=== PATIENT | male | born 1935 | race Caucasian/White ===

== ENCOUNTER → 2017-10-12 08:55 | Outpatient (CLI) | payer MEDICARE, SELFPAY ==
--- NOTE | 2017-10-12 08:55 | DT_ITS ---
This patient was seen during an EMR downtime October 08, 2017 - October 15, 2017. This patient may have a combination of paper and electronic documentation or all paper documentation. All documentation is viewable within the e-chart portion of [facility] for each patient visit.
[2017-10-16 15:34] LABS: Prothrombin Time (Protime)PT. 64.3 SECONDS (11.7-14.9)
[2017-10-16 15:35] LABS: International Normalized Ratio 7.5
[2017-10-16 15:38] LABS: Partial Thromboplast Time > 250.0 Seconds (24.1-36.2)
== END ==
PROVIDERS: Visit Provider Internal Medicine
DX: I48.91 Unspecified atrial fibrillation (principal)
CPT/HCPCS: 36415; 85610; 85730

== ENCOUNTER → 2017-10-13 19:49 | Outpatient (CLI) | payer MEDICARE, SELFPAY ==
--- NOTE | 2017-10-13 19:49 | DT_ITS ---
This patient was seen during an EMR downtime October 08, 2017 - October 15, 2017. This patient may have a combination of paper and electronic documentation or all paper documentation. All documentation is viewable within the e-chart portion of [employer] for each patient visit.
[2017-10-16 01:45] LABS: International Normalized Ratio 7.9; Prothrombin Time (Protime)PT. 66.9 SECONDS (11.7-14.9)
== END ==
PROVIDERS: Family Provider Internal Medicine; PCP Internal Medicine; Visit Provider Internal Medicine
DX: I48.91 Unspecified atrial fibrillation (principal)
CPT/HCPCS: 85610

== ENCOUNTER → 2017-11-26 09:19 | Outpatient (CLI) | payer MEDICARE, SELFPAY ==
[2017-11-26 09:33] LABS: International Normalized Ratio 1.5; Prothrombin Time (Protime)PT. 18.2 SECONDS (11.7-14.9)
== END ==
PROVIDERS: Family Provider Internal Medicine; PCP Internal Medicine; Visit Provider Internal Medicine
DX: I48.91 Unspecified atrial fibrillation (principal)
CPT/HCPCS: 85610

== ENCOUNTER → 2018-03-13 07:29 | Outpatient (CLI) | payer MEDICARE, SELFPAY ==
--- NOTE | 2018-03-13 07:32 | US_ITS ---
STUDY: THYROID ULTRASOUND REASON FOR EXAM: Male, 82 years old. Nodules. Biopsy 2012 2016. TECHNIQUE: Ultrasound evaluation of the thyroid was performed with real-time and static navas-scale imaging. COMPARISON: December 07, 2016. FINDINGS: RIGHT LOBE: The right lobe of the thyroid gland measures 4.7 x 1.8 x 1.5 cm. There is a homogeneous echotexture. 3 nodules, upper pole solid 1.2 x 1.0 x 0.6 cm and 0.4 x 0.4 x 0.3 cm and lower pole cyst 0.4 x 0.4 x 0.3 cm. LEFT LOBE: The left lobe of the thyroid gland measures 4.5 x 1.9 x 1.2 cm. There is a homogeneous echotexture. Mid and lower pole solid nodules measuring 0.4 x 0.4 x 0.3 cm, 0.4 x 0.4 x 0.3 cm, and 0.8 x 0.6 x 0.5 cm. ISTHMUS: The isthmus measures 4 mm . The regional lymph nodes are normal. US/Thyroid IMPRESSION: Thyromegaly with nodules bilaterally not significantly changed. Electronically Signed: Guru Corona MD at 6:21 EST , Service support ,
== END ==
PROVIDERS: Family Provider Internal Medicine; PCP Internal Medicine; Referring Provider Surgery; Visit Provider Surgery
DX: E04.2 Nontoxic multinodular goiter (principal)
CPT/HCPCS: 76536

== ENCOUNTER → 2018-08-21 | Outpatient (CLI) | payer MEDICARE, SELFPAY ==
[2018-08-21 10:57] LABS: International Normalized Ratio 2.2; Prothrombin Time (Protime)PT. 24.8 SECONDS (11.7-14.9)
== END | disposition home or self-care (01) ==
PROVIDERS: Family Provider Internal Medicine; PCP Internal Medicine; Referring Provider Internal Medicine; Visit Provider Internal Medicine
DX: I48.91 Unspecified atrial fibrillation (principal)
CPT/HCPCS: 85610

== ENCOUNTER → 2018-09-04 | Outpatient (CLI) | payer MEDICARE, SELFPAY ==
[2018-09-04 12:38] LABS: International Normalized Ratio 2.1; Prothrombin Time (Protime)PT. 23.4 SECONDS (11.7-14.9)
== END | disposition home or self-care (01) ==
LOC: LABSPEC 12:01
PROVIDERS: Family Provider Internal Medicine; PCP Internal Medicine; Referring Provider Internal Medicine; Visit Provider Internal Medicine
DX: I48.91 Unspecified atrial fibrillation (principal)
CPT/HCPCS: 85610

== ENCOUNTER → 2019-03-13 | Outpatient (CLI) | payer MEDICARE, SELFPAY ==
--- NOTE | 2019-03-13 09:08 | US_ITS ---
STUDY: THYROID ULTRASOUND REASON FOR EXAM: Male, 83 years old. Nodule, goiter TECHNIQUE: Ultrasound evaluation of the thyroid was performed with real-time and static navas-scale imaging. COMPARISON: Prior study of 03/13/2018 FINDINGS: RIGHT LOBE: The right lobe of the thyroid gland measures 4.0 x 1.7 x 1.6 cm. There is a heterogeneous echotexture. There is a complex cyst of the superior pole measuring 4 x 4 by 3 mm. There is a complex cyst of the inferior pole measuring 12 x 12 x 7 mm. There is a cyst with calcification of the inferior pole measuring 4 x 4 by 4 mm. Vascularity is within normal limits. LEFT LOBE: The left lobe of the thyroid gland measures 4.2 x 1.4 x 1.2 cm. There is a heterogeneous echotexture. There is a mid pole complex cyst measuring 4 x 4 by 3 mm. There is a hypoechoic lower pole nodule measuring 9 x 8 x 7 mm. There is an additional complex midpole cyst measuring 4 x 4 by 3 mm. Vascularity appears within normal limits. ISTHMUS: The isthmus measures 4 mm . The regional lymph nodes are normal. US/Thyroid IMPRESSION: Bilateral complex cysts as detailed above. A solid upper pole nodule of the right thyroid lobe reported on the prior study is not seen at this time. Solid nodule of the lower pole of the left thyroid lobe presently measuring 9 x 8 x 7 mm, slightly increased in size from 8 x 6 x 5 mm on the prior study. Previously noted mid and lower pole solid nodules appear to have undergone cystic degeneration in the interval. Electronically Signed: Darrel Warren MD at 17:02 EST , Service support ,
== END | disposition home or self-care (01) ==
PROVIDERS: Family Provider Internal Medicine; PCP Internal Medicine; Referring Provider Surgery; Visit Provider Surgery
DX: E04.2 Nontoxic multinodular goiter (principal)
CPT/HCPCS: 76536

== ENCOUNTER → 2019-03-24 | Outpatient (CLI) | payer MEDICARE, SELFPAY ==
[2019-03-19 09:59] VITALS: BMI 25.4
--- NOTE | 2019-03-24 07:11 | CT_ITS ---
STUDY: CT ABDOMEN AND PELVIS WITH CONTRAST REASON FOR EXAM: Male, 83 years old. Abdominal discomfort. History of lactose intolerance. RADIATION DOSAGE (If Supplied By Facility): CTDIvol = ( 12.6 ) mGy, DLP = ( 762.26 ) mGycm TECHNIQUE: Transaxial images were obtained from the dome of the diaphragm to the symphysis pubis with oral contrast. IV/Oral Isovue 370 100CC was administered. Sagittal and coronal images were reconstructed. Individualized dose optimization techniques were used for this CT. COMPARISON: None. FINDINGS: Minimal increased markings at the lung bases suggest a mild scarring. A dual-chamber pacemaker is seen. 1 cm cyst is seen in the lateral aspect of the right lobe of the liver superiorly. Normal gallbladder and extrahepatic biliary system. Normal spleen. Normal pancreas. Normal bilateral adrenal glands. Normal right kidney. Normal left kidney. Normal visualized stomach. Normal small intestine. The large amount of fecal material is seen in the colon more prominent in the right hemicolon The appendix is visualized and appears normal. There is diffuse atherosclerotic calcification of the abdominal aorta, without a demonstrated aneurysm. Normal inferior vena cava. Normal retroperitoneum. Questionable filling defect in the anterior aspect of the bladder. Correlation with ultrasound is recommended. There is enlargement of the prostate gland. It measures 4.7 sinus by 4.5 cm. Central calcification is seen. Normal abdominal wall. There are degenerative changes of the visualized lumbar spine. Status post right hip replacement. CT/Abdomen/Pelvis WITH Contrast IMPRESSION: Small hepatic cyst. Prostatic enlargement with indentation of the bladder base. A small filling defect in the urinary bladder. Correlation with ultrasound is recommended. Large amount of fecal material is seen in the colon worse on the right side. Electronically Signed: Nima Khoury, at 9:27 EST , Service support ,
[2019-03-24 07:26] LABS: CREATININE FINGERSTICK 1.2 mg/dL (0.70-1.30)
== END | disposition home or self-care (01) ==
LOC: CT 07:10
PROVIDERS: Family Provider Internal Medicine; PCP Internal Medicine; Referring Provider Surgery; Visit Provider Surgery
DX: R10.9 Unspecified abdominal pain (principal)
CPT/HCPCS: 74177; Q9967

== ENCOUNTER → 2020-01-01 | Outpatient (CLI) | payer MEDICARE, SELFPAY ==
[2019-03-19 09:59] VITALS: BMI 25.4
[2020-01-01 10:52] LABS: Prothrombin Time (Protime)PT. 22.6 SECONDS (11.7-14.9)
== END | disposition home or self-care (01) ==
LOC: LABSPEC 10:29
PROVIDERS: PCP Internal Medicine; Referring Provider Internal Medicine; Visit Provider Internal Medicine
DX: I48.20 Chronic atrial fibrillation, unspecified (principal)
CPT/HCPCS: 85610

== ENCOUNTER 2020-04-15 19:01 | Emergency (ER) | payer MEDICARE, SELFPAY ==
[2020-04-15 19:02] VITALS: BP 185/96; PULSE 65; RESP 15; TEMP 36.4; O2SAT 99; BMI 24.4
--- NOTE | 2020-04-15 19:24 | CT_ITS ---
STUDY: CT BRAIN WITHOUT CONTRAST REASON FOR EXAM: Male, 85 years old. Confusion. RADIATION DOSAGE (If Supplied By Facility): CTDIvol = ( 44.99 ) mGy, DLP = ( 829.85 ) mGycm TECHNIQUE: Transaxial CT imaging of the brain was performed without administration of intravenous contrast material. Individualized dose optimization techniques were used for this CT. COMPARISON: 12/13/2012. FINDINGS: Normal soft tissue structures. Normal calvarium. Normal size ventricles and extra-axial spaces for the patient''s age. Normal white matter tracts of the cerebral hemispheres. Normal basal ganglia and thalami. Normal brainstem. Mild atrophy of the left cerebellar hemisphere. 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 There is no intracranial hemorrhage. There are no findings of an acute ischemic infarction. Normal visualized paranasal sinuses. CT/Brain/Head without Contrast IMPRESSION: No acute intracranial or calvarial abnormality. There is no major interval change. Electronically Signed: Julio C Chavis DO at 19:57 EST Tel [phone], Service support ,
[2020-04-15 19:32] LABS: Absolute Lymphocyte Count 1.19 X10^3/uL (0.83-4.51); Absolute Neutrophil Count 5.1 X10^3/uL (2.0-7.7); Basophil# 0.03 X10^3/uL; Basophil% 0.4 % (0-1); Eosinophil# 0.14 X10^3/uL; Hematocrit 45.5 % (40-54); Hemoglobin 14.9 g/dL (13.0-16.5); Lymphocyte # 1.19 X10^3/ul (4.0); Lymphocyte % 16.9 % (19-41); Mean Corp Hgb Conc 32.7 g/dL (32-36); Mean Corpuscular Hgb 29.7 pg (27.0-32.0); Mean Corpuscular Volume 90.6 fL (80-94); Mean Platelet Vol. 10.9 fl (6.2-12.0); Monocyte# 0.54 X10^3/uL; Monocyte% 7.7 % (0-10); NRBC Flagged by Analyzer 0 % (0-5); Neutrophil # 5.11 X10^3/uL (2.7-7.7); Neutrophil % 72.6 % (47-70); Platelet Count 177 K/mm3 (150-450); RBC Distribution Width CV 13.3 % (11.6-14.6); RBC Distribution Width SD 44.6 fl (35.1-43.9); Red Blood Count 5.02 M/mm3 (4.6-6.2)
--- NOTE | 2020-04-15 19:32 | RAD_ITS ---
STUDY: X-RAY CHEST REASON FOR EXAM: Male, 85 years old. Confusion. Cough. TECHNIQUE: Single AP portable view of the chest. COMPARISON: Chest, 12/11/2012. FINDINGS: The lungs are clear and expanded. There is no demonstrated pleural abnormality. Normal size heart. Apical cardiac pacemaker. Normal mediastinum and gagandeep. Normal visualized pulmonary arteries. Normal visualized aortic arch and descending thoracic aorta. Normal visualized thoracic spine. Normal visualized ribs, clavicles, and shoulders. There is no demonstrated abnormality of the visualized soft tissue structures of the upper abdomen. RAD/Chest 1 View (Portable) IMPRESSION: No acute cardiopulmonary disease or major interval change. Electronically Signed: Julio C Chavis DO at 19:48 EST Tel [phone], Service support ,
[2020-04-15 19:41] LABS: International Normalized Ratio 1.9
[2020-04-15 19:47] LABS: ALB/GLOB Ratio 1.1 RATIO (0.9-2.4); AST(SGOT) 14 U/L (15-37); Alanine Aminotransfer ALT/SGPT 23 U/L (16-61); Albumin, Serum 3.8 g/dL (3.2-5.0); Alkaline Phosphatase 135 U/L (45-117); Anion Gap 5 (5-15); BUN 23 mg/dL (7-18); BUN/Creat Ratio 17.2 RATIO (10-20); Calcium,Total 8.6 mg/dL (8.5-10.1); Chloride 108 mmol/L (98-107); Creatinine, Serum 1.34 mg/dL (0.70-1.30); EST Glomerular Filtration Rate 54 mL/min (>60); Est Glom Filt Rate - Afr Amer 65 mL/min (>60); Estimated Creatinine Clearance 42.93 ml/min; Globulin 3.4 g/dL (2.2-4.2); Glucose 137 mg/dL (74-106); Potassium 3.6 mmol/L (3.5-5.1); Protein, Total 7.2 g/dL (6.4-8.2); Sodium Level 143 mmol/L (136-145)
[2020-04-15 19:56] LABS: Bacteria 0 SEEN /hpf (None Seen); Mucous, Urine 0 SEEN /hpf (<or=2+); Red Blood Cells-Urine 0 SEEN /hpf (0-5); Squamous Epithelial Cells - UA 0 SEEN /hpf (0-5); White Blood Cells 0 SEEN /hpf (0-5)
[2020-04-15 19:57] LABS: Color, Urine Yellow (Yellow); Glucose, Dipstick Normal (Normal); Ketone-Dipstick Negative (Negative); Leukocyte Esterase-Dipstick Negative /ul (Negative); Nitrite-Dipstick Negative (Negative); Occult Blood-Urine Negative /ul (Negative); Protein-Dipstick Negative (Negative); Urine Bilirubin Dipstick Negative (Negative); Urine Clarity Clear (Clear); Urine Urobilinogen Normal (Normal)
[2020-04-15 21:21] VITALS: PULSE 74; RESP 16
--- NOTE | 2020-04-15 21:33 | ED.VISSUMM ---
- ER Visit Summary Date of Service: 04/15/20 Chief Complaint: Confusion History of Present Illness: The patient is a 85 M patient presents with confusion. Started today. The felt like he was confused at dinnertime. He did not know what a phone studio technician was and that she states that he was confused as to why she was texting him to come eat dinner. He has not had any fevers or any recent illnesses. No falls or trauma. He is on Plavix and Coumadin. I spoke with the at length and she states that this is happened before. 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 Physical Examination: Vital signs reviewed. HEENT exam unremarkable. Heart is regular rate and rhythm without murmurs. Lungs are clear to auscultation. Abdomen is soft and nontender. Extremities reveal no edema. Skin exam normal. Neurologic exam shows he is alert to place and person but he does get confused with the year. He does not know who his primary care physician is and states that he was not sure why he was confused or what the circumstances were around that. He moves all 4 extremities equally. He walks with a normal gait. He has no slurred speech or facial droop. Test Results: Laboratory studies show a creatinine of 1.34 which is baseline. INR 1.9, urinalysis is normal. 1 view chest x-ray interpreted by myself and radiologist shows no acute findings. CAT scan of the head is unremarkable. Emergency Department Course and Treatment: Patient had no change in his symptoms. I spoke with the at length. She would like to take the patient home. I feel that this is appropriate at this patient seems to be able to take care of himself and he looks well-kept. This seems to be consistent with transient global amnesia but he does not have any significant stressor that may have triggered this. I do not see any other evidence of a stroke. The states that she has dealt with this before. I attempted to call the physician on-call for his PCP, Dr. Kay. He has not called back at this time. The states that she will call Dr. Archibald his regular PCP tomorrow morning for a follow-up appointment. She understands that if anything were to change that she is going to bring him back to the emergency department. Treatment Plan: [] Disposition: Discharge Impression: Confusion, concern for TGA This note was generated with [employer] dictation software. It may contain incorrect words, spelling, and punctuation that were not noted in review of the chart prior to signing ED Disposition - Plan for ED Patient: Disposition: Home or Assisted Living Instructions: ED Confusion Referrals: Aric Archibald MD [Primary Care Provider] -
[2020-04-15 21:59] VITALS: BP 168/92; PULSE 73; RESP 16; O2SAT 97
== END 2020-04-15 22:00 | disposition home or self-care (01) ==
PROVIDERS: Emergency Provider Emergency Medicine; PCP Internal Medicine
DX: R41.0 Disorientation, unspecified (principal); I48.91 Unspecified atrial fibrillation; E78.00 Pure hypercholesterolemia, unspecified; Z79.02 Long term (current) use of antithrombotics/antiplatelets; Z79.01 Long term (current) use of anticoagulants; Z79.899 Other long term (current) drug therapy
CPT/HCPCS: 70450; 71045; 80053; 81001; 85025; 85610; 99283; A4216

== ENCOUNTER 2020-05-27 14:04 | Outpatient (RCR) | payer MEDICARE, SELFPAY | END 2020-05-27 23:59 | LOC: IMMUN 14:04 | PROVIDERS: PCP Internal Medicine; Visit Provider Family Medicine | DX: Z23 Encounter for immunization (principal) | CPT/HCPCS: 0011A; 0012A; 91301 ==

== ENCOUNTER 2020-11-12 20:34 | Inpatient (IN) | payer MEDICARE, SELFPAY ==
[2020-11-12 20:35] VITALS: BP 115/72; PULSE 101; RESP 18; TEMP 36.6; O2SAT 97; BMI 24.4
--- NOTE | 2020-11-12 20:38 | EKG12_ITS ---
Test Reason : DYSRHYTHMIA Blood Pressure : / mmHG Vent. Rate : 111 BPM Atrial Rate : 125 BPM P-R Int : 000 ms QRS Dur : 130 ms QT Int : 304 ms P-R-T Axes : 000 -50 092 degrees QTc Int : 413 ms Atrial fibrillation with rapid ventricular response Left axis deviation Non-specific intra-ventricular conduction block Cannot rule out Septal infarct , age undetermined Abnormal ECG Confirmed by THANIA ROSS, BOO ([id number]), assistant film editor ESTHELA ESCOBEDO ([id number]) on 11/15/2020 1:21:07 PM Referred By: GUIDO Confirmed By:BOO MONTEIRO MD
[2020-11-12 21:19] LABS: Absolute Lymphocyte Count 0.29 X10^3/uL (0.83-4.51); Absolute Neutrophil Count 6.6 X10^3/uL (2.0-7.7); Basophil# 0.05 X10^3/uL; Basophil% 0.6 % (0-1); Eosinophil# 0.24 X10^3/uL; Eosinophils% 3.1 % (0-5); Hematocrit 41.8 % (40-54); Hemoglobin 13.6 g/dL (13.0-16.5); Lymphocyte # 0.29 X10^3/ul (0.83-4.51); Lymphocyte % 3.7 % (19-41); Mean Corp Hgb Conc 32.5 g/dL (32-36); Mean Corpuscular Hgb 28.2 pg (27.0-32.0); Mean Corpuscular Volume 86.5 fL (80-94); Mean Platelet Vol. 9.8 fl (6.2-12.0); Monocyte# 0.55 X10^3/uL; NRBC Flagged by Analyzer 0 % (0-5); Neutrophil # 6.63 X10^3/uL (2.7-7.7); POSITIVE DIFFERENTIAL YES; Platelet Count 295 K/mm3 (150-450); Red Blood Count 4.83 M/mm3 (4.6-6.2); White Blood Count 7.8 K/mm3 (4.4-11.0)
[2020-11-12 21:23] LABS: Differential Indicated SCAN CRITERIA MET
[2020-11-12 21:35] LABS: Anion Gap 8 (5-15); BUN 34 mg/dL (7-18); BUN/Creat Ratio 11.1 RATIO (10-20); Calcium,Total 9.2 mg/dL (8.5-10.1); Chloride 104 mmol/L (98-107); Creatinine, Serum 3.05 mg/dL (0.70-1.30); EST Glomerular Filtration Rate 21 mL/min (>60); Est Glom Filt Rate - Afr Amer 25 mL/min (>60); Estimated Creatinine Clearance 18.86 ml/min; Glucose 187 mg/dL (74-106); Potassium 4.3 mmol/L (3.5-5.1); Sodium Level 137 mmol/L (136-145); Troponin-I HS 6.6 pg/mL (3.0-78.5)
[2020-11-12 21:43] LABS: Platelet Estimate ADEQUATE (ADEQ)
[2020-11-12 21:44] LABS: Anisocytosis RARE; Red Cell Morphology N CHROM NORMAL (NORM C&C)
--- NOTE | 2020-11-12 22:38 | CT_ITS ---
STUDY: CT CHEST, ABDOMEN T PELVIS WITHOUT CONTRAST REASON FOR EXAM: Male, 85 years old. Fall, R low rib pain, on warfarin RADIATION DOSAGE (If Supplied By Facility): CTDIvol = ( 17.14 ) mGy, DLP = ( 1627.16 ) mGycm TECHNIQUE: Transaxial imaging was performed without the administration of intravenous contrast material. Individualized dose optimization techniques were used for this CT. COMPARISON: No relevant priors. FINDINGS: CHEST Moderate right effusion with compressive consolidation of the right lung. Otherwise, the lung edwards are clear. Normal heart and pericardium. Normal mediastinum. Normal hilar regions. Normal unenhanced pulmonary arteries. Normal aorta arch and descending thoracic aorta. Normal osseous structures. There is no demonstrated abnormality of the visualized upper abdomen. ABDOMEN The visualized lung bases are unremarkable. The visualized portions of the heart are within normal limits. Normal liver. Normal gallbladder and extrahepatic biliary system. Normal spleen. There is diffuse atrophy of the pancreas. Normal bilateral adrenal glands. Normal right kidney. There appears to be a soft tissue mass in the region of the left lower kidney near the central collecting system around the ureter measuring 5.9 x 5 cm. There is additional diffuse mesenteric omental caking compatible metastatic disease as well as large mass in the central mesentery measuring 10 x 8.3 cm. Normal visualized stomach. Mesenteric mass. No evidence of bowel obstruction. There are multiple colonic diverticula consistent with diverticulosis. There is non-visualization of the appendix. Moderate volume ascites fluid throughout the abdomen and pelvis. Normal abdominal aorta. Normal inferior vena cava. Normal retroperitoneum. Normal abdominal wall. There are diffuse degenerative changes of the visualized lumbar spine. PELVIS Normal urinary bladder. Normal visualized small intestine. There are multiple colonic diverticula of the sigmoid colon consistent with chronic diverticulosis. There is no pelvic fluid. There is no pelvic lymphadenopathy or mass lesion. Normal visualized pelvic arteries. Normal abdominal wall. There are diffuse degenerative changes of the visualized lumbar spine. CT/CT Chest, Abd, Pelvis WO Cont IMPRESSION: 1. Moderate right effusion with compressive consolidation of the right lower lobe. Left lung is clear 2. There is an ill-defined mass in the region of the left upper ureter near the left lower pole kidney which is highly suspicious for malignant process. There is additional diffuse mesenteric lymphadenopathy with omental caking compatible metastatic disease as well as a large mesenteric mass in the central abdomen as above. IV contrast enhanced exam will be needed to further evaluate 3. Moderate volume ascites fluid throughout the abdomen and pelvis. 4. Moderate left hydronephrosis. Electronically Signed: Qamar Orellana DO at 23:09 EDT Tel , Service support ,
[2020-11-12 22:56] VITALS: BP 128/74; PULSE 88; RESP 23; O2SAT 94
[2020-11-12 23:11] LABS: International Normalized Ratio 1.9; Prothrombin Time (Protime)PT. 20.9 SECONDS (11.7-14.9)
--- NOTE | 2020-11-12 23:31 | EDS_ITS ---
HPI History of Present Illness Chief Complaint: Palpitations Informant: patient Narrative Narrative: Patient is an 85-year-old male with a past medical history of atrial fibrillation on Coumadin, hyperlipidemia who presents to the emergency department for palpitations, shortness of breath and generally not feeling well. He states that this initially started about 2 weeks ago after he fell in his garage. He landed on his right side and had some rib pain. He was never evaluated for this. He states he has been improving but states he has had some palpitations since. He is used to having palpitations with his atrial fibrillation but states that this was felt different to him. He is actually starting to improve at time of arrival to the emergency department. He states last time he had his INR checked was high and he has been holding this recently. He denies any significant abdominal pain. No vomiting. He denies any urinary symptoms. He has had diarrhea and some mild weight loss. He is being treated for IBS. Has had multiple colonoscopies which have been negative. [facility] Medical History Atrial fibrillation BPH (benign prostatic hyperplasia) Change in bowel habit HLD (hyperlipidemia) IBS (irritable bowel syndrome) Multinodular goiter Multiple thyroid nodules Pacemaker Pacemaker Home Medications clopidogrel 75 mg tablet 75 mg PO DAILY 03/19/19 [History Last Taken Unknown] finasteride 5 mg tablet 5 mg PO DAILY 03/19/19 [History Last Taken Unknown] flecainide 150 mg tablet 150 mg PO Q12H 03/19/19 [History Last Taken Unknown] metoprolol succinate 25 mg tablet,extended release 24 hr 25 mg PO DAILY 03/19/19 [History Last Taken Unknown] simvastatin 20 mg tablet 20 mg PO QHS 03/19/19 [History Last Taken Unknown] tamsulosin 0.4 mg capsule 0.4 mg PO DAILY 03/19/19 [History Last Taken Unknown] warfarin 3 mg tablet See Rx Instructions PO QMWF 03/19/19 [History Last Taken Unknown] Allergy/AdvReac Type Severity Reaction Status Date / Time sulfamethoxazole Allergy Intermediate joint pain Verified 11/12/20 20:38 [From Bactrim] trimethoprim [From Bactrim] Allergy Intermediate joint pain Verified 11/12/20 20:38 Family History Mother Arthritis Cancer uterine Father Colon cancer Surgical History History of hip replacement Social History Smoking Status: Never smoker alcohol intake: never substance use type: does not use ROS ROS ED Constitutional Constitutional ED: Denies chills or fever(s) Eyes Eyes: Denies change in vision ENT ENT ED: Denies epistaxis or rhinorrhea Cardiovascular Cardiovascular: Reports chest pain and palpitations Respiratory/Chest Respiratory/Chest: Reports cough and dyspnea Gastrointestinal Gastrointestinal: Reports diarrhea; Denies abdominal pain, nausea or vomiting Genitourinary Genitourinary ED: Denies dysuria, hematuria or urinary frequency Musculoskeletal Musculoskeletal: Denies back pain or neck pain Integumentary Denies rash Neurologic Neurologic: Denies dizziness, headache(s) or weakness EXAM Physical Exam Const Vital Signs: 11/12/20 20:35 11/12/20 22:05 11/12/20 22:56 Temperature 97.9 F Temperature Source Temporal Pulse Rate 101 H 88 Respiratory Rate 18 23 H Respiratory Effort Normal Non-Labored Blood Pressure 115/72 128/74 H Blood Pressure Mean 86 92 Pulse Ox 97 94 Oxygen Delivery Method Room Air Room Air 11/13/20 00:04 Temperature Temperature Source Pulse Rate 82 Respiratory Rate 24 H Respiratory Effort Blood Pressure 134/67 H Blood Pressure Mean 89 Pulse Ox 92 Oxygen Delivery Method Room Air Positive well nourished and well developed General Appearance ED: well developed and NAD HEENT Reports normocephalic, head/scalp atraumatic and moist mucous membranes Eyes PERRL and EOMs intact bilaterally Neck supple Resp normal respiratory effort and clear to auscultation bilaterally Auscultation: Negative for rales, rhonchi or wheezes Cardio regular rate and no murmurs Rhythm: abnormal rhythm GI normal to inspection, nondistended, normoactive bowel sounds and non-tender Palpation: soft; Negative for guarding or rebound tenderness present Extremity normal to inspection General Extremety ED: Negative for edema or tenderness General Extremity: Negative for edema Neuro oriented x3, CN's II-XII intact bilaterally and no sensory deficits noted Sensorium / Orientation: alert Motor Exam: strength 5/5 throughout Psych mental status grossly normal Skin no rashes or lesions noted MDM MDM MDM Narrative Medical decision making narrative: Patient presents to the ED for palpitations, chest wall pain, intermittent shortness of breath. He states he does not feel right. Whenever he did arrive to the ED he had atrial fibrillation with RVR. This has returned to normal rate without any treatment. Basic lab work obtained which did show an DEUCE. This is elevated from his previous lab draw. No other significant acute abnormality noted. Given his recent fall and new DEUCE I did do a CT scan of the chest, abdomen and pelvis. CT scan unfortunately showed a mesenteric mass. There appears to be a renal mass with hydronephrosis of the left kidney as well. Likely this is contributing to his DEUCE. He also has a right-sided pleural effusion. He has been satting in the low 90s on room air but no respiratory distress. Patient will require thoracentesis but his INR is mildly elevated on the Coumadin. All the CT imagings were discussed with the family. They state he has had diarrhea chronically and has had a mild weight loss. They thought he had some sort of irritable bowel syndrome. At this time will bring into the hospital for further evaluation and management. He understands and is agreeable with this plan. Lab Data Labs: Laboratory Results - last 24 hr 11/12/20 11/12/20 11/12/20 21:15 21:15 22:50 WBC 7.8 RBC 4.83 Hgb 13.6 Hct 41.8 MCV 86.5 MCH 28.2 MCHC 32.5 RDW Std Deviation 41.0 RDW Coeff of Flash 13.0 Plt Count 295 MPV 9.8 Immature Gran % (Auto) 0.600 Neut % (Auto) 85.0 H Lymph % (Auto) 3.7 L [place] % (Auto) 7.0 Eos % (Auto) 3.1 Baso % (Auto) 0.6 Absolute Neuts (auto) 6.6 Absolute Lymphs (auto) 0.29 L Nucleated RBC % 0 Differential Comment SEE COMMENT Platelet Estimate ADEQUATE RBC Morphology N CHROM Anisocytosis RARE PT 20.9 H INR 1.9 Sodium 137 Potassium 4.3 Chloride 104 Carbon Dioxide 25.0 Anion Gap 8 BUN 34 H Creatinine 3.05 H Estim Creat Clear Calc 18.86 Est GFR (MDRD) Af Amer 25 L Est GFR (MDRD) Non-Af 21 L BUN/Creatinine Ratio 11.1 Glucose 187 H Calcium 9.2 Troponin I High Sens 6.6 Radiography Diagnostic Testing: Radiology Impression Chest/Abdomen/Pelvis CT 11/12/20 22:38 IMPRESSION: 1. Moderate right effusion with compressive consolidation of the right lower lobe. Left lung is clear 2. There is an ill-defined mass in the region of the left upper ureter near the left lower pole kidney which is highly suspicious for malignant process. There is additional diffuse mesenteric lymphadenopathy with omental caking compatible metastatic disease as well as a large mesenteric mass in the central abdomen as above. IV contrast enhanced exam will be needed to further evaluate 3. Moderate volume ascites fluid throughout the abdomen and pelvis. 4. Moderate left hydronephrosis. Electronically Signed: Qamar Orellana DO at 23:09 EDT Tel , Service support , EKG Initial EKG: Attestation: I personally reviewed and interpreted this EKG as follows: (Rate of 111 bpm and an irregularly irregular rhythm. Prolonged QRS with left bundle branch block. Has left axis deviation. No significant ST elevations or depressions.) Discharge Plan Triage Chief Complaint: Palpitations ED Provider: Roderick Radford Dx/Rx/DC Orders Clinical Impression: Pleural effusion, right, Atrial fibrillation, Left renal mass, DEUCE (acute kidney injury), Mesenteric mass, Ascites Prescriptions: No Action tamsulosin [Flomax] 0.4 mg capsule 0.4 mg PO DAILY RF: 0 warfarin 3 mg tablet See Rx Instructions PO QMWF RF: 0 clopidogrel [Plavix] 75 mg tablet 75 mg PO DAILY RF: 0 simvastatin 20 mg tablet 20 mg PO QHS RF: 0 metoprolol succinate [Toprol XL] 25 mg tablet extended release 24 hr 25 mg PO DAILY RF: 0 finasteride [Proscar] 5 mg tablet 5 mg PO DAILY RF: 0 flecainide 150 mg tablet 150 mg PO Q12H RF: 0 Primary Care Provider: Aric Archibald Referrals: rAic Archibald MD [Primary Care Provider] -
[2020-11-13] VITALS (18 sets, daily range): BP systolic 110–134; BP diastolic 56–76; PULSE 80–149; RESP 16–24; TEMP 36.4–37.1; O2SAT 85–96; BMI 25.2
--- NOTE | 2020-11-13 00:13 | PCM.HP.STD ---
HPI - General General Date of Admission: 11/13/20 Date of Service: 11/13/20 Chief Complaint: Malaise HPI Narrative MAXIMUS ZHAO, is a 85 M with a significant history of a BPH; and atrial fibrillation who presents to the emergency department with persistent malaise for about 2weeks. Associated with his symptoms is sluggishness; and shortness of breath. Upon checking his pulse he realized that he was in A. fib. Of note patient has a history of A. fib as above. His symptoms started about 2 weeks ago with a fall. He fell at his garage and developed pain in his chest; and a cough occasionally productive for sputum. He reports a chronic diarrhea for which he was diagnosed with IBS and lactose intolerance. He reported that his weight has stayed steady in the 170s. Associated with his symptoms is shortness of breath. [facility] Medical History Atrial fibrillation BPH (benign prostatic hyperplasia) Change in bowel habit HLD (hyperlipidemia) IBS (irritable bowel syndrome) Multinodular goiter Multiple thyroid nodules Pacemaker Pacemaker Home Medications clopidogrel 75 mg tablet 75 mg PO DAILY 03/19/19 [History Last Taken Unknown] finasteride 5 mg tablet 5 mg PO DAILY 03/19/19 [History Last Taken Unknown] flecainide 150 mg tablet 150 mg PO Q12H 03/19/19 [History Last Taken Unknown] metoprolol succinate 25 mg tablet,extended release 24 hr 25 mg PO DAILY 03/19/19 [History Last Taken Unknown] simvastatin 20 mg tablet 20 mg PO QHS 03/19/19 [History Last Taken Unknown] tamsulosin 0.4 mg capsule 0.4 mg PO DAILY 03/19/19 [History Last Taken Unknown] warfarin 3 mg tablet See Rx Instructions PO QMWF 03/19/19 [History Last Taken Unknown] Allergy/AdvReac Type Severity Reaction Status Date / Time sulfamethoxazole Allergy Intermediate joint pain Verified 11/12/20 20:38 [From Bactrim] trimethoprim [From Bactrim] Allergy Intermediate joint pain Verified 11/12/20 20:38 Family History Mother Arthritis Cancer uterine Father Colon cancer Surgical History History of hip replacement Social History Smoking Status: Never smoker alcohol intake: never substance use type: does not use ROS ROS Narrative 12 point review of system is negative except as stated in HPI. Vital Signs Vital Signs Vital Signs: 11/12/20 20:35 11/12/20 22:05 11/12/20 22:56 Temperature 97.9 F Temperature Source Temporal Pulse Rate 101 H 88 Respiratory Rate 18 23 H Respiratory Effort Normal Non-Labored Blood Pressure 115/72 128/74 H Blood Pressure Mean 86 92 Pulse Ox 97 94 Oxygen Delivery Method Room Air Room Air 11/13/20 00:04 Temperature Temperature Source Pulse Rate 82 Respiratory Rate 24 H Respiratory Effort Blood Pressure 134/67 H Blood Pressure Mean 89 Pulse Ox 92 Oxygen Delivery Method Room Air Weight Weight: 79.379 kg Body Mass Index (BMI) 24.4 Physical Exam Narrative Physical exam: General: Well-nourished, well-developed, no acute distress Head: Normocephalic, atraumatic, no tenderness Eyes: PERRLA, EOMI ENT, no trauma, moist mucous membranes, no rhinorrhea CVS: Irregularly irregular rate and rhythm Respiratory no acute distress, clear to auscultation bilaterally, chest wall nontender, no wheezing Abdomen: Soft, nontender, nondistended, normal bowel sounds, no masses : Deferred Back: Nontender, no CVA tenderness, no midline spinal tenderness, deformities, step-offs Extremities: Nontender full range of motion, no trauma Skin: Normal color, no trauma, abrasions Neuro: Alert, oriented, cranial nerves II through XII grossly intact. Results Lab / Micro Data Result Diagrams: 11/12/20 21:15 11/12/20 21:15 Labs: Laboratory Results - last 24 hr 11/12/20 11/12/20 11/12/20 21:15 21:15 22:50 WBC 7.8 RBC 4.83 Hgb 13.6 Hct 41.8 MCV 86.5 MCH 28.2 MCHC 32.5 RDW Std Deviation 41.0 RDW Coeff of Flash 13.0 Plt Count 295 MPV 9.8 Immature Gran % (Auto) 0.600 Neut % (Auto) 85.0 H Lymph % (Auto) 3.7 L Yates % (Auto) 7.0 Eos % (Auto) 3.1 Baso % (Auto) 0.6 Absolute Neuts (auto) 6.6 Absolute Lymphs (auto) 0.29 L Nucleated RBC % 0 Differential Comment SEE COMMENT Platelet Estimate ADEQUATE RBC Morphology N CHROM Anisocytosis RARE PT 20.9 H INR 1.9 Sodium 137 Potassium 4.3 Chloride 104 Carbon Dioxide 25.0 Anion Gap 8 BUN 34 H Creatinine 3.05 H Estim Creat Clear Calc 18.86 Est GFR (MDRD) Af Amer 25 L Est GFR (MDRD) Non-Af 21 L BUN/Creatinine Ratio 11.1 Glucose 187 H Calcium 9.2 Troponin I High Sens 6.6 Radiology Impression Chest/Abdomen/Pelvis CT 11/12/20 22:38 IMPRESSION: 1. Moderate right effusion with compressive consolidation of the right lower lobe. Left lung is clear 2. There is an ill-defined mass in the region of the left upper ureter near the left lower pole kidney which is highly suspicious for malignant process. There is additional diffuse mesenteric lymphadenopathy with omental caking compatible metastatic disease as well as a large mesenteric mass in the central abdomen as above. IV contrast enhanced exam will be needed to further evaluate 3. Moderate volume ascites fluid throughout the abdomen and pelvis. 4. Moderate left hydronephrosis. Electronically Signed: Qamar Orellana DO at 23:09 EDT Tel , Service support , Assessment & Plan Assessment/Plan (1) DEUCE (acute kidney injury): (2) Left renal mass: (3) Pleural effusion, right: PLAN: DEUCE/Left Renal mass Chest/Abdomen pelvis CT without contrast showed moderate right effusion with compressive consolidation of the right lower lobe; moderate volume ascites fluid throughout the abdomen and pelvis; and moderate left hydronephrosis. Actual abdomen and pelvis CT was independently interpreted and I agree with the radiologist interpretation. Gentle IV hydration. Trend BMP. Avoid nephrotoxins. Urology and oncology consult. In the meantime keep patient n.p.o. Hold Plavix and warfarin. Pleural effusion Patient with appropriate oxygen saturation but reports difficulty in breathing. Consider thoracentesis when available. Paroxysmal A. fib EKG showed A. fib with rate of 111. On monitor patient's rate was predominantly less than 100. Hold Coumadin for now. Continue Flecainide and metoprolol continued. Placed PCU on telemetry. History of TIA Reports that he had transient vision loss of the right eye and was started on Plavix about 5 years ago. Will hold Plavix as patient may be a candidate for surgical intervention. Obstructive sleep apnea: CPAP continued DVT prophylaxis: SCD ordered Charges/Coding Visit Charges Inpatient E&M: 99996 Init Hosp L3
[2020-11-13] MEDS: 0.9% Normal Saline 1,000 ML 75 ML IV ×2 (01:34→15:07)
[2020-11-13 08:05] LABS: Absolute Lymphocyte Count 0.42 X10^3/uL (0.83-4.51); Absolute Neutrophil Count 6.8 X10^3/uL (2.0-7.7); Basophil# 0.07 X10^3/uL; Basophil% 0.8 % (0-1); Eosinophil# 0.31 X10^3/uL; Eosinophils% 3.8 % (0-5); Hematocrit 38.4 % (40-54); Hemoglobin 12.4 g/dL (13.0-16.5); Lymphocyte # 0.42 X10^3/ul (0.83-4.51); Lymphocyte % 5.1 % (19-41); Mean Corp Hgb Conc 32.3 g/dL (32-36); Mean Corpuscular Hgb 28.1 pg (27.0-32.0); Mean Corpuscular Volume 86.9 fL (80-94); Mean Platelet Vol. 10.1 fl (6.2-12.0); Monocyte# 0.59 X10^3/uL; Monocyte% 7.1 % (0-10); NRBC Flagged by Analyzer 0 % (0-5); Neutrophil % 82.4 % (47-70); POSITIVE DIFFERENTIAL YES; Platelet Count 273 K/mm3 (150-450); RBC Distribution Width CV 13.2 % (11.6-14.6); RBC Distribution Width SD 41.3 fl (35.1-43.9); Red Blood Count 4.42 M/mm3 (4.6-6.2); White Blood Count 8.3 K/mm3 (4.4-11.0)
[2020-11-13 08:11] LABS: Differential Indicated SCAN CRITERIA MET
[2020-11-13 08:31] LABS: Anion Gap 6 (5-15); BUN 32 mg/dL (7-18); BUN/Creat Ratio 11.9 RATIO (10-20); Calcium,Total 8.5 mg/dL (8.5-10.1); Chloride 108 mmol/L (98-107); Creatinine, Serum 2.69 mg/dL (0.70-1.30); EST Glomerular Filtration Rate 24 mL/min (>60); Est Glom Filt Rate - Afr Amer 29 mL/min (>60); Estimated Creatinine Clearance 21.38 ml/min; Glucose 97 mg/dL (74-106); Potassium 4.1 mmol/L (3.5-5.1); Sodium Level 140 mmol/L (136-145)
[2020-11-13 09:16] LABS: International Normalized Ratio 1.8; Prothrombin Time (Protime)PT. 19.7 SECONDS (11.7-14.9)
[2020-11-13] MEDS: Flecainide 150 MG Tablet PO ×2 (09:18→21:12)
[2020-11-13] MEDS: Tamsulosin HCl 0.4 MG Capsule PO (09:18)
[2020-11-13] MEDS: Metoprolol(XL)Succ 25 MG Tablet PO (09:18)
[2020-11-13] MEDS: Finasteride 5 MG Tablet PO (09:22)
[2020-11-13 09:33] LABS: Differential Comment SCANNED
--- NOTE | 2020-11-13 10:00 | CASEMGMT ---
RN MAGGY Face to Face with patient for initial transition planning/care coordination assessment. RN CM introduced self and role at [facility]. Patient lying in bed, alert and oriented, at bedside. Patient willing to participate in assessment and is able to answer all questions appropriately. Care providers, pharmacy, and demographics verified. Patient wishes to discharge home, denies need for home health at this time. Patient states he has no further needs or concerns at this time. CM to follow for discharge planning needs that may arise. PCP: Dragan Specialists: Nasir, neuro; Rafiq, boat tender; Shelly [facility] Preferred Pharmacy: [facility] Insurance: [employer] Prescription Benefit: yes Living Will/HPOA: yes, Cassie Najera HPOA LNOK: Living Arrangements: Patient lives with in a 2 story home with bed and bath on first floor. 3 steps and railing to enter the home. Patient states he is independent at home. Transportation: self, DME/HHC: Patient states he has shower chair, cane, walker, and cpap at home. Patient states he has had [facility] in the past. Disposition Plan: Patient to discharge home with family support and follow-up plans in place. Brittany CASTILLO, RN, CM
--- NOTE | 2020-11-13 10:41 | EKG12_ITS ---
Test Reason : ARRYTHMIA Blood Pressure : / mmHG Vent. Rate : 089 BPM Atrial Rate : 131 BPM P-R Int : 000 ms QRS Dur : 156 ms QT Int : 424 ms P-R-T Axes : 000 -43 081 degrees QTc Int : 515 ms Atrial fibrillation Left axis deviation Left bundle branch block Abnormal ECG When compared with ECG of 12-NOV-2020 20:49, MANUAL COMPARISON REQUIRED, DATA IS UNCONFIRMED Confirmed by THANIA ROSS, BOO ([id number]), purchase request editor ESTHELA ESCOBEDO ([id number]) on 11/16/2020 8:52:29 AM Referred By: IDRK Confirmed By:BOO MONTEIRO MD
--- NOTE | 2020-11-13 13:20 | CON.PCM.ON_ITS ---
Assessment & Plan Assessment/Plan (1) Left renal mass: Status: Chronic Code(s): N28.89 - Other specified disorders of kidney and ureter Plan: Pt has been seeing a Urologist at [facility] for L perinephric mass which has been stable for [address] scans from [facility]. (2) Pleural effusion, right: Status: Acute Code(s): J90 - Pleural effusion, not elsewhere classified Plan: Suggest obtaining Thoracentesis for diagnosis. (3) Mesenteric mass: Status: Acute Code(s): K63.89 - Other specified diseases of intestine Plan: There is associated Ascites. Suggest obtaining a CT guided biopsy/Paracentesis for diagnosis. He can follow up as out patient for PET/CT after discharge. Will not follow further on this admission. HPI Consult Data Date of Service:: 11/13/20 PCP / Referring Provider: Dr. Aric Archibald MD Attending: Dr. Josh Mejia MD Chief Complaint Chief Complaint: Asked to see Pt for Right pleural effusion and abdominal masses. History of Present Illness History of Present Illness: 85-year-old man with history of A. fib status post permanent pacemaker, presented to the ER with general weakness. He was found to have acute renal failure and admitted. CT scan on 11/12/2020 showed large right pleural effusion, left upper ureter mass with mild hydronephrosis of left kidney, mesenteric mass and ascites. Consult was placed based on this finding. Advanced Directives Power of Public Works Commissioner: Yes Living Will: Yes [facility] Medical History Atrial fibrillation BPH (benign prostatic hyperplasia) Change in bowel habit HLD (hyperlipidemia) IBS (irritable bowel syndrome) Multinodular goiter Multiple thyroid nodules Pacemaker Pacemaker Home Medications clopidogrel 75 mg tablet 75 mg PO DAILY 03/19/19 [History Last Taken Unknown] finasteride 5 mg tablet 5 mg PO DAILY 03/19/19 [History Last Taken Unknown] flecainide 150 mg tablet 150 mg PO Q12H 03/19/19 [History Last Taken Unknown] metoprolol succinate 25 mg tablet,extended release 24 hr 25 mg PO DAILY 03/19/19 [History Last Taken Unknown] simvastatin 20 mg tablet 20 mg PO QHS 03/19/19 [History Last Taken Unknown] tamsulosin 0.4 mg capsule 0.4 mg PO DAILY 03/19/19 [History Last Taken Unknown] warfarin 3 mg tablet See Rx Instructions PO QMWF 03/19/19 [History Last Taken Unknown] Allergy/AdvReac Type Severity Reaction Status Date / Time sulfamethoxazole Allergy Intermediate joint pain Verified 11/12/20 20:38 [From Bactrim] trimethoprim [From Bactrim] Allergy Intermediate joint pain Verified 11/12/20 20:38 Family History Mother Arthritis Cancer uterine Father Colon cancer Surgical History History of hip replacement Social History Smoking Status: Never smoker alcohol intake: never substance use type: does not use ROS Constitutional Constitutional: Denies chills, fatigue, fever(s) or night sweats ENT HEENT: Denies dysphagia or hoarseness Cardiovascular Cardiovascular: Denies chest pain, clubbing, diaphoresis or dyspnea Respiratory/Chest Respiratory/Chest: Denies chest tightness, cough, dyspnea or dyspnea on exertion Gastrointestinal Gastrointestinal: Denies abdominal pain, anorexia or bloating Genitourinary Genitourinary: Reports dysuria and other Details: has been seeing a Urologist at [facility] for L kidney mass over the last 3 yrs, reportedly has not changed. ; Denies change in urinary stream or flank pain Musculoskeletal Musculoskeletal: Denies abnormal gait, back pain, extremity pain or joint pain Integumentary Integumentary: Denies alopecia, changing lesions, dry skin or erythema Neurologic Neurologic: Denies dizziness, focal weakness or headache(s) Psychiatric Psychiatric: Denies anxiety or depression Endocrine Endocrinology: Denies cold intolerance or flushing Hematologic/Lymphatic Hematologic/Lymphatic: Denies easy bleeding Physical Exam Const alert and oriented x3 HEENT normocephalic Eyes Negative for PERRL, conjunctivae normal or no scleral icterus Neck no lymphadenopathy Lymph Lymphatic: no lymphadenopathy noted Chest inspection of chest normal Resp normal respiratory effort Auscultation: diminished lung sounds right lower Cardio S1 normal heart sound and S2 normal heart sound GI normal to inspection, nondistended, normoactive bowel sounds Extremity normal to inspection and no clubbing, cyanosis or edema Skin no rashes or lesions noted Neuro CN's II-XII intact bilaterally, moves all extremities and no focal motor deficits Psych mental status grossly normal Vital Signs Temperature 98.0 F 11/13/20 09:09 Temperature Source Temporal 11/13/20 09:09 Pulse Rate 80 11/13/20 09:18 Pulse Strength Normal (2+) 11/13/20 01:25 Respiratory Rate 16 11/13/20 09:09 Respiratory Effort Non-Labored 11/13/20 01:38 Respiratory Depth Normal 11/13/20 01:38 Respiratory Pattern Normal 11/13/20 01:38 Blood Pressure 123/57 H 11/13/20 09:18 Blood Pressure Mean 79 11/13/20 09:09 Blood Pressure Source Monitor 11/13/20 09:09 Blood Pressure Position Semi-Fowlers 11/13/20 04:13 Blood Pressure Location Left Arm 11/13/20 04:13 Pulse Ox 93 11/13/20 09:09 Oxygen Delivery Method Room Air 11/13/20 09:09 Oxygen Flow Rate (L/min) 2 11/13/20 04:13 Laboratory Tests 11/13/20 11/13/20 11/13/20 Range/Units 07:45 07:45 07:45 WBC 8.3 (4.4-11.0) K/mm3 RBC 4.42 L (4.6-6.2) M/mm3 Hgb 12.4 L (13.0-16.5) g/dL Hct 38.4 L (40-54) % MCV 86.9 (80-94) fL MCH 28.1 (27.0-32.0) pg MCHC 32.3 (32-36) g/dL RDW Std Deviation 41.3 (35.1-43.9) fl RDW Coeff of Flash 13.2 (11.6-14.6) % Plt Count 273 (150-450) K/mm3 MPV 10.1 (6.2-12.0) fl Immature Gran % (Auto) 0.800 (0.0-0.9) % Neut % (Auto) 82.4 H (47-70) % Lymph % (Auto) 5.1 L (19-41) % [place] % (Auto) 7.1 (0-10) % Eos % (Auto) 3.8 (0-5) % Baso % (Auto) 0.8 (0-1) % Absolute Neuts (auto) 6.8 (2.0-7.7) X10^3/uL Absolute Lymphs (auto) 0.42 L (0.83-4.51) X10^3/uL Nucleated RBC % 0 (0-5) % Differential Comment SCANNED Platelet Estimate (ADEQ) RBC Morphology (NORM C&C) NORMAL Anisocytosis PT 19.7 H (11.7-14.9) SECONDS INR 1.8 Sodium 140 (136-145) mmol/L Potassium 4.1 (3.5-5.1) mmol/L Chloride 108 H (98-107) mmol/L Carbon Dioxide 26.0 (21.0-32.0) mmol/L Anion Gap 6 (5-15) BUN 32 H (7-18) mg/dL Creatinine 2.69 H (0.70-1.30) mg/dL Estim Creat Clear Calc 21.38 ml/min Est GFR (MDRD) Af Amer 29 L (>60) mL/min Est GFR (MDRD) Non-Af 24 L (>60) mL/min BUN/Creatinine Ratio 11.9 (10-20) RATIO Glucose 97 (74-106) mg/dL Calcium 8.5 (8.5-10.1) mg/dL Troponin I High Sens (3.0-78.5) pg/mL 11/12/20 11/12/20 11/12/20 Range/Units 22:50 21:15 21:15 WBC 7.8 (4.4-11.0) K/mm3 RBC 4.83 (4.6-6.2) M/mm3 Hgb 13.6 (13.0-16.5) g/dL Hct 41.8 (40-54) % MCV 86.5 (80-94) fL MCH 28.2 (27.0-32.0) pg MCHC 32.5 (32-36) g/dL RDW Std Deviation 41.0 (35.1-43.9) fl RDW Coeff of Flash 13.0 (11.6-14.6) % Plt Count 295 (150-450) K/mm3 MPV 9.8 (6.2-12.0) fl Immature Gran % (Auto) 0.600 (0.0-0.9) % Neut % (Auto) 85.0 H (47-70) % Lymph % (Auto) 3.7 L (19-41) % [place] % (Auto) 7.0 (0-10) % Eos % (Auto) 3.1 (0-5) % Baso % (Auto) 0.6 (0-1) % Absolute Neuts (auto) 6.6 (2.0-7.7) X10^3/uL Absolute Lymphs (auto) 0.29 L (0.83-4.51) X10^3/uL Nucleated RBC % 0 (0-5) % Differential Comment SEE COMMENT Platelet Estimate ADEQUATE (ADEQ) RBC Morphology N CHROM (NORM C&C) NORMAL Anisocytosis RARE PT 20.9 H (11.7-14.9) SECONDS INR 1.9 Sodium 137 (136-145) mmol/L Potassium 4.3 (3.5-5.1) mmol/L Chloride 104 (98-107) mmol/L Carbon Dioxide 25.0 (21.0-32.0) mmol/L Anion Gap 8 (5-15) BUN 34 H (7-18) mg/dL Creatinine 3.05 H (0.70-1.30) mg/dL Estim Creat Clear Calc 18.86 ml/min Est GFR (MDRD) Af Amer 25 L (>60) mL/min Est GFR (MDRD) Non-Af 21 L (>60) mL/min BUN/Creatinine Ratio 11.1 (10-20) RATIO Glucose 187 H (74-106) mg/dL Calcium 9.2 (8.5-10.1) mg/dL Troponin I High Sens 6.6 (3.0-78.5) pg/mL Diagnostic Data Chest/Abdomen/Pelvis CT 11/12/20 22:38 IMPRESSION: 1. Moderate right effusion with compressive consolidation of the right lower lobe. Left lung is clear 2. There is an ill-defined mass in the region of the left upper ureter near the left lower pole kidney which is highly suspicious for malignant process. There is additional diffuse mesenteric lymphadenopathy with omental caking compatible metastatic disease as well as a large mesenteric mass in the central abdomen as above. IV contrast enhanced exam will be needed to further evaluate 3. Moderate volume ascites fluid throughout the abdomen and pelvis. 4. Moderate left hydronephrosis. Electronically Signed: Qamar Orellana DO at 23:09 EDT Tel , Service support , Charges/Coding Visit Charges Office Visits / Consults: [id number] IP Consult L5
--- NOTE | 2020-11-13 20:17 | CPS ---
Patient would like to wear O2 NC tonight like last night instead of hospital CPAP. Will let RN know to call [employer] LEAD TEACHER if he decides to wear hospital CPAP tonight. IN[employer] LE[employer] TEACHER will monitor overnight.
[2020-11-13] MEDS: Atorvastatin Calcium 10 MG Tablet PO (21:12)
[2020-11-14] VITALS (13 sets, daily range): BP systolic 104–150; BP diastolic 57–83; PULSE 77–117; RESP 16–17; TEMP 36.4–37.2; O2SAT 90–95
[2020-11-14] MEDS: 0.9% Normal Saline 1,000 ML 75 ML IV ×2 (00:39→12:31)
[2020-11-14 06:37] LABS: Absolute Lymphocyte Count 0.27 X10^3/uL (0.83-4.51); Absolute Neutrophil Count 7.5 X10^3/uL (2.0-7.7); Basophil# 0.04 X10^3/uL; Basophil% 0.5 % (0-1); Eosinophil# 0.33 X10^3/uL; Eosinophils% 3.8 % (0-5); Hematocrit 37.3 % (40-54); Hemoglobin 12.1 g/dL (13.0-16.5); Lymphocyte # 0.27 X10^3/ul (0.83-4.51); Lymphocyte % 3.1 % (19-41); Mean Corp Hgb Conc 32.4 g/dL (32-36); Mean Corpuscular Hgb 28.1 pg (27.0-32.0); Mean Corpuscular Volume 86.7 fL (80-94); Mean Platelet Vol. 9.8 fl (6.2-12.0); Monocyte# 0.56 X10^3/uL; Monocyte% 6.4 % (0-10); NRBC Flagged by Analyzer 0 % (0-5); Neutrophil # 7.45 X10^3/uL (2.7-7.7); Neutrophil % 85.7 % (47-70); POSITIVE DIFFERENTIAL YES; Platelet Count 258 K/mm3 (150-450); RBC Distribution Width CV 13.2 % (11.6-14.6); RBC Distribution Width SD 41.4 fl (35.1-43.9); White Blood Count 8.7 K/mm3 (4.4-11.0)
[2020-11-14 06:40] LABS: Differential Indicated SCAN CRITERIA MET
[2020-11-14 06:48] LABS: International Normalized Ratio 1.6; Prothrombin Time (Protime)PT. 18.5 SECONDS (11.7-14.9)
[2020-11-14 06:59] LABS: Anion Gap 8 (5-15); BUN 35 mg/dL (7-18); BUN/Creat Ratio 12.6 RATIO (10-20); Calcium,Total 8.3 mg/dL (8.5-10.1); Chloride 108 mmol/L (98-107); Creatinine, Serum 2.77 mg/dL (0.70-1.30); EST Glomerular Filtration Rate 23 mL/min (>60); Est Glom Filt Rate - Afr Amer 28 mL/min (>60); Estimated Creatinine Clearance 20.77 ml/min; Glucose 99 mg/dL (74-106); Potassium 4.3 mmol/L (3.5-5.1); Sodium Level 140 mmol/L (136-145)
[2020-11-14 07:05] LABS: Differential Comment SCANNED
[2020-11-14] MEDS: Metoprolol(XL)Succ 25 MG Tablet PO (09:48)
[2020-11-14] MEDS: Tamsulosin HCl 0.4 MG Capsule PO (09:48)
[2020-11-14] MEDS: Flecainide 150 MG Tablet PO ×2 (09:49→21:12)
[2020-11-14] MEDS: Finasteride 5 MG Tablet PO (09:49)
--- NOTE | 2020-11-14 12:02 | PCM.PN.HOSP ---
Subjective Subjective Feels about the same as he did yesterday, with still some shortness of breath Objective Data Objective Data Vital Signs: Vital Signs Temp Pulse Resp BP Pulse Ox 97.9 F 87 16 121/71 H 94 11/14/20 09:22 11/14/20 09:48 11/14/20 09:22 11/14/20 09:48 11/14/20 09:22 Oxygen Flow Rate (L/min) 2 Oxygen Delivery Method Nasal Cannula Weight: 181 lb 3.52 oz Body Mass Index (BMI) 25.2 Intake & Output: Intake and Output for Last 24 Hours 11/13/20 11/14/20 11/15/20 03:59 03:59 03:59 Intake Total 500 / 500 2525 / 2525 400 / 400 Balance 500 / 500 2525 / 2525 400 / 400 Lab / Micro Data Result Diagrams: 11/14/20 06:23 11/14/20 06:23 Labs: Laboratory Results - last 24 hr 11/14/20 11/14/20 11/14/20 06:23 06:23 06:23 WBC 8.7 RBC 4.30 L Hgb 12.1 L Hct 37.3 L MCV 86.7 MCH 28.1 MCHC 32.4 RDW Std Deviation 41.4 RDW Coeff of Flash 13.2 Plt Count 258 MPV 9.8 Immature Gran % (Auto) 0.500 Neut % (Auto) 85.7 H Lymph % (Auto) 3.1 L [place] % (Auto) 6.4 Eos % (Auto) 3.8 Baso % (Auto) 0.5 Absolute Neuts (auto) 7.5 Absolute Lymphs (auto) 0.27 L Nucleated RBC % 0 Differential Comment SCANNED PT 18.5 H INR 1.6 Sodium 140 Potassium 4.3 Chloride 108 H Carbon Dioxide 24.0 Anion Gap 8 BUN 35 H Creatinine 2.77 H Estim Creat Clear Calc 20.77 Est GFR (MDRD) Af Amer 28 L Est GFR (MDRD) Non-Af 23 L BUN/Creatinine Ratio 12.6 Glucose 99 Calcium 8.3 L Physical Exam Const alert, oriented x3 and no apparent distress General Appearance: cooperative HEENT normocephalic and moist oral mucous membranes Eyes PERRL, EOMs intact bilaterally and conjunctivae normal Neck supple and no JVD Resp normal respiratory effort, no retractions, no use of accessory muscles and clear to auscultation bilaterally Auscultation: diminished lung sounds right lower; Negative for crackles, rales, rhonchi or wheezes Cardio regular rate, regular rhythm, S1 normal heart sound, S2 normal heart sound and no murmurs GI soft to palpation, non-tender and non-distended; Negative for hepatosplenomegaly Extremity no clubbing, cyanosis or edema Skin no rashes or lesions noted Neuro no focal motor deficits and no sensory deficits noted Psych affect normal Appearance: appropriate Assessment & Plan Assessment/Plan (1) DEUCE (acute kidney injury): (2) Left renal mass: (3) Pleural effusion, right: (4) Hypoxia: PLAN: 1. Acute hypoxic respiratory insufficiency secondary to a right pleural effusion likely malignant in nature -Plan for thoracentesis tomorrow with cytology and other lab work 2. DEUCE with left hydronephrosis due to mass -Continue with IV fluids, will consult urology in the morning, currently no urology coverage -Based on the compression from the mass around his left kidney, will likely need a stent -Oncology consulted and felt possible lymphoma will follow up as an outpatient -We will discuss with radiology about obtaining biopsy 3. Paroxysmal A. fib/HTN/HLD/history of TIA -Blood pressure is stable, will hold his Coumadin and his Plavix secondary to the planned procedure -Continue with flecainide, metoprolol, simvastatin 4. BPH -Stable -Continue with Flomax DVT: SCDs Charges/Coding Visit Charges Inpatient E&M: 99184 Subs Hosp L2
[2020-11-14] MEDS: Atorvastatin Calcium 10 MG Tablet PO (21:55)
[2020-11-15] VITALS (14 sets, daily range): BP systolic 103–139; BP diastolic 63–76; PULSE 80–117; RESP 16–32; TEMP 36.3–36.7; O2SAT 87–96
--- NOTE | 2020-11-15 | IMM_PTH ---
PATIENT: MAXIMUS ZHAO LOC: [facility] U#:[id number] AGE/SX: 85/M ROOM: [facility] RE11/13/[address]: Dr. Orlin Mata DO : [id number] BED: 1 DIS: 11/17/2020 SPEC #: [id number] RECD: 11/16/20 12:07 STATUS: GLENNA REQ #: [id number] AMPARO: 11/15/20 00:[address]: Josh Mejia DEPT: IMMUNOHISTOCHEMISTRY RECD BY: Radha Barr ENTERED: 11/16/20 12:13 SP TYPE: IMMUNO OTHR DR: MD Dr. Roderick Vanessa MD Dr. Joseph Prah, MD Dr. Mark Tereletsky, DO Dr. Victor Velasquez, MD Tissues: THORACIC FLUID Procedures: RCC (add) NAPSIN A (add) Rory Ret (add) CD138 (add) CD15 (add) CD20 (add) CD3 (add) CD30 (add) CD43 (add) CD45 (add) CD5 (add) CD79A (add) CK20 (add) CK5-6 (add) CK7 (add) CK8 (add) AQUINO-2 (add) HEP PAR (add) KI-67 (add) P53 (add) TTF1 (add) Vimentin (add) 34BE12 (add) Pankeratin (initial) P40 (add) PSAP (add) S-100 (add) PHYSICIAN & INSTITUTION [address] [address] SPECIMEN INFORMATION: Tissue Source: Thoracentesis fluid Clinical Info: Pleural effusion Specimen Number: [id number] CPT code: 43439, 39310 x26 METHODOLOGY: Deparaffinized sections of prefer/formalin-fixed tissue or PAP/DQ stained slides are incubated with monoclonal/polyclonal antibodies/oligonucleotide probes. Localization is made via biotin free immunoperoxidase method. Appropriate controls are performed and reacted as expected. Results on target cell population are indicated in the following table: RESULTS: ANTIBODY / CLONE RESULT AE1-3 (AE1/AE3/PCK26) negative CK7 (OV-TL12/30) negative CK8 (94ymseW05) negative CK20 (KS20.8) negative AQUINO-2 (SP21) negative CD3 (PS1) negative CD5 (SP10) negative CD20 (L26) positive CD43 (L60) negative CD45 (RP2/18) positive CD79a (11E3) positive CD138 (B-A38) negative CD15 (MMA) negative CD30 (Mark-H2) negative Vimentin (V9) positive 34BE12 (34BE12) negative S-100 (4C4.9) negative TTF-1 (8G7G3/1) negative Napsin A (Rabbit Polyclonal) negative RCC (PN-15) negative PSAP (PASE/4LJ) negative CALRET (polyclonal) negative CK5-6 (D5 & 1684) negative P40 (BC28) negative P53 (DO-7) negative Ki-67 (30-9) negative HepPar (OCh1E5) negative These tests were developed and their performance characteristics determined by [facility]. They may not have been cleared or approved by the U.S. Food and Drug Administration. The FDA has determined that such clearance or approval is not necessary. The above immunohistochemical/dualISH markers are ordered and reviewed by the Pathologist. 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 AM:valeriy 11/18/2020
[2020-11-15] MEDS: 0.9% Normal Saline 1,000 ML 75 ML IV ×2 (00:24→15:28)
--- NOTE | 2020-11-15 03:45 | NURSING ---
Pt reported feeling urgency, frequency of urination. Checked with bladder scanner result was 117. Pt states he had a catheter in the past when he had his hip replaced.
--- NOTE | 2020-11-15 06:00 | US_ITS ---
PROCEDURE: ULTRASOUND GUIDED THORACENTESIS. DATE: 11/15/2020. INDICATION: Male, 85 years old. Right pleural effusion. PHYSICIAN: Nima Khoury M.D. PROCEDURE: The risks, benefits, and alternatives to the procedure were explained to the patient. The specific risks of bleeding, infection, and pneumothorax requiring chest tube insertion were discussed and accepted. Written informed consent was obtained. Ultrasonographic evaluation of the right lower pleural space was carried out. An adequate pocket was identified. The patient was placed in the sitting, upright position. The overlying skin was prepped and draped in sterile fashion. 1% lidocaine was administered subcutaneously for local anesthesia. Under ultrasound guidance, a 5 Nepali thoracentesis needle/catheter system was advanced into the right posterior lower pleural fluid collection. Approximately 1300 mL of bloody fluid was drained. The catheter was removed, and a sterile dressing was applied. A specimen was collected and sent to the laboratory for analysis, as requested by the referring clinician. The patient tolerated the procedure well. A chest x-ray was ordered. US/Thoracentesis W US IMPRESSION: Ultrasound-guided right thoracentesis. Electronically Signed: Nima Khoury MD at 12:34 EDT , Service support ,
[2020-11-15 06:40] LABS: Absolute Lymphocyte Count 0.31 X10^3/uL (0.83-4.51); Absolute Neutrophil Count 7.4 X10^3/uL (2.0-7.7); Basophil# 0.04 X10^3/uL; Basophil% 0.5 % (0-1); Eosinophil# 0.31 X10^3/uL; Eosinophils% 3.5 % (0-5); Hematocrit 36.9 % (40-54); Hemoglobin 11.9 g/dL (13.0-16.5); Lymphocyte # 0.31 X10^3/ul (0.83-4.51); Lymphocyte % 3.5 % (19-41); Mean Corp Hgb Conc 32.2 g/dL (32-36); Mean Corpuscular Hgb 28.1 pg (27.0-32.0); Mean Corpuscular Volume 87.2 fL (80-94); Mean Platelet Vol. 9.9 fl (6.2-12.0); Monocyte# 0.64 X10^3/uL; Monocyte% 7.3 % (0-10); NRBC Flagged by Analyzer 0 % (0-5); Neutrophil # 7.44 X10^3/uL (2.7-7.7); Neutrophil % 84.6 % (47-70); POSITIVE DIFFERENTIAL YES; Platelet Count 238 K/mm3 (150-450); RBC Distribution Width CV 13.2 % (11.6-14.6); RBC Distribution Width SD 41.5 fl (35.1-43.9); Red Blood Count 4.23 M/mm3 (4.6-6.2); White Blood Count 8.8 K/mm3 (4.4-11.0)
[2020-11-15 06:43] LABS: Differential Indicated SCAN CRITERIA MET
[2020-11-15 06:46] LABS: International Normalized Ratio 1.6; Prothrombin Time (Protime)PT. 18.5 SECONDS (11.7-14.9)
[2020-11-15 07:12] LABS: Anion Gap 7 (5-15); BUN 30 mg/dL (7-18); BUN/Creat Ratio 11.7 RATIO (10-20); Calcium,Total 8.4 mg/dL (8.5-10.1); Chloride 109 mmol/L (98-107); Creatinine, Serum 2.57 mg/dL (0.70-1.30); EST Glomerular Filtration Rate 25 mL/min (>60); Est Glom Filt Rate - Afr Amer 31 mL/min (>60); Estimated Creatinine Clearance 22.38 ml/min; Glucose 105 mg/dL (74-106); LDH 363 U/L (87-241); Potassium 4.3 mmol/L (3.5-5.1); Sodium Level 138 mmol/L (136-145)
[2020-11-15] MEDS: Tamsulosin HCl 0.4 MG Capsule PO (09:55)
[2020-11-15] MEDS: Flecainide 150 MG Tablet PO ×2 (09:55→20:48)
[2020-11-15] MEDS: Metoprolol(XL)Succ 25 MG Tablet PO (09:55)
[2020-11-15] MEDS: Finasteride 5 MG Tablet PO (09:56)
--- NOTE | 2020-11-15 11:10 | FLU_PTH ---
PATIENT: MAXIMUS ZHAO LOC: [facility] U#:[id number] AGE/SX: 85/M ROOM: [facility] RE11/13/[address]: Dr. Orlin Mata DO : 1935 BED: 1 DIS: 11/17/2020 SPEC #: [id number] RECD: 11/15/20 11:51 STATUS: GLENNA REJerrod #: [id number] AMPARO: 11/15/20 11:[address]: Josh Mejia DEPT: CYTOLOGY RECD BY: Jami Armenta ENTERED: 11/15/20 13:17 SP TYPE: Fluid OTHR DR: MD Dr. Roderick France MD Dr. Victor Velasquez, MD Tissues: Pleural fluid, NOS Procedures: Special Stain Group II Mucicarmine Stain (control) Surgery Specimen Level IV Cytospin Fluid HEADER OPERATION: Thoracentesis, right PRE-OP DIAGNOSIS: Pleural effusion TISSUE SUBMITTED: Thoracentesis fluid for cytology DIAGNOSIS CYTOLOGY Thoracentesis fluid for cytology (cytospin and block): Atypical lymphocytic population consistent with lymphoma. See comment. AM:valeriy 11/18/2020 COMMENT Immunohistochemistry ([id number]) supports the above diagnosis. Mucin stain with matched control was used in the evaluation of this case and is negative. 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 CYTOLOGY STUDY Slides are reviewed. CYTOLOGY GROSS Received is 90 ml of red cloudy fluid labeled with the patient's name and and designated per the requisition as thoracentesis. Submitted for cytology preparation including cell block. / valeriy 11/15/2020 TC:0 CPT: 95786, 25332, 28047
--- NOTE | 2020-11-15 11:22 | RAD_ITS ---
STUDY: X-RAY CHEST REASON FOR EXAM: Male, 85 years old. Post thora TECHNIQUE: AP inspiration and expiration views. COMPARISON: 04/15/2020. FINDINGS: The patient is status post right thoracocentesis. No evidence of pneumothorax. Minimal residual blunting of the right costophrenic angle. RAD/Chest Insp/Exp 2 View IMPRESSION: Status post right thoracentesis. No evidence of pneumothorax. Electronically Signed: Nima Khoury MD at 11:39 EDT , Service support ,
[2020-11-15 11:52] LABS: Cytology, Body Fluid / CSF SEE PATHOLOGY REPORT
[2020-11-15 12:27] LABS: Body Fluid Mononuclear WBC # 7.868 10^3/uL; Body Fluid Mononuclear WBC % 83.9 %; Body Fluid Polynuclear WBC # 1.515 10^3/uL; Body Fluid Polynuclear WBC % 16.1 %; Red Cell Count/Body Fluid 0.044 10^6/ul; White Blood Count/Body Fluid 9.383 10^3/uL
[2020-11-15 12:43] LABS: Glucose, Body Fluid 105 mg/dL (40-70); LDH,Body Fluid 786 Units/l (Not Establ.); Protein, Body Fluid 3.2 g/dL (Not Establ.)
[2020-11-15 13:44] LABS: Appearance/Body Fluid TURBID; Auto B Fluid Analyzer BKGD Ct COUNTS W/IN LIMITS (W/IN LIMITS); Color/Body Fluid RED; Source- Body Fluid THORACENTESIS
[2020-11-15 13:45] LABS: Lymphocytes 44 %; Monocytes 24 %; Neutrophil (Segs) 18 %; Other Cell Type/BF 14 %
--- NOTE | 2020-11-15 15:16 | PN.HOSP_ITS ---
Subjective Subjective Doing well today, no complaints. Feels little bit better than he did yesterday. He is having good urine output, And he had 2600 cc removed during his thoracentesis. Creatinine is down to 2.57. Objective Data Objective Data Vital Signs: Vital Signs Temp Pulse Resp BP Pulse Ox 97.4 F L 117 H 32 H 110/67 96 11/15/20 09:57 11/15/20 11:06 11/15/20 11:06 11/15/20 11:06 11/15/20 09:57 Oxygen Flow Rate (L/min) 2 Oxygen Delivery Method [4] Room Air Oxygen Delivery Method [3] Room Air Oxygen Delivery Method [2] Room Air Oxygen Delivery Method [1 ( Room Air Initial Baseline)] Oxygen Delivery Method Room Air Weight: 181 lb 3.52 oz Body Mass Index (BMI) 25.2 Intake & Output: Intake and Output for Last 24 Hours 11/14/20 11/15/20 11/16/20 03:59 03:59 03:59 Intake Total 2525 / 2525 3341.25 / 3341.25 1390 / 1390 Output Total 2600 / 2600 Balance 2525 / 2525 3341.25 / 3341.25 -1210 / -1210 Lab / Micro Data Result Diagrams: 11/15/20 06:22 11/15/20 06:22 Labs: Laboratory Results - last 24 hr 11/15/20 06:22: PT 18.5 H, INR 1.6 11/15/20 06:22: WBC 8.8, RBC 4.23 L, Hgb 11.9 L, Hct 36.9 L, MCV 87.2, MCH 28.1, MCHC 32.2, RDW Std Deviation 41.5, RDW Coeff of Flash 13.2, Plt Count 238, MPV 9.9, Immature Gran % (Auto) 0.600, Neut % (Auto) 84.6 H, Lymph % (Auto) 3.5 L, [place] % (Auto) 7.3, Eos % (Auto) 3.5, Baso % (Auto) 0.5, Absolute Neuts (auto) 7.4, Absolute Lymphs (auto) 0.31 L, Nucleated RBC % 0 11/15/20 06:22: Sodium 138, Potassium 4.3, Chloride 109 H, Carbon Dioxide 22.0, Anion Gap 7, BUN 30 H, Creatinine 2.57 H, Estim Creat Clear Calc 22.38, Est GFR (MDRD) Af Amer 31 L, Est GFR (MDRD) Non-Af 25 L, BUN/Creatinine Ratio 11.7, Glucose 105, Calcium 8.4 L, Lactate Dehydrogenase 363 H 11/15/20 11:10: Fluid Glucose 105 H, Fluid Total Protein 3.2, Fluid LDH 786 11/15/20 11:10: Fluid Source THORACENTESIS, Fluid Color RED, Fluid Appearance TURBID, Fluid WBC 9.383, Fluid RBC 0.044, Fluid Tot Cell Count 9.842, Fld Polynuclear WBCs # 1.515, Fld Polynuclear WBCs % 16.1, Fluid Mononuclear WBCs 7.868, Fld Mononuclear WBCs % 83.9, Fluid Neutrophils 18, Fluid Lymphocytes 44, Fluid Monocytes 24, Fluid Other Cells 14, Fl Pathologist Comment May follow, Fluid Comment 2 SEE COMMENT Radiography Diagnostic Testing: Radiology Impression Thoracentesis Ultrasound 11/15/20 06:00 IMPRESSION: Ultrasound-guided right thoracentesis. Electronically Signed: Nima Khoury MD at 12:34 EDT , Service support , Chest X-Ray 11/15/20 11:22 IMPRESSION: Status post right thoracentesis. No evidence of pneumothorax. Electronically Signed: Nima Khoury MD at 11:39 EDT , Service support , Physical Exam Const alert, oriented x3 and no apparent distress General Appearance: cooperative HEENT normocephalic and moist oral mucous membranes Eyes PERRL, EOMs intact bilaterally and conjunctivae normal Neck supple and no JVD Resp normal respiratory effort, no retractions, no use of accessory muscles and clear to auscultation bilaterally Auscultation: diminished lung sounds right lower; Negative for crackles, rales, rhonchi or wheezes Cardio regular rate, regular rhythm, S1 normal heart sound, S2 normal heart sound and no murmurs GI soft to palpation, non-tender and non-distended; Negative for hepatosplenomegaly Extremity no clubbing, cyanosis or edema Skin no rashes or lesions noted Neuro no focal motor deficits and no sensory deficits noted Psych affect normal Appearance: appropriate Assessment & Plan Assessment/Plan (1) DEUCE (acute kidney injury): (2) Left renal mass: (3) Pleural effusion, right: (4) Hypoxia: PLAN: 1. Acute hypoxic respiratory insufficiency secondary to a right pleural effusion likely malignant in nature -Thoracentesis today removed 2600 cc -Based on LDH criteria he does have an exudate -Cytology is pending 2. DEUCE with left hydronephrosis due to mass -Urology will evaluate however unlikely to place a stent is not having any pain unless he decides to undergo treatment for this abdominal mass -Oncology consulted and felt possible lymphoma will follow up as an outpatient -Plan for CT-guided biopsy on 11/16/2020 3. Paroxysmal A. fib/HTN/HLD/history of TIA -Blood pressure is stable, will hold his Coumadin and his Plavix secondary to the planned procedure, and will continue to hold secondary to CT-guided biopsy tomorrow -Continue with flecainide, metoprolol, simvastatin 4. BPH -Stable -Continue with Flomax DVT: SCDs Charges/Coding Visit Charges Inpatient E&M: 14755 Subs Hosp L2
[2020-11-15] MEDS: MELATONIN 3 MG TABLET PO (20:48)
[2020-11-15] MEDS: Atorvastatin Calcium 10 MG Tablet PO (20:49)
--- NOTE | 2020-11-15 22:30 | EKG12_ITS ---
Test Reason : DYSRHYTHMIA Blood Pressure : / mmHG Vent. Rate : 105 BPM Atrial Rate : 110 BPM P-R Int : 000 ms QRS Dur : 162 ms QT Int : 428 ms P-R-T Axes : 000 -79 076 degrees QTc Int : 565 ms Atrial fibrillation Left axis deviation Non-specific intra-ventricular conduction block Abnormal ECG Confirmed by JANETT ROSS, BLACK ([id number]), publishing editor ESTHELA ESCOBEDO ([id number]) on 11/17/2020 11:53:50 AM Referred By: BRETT Confirmed By:BLACK ROWLAND MD
[2020-11-16] VITALS (18 sets, daily range): BP systolic 98–125; BP diastolic 29–86; PULSE 83–103; RESP 16–28; TEMP 36.5–36.9; O2SAT 92–96
--- NOTE | 2020-11-16 | IMM_PTH ---
PATIENT: MAXIMUS ZHAO LOC: [facility] U#:[id number] AGE/SX: 85/M ROOM: [facility] RE11/13/[address]: Dr. Orlin Mata DO : 1935 BED: 1 DIS: 11/17/2020 SPEC #: [id number] RECD: 11/17/20 14:05 STATUS: GLENNA REQ #: [id number] AMPARO: 11/16/20 00:[address]: Josh Mejia DEPT: IMMUNOHISTOCHEMISTRY RECD BY: Radha Barr ENTERED: 11/17/20 14:08 SP TYPE: IMMUNO OTHR DR: MD Dr. Roderick Vanessa MD Dr. Joseph Prah, MD Dr. Mark Tereletsky, DO Dr. Victor Velasquez, MD Tissues: Retroperitoneum, NOS Procedures: BCL-2 (add) BCL-6 (add) CD10 (add) CD138 (add) CD15 (add) CD20 (add) CD23 (add) CD3 (add) CD30 (add) CD43 (add) CD45 (add) CD5 (add) CD79A (add) CYCLIN (add) KAPPA (add) KI-67 (add) LAMBDA (add) MUM1 (add) Pankeratin (initial) PHYSICIAN & [place] [id number] SPECIMEN INFORMATION: Tissue Source: Retroperitoneal mass left side Clinical Info: Retroperitoneal mass left side Specimen Number: [id number] CPT code: 88960, 01394 x18 METHODOLOGY: Deparaffinized sections of prefer/formalin-fixed tissue or PAP/DQ stained slides are incubated with monoclonal/polyclonal antibodies/oligonucleotide probes. Localization is made via biotin free immunoperoxidase method. Appropriate controls are performed and reacted as expected. Results on target cell population are indicated in the following table: RESULTS: ANTIBODY / CLONE RESULT AE1-3 (AE1/AE3/PCK26) negative CD3 (PS1) negative CD5 (SP10) negative CD10 (56C6) positive, strong CD15 (MMA) negative CD20 (L26) positive, strong CD23 (1B12) negative CD30 (Mark-H2) negative CD43 (L60) negative CD45 (RP2/18) positive CD79a (11E3) positive, strong CD138 (B-A38) negative BCL-2 (bcl-2/100/D5) positive, strong BCL-6 (OC930A/A8) positive Cyclin D1/BCL-1 (SP4) negative MUM1 (MRQ-43) negative Ki-67 (30-9) positive, 65% [place] (polyclonal) negative Lambda (polyclonal) negative These tests were developed and their performance characteristics determined by [facility]. They may not have been cleared or approved by the U.S. Food and Drug Administration. The FDA has determined that such clearance or approval is not necessary. The above immunohistochemical/dualISH markers are ordered and reviewed by the Pathologist. 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 AM:valeriy 11/18/2020 Case has been reviewed in consultation with Dr. Herrera who concurs with the above diagnosis. IDC:SJ
--- NOTE | 2020-11-16 | ASPIGT_PTH ---
PATIENT: MAXIMUS ZHAO LOC: [facility] U#:[id number] AGE/SX: 85/M ROOM: [facility] RE11/13/[address]: Dr. Orlin Mata DO : 1935 BED: 1 DIS: 11/17/2020 SPEC #: [id number] RECD: 11/16/20 11:15 STATUS: GLENNA REJerrod #: [id number] AMPARO: 11/16/20 00:[address]: Josh Mejia DEPT: SURGICAL PATHOLOGY RECD BY: Irene Hernandez ENTERED: 11/16/20 11:17 SP TYPE: ASP RAD OTHR DR: MD Dr. Roderick Vanessa MD Dr. Joseph Prah, MD Dr. Mark Tereletsky, DO Dr. 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 See comment. AM:valeriy 11/18/2020 COMMENT The specimen is evaluated at the time of biopsy by Dr. Velazquez. Immediate Evaluation = Blood and polymorphous lymphocytes present. Immunohistochemistry ([id number]) supports the above diagnosis. FLOW analysis shows a CD10+ lymphoma of B-cell origin and suggestive of center cell origin. The morphologic predominance of large cells and moderate Ki67 positivity is consistent with a grade 3 Follicular Center Lymphoma. Alternatively, this may represent a transition/near transition to Diffuse Large B-cell lymphoma. This was discussed with Dr. Rivas 11/18/20. Please correlate with cytology ([id number]). Case has been reviewed in consultation with Dr. Herrera who concurs with the above diagnosis. IDC:SJ MICROSCOPIC DESCRIPTION Slides are reviewed. GROSS DESCRIPTION Received is one container labeled with the patient's name and not further designated. The specimen consists of two cores of light kuo soft tissue. Each core has an average length of 1 cm and a maximal diameter of <0.1 cm. The specimen is totally submitted in one cassette. / AM:valeriy 11/16/20 TC:0 CPT: 85237, 09911
[2020-11-16 00:13] LABS: Magnesium 1.8 mg/dL (1.6-2.6)
[2020-11-16] MEDS: 0.9% Normal Saline 1,000 ML 75 ML IV ×2 (04:42→18:51)
[2020-11-16 06:10] LABS: Absolute Lymphocyte Count 0.52 X10^3/uL (0.83-4.51); Absolute Neutrophil Count 8.4 X10^3/uL (2.0-7.7); Basophil# 0.05 X10^3/uL; Basophil% 0.5 % (0-1); Eosinophil# 0.17 X10^3/uL; Eosinophils% 1.7 % (0-5); Hematocrit 36.6 % (40-54); Hemoglobin 12.2 g/dL (13.0-16.5); Lymphocyte # 0.52 X10^3/ul (0.83-4.51); Lymphocyte % 5.2 % (19-41); Mean Corp Hgb Conc 33.3 g/dL (32-36); Mean Corpuscular Hgb 28.7 pg (27.0-32.0); Mean Corpuscular Volume 86.1 fL (80-94); Mean Platelet Vol. 10.1 fl (6.2-12.0); Monocyte# 0.74 X10^3/uL; Monocyte% 7.4 % (0-10); NRBC Flagged by Analyzer 0 % (0-5); Neutrophil # 8.43 X10^3/uL (2.7-7.7); Neutrophil % 84.8 % (47-70); POSITIVE DIFFERENTIAL YES; Platelet Count 255 K/mm3 (150-450); RBC Distribution Width CV 13.2 % (11.6-14.6); RBC Distribution Width SD 41.1 fl (35.1-43.9); Red Blood Count 4.25 M/mm3 (4.6-6.2)
[2020-11-16 06:19] LABS: Differential Indicated SCAN CRITERIA MET
[2020-11-16 06:21] LABS: International Normalized Ratio 1.7; Prothrombin Time (Protime)PT. 18.9 SECONDS (11.7-14.9)
[2020-11-16 06:51] LABS: Anion Gap 9 (5-15); BUN 27 mg/dL (7-18); BUN/Creat Ratio 11.4 RATIO (10-20); Calcium,Total 8.4 mg/dL (8.5-10.1); Chloride 108 mmol/L (98-107); Creatinine, Serum 2.36 mg/dL (0.70-1.30); EST Glomerular Filtration Rate 28 mL/min (>60); Est Glom Filt Rate - Afr Amer 34 mL/min (>60); Estimated Creatinine Clearance 24.37 ml/min; Glucose 111 mg/dL (74-106); Potassium 4.3 mmol/L (3.5-5.1); Sodium Level 139 mmol/L (136-145)
[2020-11-16] MEDS: Tamsulosin HCl 0.4 MG Capsule PO (08:25)
[2020-11-16] MEDS: Metoprolol(XL)Succ 25 MG Tablet PO (08:25)
[2020-11-16] MEDS: Finasteride 5 MG Tablet PO (08:26)
[2020-11-16] MEDS: Flecainide 150 MG Tablet PO ×2 (08:26→21:08)
--- NOTE | 2020-11-16 09:30 | NURSING ---
PT ARRIVES TO IMAGING. ALERT AND ORIENTED X3. DR DAVIS COMPLETED CONSENT WITH PATIENT AND AT BEDSIDE.
--- NOTE | 2020-11-16 09:34 | CT_ITS ---
PROCEDURE: CT GUIDED biopsy of the left retroperitoneal mass. DATE: 11/16/2020. INDICATION: Male, 85 years old. Retroperitoneal and mesenteric lymphadenopathy. PHYSICIAN: Nima Khoury M.D. RADIATION DOSAGE (If Supplied By Facility): CTDIvol = ( 16 ) mGy, DLP = ( 722.41 ) mGycm. Individualized dose optimization techniques were utilized. PROCEDURE: The risks, benefits, and alternatives to the procedure were explained to the patient. The specific risk of hemorrhage requiring further treatment or intervention was detailed and accepted. Follow-up instructions were discussed with the patient as well. Written informed consent was obtained. The patient was brought into the CT suite and placed in the prone position. . An appropriate entry site was identified. The overlying skin was prepped and draped in the usual sterile fashion. 1% lidocaine was administered subcutaneously for local anesthesia. Conscious sedation was performed. The patient received 1 mg of VERSED and 25 mcg of FENTANYL intravenously. Conscious sedation was started at 9:54 AM and terminated at 10:12 AM. The patient was monitored independently by the department nurse. Under CT guidance, a total of 5 passes were performed utilizing a 18-gauge core biopsy needle system. The specimens were then placed in the appropriate fluid and transported to the laboratory for analysis. Hemostasis was obtained. The patient tolerated the procedure well without immediate complications. CT/Biopsy/Inj or Needle Placement IMPRESSION: Successful CT guided biopsy of the left retroperitoneal mass, as described above. The conscious sedation protocol was followed. Electronically Signed: Nima Khoury MD at 11:10 EDT , Service support ,
--- NOTE | 2020-11-16 09:50 | NURSING ---
PT TO CT [address] LUNGS CTA B/L. PT DENIES PAIN. APICAL HEART RATE IRREGULAR. LAST PO INTAKE YESTERDAY. LABS REVIEWED.
[2020-11-16] MEDS: Midazolam 2 MG/2 ML Syringe IV (09:54)
[2020-11-16] MEDS: fentaNYL 100 MCG/2 ML Ampul IV (09:54)
[2020-11-16] MEDS: Lidocaine 2% (20 ml mdv) 20 ML Vial INFILT (09:59)
--- NOTE | 2020-11-16 10:46 | PCM.CONS.GEN ---
Assessment & Plan Assessment/Plan (1) DEUCE (acute kidney injury): (2) Left renal mass: (3) Hydronephrosis: PLAN: Await results of biopsy, plans per oncology Available for ureteral stent insertion if so desired Thank you for the privilege of this consult I will follow with you, with plans for the patient to follow-up with Dr. Swann in the outpatient setting HPI Consult Data Date of Consult: 11/16/20 HPI Narrative HPI Narrative: MAXIMUS ZHAO, is a 85 M who was admitted to the hospital for a full evaluation after being found to have a left perirenal mass with apparent metastasis along with renal insufficiency and left hydronephrosis. The patient reports that he has been following with another urologist for approximately 3 to 4 years for what sounds like BPH symptoms. He denies any symptomatology regarding that at this time. He has no hematuria, dysuria, feeling of incomplete bladder emptying or incontinence. He denies flank pain. He presented to the emergency room following what sounds like a week of decreased appetite, fatigue, a fall with right upper quadrant pain. The evaluation for the cyst complaints revealed metastatic disease. He is going for a biopsy today. I discussed with the patient and that he may at some point require drainage of his left kidney. I would prefer to await the final diagnosis and plans per oncology prior to deciding on intervention for drainage of his left hydronephrosis. If it will be managed with hospice care there will be no plans for intervention. A ureteral stent can be inserted if decisions for treatment are made. Given the appearance of the mass, a stent may however not fully drain the left kidney and a percutaneous nephrostomy tube may be warranted at some point. I do not want to proceed down this route unless it is decided that the patient will proceed with further treatment. The patient and his understand that I am seeing them here in the hospital for interim care and they will plan to follow-up with Dr. Swann in the outpatient setting and decide further long-term management for the left hydronephrosis. [facility] Medical History (Updated 11/16/20 @ 10:[address] Deandra Brown MD) Atrial fibrillation BPH (benign prostatic hyperplasia) Change in bowel habit HLD (hyperlipidemia) Hydronephrosis IBS (irritable bowel syndrome) Multinodular goiter Multiple thyroid nodules Pacemaker Pacemaker Home Medications clopidogrel 75 mg tablet 75 mg PO DAILY 03/19/19 [History Last Taken Unknown] finasteride 5 mg tablet 5 mg PO DAILY 03/19/19 [History Last Taken Unknown] flecainide 150 mg tablet 150 mg PO Q12H 03/19/19 [History Last Taken Unknown] metoprolol succinate 25 mg tablet,extended release 24 hr 25 mg PO DAILY 03/19/19 [History Last Taken Unknown] simvastatin 20 mg tablet 20 mg PO QHS 03/19/19 [History Last Taken Unknown] tamsulosin 0.4 mg capsule 0.4 mg PO DAILY 03/19/19 [History Last Taken Unknown] warfarin 3 mg tablet See Rx Instructions PO QMWF 03/19/19 [History Last Taken Unknown] Allergy/AdvReac Type Severity Reaction Status Date / Time sulfamethoxazole Allergy Intermediate joint pain Verified 11/12/20 20:38 [From Bactrim] trimethoprim [From Bactrim] Allergy Intermediate joint pain Verified 11/12/20 20:38 lactose AdvReac Diarrhea Verified 11/14/20 14:19 Family History Mother Arthritis Cancer uterine Father Colon cancer Surgical History History of hip replacement Social History Smoking Status: Never smoker alcohol intake: never substance use type: does not use ROS Constitutional Constitutional: Reports anorexia, fatigue, lethargy and weakness Eyes Eyes: Reports systems reviewed and no addt'l complaints, except as documented ENT HEENT: Reports systems reviewed and no addt'l complaints, except as documented Respiratory/Chest Respiratory/Chest: Denies chest tightness, difficulty clearing secretions or inability to speak Gastrointestinal Gastrointestinal: Denies abdominal pain, diarrhea or nausea Genitourinary Genitourinary: Reports systems reviewed and no addt'l complaints, except as documented Musculoskeletal Musculoskeletal: Reports joint pain Neurologic Neurologic: Reports frequent falls Psychiatric Psychiatric: Reports systems reviewed and no addt'l complaints, except as documented Physical Exam Const alert, oriented x3 and no apparent distress HEENT normocephalic, head/scalp atraumatic, hearing grossly normal bilaterally, external ears normal, external nose normal and moist oral mucous membranes Eyes conjunctivae normal and no scleral icterus Neck supple General: trachea midline Lymph Lymphatic: no lymphedema noted Chest inspection of chest normal Chest: symmetrical chest wall rise Resp normal respiratory effort, normal air movement, no retractions and no use of accessory muscles Cardio regular rate GI soft to palpation and non-tender no CVA tenderness Back/Spine no CVA tenderness Extremity General Extremity: normal exam except as noted Skin no rashes or lesions noted and no wounds Neuro oriented x3, CN's II-XII intact bilaterally and moves all extremities Psych mental status grossly normal, thought process normal, cooperative, affect normal and speech normal Lab / Micro Data Result Diagrams: 11/16/20 05:32 11/16/20 05:32 Labs: Laboratory Results - last 24 hr 11/15/20 06:22: Magnesium 1.8 11/15/20 11:10: Fluid Glucose 105 H, Fluid Total Protein 3.2, Fluid LDH 786 11/15/20 11:10: Fluid Source THORACENTESIS, Fluid Color RED, Fluid Appearance TURBID, Fluid WBC 9.383, Fluid RBC 0.044, Fluid Tot Cell Count 9.842, Fld Polynuclear WBCs # 1.515, Fld Polynuclear WBCs % 16.1, Fluid Mononuclear WBCs 7.868, Fld Mononuclear WBCs % 83.9, Fluid Neutrophils 18, Fluid Lymphocytes 44, Fluid Monocytes 24, Fluid Other Cells 14, Fl Pathologist Comment May follow, Fluid Comment 2 SEE COMMENT 11/16/20 05:32: PT 18.9 H, INR 1.7 11/16/20 05:32: WBC 10.0, RBC 4.25 L, Hgb 12.2 L, Hct 36.6 L, MCV 86.1, MCH 28.7, MCHC 33.3, RDW Std Deviation 41.1, RDW Coeff of Flash 13.2, Plt Count 255, MPV 10.1, Immature Gran % (Auto) 0.400, Neut % (Auto) 84.8 H, Lymph % (Auto) 5.2 L, [place] % (Auto) 7.4, Eos % (Auto) 1.7, Baso % (Auto) 0.5, Absolute Neuts (auto) 8.4 H, Absolute Lymphs (auto) 0.52 L, Nucleated RBC % 0 11/16/20 05:32: Sodium 139, Potassium 4.3, Chloride 108 H, Carbon Dioxide 22.0, Anion Gap 9, BUN 27 H, Creatinine 2.36 H, Estim Creat Clear Calc 24.37, Est GFR (MDRD) Af Amer 34 L, Est GFR (MDRD) Non-Af 28 L, BUN/Creatinine Ratio 11.4, Glucose 111 H, Calcium 8.4 L Radiology Impression Thoracentesis Ultrasound 11/15/20 06:00 IMPRESSION: Ultrasound-guided right thoracentesis. Electronically Signed: Nima Khoury MD at 12:34 EDT , Service support , Chest X-Ray 11/15/20 11:22 IMPRESSION: Status post right thoracentesis. No evidence of pneumothorax. Electronically Signed: Nima Khoury MD at 11:39 EDT , Service support ,
[2020-11-16 13:05] LABS: Pathologist Comment/Body Fluid Reviewed
--- NOTE | 2020-11-16 19:37 | PN.HOSP_ITS ---
Subjective Subjective Patient was seen and examined today, he returned after having a retroperitoneal mass biopsy today with a CT-guided needle biopsy. I talked briefly with the patient's who is in the room at the time of my examination. Patient is still requiring oxygen at the time of my examination early this afternoon. I have decided to repeat the patient's chest x-ray tomorrow morning and reevaluate the patient for discharge tomorrow. Objective Data Objective Data Vital Signs: Vital Signs Temp Pulse Resp BP Pulse Ox 98.4 F 91 18 114/57 L 96 11/16/20 14:07 11/16/20 15:00 11/16/20 14:07 11/16/20 14:07 11/16/20 14:07 Oxygen Flow Rate (L/min) [4] 2 Oxygen Flow Rate (L/min) [3] 2 Oxygen Flow Rate (L/min) [2] 3 Oxygen Flow Rate (L/min) [1 ( 3 Initial Baseline)] Oxygen Flow Rate (L/min) 3 Oxygen Delivery Method [4] Room Air Oxygen Delivery Method [3] Nasal Cannula Oxygen Delivery Method [2] Nasal Cannula Oxygen Delivery Method [1 ( Nasal Cannula Initial Baseline)] Oxygen Delivery Method Room Air Weight: 82.2 kg Body Mass Index (BMI) 25.2 Intake & Output: Intake and Output for Last 24 Hours 11/14/20 11/15/20 11/16/20 23:59 23:59 23:59 Intake Total 3165 / 3465 3031.25 / 3031.25 2212.5 / 2212.5 Output Total 2600 / 2600 Balance 3165 / 3465 431.25 / 431.25 2212.5 / 2212.5 Lab / Micro Data Result Diagrams: 11/16/20 05:32 11/16/20 05:32 Labs: Laboratory Results - last 24 hr 11/15/20 06:22: Magnesium 1.8 11/15/20 11:10: Fl Pathologist Comment Reviewed 11/15/20 11:10: Miscellaneous Cytology SEE PATHOLOGY REPORT 11/16/20 05:32: PT 18.9 H, INR 1.7 11/16/20 05:32: WBC 10.0, RBC 4.25 L, Hgb 12.2 L, Hct 36.6 L, MCV 86.1, MCH 28.7, MCHC 33.3, RDW Std Deviation 41.1, RDW Coeff of Flash 13.2, Plt Count 255, MPV 10.1, Immature Gran % (Auto) 0.400, Neut % (Auto) 84.8 H, Lymph % (Auto) 5.2 L, [place] % (Auto) 7.4, Eos % (Auto) 1.7, Baso % (Auto) 0.5, Absolute Neuts (auto) 8.4 H, Absolute Lymphs (auto) 0.52 L, Nucleated RBC % 0 11/16/20 05:32: Sodium 139, Potassium 4.3, Chloride 108 H, Carbon Dioxide 22.0, Anion Gap 9, BUN 27 H, Creatinine 2.36 H, Estim Creat Clear Calc 24.37, Est GFR (MDRD) Af Amer 34 L, Est GFR (MDRD) Non-Af 28 L, BUN/Creatinine Ratio 11.4, Glucose 111 H, Calcium 8.4 L Radiography Diagnostic Testing: Radiology Impression Biopsy CT 11/16/20 09:34 IMPRESSION: Successful CT guided biopsy of the left retroperitoneal mass, as described above. The conscious sedation protocol was followed. Electronically Signed: Nima Khoury MD at 11:10 EDT , Service support , Physical Exam Const alert, oriented x3, no apparent distress and healthy appearing General Appearance: cooperative, well kempt and well developed Orientation / Consciousness: awake, oriented to person, oriented to place and oriented to time HEENT normocephalic, head/scalp atraumatic and moist oral mucous membranes Head and Scalp: normocephalic Eyes PERRL, EOMs intact bilaterally and conjunctivae normal Neck nuchal rigidity, supple, no JVD, thyroid normal and no carotid bruits General: trachea midline Resp normal respiratory effort and clear to auscultation bilaterally Auscultation: Negative for rales, rhonchi or wheezes Cardio regular rate, regular rhythm, S1 normal heart sound, S2 normal heart sound, no murmurs, no rub and no gallops GI normal to inspection, nondistended, normoactive bowel sounds, soft to palpation, non-tender and non-distended Extremity no clubbing, cyanosis or edema Skin no rashes or lesions noted General Skin Exam: no breakdown Neuro oriented x3, CN's II-XII intact bilaterally, no focal motor deficits and no sensory deficits noted Sensorium / Orientation: awake and alert Speech: speech normal Psych thought process normal and affect normal Assessment & Plan Assessment/Plan (1) Mesenteric mass: PLAN: 1. 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
[2020-11-16] MEDS: Atorvastatin Calcium 10 MG Tablet PO (21:08)
[2020-11-16] MEDS: Temazepam 15 MG Capsule PO (21:12)
[2020-11-17] VITALS (7 sets, daily range): BP systolic 104–111; BP diastolic 52–75; PULSE 89–112; RESP 18; TEMP 36.3–36.8; O2SAT 92–96
[2020-11-17] MEDS: 0.9% Saline Lock 10 ML Syringe IV (02:46)
--- NOTE | 2020-11-17 07:33 | RAD_ITS ---
STUDY: X-RAY CHEST REASON FOR EXAM: Male, 85 years old. Right pleural effusion TECHNIQUE: PA and lateral views of the chest. COMPARISON: Comparison is made with prior examination dated 11/15/2020. FINDINGS: EKG electrodes are seen. Small right pleural effusion with right basilar atelectasis. This has progressed as compared to prior study. A left-sided dual-chamber pacemaker is seen. Normal mediastinum and gagandeep. Normal visualized pulmonary arteries. There is atherosclerotic calcification of the aortic arch with tortuosity. There are degenerative changes of the visualized thoracic spine. Normal visualized ribs, clavicles, and shoulders. There is no demonstrated abnormality of the visualized soft tissue structures of the upper abdomen. RAD/Chest PA and Lateral IMPRESSION: Small right pleural effusion with right basilar atelectasis. Electronically Signed: Nima Khoury MD at 13:02 EDT , Service support ,
[2020-11-17] MEDS: 0.9% Normal Saline 1,000 ML 75 ML IV (08:11)
[2020-11-17] MEDS: Metoprolol(XL)Succ 25 MG Tablet PO (08:12)
[2020-11-17] MEDS: Flecainide 150 MG Tablet PO (08:12)
[2020-11-17] MEDS: Finasteride 5 MG Tablet PO (08:13)
[2020-11-17] MEDS: Tamsulosin HCl 0.4 MG Capsule PO (08:13)
--- NOTE | 2020-11-17 10:30 | CASEMGMT ---
Addendum entered by Brittany Chang 11/17/20 12:56: Call from Duyen at [facility] and she states they can accept pt. Duyen is aware that pt will need INR checked on 11/20 or 11/22 and to call to set up start of care. Pt/ updated and voice no further questions/concerns/needs. Amarilys FLORES CM Addendum entered by Brittany Chang 11/17/20 11:37: This RN CM back to room and pt/ was provided a list of [facility] providers including quality and resource use data and consistent with the patient?s preferred geographic region, medical needs, and insurance network. Pt/ state they would like [facility] and order placed for SN, PT/OT. Call to Duyen at [facility] and she states she will call this RN CM back. CM to follow. Amarilys FLORES CM Original Note: Per Viral FLORES, pt does not need home oxygen. This RN CM to room to discuss d/c plan with pt/. Pt is in the bathroom and would like to think about further therapy. CM to follow. Amarilys FLORES CM
--- NOTE | 2020-11-17 10:45 | PCM.DC ---
Discharge Instructions Diet Discharge Diet: No restrictions Activity Discharge Activity: Return to Normal Activity Follow Up Care Test Results: Test results from this visit will be discussed in further detail at your follow-up appointment, if applicable. Discharge Plan Admission Admit Date/Time: 11/13/20 00:12 Primary Reason for Your Visit: neoplasm Attending Provider: Orlin Mata Primary Care Provider: Aric Archibald Consulting Providers: Roderick Rivas ; Deandra Brown Instructions Patient Instructions: Image-Guided Biopsy Additional Instructions / Restrictions: Get your INR checked on 11/20/20 or 11/22/20 Discharge Orders/Prescriptions Prescriptions: New warfarin 1 mg tablet 2 mg PO DAILY Qty: 60 RF: 0 Continued tamsulosin [Flomax] 0.4 mg capsule 0.4 mg PO DAILY RF: 0 clopidogrel [Plavix] 75 mg tablet 75 mg PO DAILY RF: 0 simvastatin 20 mg tablet 20 mg PO QHS RF: 0 metoprolol succinate [Toprol XL] 25 mg tablet extended release 24 hr 25 mg PO DAILY RF: 0 finasteride [Proscar] 5 mg tablet 5 mg PO DAILY RF: 0 flecainide 150 mg tablet 150 mg PO Q12H RF: 0 Discontinued warfarin 3 mg tablet See Rx Instructions PO QMWF RF: 0 Referrals / Follow Up: Roderick Rivas MD [NON-STAFF] - Within 2 Weeks Aric Archibald MD [Primary Care Provider] - In 1 Week Disposition Disposition (needs filled in before D/C Order can be placed): Home Health Service
--- NOTE | 2020-11-17 12:12 | PHA.DC.MR ---
Pharmacy Service has performed discharge medication reconciliation for this patient. The patient's discharge medication list was reviewed for discrepancies and discrepancies were resolved. Home Medications clopidogrel 75 mg tablet 75 mg PO DAILY 03/19/19 finasteride 5 mg tablet 5 mg PO DAILY 03/19/19 flecainide 150 mg tablet 150 mg PO Q12H 03/19/19 metoprolol succinate 25 mg tablet,extended release 24 hr 25 mg PO DAILY 03/19/19 simvastatin 20 mg tablet 20 mg PO QHS 03/19/19 tamsulosin 0.4 mg capsule 0.4 mg PO DAILY 03/19/19 warfarin 2 mg PO DAILY #60 tab 11/17/20
--- NOTE | 2020-11-18 09:32 | PCM.DC.SUM ---
Providers Date of Admission: 11/13/20 Date of Discharge: 11/17/20 Primary Care Physician: Dr. Aric Archibald MD Consultations 11/13/20 01:10 Consult: Urology Routine Consulting Provider: Deandra Brown Reason for Consult: Renal mass; hydronephrosis EMERGENT Consult: No Notified: Yes Date Notified: 11/15/20 Time Notified: 10:00 Method of Notification: Verbal Comments:: Dr. Mejia spoke with Dr. Brown 11/13/20 01:50 Consult: Oncology/Hematology Routine Consulting Provider: Roderick Rivas Reason for Consult: Renal mass EMERGENT Consult: No Notified: Yes Date Notified: 11/13/20 Time Notified: 08:48 Method of Notification: Text Reason For Visit: RENAL MASS, DEUCE Diagnosis Discharge Diagnosis (1) DEUCE (acute kidney injury): Status: Acute Code(s): N17.9 - Acute kidney failure, unspecified (2) Left renal mass: Status: Chronic Code(s): N28.89 - Other specified disorders of kidney and ureter (3) Hydronephrosis: Status: Acute Code(s): N13.30 - Unspecified hydronephrosis Plan: 1. 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 #7 chronic kidney disease stage IIIa Medications at Discharge Home Medications clopidogrel 75 mg tablet 75 mg PO DAILY 03/19/19 finasteride 5 mg tablet 5 mg PO DAILY 03/19/19 flecainide 150 mg tablet 150 mg PO Q12H 03/19/19 metoprolol succinate 25 mg tablet,extended release 24 hr 25 mg PO DAILY 03/19/19 simvastatin 20 mg tablet 20 mg PO QHS 03/19/19 tamsulosin 0.4 mg capsule 0.4 mg PO DAILY 03/19/19 warfarin 2 mg PO DAILY #60 tab 11/17/20 Hospital Course Operations None Procedures Thoracentesis and - (CT-guided needle biopsy of left retroperitoneal mass) Summary of Care Provided Minutes Spent on Discharge: 32 Hospital Course: This 85-year-old white male was seen in the emergency room at [facility] with a chief complaint of shortness of breath and malaise. Labs obtained in the emergency room showed an elevated creatinine at 3.05, CT of the chest and abdomen was obtained which showed the presence of a right pleural effusion along with compressive atelectasis and the presence of a left retroperitoneal mass in addition to moderate hydronephrosis of the left kidney from compression of the ureter and evidence of omental caking in the abdomen. Patient was hypoxic and required supplemental low-flow oxygen. Patient was admitted to PCU, he was seen in consultation by neurology who did not feel the patient required a ureteral stent, patient underwent a thoracentesis with removal of over 1 L of fluid from the right pleural space, this fluid was exudative in nature and grossly bloody. Patient was seen in consultation by oncology, his renal functions were monitored and improved during his hospital stay. Patient also underwent a CT-guided needle biopsy of the left retroperitoneal mass. On 11/17/2020, patient was seen and examined: On examination he appeared in good health and spirits. Vital signs as documented. Skin warm and dry and without overt rashes. Neck without JVD, neck was supple, trachea midline, thyroid was normal. Lungs clear bilaterally, normal air movement was noted. Heart exam notable for irregular rhythm, normal sounds and absence of murmurs, rubs or gallops. Abdomen unremarkable and without evidence of organomegaly, masses, or abdominal aortic enlargement. Bowel sounds are present, abdomen is not distended. Extremities nonedematous, no cyanosis was noted, no clubbing was noted. Neuro: Cranial nerves II through XII are grossly intact, no focal motor deficits were noted, sensation to light touch and pinprick intact, motor exam 5/5 throughout. Psych: Patient is alert and oriented x3, he does not appear anxious or depressed, he does not appear agitated. On 11/17/2020, patient was discharged home in stable condition. He was instructed to follow-up with oncology and the patient and his was instructed to inquire as to whether he needed to follow-up with urology as an outpatient. I also talked with the patient's PCP (Dr. Archibald) about the case and made him aware of the patient's moderate hydronephrosis of his left kidney and his hospital course. Weight / BMI Weight Weight: 82.2 kg Body Mass Index (BMI) 25.2 ABG / Lab / Microbiology Data Result Diagrams: 11/16/20 05:32 11/16/20 05:32 Radiography Diagnostic Testing: Radiology Impression Chest X-Ray 11/17/20 07:33 IMPRESSION: Small right pleural effusion with right basilar atelectasis. Electronically Signed: Nima Khoury MD at 13:02 EDT , Service support , D/C Instructions Discharge Diet: No restrictions Meaningful Use Info Meaningful Use Diagnoses (Choose all that apply): None applicable Discharge Plan Admission Admit Date/Time: 11/13/20 00:12 Primary Reason for Your Visit: neoplasm Attending Provider: Orlin Mata Primary Care Provider: Aric Archibald Consulting Providers: Roderick Rivas ; Deandra Brown Instructions Patient Instructions: Image-Guided Biopsy Additional Instructions / Restrictions: Get your INR checked on 11/20/20 or 11/22/20 Discharge Orders/Prescriptions Prescriptions: New warfarin 1 mg tablet 2 mg PO DAILY Qty: 60 RF: 0 Continued tamsulosin [Flomax] 0.4 mg capsule 0.4 mg PO DAILY RF: 0 clopidogrel [Plavix] 75 mg tablet 75 mg PO DAILY RF: 0 simvastatin 20 mg tablet 20 mg PO QHS RF: 0 metoprolol succinate [Toprol XL] 25 mg tablet extended release 24 hr 25 mg PO DAILY RF: 0 finasteride [Proscar] 5 mg tablet 5 mg PO DAILY RF: 0 flecainide 150 mg tablet 150 mg PO Q12H RF: 0 Discontinued warfarin 3 mg tablet See Rx Instructions PO QMWF RF: 0 Referrals / Follow Up: Roderick Rivas MD [NON-STAFF] - Within 2 Weeks Aric Archibald MD [Primary Care Provider] - In 1 Week Disposition Disposition (needs filled in before D/C Order can be placed): Home Health Service Charges/Coding Visit Charges Inpatient E&M: 14428 Disch Hosp
== END 2020-11-17 13:28 | disposition home health service (06) | DRG 357 ==
LOC: ED 11-13 00:13 → PCU 11-13 00:46
PROVIDERS: Family Medicine; Admitting Provider Hospitalist; Emergency Provider Emergency Medicine; PCP Internal Medicine; Visit Provider Internal Medicine
DX: D48.3 Neoplasm of uncertain behavior of retroperitoneum (principal); J91.0 Malignant pleural effusion; N17.9 Acute kidney failure, unspecified; R18.8 Other ascites; N13.30 Unspecified hydronephrosis; I48.0 Paroxysmal atrial fibrillation; R09.02 Hypoxemia; I12.9 Hypertensive chronic kidney disease with stage 1 through stage 4 chronic kidney disease, or unspecified chronic kidney disease; N18.31 Chronic kidney disease, stage 3a; G47.33 Obstructive sleep apnea (adult) (pediatric); Z95.0 Presence of cardiac pacemaker; E78.5 Hyperlipidemia, unspecified; N40.0 Benign prostatic hyperplasia without lower urinary tract symptoms; Z79.02 Long term (current) use of antithrombotics/antiplatelets; Z79.01 Long term (current) use of anticoagulants; Z79.899 Other long term (current) drug therapy; Z86.73 Personal history of transient ischemic attack (TIA), and cerebral infarction without residual deficits
CPT/HCPCS: 32555; 36415; 71046; 71250; 74176; 77012; 80048; 82945; 83615; 83735; 84157; 84484; 85025; 85610; 88108; 88172; 88305; 88313; 88341; 88342; 89050; 93005; 97110; 97162; 97166; 97535; 99156; 99284; J7030; J7040; A4216

== ENCOUNTER → 2020-12-07 | Outpatient (CLI) | payer MEDICARE, SELFPAY ==
[2020-12-01 09:12] VITALS: BMI 27.4
[2020-12-07 13:27] LABS: International Normalized Ratio 2.9; Prothrombin Time (Protime)PT. 29.2 SECONDS (11.7-14.9)
== END | disposition home or self-care (01) ==
LOC: LABSPEC 12:48
PROVIDERS: Visit Provider Internal Medicine
DX: Z79.01 Long term (current) use of anticoagulants (principal)
CPT/HCPCS: 85610

== ENCOUNTER → 2020-12-09 08:21 | Outpatient (CLI) | payer MEDICARE, SELFPAY ==
[2020-12-08 09:51] VITALS: BMI 27.6
--- NOTE | 2020-12-09 08:23 | US_ITS ---
STUDY: ABDOMINAL ULTRASOUND - evaluation for ascites REASON FOR VISIT: Male, 85 years old Ascites/ ? paracentesis -- ascites survey per order TECHNIQUE: Ultrasound evaluation of the 4 quadrants was performed with real-time and static navas-scale imaging. TECHNICAL QUALITY: Adequate. COMPARISON: None. FINDINGS: Ascites identified in the right upper quadrant, left lower quadrant, right lower quadrant with minimal ascites in the left upper quadrant. US/Abdomen Limited IMPRESSION: Moderate volume ascites. Electronically Signed: Syed Gomez MD ([place]) at 15:41 EDT , Service support ,
== END ==
PROVIDERS: PCP Internal Medicine; Referring Provider Nurse Practitioner Family; Visit Provider Nurse Practitioner Family
DX: C82.39 Follicular lymphoma grade IIIa, extranodal and solid organ sites (principal)
CPT/HCPCS: 76705

== ENCOUNTER 2020-12-11 03:31 | Inpatient (IN) | payer MEDICARE, SELFPAY ==
[2020-12-08 09:51] VITALS: BMI 27.6
[2020-12-11] VITALS (18 sets, daily range): BP systolic 88–139; BP diastolic 58–98; PULSE 79–105; RESP 18–30; TEMP 36.2–37.2; O2SAT 87–97; BMI 27.5; BMI 26.9
--- NOTE | 2020-12-11 03:43 | EKG12_ITS ---
Test Reason : DYSRHYTHMIA Blood Pressure : / mmHG Vent. Rate : 111 BPM Atrial Rate : 108 BPM P-R Int : 000 ms QRS Dur : 120 ms QT Int : 354 ms P-R-T Axes : 000 -27 091 degrees QTc Int : 481 ms Atrial fibrillation Incomplete left bundle branch block Septal infarct , age undetermined , cannot be excluded Abnormal ECG Confirmed by JANETT ROSS, BLACK ([id number]), non linear editor ESTHELA ESCOBEDO ([id number]) on 12/14/2020 9:03:45 AM Referred By: MAGAN Confirmed By:BLACK ROWLAND MD
--- NOTE | 2020-12-11 03:44 | ED.VIS.DYS ---
HPI History of Present Illness Chief Complaint: Shortness of Breath Detail of Chief Complaint: Shortness of breath that started last evening Narrative Narrative: Patient presents with shortness of breath that started last evening. Patient states that it has been gradually coming on for some time. He saw his primary care physician yesterday and is scheduled to have a thoracentesis to be performed next . Patient denies any chest pain. He denies fever. She had a mild cough. Last evening he really had a hard time catching his breath. 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 Patient's last dose of immunotherapy was 3 days ago. Patient also has history of hypertension as well as A. fib. Patient discontinued his Coumadin last evening in preparation to have his thoracentesis next . tells me he recently had an echocardiogram which showed normal ejection fraction. [facility] Medical History (Updated 12/11/20 @ 04:[address] Michelle Seo, ) Abdominal distention Atrial fibrillation BPH (benign prostatic hyperplasia) Change in bowel habit Chronic kidney disease, stage 3a Essential hypertension HLD (hyperlipidemia) Hydronephrosis IBS (irritable bowel syndrome) Multinodular goiter Multiple thyroid nodules Pacemaker Pacemaker Home Medications clopidogrel 75 mg tablet 75 mg PO DAILY 03/19/19 [History Last Taken Unknown] finasteride 5 mg tablet 5 mg PO DAILY 03/19/19 [History Last Taken Unknown] flecainide 150 mg tablet 150 mg PO Q12H 03/19/19 [History Last Taken Unknown] metoprolol succinate 25 mg tablet,extended release 24 hr 25 mg PO DAILY 03/19/19 [History Last Taken Unknown] simvastatin 20 mg tablet 20 mg PO QHS 03/19/19 [History Last Taken Unknown] tamsulosin 0.4 mg capsule 0.4 mg PO DAILY 03/19/19 [History Last Taken Unknown] warfarin 2 mg PO DAILY #60 tab 11/17/20 [Rx Last Taken Unknown] acyclovir 400 mg tablet 400 mg PO BID #60 tab 11/25/20 [Rx Last Taken Unknown] allopurinol 300 mg tablet 300 mg PO DAILY #7 tab 12/08/20 [Rx Last Taken Unknown] furosemide 20 mg tablet 40 mg PO DAILY tab 12/08/20 [History Last Taken Unknown] lorazepam 1 mg PO QHS PRN PRN 12/11/20 [History Last Taken Unknown] spironolactone 25 mg PO DAILY 12/11/20 [History Last Taken Unknown] Allergy/AdvReac Type Severity Reaction Status Date / Time sulfamethoxazole Allergy Intermediate joint pain Verified 12/11/20 03:32 [From Bactrim] trimethoprim [From Bactrim] Allergy Intermediate joint pain Verified 12/11/20 03:32 lactose AdvReac Intermediate Diarrhea Verified 12/11/20 03:32 Family History Mother Arthritis Cancer uterine Father Colon cancer Surgical History History of hip replacement History of thoracentesis Social History Smoking Status: Never smoker second hand exposure: No alcohol intake: never substance use type: does not use tacos/yazdanism: Hinduism seatbelt use: always do you feel safe at home: Yes ROS ROS ED Constitutional Constitutional ED: Reports systems reviewed and no addt'l complaints, except as documented; Denies body ache(s), change in weight or chills Eyes Eyes: Denies acute decrease in peripheral vision, change in vision, double vision or loss of vision ENT ENT ED: Reports none; Denies ear pain, lip swelling, loss taste/smell, neck pain, otalgia or sore throat Cardiovascular Cardiovascular: Reports none; Denies abdominal pain, chest pain with activity, leg edema, lightheadedness, palpitations, rapid heart rate or syncope Respiratory/Chest Respiratory/Chest: Reports none, cough, dyspnea and dyspnea on exertion; Denies change in mental status, dry cough, hemoptysis, shortness of breath at rest or shortness of breath with exertion Gastrointestinal Gastrointestinal: Reports none; Denies abdominal pain, change in stool character, diarrhea, hematemesis, hematochezia, melena, rectal bleeding or vomiting Genitourinary Genitourinary ED: Reports none; Denies abdominal discomfort, anuria, dysuria, genital pain or polyuria Musculoskeletal Musculoskeletal: Reports none; Denies arthralgias, back pain, difficulty walking, extremity pain, muscle weakness or myalgias Integumentary Reports none; Denies abscess or rash Neurologic Neurologic: Reports none; Denies abnormal gait, confusion, focal weakness, frequent falls, headache(s), loss of vision, numbness, paresthesias, radicular pain, vertigo or weakness Psychiatric Psychiatric: Reports systems reviewed and no addt'l complaints, except as documented and none; Denies behavioral changes, confusion, difficulty concentrating, hallucinations, suicidal ideation, tactile hallucinations or visual hallucinations Endocrine Endocrinology: Denies none, cold intolerance, excessive sweating, fatigue or heat intolerance Hematologic/Lymphatic Hematologic/Lymphatic: Reports none; Denies anemia, easy bleeding or easy bruising Allergic/Immunologic Allergic/Immunologic ED: Denies as per HPI, none, lip swelling, mouth swelling, throat swelling, tongue swelling or hives EXAM Physical Exam Const Vital Signs: 12/11/20 03:32 12/11/20 03:36 12/11/20 03:39 Temperature 98.9 F Temperature Source Temporal Pulse Rate 105 H Respiratory Rate 20 H Respiratory Effort Blood Pressure 88/58 L Blood Pressure Mean 68 Pulse Ox 87 93 Oxygen Delivery Method Room Air Nasal Cannula Oxygen Flow Rate (L/min) 4 12/11/20 04:07 Temperature Temperature Source Pulse Rate Respiratory Rate Respiratory Effort Short of Breath Labored Blood Pressure Blood Pressure Mean Pulse Ox Oxygen Delivery Method Nasal Cannula Oxygen Flow Rate (L/min) 4 Positive well nourished and well developed General Appearance ED: well developed and NAD HEENT Reports TM's clear and moist mucous membranes normocephalic and atraumatic; Negative for trauma or tenderness Tympanic Membrane ED: Yes TM's clear Eyes PERRL and EOMs intact bilaterally General Eye ED: Negative for pale conjunctiva or scleral icterus Neck no lymphadenopathy, supple and no JVD General: Negative for tenderness Chest Wall inspection of chest normal and palpation of chest normal Chest: Negative for tenderness Resp normal respiratory effort and clear to auscultation bilaterally Effort and Inspection: Negative for respiratory distress or pain with movement Auscultation: rales and diminished lung sounds right; Negative for rhonchi or wheezes Cardio regular rate, S1 normal heart sound, S2 normal heart sound and no murmurs Cardio Narrative: Irregularly irregular without murmur auscultated. Rate: tachycardic Peripheral Pulses: pulses 2+ throughout GI normal to inspection, nondistended, normoactive bowel sounds, soft to palpation, non-tender, non-distended and no masses Back/Spine no CVA tenderness and no thoracic nor lumbar tenderness Extremity normal to inspection General Extremety ED: Negative for edema General Extremity: Negative for edema Neuro oriented x3, CN's II-XII intact bilaterally, no sensory deficits noted and gait normal Sensorium / Orientation: awake, alert, oriented to person, oriented to place and oriented to time Motor Exam: strength 5/5 throughout and strength abnormal Psych mental status grossly normal Skin no rashes or lesions noted and no wounds MDM MDM MDM Narrative Medical decision making narrative: Patient noted to have a large right pleural effusion. Patient will need to be admitted to reverse Coumadin and will need therapeutic thoracentesis. Case discussed with hospitalist will evaluate patient for admission. Lab Data Attestation: I reviewed the patient's lab results. Labs: Laboratory Results - last 24 hr 12/11/20 12/11/20 12/11/20 03:58 03:58 03:58 WBC 10.8 RBC 4.53 L Hgb 12.5 L Hct 38.2 L MCV 84.3 MCH 27.6 MCHC 32.7 RDW Std Deviation 43.2 RDW Coeff of Flash 14.3 Plt Count 316 MPV 9.3 Immature Gran % (Auto) 0.900 Neut % (Auto) 80.7 H Lymph % (Auto) 4.6 L Luna % (Auto) 6.2 Eos % (Auto) 7.2 H Baso % (Auto) 0.4 Absolute Neuts (auto) 8.7 H Absolute Lymphs (auto) 0.50 L Nucleated RBC % 0 PT 32.4 H INR 3.3 Sodium 134 L Potassium 3.7 Chloride 100 Carbon Dioxide 25.0 Anion Gap 9 BUN 22 H Creatinine 1.39 H Estim Creat Clear Calc 40.12 Est GFR (MDRD) Af Amer 62 Est GFR (MDRD) Non-Af 52 L BUN/Creatinine Ratio 15.8 Glucose 115 H Calcium 9.4 Troponin I High Sens 18.5 B-Natriuretic Peptide 12/11/20 03:58 WBC RBC Hgb Hct MCV MCH MCHC RDW Std Deviation RDW Coeff of Flash Plt Count MPV Immature Gran % (Auto) Neut % (Auto) Lymph % (Auto) Luna % (Auto) Eos % (Auto) Baso % (Auto) Absolute Neuts (auto) Absolute Lymphs (auto) Nucleated RBC % PT INR Sodium Potassium Chloride Carbon Dioxide Anion Gap BUN Creatinine Estim Creat Clear Calc Est GFR (MDRD) Af Amer Est GFR (MDRD) Non-Af BUN/Creatinine Ratio Glucose Calcium Troponin I High Sens B-Natriuretic Peptide 232.5 H Radiography Chest X-Ray - ED: 1 View Diagnostic Testin view chest x-ray obtained interpreted by myself as large right-sided pleural effusion EKG Initial EKG: Attestation: I personally reviewed and interpreted this EKG as follows: Comments: Atrial fibrillation with a ventricular rate of 111 bpm with old septal infarct Prior EKG tracings: available for review Prior: Unchanged Discharge Plan Triage Chief Complaint: Shortness of Breath ED Provider: Michelle Seo Dx/Rx/DC Orders Clinical Impression: Acute dyspnea, Pleural effusion on right Prescriptions: No Action tamsulosin [Flomax] 0.4 mg capsule 0.4 mg PO DAILY RF: 0 clopidogrel [Plavix] 75 mg tablet 75 mg PO DAILY RF: 0 simvastatin 20 mg tablet 20 mg PO QHS RF: 0 metoprolol succinate [Toprol XL] 25 mg tablet extended release 24 hr 25 mg PO DAILY RF: 0 finasteride [Proscar] 5 mg tablet 5 mg PO DAILY RF: 0 flecainide 150 mg tablet 150 mg PO Q12H RF: 0 acyclovir 400 mg tablet 400 mg PO BID Qty: 60 RF: 1 furosemide [Lasix] 20 mg tablet 40 mg PO DAILY RF: 0 warfarin 1 mg tablet 2 mg PO DAILY Qty: 60 RF: 0 lorazepam 1 mg tablet 1 mg PO QHS PRN PRN (Reason: Anxiety) RF: 0 spironolactone 25 mg tablet 25 mg PO DAILY RF: 0 allopurinol 300 mg tablet 300 mg PO DAILY Qty: 7 RF: 0 Primary Care Provider: Aric Archibald Referrals: Aric Archibald MD [Primary Care Provider] - Disposition Disposition: Acute Care Hospital [facility]
[2020-12-11] MEDS: 0.9% Normal Saline 1,000 ML 150 ML IV (04:03)
--- NOTE | 2020-12-11 04:06 | RAD_ITS ---
STUDY: X-RAY CHEST REASON FOR EXAM: Male, 85 years old. dyspnea TECHNIQUE: Single AP portable view of the chest. COMPARISON: 11/17/2020 FINDINGS: Increased right basilar consolidation with moderate to large right effusion. Remainder of the right upper lobe is adequately inflated and clear. Left lung is clear. Stable cardiomegaly with left chest wall pacing device. RAD/Chest 1 View (Portable) IMPRESSION: Right lower lobe consolidation with large right effusion. Left lung is clear Electronically Signed: Qamar Orellana DO at 6:17 EDT Tel , Service support ,
[2020-12-11 04:07] LABS: Absolute Neutrophil Count 8.7 X10^3/uL (2.0-7.7); Basophil# 0.04 X10^3/uL; Basophil% 0.4 % (0-1); Eosinophil# 0.78 X10^3/uL; Eosinophils% 7.2 % (0-5); Hematocrit 38.2 % (40-54); Hemoglobin 12.5 g/dL (13.0-16.5); Lymphocyte % 4.6 % (19-41); Mean Corp Hgb Conc 32.7 g/dL (32-36); Mean Corpuscular Hgb 27.6 pg (27.0-32.0); Mean Corpuscular Volume 84.3 fL (80-94); Mean Platelet Vol. 9.3 fl (6.2-12.0); Monocyte# 0.67 X10^3/uL; Monocyte% 6.2 % (0-10); NRBC Flagged by Analyzer 0 % (0-5); Neutrophil # 8.73 X10^3/uL (2.7-7.7); Neutrophil % 80.7 % (47-70); POSITIVE DIFFERENTIAL YES; Platelet Count 316 K/mm3 (150-450); RBC Distribution Width CV 14.3 % (11.6-14.6); RBC Distribution Width SD 43.2 fl (35.1-43.9); Red Blood Count 4.53 M/mm3 (4.6-6.2); White Blood Count 10.8 K/mm3 (4.4-11.0)
[2020-12-11 04:14] LABS: Differential Indicated SCAN CRITERIA MET
[2020-12-11 04:29] LABS: International Normalized Ratio 3.3; Prothrombin Time (Protime)PT. 32.4 SECONDS (11.7-14.9)
[2020-12-11 04:31] LABS: Anion Gap 9 (5-15); BUN 22 mg/dL (7-18); BUN/Creat Ratio 15.8 RATIO (10-20); Calcium,Total 9.4 mg/dL (8.5-10.1); Chloride 100 mmol/L (98-107); Creatinine, Serum 1.39 mg/dL (0.70-1.30); EST Glomerular Filtration Rate 52 mL/min (>60); Est Glom Filt Rate - Afr Amer 62 mL/min (>60); Estimated Creatinine Clearance 40.12 ml/min; Glucose 115 mg/dL (74-106); Potassium 3.7 mmol/L (3.5-5.1); Sodium Level 134 mmol/L (136-145); Troponin-I HS 18.5 pg/mL (3.0-78.5)
[2020-12-11 04:33] LABS: BNP,B-Type NATRIURETIC PEPTIDE 232.5 pg/mL (0-100)
--- NOTE | 2020-12-11 04:56 | HP.PCM.HOS_ITS ---
HPI - General General Date of Admission: 12/11/20 Date of Service: 12/11/20 Chief Complaint: SOB - ongoing for weeks HPI Narrative MAXIMUS ZHAO, is a 85 M who presents with progressive shortness of breath ongoing for weeks, worsened over the last couple of days. 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 Patient follows up with oncology Dr. Rivas in the outpatient. 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 He had diagnostic thoracocentesis on 11/15/[address]-guided biopsy of the mesenteric mass on 11/04 35. Pathology was suggestive of lymphoma. Patient's primary care doctor, Dr. Archibald was planning on patient having another thoracocentesis. He stopped taking his Coumadin last night. He came into the ED because he has progressive shortness of breath. He denied any chest pain or palpitation. He admits to some lightheadedness. Vitals in the ED were stable except for hypoxia. He was saturating 87% on room air, improved to 94% on 3 L of oxygen. His INR was 3.3. His BNpep is 232.5 PFSH Medical History Abdominal distention Anxiety Atrial fibrillation BPH (benign prostatic hyperplasia) Cancer Change in bowel habit Chronic kidney disease, stage 3a CPAP (continuous positive airway pressure) dependence Essential hypertension HLD (hyperlipidemia) Hydronephrosis IBS (irritable bowel syndrome) Irregular heart beat Multinodular goiter Multiple thyroid nodules Non-smoker Pacemaker Pacemaker Sleep apnea TIA (transient ischemic attack) Home Medications clopidogrel 75 mg tablet 75 mg PO DAILY 03/19/19 [History Last Taken 12/10/20 75 mg] finasteride 5 mg tablet 5 mg PO DAILY 03/19/19 [History Last Taken 12/10/20 5 mg] flecainide 150 mg tablet 150 mg PO Q12H 03/19/19 [History Last Taken 12/10/20 150 mg] metoprolol succinate 25 mg tablet,extended release 24 hr 25 mg PO DAILY 03/19/19 [History Last Taken 12/10/20 25 mg] simvastatin 20 mg tablet 20 mg PO QHS 03/19/19 [History Last Taken 12/10/20 20 mg] tamsulosin 0.4 mg capsule 0.4 mg PO DAILY 03/19/19 [History Last Taken 12/10/20 0.4 mg] warfarin 2 mg PO DAILY #60 tab 11/17/20 [Rx Last Taken 12/09/20 2 mg] acyclovir 400 mg tablet 400 mg PO BID #60 tab 11/25/20 [Rx Last Taken 12/10/20 400 mg] allopurinol 300 mg tablet 300 mg PO DAILY #7 tab 12/08/20 [Rx Last Taken 12/10/20 300 mg] furosemide 20 mg tablet 40 mg PO DAILY tab 12/08/20 [History Last Taken 12/10/20 40 mg] lorazepam 1 mg PO QHS PRN PRN 12/11/20 [History Last Taken Unknown] spironolactone 25 mg PO DAILY 12/11/20 [History Last Taken 12/10/20 25 mg] Allergy/AdvReac Type Severity Reaction Status Date / Time sulfamethoxazole Allergy Intermediate joint pain Verified 12/11/20 03:32 [From Bactrim] trimethoprim [From Bactrim] Allergy Intermediate joint pain Verified 12/11/20 03:32 lactose AdvReac Intermediate Diarrhea Verified 12/11/20 03:32 Family History Mother Arthritis Cancer uterine Father Colon cancer Surgical History History of hip replacement History of thoracentesis Social History Smoking Status: Never smoker second hand exposure: No alcohol intake: never substance use type: does not use tacos/uatsdin: Nondenominational seatbelt use: always do you feel safe at home: Yes ROS ROS Narrative Constitutional: Reports: Malaise, Weakness, Fatigue. Denies: Anorexia, Chills, Fever, Night Sweats, Weight Change Eyes: Denies: Blurred vision, Cataracts, Conjunctivae Inflammation, Pain, Redness, Vision Change HEENT: Denies: Difficulty Hearing, Difficulty Swallowing, Head Aches, Hearing Changes, Sinus Congestion, Sinus Drainage Cardiovascular: Denies: Chest Pain, Orthopnea, Palpitations Respiratory: Admits to: Cough, Shortness of breath at rest Gastrointestinal: Denies: Abdominal Pain, Nausea, Vomiting Genitourinary: Denies: Dysuria Musculoskeletal: Denies: Joint Pain, Joint stiffness, Joint swelling, Joint Tenderness Skin: Denies: Rash, Wounds Neurological: Denies: Numbness, Tingling, Focal weakness Vital Signs Vital Signs Vital Signs: 12/11/20 03:32 12/11/20 03:36 12/11/20 03:39 Temperature 98.9 F Temperature Source Temporal Pulse Rate 105 H Respiratory Rate 20 H Respiratory Effort Blood Pressure 88/58 L Blood Pressure Mean 68 Pulse Ox 87 93 Oxygen Delivery Method Room Air Nasal Cannula Oxygen Flow Rate (L/min) 4 12/11/20 04:07 Temperature Temperature Source Pulse Rate Respiratory Rate Respiratory Effort Short of Breath Labored Blood Pressure Blood Pressure Mean Pulse Ox Oxygen Delivery Method Nasal Cannula Oxygen Flow Rate (L/min) 4 Weight Weight: 87 kg Body Mass Index (BMI) 27.5 Physical Exam Narrative Physical exam: General: Alert, Oriented x3, Cooperative, in mild respiratory distress, on 3 L of oxygen HEENT: Atraumatic Oral: Moist Mucosa Neck: Supple Lungs: Diminished air entry to the right middle and lower lobe Cardiovascular: HS I+II, regular, 2/6 holosystolic murmur Abdomen: Bowel Sounds Present, Soft, Non Tender, no palpable organs Extremities: Bilateral pedal edema +2 Results Lab / Micro Data Result Diagrams: 12/11/20 03:58 12/11/20 03:58 Labs: Laboratory Results - last 24 hr 12/11/20 03:58: WBC 10.8, RBC 4.53 L, Hgb 12.5 L, Hct 38.2 L, MCV 84.3, MCH 27.6, MCHC 32.7, RDW Std Deviation 43.2, RDW Coeff of Flash 14.3, Plt Count 316, MPV 9.3, Immature Gran % (Auto) 0.900, Neut % (Auto) 80.7 H, Lymph % (Auto) 4.6 L, [place] % (Auto) 6.2, Eos % (Auto) 7.2 H, Baso % (Auto) 0.4, Absolute Neuts (auto) 8.7 H, Absolute Lymphs (auto) 0.50 L, Nucleated RBC % 0 12/11/20 03:58: PT 32.4 H, INR 3.3 12/11/20 03:58: Sodium 134 L, Potassium 3.7, Chloride 100, Carbon Dioxide 25.0, Anion Gap 9, BUN 22 H, Creatinine 1.39 H, Estim Creat Clear Calc 40.12, Est GFR (MDRD) Af Amer 62, Est GFR (MDRD) Non-Af 52 L, BUN/Creatinine Ratio 15.8, Glucose 115 H, Calcium 9.4, Troponin I High Sens 18.5 12/11/20 03:58: B-Natriuretic Peptide 232.5 H Assessment & Plan Assessment/Plan (1) Acute dyspnea: (2) Pleural effusion on right: (3) Follicular lymphoma grade 3a: QUALIFIERS: Lymphoma site: extranodal excluding spleen and other solid organs Qualified Code(s): C82.39 - Follicular lymphoma grade IIIa, extranodal and solid organ sites PLAN: 1. Hypoxia secondary to large right pleural effusion Continue with breathing treatments, encourage use of incentive spirometer. Wean off oxygen for SPO2 more than 94% 2. Right large pleural effusion, in a patient with history of lymphoma, symptomatic Status post thoracocentesis a month ago Patient's INR is supratherapeutic at 3.3, off Coumadin Will give FFP 2 units, Lasix 20 mg IV x1 after FFP's, repeat INR Pulmonology consulted 3. Relative hypotension, patient blood pressure has been fluctuating We will put holding parameters on his blood pressure medications 4. Chronic atrial fibrillation, rate controlled, EKG shows atrial fibrillation Continue flecainide, metoprolol 5. 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 Following with oncology in the outpatient I discussed and explained in details the various types of CODE STATUS-full code, DNR CCA, DNR CC. Patient chose DNR CCA, no intubation Time spent discussing CODE STATUS 17 minutes Charges/Coding Visit Charges Inpatient E&M: 96683 Init Hosp L3 Procedures Hospitalists Procedures: 92005 Advncd Care Plan 30 Min
[2020-12-11 05:51] LABS: International Normalized Ratio 3.3; Prothrombin Time (Protime)PT. 32.4 SECONDS (11.7-14.9)
[2020-12-11 06:09] LABS: LDH 751 U/L (87-241)
[2020-12-11] MEDS: Furosemide 20 MG/2 ML VIAL IV (07:02)
--- NOTE | 2020-12-11 08:17 | EX.PCM.CONCC ---
Assessment & Plan Assessment/Plan (1) Pleural effusion, right: (2) Follicular lymphoma grade 3a: QUALIFIERS: Lymphoma site: extranodal excluding spleen and other solid organs Qualified Code(s): C82.39 - Follicular lymphoma grade IIIa, extranodal and solid organ sites (3) Atrial fibrillation: PLAN: RECOMMENDATIONS: 1. Discontinue laboratory work-up on thoracentesis 2. Correct coagulopathy 3. Consider paracentesis and subsequent right-sided thoracentesis on Sunday 4. Continue chemotherapy per oncology 5. We will monitor to see if urgent intervention required over the weekend IMPRESSIONS: 1. Acute hypoxic respiratory insufficiency secondary to large right pleural effusion secondary to follicular lymphoma Patient with recent thoracentesis diagnostic of exudate secondary to follicular lymphoma. It is likely not necessary to repeat testing. Rapid reaccumulation likely secondary to malignant nature. Of concern, patient appears to have moderate ascites and this will likely reaccumulate rapidly into the right chest if not taken out prior to thoracentesis. Await normalization of coagulopathy. Patient does not require urgent intervention in my opinion. Would caution against aggressive diuresis for control of hypoxia given malignant etiology. 2. Relative hypotension/chronic A. fib/stage IV non-Hodgkin's lymphoma/REN/HLD/BPH Complicates care, management, recovery and prognosis. Could consider holding baseline antihypertensive medications given soft blood pressures. Okay to continue with flecainide from my perspective. Would recommend holding Plavix prior to intervention, but it is unclear that 5 days need to be the requirement. HPI Consult Data Date of Consult: 12/11/20 HPI Narrative HPI Narrative: MAXIMUS ZHAO is an 85 M, with past medical history listed below, who presents to [facility] on 12/11/2020 secondary to progressive shortness of breath. Patient had been seen by his PCP earlier in the week and was scheduled to have a thoracentesis next . Patient not reported any constitutional symptoms such as fever, chills, but did have a mild cough. Patient states he had significant shortness of breath with exertion and this led him to coming to the emergency room prior to his thoracentesis. Patient was recently diagnosed with follicular lymphoma and has received 2 doses of immunotherapy. The last dose was 3 days ago. Patient is anticoagulated at baseline secondary to A. fib, but recently discontinued his Coumadin in preparation for the scheduled thoracentesis. Patient had also remarked that he felt that his abdomen was more distended than it has been previously. Patient is not reporting any change in bowel movements. In the ER, patient was afebrile, but tachycardic at 105 bpm. Patient was hypoxic at 87% on room air. Patient does not require supplemental oxygen at baseline. Patient's blood pressure was decreased at 88/58, but MAP was acceptable. Laboratory work-up was relatively unremarkable except for a slightly decreased hemoglobin at 12.5, INR of 3.3 and a creatinine of 1.39. BNP was slightly elevated at 232. Patient was recently hospitalized secondary to a pleural effusion. Diagnostic studies were completed on this leading to a diagnosis of follicular lymphoma. Patient states 2 L were drained at that time and he has not noted any complications associated with the procedure. Patient denies any previous pulmonary history. Patient does report using a CPAP with sleep, but is unaware of the settings. Review of systems otherwise negative from a constitutional, HEENT, respiratory, cardiovascular, GI, genitourinary, musculoskeletal, skin, neurologic, psychiatric and hematologic system unless stated above. [facility] Medical History Abdominal distention Anxiety Atrial fibrillation BPH (benign prostatic hyperplasia) Cancer Change in bowel habit Chronic kidney disease, stage 3a CPAP (continuous positive airway pressure) dependence Essential hypertension HLD (hyperlipidemia) Hydronephrosis IBS (irritable bowel syndrome) Irregular heart beat Multinodular goiter Multiple thyroid nodules Non-smoker Pacemaker Pacemaker Sleep apnea TIA (transient ischemic attack) Home Medications clopidogrel 75 mg tablet 75 mg PO DAILY 03/19/19 [History Last Taken 12/10/20 75 mg] finasteride 5 mg tablet 5 mg PO DAILY 03/19/19 [History Last Taken 12/10/20 5 mg] flecainide 150 mg tablet 150 mg PO Q12H 03/19/19 [History Last Taken 12/10/20 150 mg] metoprolol succinate 25 mg tablet,extended release 24 hr 25 mg PO DAILY 03/19/19 [History Last Taken 12/10/20 25 mg] simvastatin 20 mg tablet 20 mg PO QHS 03/19/19 [History Last Taken 12/10/20 20 mg] tamsulosin 0.4 mg capsule 0.4 mg PO DAILY 03/19/19 [History Last Taken 12/10/20 0.4 mg] warfarin 2 mg PO DAILY #60 tab 11/17/20 [Rx Last Taken 12/09/20 2 mg] acyclovir 400 mg tablet 400 mg PO BID #60 tab 11/25/20 [Rx Last Taken 12/10/20 400 mg] allopurinol 300 mg tablet 300 mg PO DAILY #7 tab 12/08/20 [Rx Last Taken 12/10/20 300 mg] furosemide 20 mg tablet 40 mg PO DAILY tab 12/08/20 [History Last Taken 12/10/20 40 mg] lorazepam 1 mg PO QHS PRN PRN 12/11/20 [History Last Taken Unknown] spironolactone 25 mg PO DAILY 12/11/20 [History Last Taken 12/10/20 25 mg] Allergy/AdvReac Type Severity Reaction Status Date / Time sulfamethoxazole Allergy Intermediate joint pain Verified 12/11/20 03:32 [From Bactrim] trimethoprim [From Bactrim] Allergy Intermediate joint pain Verified 12/11/20 03:32 lactose AdvReac Intermediate Diarrhea Verified 12/11/20 03:32 Family History Mother Arthritis Cancer uterine Father Colon cancer Surgical History History of hip replacement History of thoracentesis Social History Smoking Status: Never smoker second hand exposure: No alcohol intake: never substance use type: does not use tacos/islam: Anabaptist seatbelt use: always do you feel safe at home: Yes ROS ROS Narrative See HPI Physical Exam Const alert, oriented x3 and no apparent distress General Appearance: cooperative and well developed HEENT normocephalic, head/scalp atraumatic and moist oral mucous membranes Eyes PERRL and EOMs intact bilaterally Neck full ROM and no lymphadenopathy Chest inspection of chest normal Resp normal respiratory effort and no use of accessory muscles Effort and Inspection: able to speak in complete sentences Auscultation: diminished lung sounds; Negative for rales, rhonchi or wheezes Percussion: dullness Mid: right and Lower: right Cardio regular rate, S1 normal heart sound, S2 normal heart sound, no rub and no gallops Rhythm: abnormal rhythm irregularly irregular Heart Sounds: murmur systolic II/ GI Inspection: abdominal distention Palpation: ascites Percussion: dullness to percussion and fluid wave no CVA tenderness Extremity no clubbing, cyanosis or edema Skin no rashes or lesions noted Neuro oriented x3, CN's II-XII intact bilaterally, moves all extremities and no focal motor deficits Psych cooperative and affect normal Lab / Micro Data Result Diagrams: 12/11/20 03:58 12/11/20 03:58 Labs: Laboratory Results - last 24 hr 12/11/20 03:58: WBC 10.8, RBC 4.53 L, Hgb 12.5 L, Hct 38.2 L, MCV 84.3, MCH 27.6, MCHC 32.7, RDW Std Deviation 43.2, RDW Coeff of Flash 14.3, Plt Count 316, MPV 9.3, Immature Gran % (Auto) 0.900, Neut % (Auto) 80.7 H, Lymph % (Auto) 4.6 L, [place] % (Auto) 6.2, Eos % (Auto) 7.2 H, Baso % (Auto) 0.4, Absolute Neuts (auto) 8.7 H, Absolute Lymphs (auto) 0.50 L, Nucleated RBC % 0 12/11/20 03:58: PT 32.4 H, INR 3.3 12/11/20 03:58: Sodium 134 L, Potassium 3.7, Chloride 100, Carbon Dioxide 25.0, Anion Gap 9, BUN 22 H, Creatinine 1.39 H, Estim Creat Clear Calc 40.12, Est GFR (MDRD) Af Amer 62, Est GFR (MDRD) Non-Af 52 L, BUN/Creatinine Ratio 15.8, Glucose 115 H, Calcium 9.4, Troponin I High Sens 18.5 12/11/20 03:58: B-Natriuretic Peptide 232.5 H 12/11/20 04:58: Blood Type Cancelled, Antibody Screen Cancelled, Crossmatch See Detail 12/11/20 05:30: PT 32.4 H, INR 3.3 12/11/20 05:30: Fluid Glucose Cancelled, Fluid Total Protein Cancelled, Fluid LDH Cancelled 12/11/20 05:30: Lactate Dehydrogenase 751 H 12/11/20 : Blood Type O NEGATIVE, Antibody Screen NEGATIVE Radiology Impression Chest X-Ray 12/11/20 04:06 IMPRESSION: Right lower lobe consolidation with large right effusion. Left lung is clear Electronically Signed: Qamar Orellana DO at 6:17 EDT Tel , Service support , Charges/Coding Visit Charges Inpatient E&M: 74442 Init Hosp L3
[2020-12-11] MEDS: Furosemide 40 MG Tablet PO (09:49)
[2020-12-11] MEDS: Acyclovir 200 MG Capsule 400 MG PO ×2 (09:49→21:22)
[2020-12-11] MEDS: Flecainide 150 MG Tablet PO ×2 (09:50→21:22)
[2020-12-11] MEDS: Tamsulosin HCl 0.4 MG Capsule PO (09:50)
[2020-12-11] MEDS: Spironolactone 25 MG Tablet PO (09:51)
[2020-12-11] MEDS: Allopurinol 300 MG Tablet PO (09:51)
[2020-12-11] MEDS: Finasteride 5 MG Tablet PO (09:52)
--- NOTE | 2020-12-11 11:35 | CASEMGMT ---
SANDRA WINTER Assessment: Face to Face with pt for initial transition planning/care coordination assessment. SANDRA WINTER introduced self and role at [facility], pt voices understanding and consents to assessment. Pt is A/O x4 and answers all questions appropriately at this time. Pt sitting up in bed with O2 on in no distress although does become SOB with conversation. Care providers, pharmacy, and demographics verified/updated. 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 He states he does get his pacer checked at [facility] though. [facility]erred [facility]acy: [facility] Insurance: Gauzy Prescription Benefit: yes LW/HPOA: Pt has LW/DPOA on file at [facility]. His DPOA is Cassie Najera, . LNOK: Cassie Najera, Living Arrangements: Pt lives with in a two story house with no steps to enter. Pt states he is I in ADL's and denies concerns at home. Transportation: Pt states he did drive until recently when he received his cancer dx. His now transports him to medical appts. DME/HHC/SNF: Pt has a CPAP at home, walker which he uses, canes d/t collecting them and a pulse ox. Pt states he does have what he belives to be SN and therapy coming into the home every other day. He is not sure where they are from, he states his knows. When asked if this CM could call his he states no as she has been up all night bringing him to the ER. He states if his comes in then she can be asked. Pt denies any previous SNF stay. Pt states no concerns with going home at time of dc. States he was planned to get a thoracentesis on as outpt. Pt states no further concerns/needs. CM to follow. Advised pt to ask CM if any further question/concerns/needs arise, voices understanding. Pt Goal: Home with resumption of HHC services Plan: Home with resumption of HHC services once found out which services pt has from .
--- NOTE | 2020-12-11 11:56 | PN.HOSP_ITS ---
Subjective Subjective Breathing well with oxygen. Has abdominal distention. Objective Data Objective Data Vital Signs: Vital Signs Temp Pulse Resp BP Pulse Ox 36.2 C L 79 18 108/77 97 12/11/20 09:45 12/11/20 11:00 12/11/20 09:45 12/11/20 09:53 12/11/20 09:45 Oxygen Flow Rate (L/min) 3 Oxygen Delivery Method Nasal Cannula Weight: 85.2 kg Body Mass Index (BMI) 26.9 Intake & Output: Intake and Output for Last 24 Hours 12/09/20 12/10/20 12/11/20 23:59 23:59 23:59 Intake Total 1000 / 1000 Balance 1000 / 1000 Lab / Micro Data Result Diagrams: 12/11/20 03:58 12/11/20 03:58 Labs: Laboratory Results - last 24 hr 12/11/20 03:58: WBC 10.8, RBC 4.53 L, Hgb 12.5 L, Hct 38.2 L, MCV 84.3, MCH 27.6, MCHC 32.7, RDW Std Deviation 43.2, RDW Coeff of Flash 14.3, Plt Count 316, MPV 9.3, Immature Gran % (Auto) 0.900, Neut % (Auto) 80.7 H, Lymph % (Auto) 4.6 L, [place] % (Auto) 6.2, Eos % (Auto) 7.2 H, Baso % (Auto) 0.4, Absolute Neuts (auto) 8.7 H, Absolute Lymphs (auto) 0.50 L, Nucleated RBC % 0 12/11/20 03:58: PT 32.4 H, INR 3.3 12/11/20 03:58: Sodium 134 L, Potassium 3.7, Chloride 100, Carbon Dioxide 25.0, Anion Gap 9, BUN 22 H, Creatinine 1.39 H, Estim Creat Clear Calc 40.12, Est GFR (MDRD) Af Amer 62, Est GFR (MDRD) Non-Af 52 L, BUN/Creatinine Ratio 15.8, Glucose 115 H, Calcium 9.4, Troponin I High Sens 18.5 12/11/20 03:58: B-Natriuretic Peptide 232.5 H 12/11/20 04:58: Blood Type Cancelled, Antibody Screen Cancelled, Crossmatch See Detail 12/11/20 05:30: PT 32.4 H, INR 3.3 12/11/20 05:30: Fluid Glucose Cancelled, Fluid Total Protein Cancelled, Fluid LDH Cancelled 12/11/20 05:30: Lactate Dehydrogenase 751 H 12/11/20 : Blood Type Cancelled, Antibody Screen Cancelled Radiography Diagnostic Testing: Radiology Impression Chest X-Ray 12/11/20 04:06 IMPRESSION: Right lower lobe consolidation with large right effusion. Left lung is clear Electronically Signed: Qamar Orellana DO at 6:17 EDT Tel , Service support , Physical Exam Const alert and no apparent distress Neck no lymphadenopathy Resp normal respiratory effort, no retractions, no use of accessory muscles and clear to auscultation bilaterally Resp Narrative: Diminished in right lower lobe with dullness to percussion. Cardio regular rate, regular rhythm, S1 normal heart sound and S2 normal heart sound GI normal to inspection, nondistended, normoactive bowel sounds, soft to palpation, non-tender and non-distended Extremity normal to inspection Neuro oriented x3 Sensorium / Orientation: awake and alert Assessment & Plan Assessment/Plan (1) Pleural effusion, right: PLAN: 1. Right-sided pleural effusion Secondary to follicular lymphoma Plan is for a thoracentesis either on the eighth of the night. Delay over the weekend but also the fact that patient is on warfarin and clopidogrel. Patient's last dose of clopidogrel was 12/09/2020. 2. Acute hypoxic respiratory failure Secondary to pleural effusion 87% on room air when he presented and is currently been maintained on 3 L but was on 4 L temporarily. Patient will have improvement once he is able to get the thoracentesis so continue with oxygen for the meantime. 3. Coagulopathy Secondary to warfarin. Continue to hold warfarin and monitor INR Can give vitamin K prior to thoracentesis. Hold off on FFP unless needs to be done emergently 4. Atrial fibrillation Warfarin held as above Continue flecainide and metoprolol succinate 5. B-cell lymphoma Follow-up with oncology Etiology of his pleural effusion and ascites 6. VTE prophylaxis: Currently anticoagulated. Consider SCDs when INR is subtherapeutic Charges/Coding Procedures Hospitalists Procedures: Other Procedure - See Report (non billable rounding as pt admitted after midnight.)
[2020-12-11] MEDS: Atorvastatin Calcium 10 MG Tablet PO (21:22)
[2020-12-12] VITALS (45 sets, daily range): BP systolic 108–146; BP diastolic 42–98; PULSE 70–142; RESP 18–34; TEMP 36.9–37.3; O2SAT 89–96
--- NOTE | 2020-12-12 05:36 | NURSING ---
pt up to bathroom, pulse 168, sustaining in the 140-150s for 5-10 minutes, Dr. Bai notified and on floor, ordered to hold ortho bps this am and monitor hr, notify of any changes. pt sob, 02 increased to 4LPM, satting 91-92. Denies other symptoms
[2020-12-12 05:45] LABS: Absolute Lymphocyte Count 0.46 X10^3/uL (0.83-4.51); Absolute Neutrophil Count 8.7 X10^3/uL (2.0-7.7); Basophil# 0.02 X10^3/uL; Basophil% 0.2 % (0-1); Eosinophil# 1.27 X10^3/uL; Eosinophils% 11.5 % (0-5); Hematocrit 34.8 % (40-54); Hemoglobin 11.5 g/dL (13.0-16.5); Lymphocyte # 0.46 X10^3/ul (0.83-4.51); Lymphocyte % 4.2 % (19-41); Mean Corpuscular Hgb 27.7 pg (27.0-32.0); Mean Corpuscular Volume 83.9 fL (80-94); Mean Platelet Vol. 9.1 fl (6.2-12.0); Monocyte# 0.51 X10^3/uL; Monocyte% 4.6 % (0-10); NRBC Flagged by Analyzer 0 % (0-5); Neutrophil # 8.66 X10^3/uL (2.7-7.7); Neutrophil % 78.8 % (47-70); POSITIVE DIFFERENTIAL YES; Platelet Count 264 K/mm3 (150-450); RBC Distribution Width CV 14.3 % (11.6-14.6); RBC Distribution Width SD 43.3 fl (35.1-43.9); Red Blood Count 4.15 M/mm3 (4.6-6.2)
[2020-12-12] MEDS: Metoprolol(XL)Succ 25 MG Tablet PO (05:52)
[2020-12-12] MEDS: Flecainide 150 MG Tablet PO (05:53)
--- NOTE | 2020-12-12 05:56 | NURSING ---
Dr. Bai on floor with orders to give tambacor and toprol now. Given per orders
[2020-12-12 06:04] LABS: Differential Indicated SCAN CRITERIA MET; International Normalized Ratio 3.3; Prothrombin Time (Protime)PT. 32.7 SECONDS (11.7-14.9)
[2020-12-12 06:08] LABS: ALB/GLOB Ratio 0.8 RATIO (0.9-2.4); AST(SGOT) 62 U/L (15-37); Alanine Aminotransfer ALT/SGPT 42 U/L (16-61); Albumin, Serum 2.4 g/dL (3.2-5.0); Alkaline Phosphatase 78 U/L (45-117); Anion Gap 9 (5-15); BUN 26 mg/dL (7-18); BUN/Creat Ratio 16.5 RATIO (10-20); Calcium,Total 8.9 mg/dL (8.5-10.1); Chloride 100 mmol/L (98-107); Creatinine, Serum 1.58 mg/dL (0.70-1.30); EST Glomerular Filtration Rate 44 mL/min (>60); Est Glom Filt Rate - Afr Amer 54 mL/min (>60); Estimated Creatinine Clearance 35.29 ml/min; Globulin 3.2 g/dL (2.2-4.2); Glucose 100 mg/dL (74-106); Potassium 3.6 mmol/L (3.5-5.1); Protein, Total 5.6 g/dL (6.4-8.2); Sodium Level 134 mmol/L (136-145)
--- NOTE | 2020-12-12 07:21 | PN.CC_ITS ---
Assessment & Plan Assessment/Plan (1) Pleural effusion, right: (2) Follicular lymphoma grade 3a: QUALIFIERS: Lymphoma site: extranodal excluding spleen and other solid organs Qualified Code(s): C82.39 - Follicular lymphoma grade IIIa, extranodal and solid organ sites (3) Atrial fibrillation: PLAN: RECOMMENDATIONS: 1. Discontinue laboratory work-up on thoracentesis 2. Correct coagulopathy. Consider vitamin K 3. Consider paracentesis and subsequent right-sided thoracentesis on Sunday 4. Continue chemotherapy per oncology 5. Consider cardiology consultation for A. fib with RVR IMPRESSIONS: 1. Acute hypoxic respiratory insufficiency secondary to large right pleural effusion secondary to follicular lymphoma Patient with recent thoracentesis diagnostic of exudate secondary to follicular lymphoma. It is likely not necessary to repeat testing. Rapid reaccumulation likely secondary to malignant nature. Of concern, patient ajit ears to have moderate ascites and this will likely reaccumulate rapidly into the right chest if not taken out prior to thoracentesis. Await normalization of coagulopathy. Patient does not require urgent intervention in my opinion. Would caution against aggressive diuresis for control of hypoxia given malignant etiology. 2. Relative hypotension/stage IV non-Hodgkin's lymphoma/REN/HLD/BPH Complicates care, management, recovery and prognosis. Could consider holding baseline antihypertensive medications given soft blood pressures. Okay to continue with flecainide from my perspective. Would recommend holding Plavix prior to intervention, but it is unclear that 5 days need to be the requirement. 3. A. fib with RVR Patient with degradation to A. fib with RVR, but appears to be tolerating this well. Patient's INR is still therapeutic, but patient may require vitamin K to correct it now for interventions tomorrow. Defer to the hospitalist. Additional FFP can be given tomorrow if necessary. Patient is already on flecainide at baseline. Subjective Subjective Patient did well overnight. Patient states that when he got up this morning to walk to the bathroom he started to develop tachycardia per the nurses. Patient states he has no symptoms. Patient is not reporting any change in respiratory status. Objective Data Objective Data Patient in A. fib with RVR on telemetry. Vital Signs: Vital Signs Temp Pulse Resp BP Pulse Ox 37.3 C 142 H 22 H 134/82 H 90 12/12/20 05:26 12/12/20 05:52 12/12/20 05:26 12/12/20 05:26 12/12/20 05:26 Oxygen Flow Rate (L/min) 4 Oxygen Delivery Method Nasal Cannula Weight: 86.4 kg Body Mass Index (BMI) 26.9 Intake & Output: Intake and Output for Last 24 Hours 12/10/20 12/11/20 12/12/20 23:59 23:59 23:59 Intake Total 1360 / 1560 300 / 300 Balance 1360 / 1560 300 / 300 Medical Nutrition Assessment Dietitian: Nutrition Therapy Diagnosis Start: 12/11/20 12:59 Freq: Status: Active Protocol: Document 12/11/20 13:12 SLA (Rec: 12/11/20 13:13 SLA [id number]) Nutrition Malnutrition Evidence of Malnutrition Exists No Intake Problem Inadequate Oral Intake Etiology related to new dx of lymphoma Signs/Symptoms as evidenced by pt w/ terrible appetite x 3-4 months Status Active Problem Recommendation Dietitian Recommendations/Changes Will change diet to Regular Sodium restricted Will provide 8 oz ensure clear w/ meals for increased nutrition if consumed. Lab / Micro Data Result Diagrams: 12/12/20 05:34 12/12/20 05:34 Labs: Laboratory Results - last 24 hr 12/11/20 05:30: Fluid Glucose Cancelled, Fluid Total Protein Cancelled, Fluid LDH Cancelled 12/11/20 : Blood Type Cancelled, Antibody Screen Cancelled 12/12/20 05:34: WBC 11.0, RBC 4.15 L, Hgb 11.5 L, Hct 34.8 L, MCV 83.9, MCH 27.7, MCHC 33.0, RDW Std Deviation 43.3, RDW Coeff of Flash 14.3, Plt Count 264, MPV 9.1, Immature Gran % (Auto) 0.700, Neut % (Auto) 78.8 H, Lymph % (Auto) 4.2 L, [place] % (Auto) 4.6, Eos % (Auto) 11.5 H, Baso % (Auto) 0.2, Absolute Neuts (auto) 8.7 H, Absolute Lymphs (auto) 0.46 L, Nucleated RBC % 0 12/12/20 05:34: Sodium 134 L, Potassium 3.6, Chloride 100, Carbon Dioxide 25.0, Anion Gap 9, BUN 26 H, Creatinine 1.58 H, Estim Creat Clear Calc 35.29, Est GFR (MDRD) Af Amer 54 L, Est GFR (MDRD) Non-Af 44 L, BUN/Creatinine Ratio 16.5, Glucose 100, Calcium 8.9, Total Bilirubin 0.50, AST 62 H, ALT 42, Alkaline Phosphatase 78, Total Protein 5.6 L, Albumin 2.4 L, Globulin 3.2, A lbumin/Globulin Ratio 0.8 L 12/12/20 05:34: PT 32.7 H, INR 3.3 Physical Exam Const alert, oriented x3 and no apparent distress General Appearance: cooperative and well developed HEENT normocephalic, head/scalp atraumatic and moist oral mucous membranes Eyes PERRL and EOMs intact bilaterally Neck full ROM and no lymphadenopathy Chest inspection of chest normal Resp normal respiratory effort and no use of accessory muscles Effort and Inspection: able to speak in complete sentences Auscultation: diminished lung sounds; Negative for rales, rhonchi or wheezes Percussion: dullness Mid: right and Lower: right Cardio S1 normal heart sound, S2 normal heart sound, no rub and no gallops Rate: tachycardic Rhythm: abnormal rhythm irregularly irregular GI GI Narrative: Slightly more distended today compared to yesterday Inspection: abdominal distention Palpation: ascites Percussion: dullness to percussion and fluid wave no CVA tenderness Extremity no clubbing, cyanosis or edema Skin no rashes or lesions noted Neuro oriented x3, CN's II-XII intact bilaterally, moves all extremities and no focal motor deficits Psych cooperative and affect normal Charges/Coding Visit Charges Inpatient E&M: 78874 Subs Hosp L3
[2020-12-12] MEDS: dilTIAZem 25 MG/5 ML Vial 10 MG IV BOLUS (07:25)
[2020-12-12] MEDS: 0.9% Saline Lock 10 ML Syringe IV ×2 (07:25→12:06)
[2020-12-12] MEDS: Finasteride 5 MG Tablet PO (09:30)
[2020-12-12] MEDS: Acyclovir 200 MG Capsule 400 MG PO ×2 (09:30→21:23)
[2020-12-12] MEDS: Allopurinol 300 MG Tablet PO (09:30)
[2020-12-12] MEDS: Furosemide 40 MG Tablet PO (09:30)
[2020-12-12] MEDS: Tamsulosin HCl 0.4 MG Capsule PO (09:30)
[2020-12-12] MEDS: Spironolactone 25 MG Tablet PO (09:31)
--- NOTE | 2020-12-12 09:36 | EKG12_ITS ---
Test Reason : RHYTHM Blood Pressure : / mmHG Vent. Rate : 160 BPM Atrial Rate : 163 BPM P-R Int : 000 ms QRS Dur : 138 ms QT Int : 270 ms P-R-T Axes : 000 -23 186 degrees QTc Int : 440 ms Wide QRS tachycardia ; Possibly VTach Left bundle branch block Abnormal ECG When compared with ECG of 11-DEC-2020 03:46, MANUAL COMPARISON REQUIRED, DATA IS UNCONFIRMED Confirmed by CAROLINA ROSS, ROSSY ([id number]), assistant editor ESTHELA ESCOBEDO ([id number]) on 12/15/2020 2:02:41 PM Referred By: SHANDRA Confirmed By:MARLYS FIGUEROA MD
--- NOTE | 2020-12-12 10:57 | PN.HOSP_ITS ---
Documented by User: Viral PISANO 12/12/20 11:21 Subjective Subjective Patient is a 85-year-old male comfortably resting in bed, alert and orient x3. Patient reports that this morning he got up to use the restroom and has been short of breath since, also endorses heart palpitations. Denies chest pain, h emoptysis, sputum production, fever, chills, N/V/D. Objective Data Objective Data Vital Signs: Vital Signs Temp Pulse Resp BP Pulse Ox 98.5 F 90 23 H 115/68 93 12/12/20 09:00 12/12/20 10:30 12/12/20 10:30 12/12/20 10:30 12/12/20 10:30 Oxygen Flow Rate (L/min) 6 Oxygen Delivery Method Nasal Cannula Weight: 188 lb 4.396 oz Body Mass Index (BMI) 26.9 Intake & Output: Intake and Output for Last 24 Hours 12/10/20 12/11/20 12/12/20 23:59 23:59 23:59 Intake Total 1360 / 1560 318.74 / 318.74 Balance 1360 / 1560 318.74 / 318.74 Medical Nutrition Assessment Dietitian: Nutrition Therapy Diagnosis Start: 12/11/20 12:59 Freq: Status: Active Protocol: Document 12/11/20 13:12 MARIA T (Rec: 12/11/20 13:13 MARIA T [id number]) Nutrition Malnutrition Evidence of Malnutrition Exists No Intake Problem Inadequate Oral Intake Etiology related to new dx of lymphoma Signs/Symptoms as evidenced by pt w/ terrible appetite x 3-4 months Status Active Problem Recommendation Dietitian Recommendations/Changes Will change diet to Regular Sodium restricted Will provide 8 oz ensure clear w/ meals for increased nutrition if consumed. Lab / Micro Data Result Diagrams: 12/12/20 05:34 12/12/20 05:34 Labs: Laboratory Results - last 24 hr 12/12/20 05:34: WBC 11.0, RBC 4.15 L, Hgb 11.5 L, Hct 34.8 L, MCV 83.9, MCH 27.7, MCHC 33.0, RDW Std Deviation 43.3, RDW Coeff of Flash 14.3, Plt Count 264, MPV 9.1, Immature Gran % (Auto) 0.700, Neut % (Auto) 78.8 H, Lymph % (Auto) 4.2 L, [place] % (Auto) 4.6, Eos % (Auto) 11.5 H, Baso % (Auto) 0.2, Absolute Neuts (auto) 8.7 H, Absolute Lymphs (auto) 0.46 L, Nucleated RBC % 0 12/12/20 05:34: Sodium 134 L, Potassium 3.6, Chloride 100, Carbon Dioxide 25.0, Anion Gap 9, BUN 26 H, Creatinine 1.58 H, Estim Creat Clear Calc 35.29, Est GFR (MDRD) Af Amer 54 L, Est GFR (MDRD) Non-Af 44 L, BUN/Creatinine Ratio 16.5, Glucose 100, Calcium 8.9, Total Bilirubin 0.50, AST 62 H, ALT 42, Alkaline Phosphatase 78, Total Protein 5.6 L, Albumin 2.4 L, Globulin 3.2, Albumin/Globulin Ratio 0.8 L 12/12/20 05:34: PT 32.7 H, INR 3.3 Physical Exam Const alert, oriented x3 and no apparent distress HEENT head/scalp atraumatic and moist oral mucous membranes Head and Scalp: normocephalic Eyes EOMs intact bilaterally and conjunctivae normal Neck no lymphadenopathy, supple and no JVD Resp normal respiratory effort, no retractions and no use of accessory muscles Cardio regular rate, regular rhythm, no murmurs and no JVD GI normal to inspection, nondistended, normoactive bowel sounds, soft to palpation and non-tender Extremity normal to inspection Skin no rashes or lesions noted, no wounds and skin turgor normal Neuro CN's II-XII intact bilaterally Psych affect normal Assessment & Plan Assessment/Plan (1) Pleural effusion, right: (2) Atrial fibrillation: (3) Follicular lymphoma grade 3a: QUALIFIERS: Lymphoma site: extranodal excluding spleen and other solid organs Qualified Code(s): C82.39 - Follicular lymphoma grade IIIa, extranodal and solid organ sites PLAN: Day 2: See subjective. Discharge planning: Patient to be discharged home when medically ready, no additional care or therapy needs identified. 1) acute hypoxic respiratory failure secondary to right-sided pleural effusion Paracentesis and subsequent right-sided thoracentesis scheduled for 11/12. Fluid will not be examined as recent thoracentesis determined fluid was exudate secondary to follicular lymphoma. Patient is currently satting 93% on 6 L via nasal cannula, although respirations are elevated at 23 breaths/min. Plan; thoracentesis and paracentesis as above. 2) coagulopathy Secondary to warfarin, INR is currently supratherapeutic at 3.3. Plan: Continue to hold warfarin and monitor INR. Can give vitamin K prior to thoracentesis. Hold off on FFP unless needs to be done emergently 3) atrial fibrillation Patient is on flecainide and metoprolol for rate and rhythm control, is anticoagulated on warfarin. Plan; continue rate/rhythm control, hold warfarin as above. 4) B-cell lymphoma Likely contributing to #1. Follows with oncology as an outpatient. DVT prophylaxis -INR is currently supratherapeutic, hold warfarin as above. Patient seen by Viral Franklin PA-C, under the supervision of Dr. Paul. Documented by User: Dr. David Paul DO 12/12/20 14:12 Objective Data Lab / Micro Data Result Diagrams: 12/12/20 05:34 12/12/20 05:34 Charges/Coding Addendum Addendum: Patient seen and examined independently. Data and vitals reviewed. I agree with the above note by the physician hospital administrative assistant. Patient still having shortness of breath and some abdominal distention. Patient did develop atrial fibrillation with RVR and did receive IV diltiazem and is currently rate controlled. Tachypneic with short shallow breaths. Afebrile nontoxic. Heart is regular rate and rhythm plus S1-S2. Lungs are clear on the left and diminished on the right with dullness to percussion. Abdomen is slightly distended. +2 lower extremity edema. Assessment and plan 1. Right-sided pleural effusion Secondary to follicular lymphoma Plan is for a thoracentesis and paracentesis either on the or the . Delay over the weekend but also the fact that patient is on warfarin and clopidogrel. Patient's last dose of clopidogrel was 12/09/2020. 2. Acute hypoxic respiratory failure Secondary to pleural effusion 87% on room air when he presented and is currently been maintained on 3 L but was on 4 L temporarily. Patient will have improvement once he is able to get the thoracentesis so continue with oxygen for the meantime. 3. Coagulopathy Secondary to warfarin. Continue to hold warfarin and monitor INR Can give vitamin K prior to thoracentesis. Will give 5 mg of vitamin K today and recheck INR in the morning. Hold off on FFP unless needs to be done emergently 4. Atrial fibrillation with RVR Warfarin held as above Seen by cardiology and started on amiodarone drip. 5. B-cell lymphoma Follow-up with oncology Etiology of his pleural effusion and ascites 6. VTE prophylaxis: Currently anticoagulated. Consider SCDs when INR is subtherapeutic Discussed with patient's at bedside. Visit Charges Inpatient E&M: [id number] [facility] Hosp L3
--- NOTE | 2020-12-12 11:28 | PCM.CONS.C ---
Assessment & Plan Assessment/Plan (1) Atrial fibrillation: PLAN: 87-year-old patient with a stage IIIa follicular lymphoma Admitted with palpitation shortness of breath Noted to have a right pleural effusion ascites Has significantly abnormal EKG with wide QRS complex tachycardia with a heart rate of around 160 bpm slight ventricular rate Patient has a history of atrial fibrillation and was on treatment with anticoagulation warfarin and rate control with calcium channel bradford beta-bradford. Recommendation and plan; 1. Discontinued Cardizem drip and started on IV amiodarone due to the wide-complex tachycardia 2. Echocardiogram evaluation in the morning 3. INR elevated warfarin is on hold with the plan of right thoracocentesis/possible paracentesis 4. His primary coil builder is Dr. Odell/we will follow-up clinically during this admission. (2) Pleural effusion, right: (3) Ascites: (4) Follicular lymphoma grade 3a: QUALIFIERS: Lymphoma site: extranodal excluding spleen and other solid organs Qualified Code(s): C82.39 - Follicular lymphoma grade IIIa, extranodal and solid organ sites (5) Acute dyspnea: (6) Pleural effusion on right: HPI Consult Data Date of Consult: 12/12/20 HPI Narrative Reason for Consultation: Patient has a wide complex tachycardia with underlying left bundle branch b HPI Narrative: MAXIMUS ZHAO, is a 85 M who presents [facility] Medical History Abdominal distention Anxiety Atrial fibrillation BPH (benign prostatic hyperplasia) Cancer Change in bowel habit Chronic kidney disease, stage 3a CPAP (continuous positive airway pressure) dependence Essential hypertension HLD (hyperlipidemia) Hydronephrosis IBS (irritable bowel syndrome) Irregular heart beat Multinodular goiter Multiple thyroid nodules Non-smoker Pacemaker Pacemaker Sleep apnea TIA (transient ischemic attack) Home Medications clopidogrel 75 mg tablet 75 mg PO DAILY 03/19/19 [History Last Taken 12/10/20 75 mg] finasteride 5 mg tablet 5 mg PO DAILY 03/19/19 [History Last Taken 12/10/20 5 mg] flecainide 150 mg tablet 150 mg PO Q12H 03/19/19 [History Last Taken 12/10/20 150 mg] metoprolol succinate 25 mg tablet,extended release 24 hr 25 mg PO DAILY 03/19/19 [History Last Taken 12/10/20 25 mg] simvastatin 20 mg tablet 20 mg PO QHS 03/19/19 [History Last Taken 12/10/20 20 mg] tamsulosin 0.4 mg capsule 0.4 mg PO DAILY 03/19/19 [History Last Taken 12/10/20 0.4 mg] warfarin 2 mg PO DAILY #60 tab 11/17/20 [Rx Last Taken 12/09/20 2 mg] acyclovir 400 mg tablet 400 mg PO BID #60 tab 11/25/20 [Rx Last Taken 12/10/20 400 mg] allopurinol 300 mg tablet 300 mg PO DAILY #7 tab 12/08/20 [Rx Last Taken 12/10/20 300 mg] furosemide 20 mg tablet 40 mg PO DAILY tab 12/08/20 [History Last Taken 12/10/20 40 mg] lorazepam 1 mg PO QHS PRN PRN 12/11/20 [History Last Taken Unknown] spironolactone 25 mg PO DAILY 12/11/20 [History Last Taken 12/10/20 25 mg] Allergy/AdvReac Type Severity Reaction Status Date / Time sulfamethoxazole Allergy Intermediate joint pain Verified 12/11/20 03:32 [From Bactrim] trimethoprim [From Bactrim] Allergy Intermediate joint pain Verified 12/11/20 03:32 lactose AdvReac Intermediate Diarrhea Verified 12/11/20 03:32 Family History Mother Arthritis Cancer uterine Father Colon cancer Surgical History History of hip replacement History of thoracentesis Social History Smoking Status: Never smoker second hand exposure: No alcohol intake: never substance use type: does not use tacos/uatsdin: Denominational seatbelt use: always do you feel safe at home: Yes Physical Exam Narrative Patient seen and evaluated today at bedside and discussed cardiac care plan with the medical team and the nursing staff He was short of breath at rest with tachycardia Initial EKG is abnormal showed wide-complex QRS tachycardia with left bundle branch block. Cardiovascular exam; underlying cardiac rhythm on telemetry showed A. fib with distal rapid ventricular rate S1-S2 is regular, there is no murmur no systolic or diastolic murmur Chest examination; diminished air entry on the right side with dullness on percussion Abdomen soft. Central nervous system exam no focal logical deficit. Objective Data Vital Signs: Vital Signs Temp Pulse Resp BP Pulse Ox 98.5 F 90 23 H 115/68 93 12/12/20 09:00 12/12/20 10:30 12/12/20 10:30 12/12/20 10:30 12/12/20 10:30 Oxygen Flow Rate (L/min) 6 Oxygen Delivery Method Nasal Cannula Weight: 188 lb 4.396 oz Body Mass Index (BMI) 26.9 Intake & Output: Intake and Output for Last 24 Hours 12/10/20 12/11/20 12/12/20 23:59 23:59 23:59 Intake Total 1360 / 1560 318.74 / 318.74 Balance 1360 / 1560 318.74 / 318.74 Lab / Micro Data Result Diagrams: 12/12/20 05:34 12/12/20 05:34 Labs: Laboratory Results - last 24 hr 12/12/20 05:34: WBC 11.0, RBC 4.15 L, Hgb 11.5 L, Hct 34.8 L, MCV 83.9, MCH 27.7, MCHC 33.0, RDW Std Deviation 43.3, RDW Coeff of Flash 14.3, Plt Count 264, MPV 9.1, Immature Gran % (Auto) 0.700, Neut % (Auto) 78.8 H, Lymph % (Auto) 4.2 L, [place] % (Auto) 4.6, Eos % (Auto) 11.5 H, Baso % (Auto) 0.2, Absolute Neuts (auto) 8.7 H, Absolute Lymphs (auto) 0.46 L, Nucleated RBC % 0 12/12/20 05:34: Sodium 134 L, Potassium 3.6, Chloride 100, Carbon Dioxide 25.0, Anion Gap 9, BUN 26 H, Creatinine 1.58 H, Estim Creat Clear Calc 35.29, Est GFR (MDRD) Af Amer 54 L, Est GFR (MDRD) Non-Af 44 L, BUN/Creatinine Ratio 16.5, Glucose 100, Calcium 8.9, Total Bilirubin 0.50, AST 62 H, ALT 42, Alkaline Phosphatase 78, Total Protein 5.6 L, Albumin 2.4 L, Globulin 3.2, Albumin/Globulin Ratio 0.8 L 12/12/20 05:34: PT 32.7 H, INR 3.3 Cardiology Labs/Tests 12/12/20 05:34: WBC 11.0, RBC 4.15 L, Hgb 11.5 L, Hct 34.8 L, MCV 83.9, MCH 27.7, MCHC 33.0, Plt Count 264, MPV 9.1, Immature Gran % (Auto) 0.700, Neut % (Auto) 78.8 H, Lymph % (Auto) 4.2 L, [place] % (Auto) 4.6, Eos % (Auto) 11.5 H, Baso % (Auto) 0.2, Absolute Neuts (auto) 8.7 H, Nucleated RBC % 0 12/12/20 05:34: Sodium 134 L, Potassium 3.6, Chloride 100, Carbon Dioxide 25.0, Anion Gap 9, BUN 26 H, Creatinine 1.58 H, Est GFR (MDRD) Af Amer 54 L, Est GFR (MDRD) Non-Af 44 L, BUN/Creatinine Ratio 16.5, Glucose 100, Calcium 8.9, Total Bilirubin 0.50 12/12/20 05:34: PT 32.7 H, INR 3.3 Rhythm: Atrial fibrillation with rapid ventricular rate EKG: #1 abnormal EKG this morning on 12 12 showing wide QRS tachycardia with left bundle branch block.
[2020-12-12] MEDS: Amiodarone 360 MG in Dextrose 5% Viaflo Bag 192.8 ML 33.3 MG CONT INF (12:30)
[2020-12-12] MEDS: Phytonadione (Vit K1) 5 MG TABLET PO (16:18)
[2020-12-12] MEDS: Albuterol 2.5 MG/3 ML VIAL.NEB. INHALATION (17:16)
[2020-12-12] MEDS: Amiodarone 360 MG in Dextrose 5% Viaflo Bag 192.8 ML 16.7 MG CONT INF (18:44)
[2020-12-12] MEDS: Atorvastatin Calcium 10 MG Tablet PO (21:23)
[2020-12-12] MEDS: Acetaminophen 325 MG Tablet 650 MG PO (23:03)
[2020-12-13] VITALS (31 sets, daily range): BP systolic 102–137; BP diastolic 54–99; PULSE 66–89; RESP 16–32; TEMP 36.6–37.1; O2SAT 86–97
--- NOTE | 2020-12-13 00:05 | US_ITS ---
PROCEDURE: ULTRASOUND GUIDED THORACENTESIS. DATE: 12/13/2020. INDICATION: Male, 85 years old. Right pleural effusion PHYSICIAN: Nima Khoury M.D. PROCEDURE: The risks, benefits, and alternatives to the procedure were explained to the patient. The specific risks of bleeding, infection, and pneumothorax requiring chest tube insertion were discussed and accepted. Written informed consent was obtained. Ultrasonographic evaluation of the right lower pleural space was carried out. An adequate pocket was identified. The patient was placed in the sitting, upright position. The overlying skin was prepped and draped in sterile fashion. 1% lidocaine was administered subcutaneously for local anesthesia. Under ultrasound guidance, a 5 Nepali thoracentesis needle/catheter system was advanced into the right posterior lower pleural fluid collection. Approximately 1750 mL of rest colored fluid was drained. The catheter was removed, and a sterile dressing was applied. The patient tolerated the procedure well. A chest x-ray was ordered. US/Thoracentesis W US IMPRESSION: Ultrasound-guided right thoracentesis. Electronically Signed: Nima Khoury MD at 14:20 EDT , Service support ,
[2020-12-13 05:35] LABS: Absolute Lymphocyte Count 0.83 X10^3/uL (0.83-4.51); Absolute Neutrophil Count 10.3 X10^3/uL (2.0-7.7); Basophil# 0.02 X10^3/uL; Basophil% 0.2 % (0-1); Eosinophil# 1.05 X10^3/uL; Eosinophils% 8.2 % (0-5); Hematocrit 37.9 % (40-54); Hemoglobin 12.3 g/dL (13.0-16.5); Lymphocyte # 0.83 X10^3/ul (0.83-4.51); Lymphocyte % 6.5 % (19-41); Mean Corp Hgb Conc 32.5 g/dL (32-36); Mean Corpuscular Hgb 27.3 pg (27.0-32.0); Mean Platelet Vol. 9.2 fl (6.2-12.0); Monocyte# 0.56 X10^3/uL; Monocyte% 4.4 % (0-10); NRBC Flagged by Analyzer 0 % (0-5); Neutrophil % 80.2 % (47-70); Platelet Count 288 K/mm3 (150-450); RBC Distribution Width CV 14.6 % (11.6-14.6); RBC Distribution Width SD 44.1 fl (35.1-43.9); Red Blood Count 4.51 M/mm3 (4.6-6.2); White Blood Count 12.8 K/mm3 (4.4-11.0)
[2020-12-13 05:51] LABS: International Normalized Ratio 2.3; Prothrombin Time (Protime)PT. 24.8 SECONDS (11.7-14.9)
[2020-12-13 05:55] LABS: Anion Gap 11 (5-15); BUN 28 mg/dL (7-18); BUN/Creat Ratio 18.1 RATIO (10-20); Calcium,Total 9.1 mg/dL (8.5-10.1); Chloride 98 mmol/L (98-107); Creatinine, Serum 1.55 mg/dL (0.70-1.30); EST Glomerular Filtration Rate 45 mL/min (>60); Est Glom Filt Rate - Afr Amer 55 mL/min (>60); Estimated Creatinine Clearance 35.98 ml/min; Glucose 127 mg/dL (74-106); Potassium 3.5 mmol/L (3.5-5.1); Sodium Level 133 mmol/L (136-145)
[2020-12-13] MEDS: Amiodarone 360 MG in Dextrose 5% Viaflo Bag 192.8 ML 16.7 MG CONT INF ×2 (06:34→13:08)
--- NOTE | 2020-12-13 09:11 | CASEMGMT ---
Pt is active with [facility] for SN, PT. [place] order placed. CM to follow. SStaten RN CM
[2020-12-13] MEDS: Allopurinol 300 MG Tablet PO (09:53)
[2020-12-13] MEDS: Spironolactone 25 MG Tablet PO (09:53)
[2020-12-13] MEDS: Acyclovir 200 MG Capsule 400 MG PO ×2 (09:54→20:39)
[2020-12-13] MEDS: Metoprolol(XL)Succ 25 MG Tablet PO (09:54)
[2020-12-13] MEDS: Finasteride 5 MG Tablet PO (09:54)
[2020-12-13] MEDS: Tamsulosin HCl 0.4 MG Capsule PO (09:54)
[2020-12-13] MEDS: Furosemide 40 MG Tablet PO (09:54)
--- NOTE | 2020-12-13 09:56 | ECHOCS_ITS ---
Reason For Study: Arrhythmia Procedure This was a 2D Doppler, Color Flow transthoracic echocardiogram. Technically difficult study. Patient scanned sitting upright due to patient condition. Contrast injection performed to aid in image quality. Unable to perform Strain Analysis due to needed contrast. Bubble study also performed. The study was technically difficult. Contrast injection was performed. Exam performed portable in patient room. Left Ventricle Normal LV size. Sigmoid septum. Left ventricular systolic function is normal. The estimated ejection fraction is 55 %. There is evidence of diastolic dysfunction. Apical wall motion abnormality may reflect pacemaker activation. Right Ventricle Normal RV size. ICD or pacer leads identified within the right ventricle. Normal systolic function. Atria Normal left atrium. Normal right atrium. ICD or pacer leads identified within the right atrium. No doppler evidence for ASD. Bubble contrast study negative for right to left interatrial shunt. Mitral Valve There is no mitral annular calcification. Normal mitral valve. Trivial mitral valve insufficiency. Tricuspid Valve Normal tricuspid valve. Trivial tricuspid valve insufficiency. Right ventricular systolic pressure estimated to be 35 mmHg. Aortic Valve Trisinus/trileaflet aortic valve. Mild focal aortic valve thickening. Trivial aortic valve insufficiency. Pulmonic Valve The pulmonic valve is not well visualized. Great Vessels The aortic root is not well visualized. Pericardium/Pleural No pericardial effusion. Echo lucency compatible with a pleural effusion. Medication Diluted definity 2ml given slow IV push to enhance endocardial definition. Performed a rapid injection of agitated mix of 9 cc saline and 1cc air to assess for atrial septal defect. MMode/2D Measurements & Calculations LVIDd: 4.1 cm IVSd: 0.92 cm LA dimension: 3.2 cm LVIDs: 2.6 cm LVPWd: 0.93 cm RVDd: 4.6 cm FS: 36.2 % LAV(MOD-bp): 29.2 ml LVAd ap4: 35.5 cm2 SV(MOD-sp4): 58.7 ml LAV(MOD-bp) Indexed: 14.6 ml/m2 LVLd ap4: 8.2 cm LAV(MOD-sp2): 22.9 ml EDV(MOD-sp4): 123.6 ml LAV(MOD-sp4): 37.6 ml EDV(sp4-el): 130.2 ml LVAs ap4: 23.4 cm2 LVLs ap4: 7.1 cm ESV(MOD-sp4): 64.8 ml ESV(sp4-el): 65.0 ml EF(MOD-sp4): 47.5 % EF(sp4-el): 50.0 % SV(sp4-el): 65.1 ml LA A4 area: 14.0 cm2 RA A4 area: 18.4 cm2 Time Measurements MV dec time: 0.25 sec Doppler Measurements & Calculations MV E max alfredo: 49.3 cm/sec Lat Peak E' Alfredo: 8.5 cm/sec Med Peak E' Alfredo: 4.9 cm/sec MV A max alfredo: 57.2 cm/sec E/E' lat: 5.8 E/E' med: 10.1 MV E/A: 0.86 MV V2 max: 58.1 cm/sec MV P1/2t max alfredo: 52.5 cm/sec Ao V2 max: 102.6 cm/sec MV max P.4 mmHg MV P1/2t: 60.4 msec Ao max P.2 mmHg MV V2 mean: 30.7 cm/sec MV mean P.45 mmHg MV dec slope: 254.3 cm/sec2 MV V2 VTI: 15.8 cm MVA(P1/2t): 3.6 cm2 LV V1 max: 60.9 cm/sec PA V2 max: 115.4 cm/sec TR max alfredo: 282.8 cm/sec LV V1 max P.5 mmHg TR max P.0 mmHg ECHO/Echo Complete W/ Contrast Interpretation Summary The study was technically difficult. Contrast injection was performed. Left ventricular systolic function is normal. The estimated ejection fraction is 55 %. Trivial mitral valve insufficiency. Trivial tricuspid valve insufficiency. Mild focal aortic valve thickening. Trivial aortic valve insufficiency. Echo lucency compatible with a pleural effusion. Right ventricular systolic pressure estimated to be 35 mmHg. There is evidence of diastolic dysfunction. Bubble contrast study negative for right to left interatrial shunt. ICD or pacer leads identified within the right atrium ICD or pacer leads identified within the right ventricle. Ordering Physician: Pranav Chester Referring Physician: Aric Archibald M.D. Performed By: Alberto Wilson RCS
--- NOTE | 2020-12-13 11:30 | PN.CARD_ITS ---
Subjective Subjective The patient was evaluated earlier this day. At that time he appeared to be stable with respect and no acute cardiovascular symptoms such as classic chest discomfort, ongoing palpitations or rapid heart rate sensation, or evidence of near syncope or syncope. He did appear somewhat short of breath and dyspneic. Objective Data Vital Signs: Vital Signs Temp Pulse Resp BP Pulse Ox 98.0 F 70 18 123/61 H 95 12/13/20 03:00 12/13/20 09:54 12/13/20 08:37 12/13/20 08:37 12/13/20 08:37 Oxygen Flow Rate (L/min) 6 Oxygen Delivery Method Nasal Cannula Weight: 182 lb 1.629 oz Body Mass Index (BMI) 26.9 Intake & Output: Intake and Output for Last 24 Hours 12/11/20 12/12/20 12/13/20 23:59 23:59 23:59 Intake Total 1360 / 1560 1504.32 / 1521.02 360.60 / 360.60 Output Total 1025 / 1025 Balance 1360 / 1560 479.32 / 496.02 360.60 / 360.60 Lab / Micro Data Result Diagrams: 12/13/20 05:16 12/13/20 05:16 Labs: Laboratory Results - last 24 hr 12/13/20 05:16: PT 24.8 H, INR 2.3 12/13/20 05:16: WBC 12.8 H, RBC 4.51 L, Hgb 12.3 L, Hct 37.9 L, MCV 84.0, MCH 27.3, MCHC 32.5, RDW Std Deviation 44.1 H, RDW Coeff of Flash 14.6, Plt Count 288, MPV 9.2, Immature Gran % (Auto) 0.500, Neut % (Auto) 80.2 H, Lymph % (Auto) 6.5 L, [place] % (Auto) 4.4, Eos % (Auto) 8.2 H, Baso % (Auto) 0.2, Absolute Neuts (auto) 10.3 H, Absolute Lymphs (auto) 0.83, Nucleated RBC % 0 12/13/20 05:16: Sodium 133 L, Potassium 3.5, Chloride 98, Carbon Dioxide 24.0, Anion Gap 11, BUN 28 H, Creatinine 1.55 H, Estim Creat Clear Calc 35.98, Est GFR (MDRD) Af Amer 55 L, Est GFR (MDRD) Non-Af 45 L, BUN/Creatinine Ratio 18.1, Glucose 127 H, Calcium 9.1 Cardiology Labs/Tests 12/13/20 05:16: PT 24.8 H, INR 2.3 12/13/20 05:16: WBC 12.8 H, RBC 4.51 L, Hgb 12.3 L, Hct 37.9 L, MCV 84.0, MCH 27.3, MCHC 32.5, Plt Count 288, MPV 9.2, Immature Gran % (Auto) 0.500, Neut % (Auto) 80.2 H, Lymph % (Auto) 6.5 L, [place] % (Auto) 4.4, Eos % (Auto) 8.2 H, Baso % (Auto) 0.2, Absolute Neuts (auto) 10.3 H, Nucleated RBC % 0 12/13/20 05:16: Sodium 133 L, Potassium 3.5, Chloride 98, Carbon Dioxide 24.0, Anion Gap 11, BUN 28 H, Creatinine 1.55 H, Est GFR (MDRD) Af Amer 55 L, Est GFR (MDRD) Non-Af 45 L, BUN/Creatinine Ratio 18.1, Glucose 127 H, Calcium 9.1 Rhythm: Sinus rhythm Physical Exam Const alert and oriented x3 Orientation / Consciousness: awake HEENT normocephalic and head/scalp atraumatic Eyes PERRL, EOMs intact bilaterally and conjunctivae normal Neck full ROM, supple and no JVD Chest Chest: left pectoral incision Resp Auscultation: breath sounds absent right Cardio regular rate, regular rhythm, S1 normal heart sound and S2 normal heart sound GI normal to inspection, nondistended, normoactive bowel sounds Extremity General Extremity: edema bilateral lower extremity Details: mild Psych mental status grossly normal Assessment & Plan Assessment/Plan (1) Atrial fibrillation: PLAN: The patient does have findings concerning for atrial fibrillation and potentially atrial flutter with an underlying IVCD pattern. At the moment he is in sinus rhythm. He will need to be monitored and continue medical therapy as appropriate and molly erated with respect to his underlying rate and rhythm. (2) Wide-complex tachycardia: PLAN: Cardiology had been consulted based on concerns about wide-complex rhythm. Based upon his cardiac rhythm strips there is concern that may have been related to atrial fibrillation/flutter with an underlying IVCD. An attempt will be made to have his permanent pacemaker interrogated which may provide additional information with respect to his underlying dysrhythmias. In the meantime he appears to be in sinus rhythm with rate control. (3) Pacemaker: PLAN: He states he has a [employer] pacemaker and is on generator #2. He notes during his first pacemaker his right atrial lead fractured. He went for period of time with only a functional ventricular lead. At the time of his generator change a new right atrial lead was placed. This was all done through the [facility]. A request will be made to have his pacemaker interrogated to assist in his evaluation care. (4) HLD (hyperlipidemia): PLAN: He will continue lipid-lowering therapy as deemed appropriate. (5) Pleural effusion, right: PLAN: He does have a right-sided pleural effusion. This may be contributing to his dyspnea. This was thought to be related to his underlying lymphoma. However he will be asked to have an echocardiogram to assess his cardiac anatomy and function as well as to look for any obvious pericardial effusion as well. In the interim it appears he is being scheduled for an upcoming thoracentesis to assist with both symptoms and diagnosis. (6) Follicular lymphoma grade 3a: QUALIFIERS: Lymphoma site: extranodal excluding spleen and other solid organs Qualified Code(s): C82.39 - Follicular lymphoma grade IIIa, extranodal and solid organ sites PLAN: He will need continued evaluation care per hematology/oncology. Addt'l Comments This note was generated using a voice recognition system and there may be incorrect words, spelling or punctuation that were not noted when reviewing the office note prior to saving.
--- NOTE | 2020-12-13 12:32 | PCM.PN.INT ---
Assessment & Plan Assessment/Plan (1) Pleural effusion, right: PLAN: RECOMMENDATIONS: 1. Proceed with thoracentesis. 2. Wean supplemental oxygen to maintain saturations at or above 90%. 3. Encourage incentive spirometer use and mobilize patient as tolerated. 4. Medical management of atrial fibrillation per cardiology recommendations. IMPRESSIONS: 1. 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 In the interim, continue to wean supplemental oxygen to maintain saturations at or above 90%. Encourage incentive spirometer use and mobilize patient as tolerated. 2. Atrial fibrillation with RVR Continue rate/rhythm control strategy per cardiology recommendations along with daily p.o. Lasix regimen. 3. Relative hypotension/stage IV non-Hodgkin's lymphoma/REN/HLD/BPH Complicates care, management, recovery and prognosis. Continue home medications as indicated. This note was generated with [employer] dictation software. It may contain incorrect words, spelling, and punctuation that were not noted in checking the note before signing. Subjective Subjective The patient was seen and examined at the bedside this morning. Events from the last 24 hours have been reviewed. The patient is currently afebrile, hemodynamically stable and maintaining appropriate oxygen saturations on 6 L/min via nasal cannula. The patient is currently documented to be overall net +2 L for the hospital admission. INR was noted to be 2.3 this morning. There are tentative plans for the patient to be taken for a thoracentesis this afternoon. Objective Data Objective Data The patient's most recent lab work, culture data and imaging studies have all been personally reviewed. Surface echocardiogram demonstrated normal LV size and function with an ejection fraction of 55%. There was evidence of diastolic dysfunction. Right ventricular systolic pressure was estimated to be 35 mmHg. Vital Signs: Vital Signs Temp Pulse Resp BP Pulse Ox 98.0 F 71 25 H 118/65 94 12/13/20 03:00 12/13/20 11:00 12/13/20 11:00 12/13/20 11:00 12/13/20 11:32 Oxygen Flow Rate (L/min) 6 Oxygen Delivery Method Nasal Cannula Weight: 82.6 kg Body Mass Index (BMI) 26.9 Intake & Output: Intake and Output for Last 24 Hours 12/11/20 12/12/20 12/13/20 23:59 23:59 23:59 Intake Total 1360 / 1560 1504.32 / 1521.02 400.40 / 400.40 Output Total 1025 / 1025 250 / 250 Balance 1360 / 1560 479.32 / 496.02 150.40 / 150.40 Medical Nutrition Assessment Dietitian: Nutrition Therapy Diagnosis Start: 12/11/20 12:59 Freq: Status: Active Protocol: Document 12/11/20 13:12 [facility] T (Rec: 12/11/20 13:13 SLA [id number]) Nutrition Malnutrition Evidence of Malnutrition Exists No Intake Problem Inadequate Oral Intake Etiology related to new dx of lymphoma Signs/Symptoms as evidenced by pt w/ terrible appetite x 3-4 months Status Active Problem Recommendation Dietitian Recommendations/Changes Will change diet to Regular Sodium restricted Will provide 8 oz ensure clear w/ meals for increased nutrition if consumed. Lab / Micro Data Attestation: I reviewed the patient's lab results. Result Diagrams: 12/14/20 04:54 12/14/20 04:54 Labs: Laboratory Results - last 24 hr 12/13/20 05:16: PT 24.8 H, INR 2.3 12/13/20 05:16: WBC 12.8 H, RBC 4.51 L, Hgb 12.3 L, Hct 37.9 L, MCV 84.0, MCH 27.3, MCHC 32.5, RDW Std Deviation 44.1 H, RDW Coeff of Flash 14.6, Plt Count 288, MPV 9.2, Immature Gran % (Auto) 0.500, Neut % (Auto) 80.2 H, Lymph % (Auto) 6.5 L, [place] % (Auto) 4.4, Eos % (Auto) 8.2 H, Baso % (Auto) 0.2, Absolute Neuts (auto) 10.3 H, Absolute Lymphs (auto) 0.83, Nucleated RBC % 0 12/13/20 05:16: Sodium 133 L, Potassium 3.5, Chloride 98, Carbon Dioxide 24.0, Anion Gap 11, BUN 28 H, Creatinine 1.55 H, Estim Creat Clear Calc 35.98, Est GFR (MDRD) Af Amer 55 L, Est GFR (MDRD) Non-Af 45 L, BUN/Creatinine Ratio 18.1, Glucose 127 H, Calcium 9.1 Physical Exam Const alert and no apparent distress General Appearance: cooperative HEENT normocephalic, head/scalp atraumatic and moist oral mucous membranes Eyes PERRL and EOMs intact bilaterally Neck supple General: trachea midline Resp Auscultation: diminished lung sounds; Negative for rales, rhonchi or wheezes Cardio regular rate and regular rhythm GI Inspection: abdominal distention and fluid wave present Extremity no clubbing, cyanosis or edema Skin no rashes or lesions noted Neuro CN's II-XII intact bilaterally and no focal motor deficits Psych cooperative and affect normal Charges/Coding Visit Charges Inpatient E&M: 12804 Subs Hosp L2
--- NOTE | 2020-12-13 13:32 | PN.HOSP_ITS ---
Documented by User: Vrial PISANO 12/13/20 13:48 Subjective Subjective Patient is an 85-year-old male comfortably resting in bed, alert and orient x3. Patient endorses shortness of breath as well as abdominal distention and fullness, reports feeling about the same as yesterday. Denies chest pain, palpitations, hemoptysis, sputum production, fever, chills, N/V/D. Objective Data Objective Data Vital Signs: Vital Signs Temp Pulse Resp BP Pulse Ox 98.3 F 76 26 H 129/71 H 97 12/13/20 12:00 12/13/20 13:08 12/13/20 13:08 12/13/20 13:08 12/13/20 13:08 Oxygen Flow Rate (L/min) 6 Oxygen Delivery Method Nasal Cannula Weight: 182 lb 1.629 oz Body Mass Index (BMI) 26.9 Intake & Output: Intake and Output for Last 24 Hours 12/11/20 12/12/20 12/13/20 23:59 23:59 23:59 Intake Total 1360 / 1560 1504.32 / 1521.02 437.42 / 437.42 Output Total 1025 / 1025 250 / 250 Balance 1360 / 1560 479.32 / 496.02 187.42 / 187.42 Medical Nutrition Assessment Dietitian: Nutrition Therapy Diagnosis Start: 12/11/20 1 2:59 Freq: Status: Active Protocol: Document 12/11/20 13:12 [facility] (Rec: 12/11/20 13:13 [facility] [id number]) Nutrition Malnutrition Evidence of Malnutrition Exists No Intake Problem Inadequate Oral Intake Etiology related to new dx of lymphoma Signs/Symptoms as evidenced by pt w/ terrible appetite x 3-4 months Status Active Problem Recommendation Dietitian Recommendations/Changes Will change diet to Regular Sodium restricted Will provide 8 oz ensure clear w/ meals for increased nutrition if consumed. Lab / Micro Data Result Diagrams: 12/13/20 05:16 12/13/20 05:16 Labs: Laboratory Results - last 24 hr 12/13/20 05:16: PT 24.8 H, INR 2.3 12/13/20 05:16: WBC 12.8 H, RBC 4.51 L, Hgb 12.3 L, Hct 37.9 L, MCV 84.0, MCH 27.3, MCHC 32.5, RDW Std Deviation 44.1 H, RDW Coeff of Flash 14.6, Plt Count 288, MPV 9.2, Immature Gran % (Auto) 0.500, Neut % (Auto) 80.2 H, Lymph % (Auto) 6.5 L, [place] % (Auto) 4.4, Eos % (Auto) 8.2 H, Baso % (Auto) 0.2, Absolute Neuts (auto) 10.3 H, Absolute Lymphs (auto) 0.83, Nucleated RBC % 0 12/13/20 05:16: Sodium 133 L, Potassium 3.5, Chloride 98, Carbon Dioxide 24.0, Anion Gap 11, BUN 28 H, Creatinine 1.55 H, Estim Creat Clear Calc 35.98, Est GFR (MDRD) Af Amer 55 L, Est GFR (MDRD) Non-Af 45 L, BUN/Creatinine Ratio 18.1, Glucose 127 H, Calcium 9.1 Radiography Diagnostic Testing: Radiology Impression Echocardiogram 12/13/20 09:56 Interpretation Summary The study was technically difficult. Contrast injection was performed. Left ventricular systolic function is normal. The estimated ejection fraction is 55 %. Trivial mitral valve insufficiency. Trivial tricuspid valve insufficiency. Mild focal aortic valve thickening. Trivial aortic valve insufficiency. Echo lucency compatible with a pleural effusion. Right ventricular systolic pressure estimated to be 35 mmHg. There is evidence of diastolic dysfunction. Bubble contrast study negative for right to left interatrial shunt. ICD or pacer leads identified within the right atrium ICD or pacer leads identified within the right ventricle. Ordering Physician: Pranav Chester Referring Physician: Aric Archibald M.D. Performed By: Alberto Wilson RCS Physical Exam Const alert, oriented x3 and no apparent distress HEENT head/scalp atraumatic and moist oral mucous membranes Head and Scalp: normocephalic Eyes EOMs intact bilaterally and conjunctivae normal Neck no lymphadenopathy, supple and no JVD Resp Effort and Inspection: tachypneic, respiratory distress and labored Auscultation: diminished lung sounds Cardio no murmurs and no JVD Rate: tachycardic GI Inspection: abdominal distention Auscultation: hypoactive bowel sounds Palpation: firm Extremity full ROM and no clubbing, cyanosis or edema Skin no rashes or lesions noted, no wounds and skin turgor normal Neuro CN's II-XII intact bilaterally Psych affect normal Assessment & Plan Assessment/Plan (1) Pleural effusion, right: (2) Atrial fibrillation: (3) Follicular lymphoma grade 3a: QUALIFIERS: Lymphoma site: extranodal excluding spleen and other solid organs Qualified Code(s): C82.39 - Follicular lymphoma grade IIIa, extranodal and solid organ sites PLAN: Day 3: See subjective. Discharge planning: Patient to be discharged home when medically ready, no additional care or therapy needs identified. 1) acute hypoxic respiratory failure secondary to right-sided pleural effusion Right-sided thoracentesis scheduled for 11/12. Paracentesis delay until at least 11/13. Fluid will not be examined as recent thoracentesis determined fluid was exudate secondary to follicular lymphoma. Patient is currently satting 93% on 6 L via nasal cannula, although respirations are elevated at 23 breaths/min. Plan; thoracentesis and paracentesis as above. 2) coagulopathy INR currently 2.3 after phytonadione administered yesterday. Plan; continue to hold warfarin due to procedure as above. 3) atrial fibrillation Patient is on flecainide and metoprolol at home for rate and rhythm control, is anticoagulated on warfarin. Plan; continue metoprolol, amiodarone infusion continued. 4) B-cell lymphoma Likely contributing to #1. Follows with oncology as an outpatient. DVT prophylaxis - INR is currently supratherapeutic, hold warfarin as above. Patient seen by Viral Franklin PA-C, under the supervision of Dr. Paul. Documented by User: Dr. Azam Morillo MD 12/13/20 15:54 Subjective Subjective Patient is short of breath. Has right large pleural effusion and ascites. Scheduled for thoracocentesis in the afternoon. Objective Data Lab / Micro Data Result Diagrams: 12/13/20 05:16 12/13/20 05:16 Physical Exam Narrative General: Alert, Oriented x3, Cooperative HEENT: Atraumatic, PERRLA, EOMI, Normocephalic Oral: No Gingival or Mucosal Lesions/ Ulcerations Neck: Supple, No JVD, Negative Carotid Bruits Lungs: Air entry decreased on the right side. No crepitation/rhonchi Cardiovascular: Regular rate, Regular Rhythm, Normal S1, Normal S2, systolic murmur LLSB and cardiac apex. Abdomen: Abdominal distention, ascites. Bowel Sounds Present, Soft, Non Tender : No renal angle tenderness. No suprapubic tenderness. Extremities: No edema, Capillary Refill Less than 3 Seconds Skin: No rashes, No breakdown Musculoskeletal: No Tenderness to Palpation of Joints or Extremities Neurological: Cranial nerves II-XII grossly intact, DTR 2+/4 and Symmetrical, Neuro grossly intact Psych/Mental Status: Weak, tired, flat affect Assessment & Plan Assessment/Plan (1) Pleural effusion, right: PLAN: This patient was seen in conjunction with NORRIS Feliciano. I have independently interviewed and examined the patient and reviewed pertinent history, examination findings, laboratory and plan of management. I have reviewed the note and agree with the documented findings with the few additional points. In brief, patient is admitted for blood shortness of breath for weeks, worse in the last couple days. History of stage IV NHL, follows Dr Rivas. Patient had thoracocentesis today, 1750 mL fluid was drained. Scheduled for paracentesis tomorrow. Previous thoracocentesis in November consistent with exudate as per lights criteria. 2D echo shows EF 55%, RVSP [address] Rivas was called and informed of the patient. He want to see him as an outpatient. Patient on immunotherapy, rituximab. Recently was found to have left upper ureteric mass with hydronephrosis, mesenteric mass with ascites. Patient is DNR CC arrest with no intubation. Prognosis is guarded. Other comorbidities as mentioned above atrial fibrillation on flecainide and metoprolol and warfarin. I have discussed my assessment with NORRIS Feliciano and orders have been reviewed. Charges/Coding Visit Charges Inpatient E&M: 61708 Subs Hosp L3
--- NOTE | 2020-12-13 13:45 | RAD_ITS ---
STUDY: X-RAY CHEST REASON FOR EXAM: Male, 85 years old. Status post right thoracentesis. TECHNIQUE: AP inspiration and expiration views. COMPARISON: Comparison is made with prior examination 12/11/2020. FINDINGS: The patient is status post right thoracentesis. There is no evidence of pneumothorax. Residual right pleural parenchymal changes. RAD/Chest Insp/Exp 2 View IMPRESSION: Status post right thoracentesis. There is no evidence of pneumothorax. Residual right pleural parenchymal changes. Electronically Signed: Nima Khoury MD at 15:20 EDT , Service support ,
[2020-12-13] MEDS: Atorvastatin Calcium 10 MG Tablet PO (20:39)
[2020-12-14] VITALS (30 sets, daily range): BP systolic 95–133; BP diastolic 52–77; PULSE 68–100; RESP 15–27; TEMP 36.4–36.9; O2SAT 90–97
--- NOTE | 2020-12-14 00:05 | US_ITS ---
STUDY: ABDOMINAL ULTRASOUND - assessment for ascites. REASON FOR VISIT: Male, 85 years old Ascites TECHNIQUE: Ultrasound evaluation of the 4 quadrants was performed with real-time and static navas-scale imaging. TECHNICAL QUALITY: Adequate. COMPARISON: None. FINDINGS: Small amount of fluid is seen in the right lower quadrant and left lower quadrant. Not enough for a safe paracentesis. US/Abdomen Limited IMPRESSION: Small amount of fluid is seen in the right lower and left lower quadrants as described. Not enough for safe paracentesis. Electronically Signed: Nima Khoury MD at 14:07 EDT , Service support ,
[2020-12-14] MEDS: Amiodarone 360 MG in Dextrose 5% Viaflo Bag 192.8 ML 16.7 MG CONT INF ×2 (01:05→13:42)
[2020-12-14 05:41] LABS: Absolute Lymphocyte Count 0.41 X10^3/uL (0.83-4.51); Absolute Neutrophil Count 8.9 X10^3/uL (2.0-7.7); Basophil# 0.02 X10^3/uL; Basophil% 0.2 % (0-1); Eosinophil# 1.26 X10^3/uL; Eosinophils% 11.3 % (0-5); Hematocrit 35.7 % (40-54); Hemoglobin 11.6 g/dL (13.0-16.5); Lymphocyte # 0.41 X10^3/ul (0.83-4.51); Lymphocyte % 3.7 % (19-41); Mean Corp Hgb Conc 32.5 g/dL (32-36); Mean Corpuscular Hgb 27.4 pg (27.0-32.0); Mean Corpuscular Volume 84.2 fL (80-94); Mean Platelet Vol. 9.9 fl (6.2-12.0); Monocyte# 0.59 X10^3/uL; Monocyte% 5.3 % (0-10); NRBC Flagged by Analyzer 0 % (0-5); Neutrophil # 8.85 X10^3/uL (2.7-7.7); POSITIVE DIFFERENTIAL YES; Platelet Count 247 K/mm3 (150-450); RBC Distribution Width CV 14.6 % (11.6-14.6); RBC Distribution Width SD 44.3 fl (35.1-43.9); Red Blood Count 4.24 M/mm3 (4.6-6.2); White Blood Count 11.2 K/mm3 (4.4-11.0)
[2020-12-14 05:54] LABS: Prothrombin Time (Protime)PT. 21.9 SECONDS (11.7-14.9)
[2020-12-14 06:04] LABS: Differential Indicated SCAN CRITERIA MET
[2020-12-14 06:09] LABS: Anion Gap 10 (5-15); BUN 26 mg/dL (7-18); BUN/Creat Ratio 18.3 RATIO (10-20); Calcium,Total 8.8 mg/dL (8.5-10.1); Chloride 99 mmol/L (98-107); Creatinine, Serum 1.42 mg/dL (0.70-1.30); EST Glomerular Filtration Rate 50 mL/min (>60); Est Glom Filt Rate - Afr Amer 61 mL/min (>60); Estimated Creatinine Clearance 39.27 ml/min; Glucose 107 mg/dL (74-106); Potassium 3.3 mmol/L (3.5-5.1); Sodium Level 134 mmol/L (136-145)
[2020-12-14] MEDS: Potassium Chloride Oral Tablet 20 MEQ 40 MEQ PO (08:40)
[2020-12-14] MEDS: Metoprolol(XL)Succ 25 MG Tablet PO (10:11)
[2020-12-14] MEDS: Spironolactone 25 MG Tablet PO (10:12)
[2020-12-14] MEDS: Finasteride 5 MG Tablet PO (10:12)
[2020-12-14] MEDS: Allopurinol 300 MG Tablet PO (10:12)
[2020-12-14] MEDS: Furosemide 40 MG Tablet PO (10:12)
[2020-12-14] MEDS: Tamsulosin HCl 0.4 MG Capsule PO (10:13)
[2020-12-14] MEDS: Acyclovir 200 MG Capsule 400 MG PO ×2 (10:13→20:18)
--- NOTE | 2020-12-14 12:00 | CASEMGMT ---
Palliative screening tool completed at this time for [facility]. Patient meets criteria for palliative consult. Hospitalist updated and order received for palliative consult. SANDRA WINTER faxed referral to [facility].
--- NOTE | 2020-12-14 12:13 | PN.CARD_ITS ---
Subjective Subjective The patient is awake and alert. He states he is breathing better since his thoracentesis procedure. Objective Data Vital Signs: Vital Signs Temp Pulse Resp BP Pulse Ox 97.9 F 85 15 111/64 95 12/14/20 08:00 12/14/20 10:17 12/14/20 10:17 12/14/20 10:17 12/14/20 10:15 Oxygen Flow Rate (L/min) [4] 6 Oxygen Flow Rate (L/min) [3] 6 Oxygen Flow Rate (L/min) [2] 6 Oxygen Flow Rate (L/min) [1 ( 6 Initial Baseline)] Oxygen Flow Rate (L/min) 5 Oxygen Delivery Method [4] Nasal Cannula Oxygen Delivery Method [3] Nasal Cannula Oxygen Delivery Method [2] Nasal Cannula Oxygen Delivery Method [1 ( Nasal Cannula Initial Baseline)] Oxygen Delivery Method Nasal Cannula Weight: 179 lb 14.355 oz Body Mass Index (BMI) 26.9 Intake & Output: Intake and Output for Last 24 Hours 12/12/20 12/13/20 12/14/20 23:59 23:59 23:59 Intake Total 1504.32 / 1521.02 602.19 / 602.19 188.44 / 188.44 Output Total 1025 / 1025 2300 / 2300 300 / 300 Balance 479.32 / 496.02 -1697.81 / -1697.81 -111.56 / -111.56 Lab / Micro Data Result Diagrams: 12/14/20 04:54 12/14/20 04:54 Labs: Laboratory Results - last 24 hr 12/14/20 04:54: PT 21.9 H, INR 2.0 12/14/20 04:54: WBC 11.2 H, RBC 4.24 L, Hgb 11.6 L, Hct 35.7 L, MCV 84.2, MCH 27.4, MCHC 32.5, RDW Std Deviation 44.3 H, RDW Coeff of Flash 14.6, Plt Count 247, MPV 9.9, Immature Gran % (Auto) 0.500, Neut % (Auto) 79.0 H, Lymph % (Auto) 3.7 L, [place] % (Auto) 5.3, Eos % (Auto) 11.3 H, Baso % (Auto) 0.2, Absolute Neuts (auto) 8.9 H, Absolute Lymphs (auto) 0.41 L, Nucleated RBC % 0 12/14/20 04:54: Sodium 134 L, Potassium 3.3 L, Chloride 99, Carbon Dioxide 25.0, Anion Gap 10, BUN 26 H, Creatinine 1.42 H, Estim Creat Clear Calc 39.27, Est GFR (MDRD) Af Amer 61, Est GFR (MDRD) Non-Af 50 L, BUN/Creatinine Ratio 18.3, Glucose 107 H, Calcium 8.8 Cardiology Labs/Tests 12/14/20 04:54: PT 21.9 H, INR 2.0 12/14/20 04:54: WBC 11.2 H, RBC 4.24 L, Hgb 11.6 L, Hct 35.7 L, MCV 84.2, MCH 27.4, MCHC 32.5, Plt Count 247, MPV 9.9, Immature Gran % (Auto) 0.500, Neut % (Auto) 79.0 H, Lymph % (Auto) 3.7 L, [place] % (Auto) 5.3, Eos % (Auto) 11.3 H, Baso % (Auto) 0.2, Absolute Neuts (auto) 8.9 H, Nucleated RBC % 0 12/14/20 04:54: Sodium 134 L, Potassium 3.3 L, Chloride 99, Carbon Dioxide 25.0, Anion Gap 10, BUN 26 H, Creatinine 1.42 H, Est GFR (MDRD) Af Amer 61, Est GFR (MDRD) Non-Af 50 L, BUN/Creatinine Ratio 18.3, Glucose 107 H, Calcium 8.8 Rhythm: Sinus rhythm; atrial fibrillation; ventricular paced rhythm Radiography Diagnostic Testing: Radiology Impression Thoracentesis Ultrasound 12/13/20 00:05 IMPRESSION: Ultrasound-guided right thoracentesis. Electronically Signed: Nima Khoury MD at 14:20 EDT , Service support , Echocardiogram 12/13/20 09:56 Interpretation Summary The study was technically difficult. Contrast injection was performed. Left ventricular systolic function is normal. The estimated ejection fraction is 55 %. Trivial mitral valve insufficiency. Trivial tricuspid valve insufficiency. Mild focal aortic valve thickening. Trivial aortic valve insufficiency. Echo lucency compatible with a pleural effusion. Right ventricular systolic pressure estimated to be 35 mmHg. There is evidence of diastolic dysfunction. Bubble contrast study negative for right to left interatrial shunt. ICD or pacer leads identified within the right atrium ICD or pacer leads identified within the right ventricle. Ordering Physician: Pranav Chester Referring Physician: Aric Archibald M.D. Performed By: Alberto Wilson RCS Chest X-Ray 12/13/20 13:45 IMPRESSION: Status post right thoracentesis. There is no evidence of pneumothorax. Residual right pleural parenchymal changes. Electronically Signed: Nima Khoury MD at 15:20 EDT , Service support , Physical Exam Narrative Patient seen and evaluated today at bedside and discussed cardiac care plan with the medical team and the nursing staff He was short of breath at rest with tachycardia Initial EKG is abnormal showed wide-complex QRS tachycardia with left bundle branch block. Cardiovascular exam; underlying cardiac rhythm on telemetry showed A. fib with distal rapid ventricular rate S1-S2 is regular, there is no murmur no systolic or diastolic murmur Chest examination; diminished air entry on the right side with dullness on percussion Abdomen soft. Central nervous system exam no focal logical deficit. Const alert and oriented x3 Orientation / Consciousness: awake HEENT normocephalic and head/scalp atraumatic Eyes PERRL, EOMs intact bilaterally and conjunctivae normal Neck full ROM, supple and no JVD Chest Chest: left pectoral incision Resp Auscultation: breath sounds absent right Cardio regular rate, regular rhythm, S1 normal heart sound and S2 normal heart sound GI normal to inspection, nondistended, normoactive bowel sounds Extremity General Extremity: edema bilateral lower extremity Details: mild Psych mental status grossly normal Assessment & Plan Assessment/Plan (1) Atrial fibrillation: PLAN: The patient underwent further evaluation with a permanent pacemaker interrogation. It appears he does have underlying findings compatible with atrial dysrhythmias. There was no report of any wide-complex tachycardias. He will continue rate control therapy. Ideally he would be on anticoagulant therapy if his other medical conditions allow. (2) Wide-complex tachycardia: PLAN: Again his wide-complex rhythm appears compatible with his underlying atrial dysrhythmia with IVCD and/or ventricular paced rhythm. There was no report of any separate wide-complex dysrhythmias. He will continue medical management. (3) Pacemaker: PLAN: His pacemaker was interrogated. It appears to be functioning appropriately at this time. (4) HLD (hyperlipidemia): PLAN: He will continue lipid-lowering therapy as deemed appropriate. (5) Pleural effusion, right: PLAN: He did undergo a right-sided thoracentesis procedure. Approximately 1.75 L of fluid was removed. He still has diminished breath sounds on the right side. His chest x-rays demonstrate evidence of a continued right-sided pleural effusion. He may need additional thoracentesis procedure performed. (6) Follicular lymphoma grade 3a: QUALIFIERS: Lymphoma site: extranodal excluding spleen and other solid organs Qualified Code(s): C82.39 - Follicular lymphoma grade IIIa, extranodal and solid organ sites PLAN: He will need continued evaluation care per hematology/oncology. Addt'l Comments From a cardiac standpoint he will continue to be monitored. He will continue rate control therapy. Ideally he would be on anticoagulant therapy if his other conditions allow. He has undergone noninvasive evaluation with transthoracic echocardiogram and a permanent pacemaker interrogation. At the moment there are no additional cardiac diagnostic studies/interventions planned barring a change in his clinical course. The patient's case was discussed and reviewed with Dr. Hart. This note was generated using a voice recognition system and there may be incorrect words, spelling or punctuation that were not noted when reviewing the office note prior to saving.
--- NOTE | 2020-12-14 13:40 | PCM.PN.HOSP ---
Documented by User: Viral PISANO 12/14/20 13:57 Subjective Subjective Patient is an 85-year-old male comfortably resting on the side of the bed, alert and orient x3. Patient reports vast improvement in shortness of breath from yesterday. Denies chest pain, shortness of breath, palpitations, hemoptysis, sputum production, fever, chills, N/V/D. Objective Data Objective Data Vital Signs: Vital Signs Temp Pulse Resp BP Pulse Ox 97.8 F 93 17 102/62 90 12/14/20 13:00 12/14/20 13:00 12/14/20 13:00 12/14/20 13:00 12/14/20 13:00 Oxygen Flow Rate (L/min) [4] 6 Oxygen Flow Rate (L/min) [3] 6 Oxygen Flow Rate (L/min) [2] 6 Oxygen Flow Rate (L/min) [1 ( 6 Initial Baseline)] Oxygen Flow Rate (L/min) 5 Oxygen Delivery Method [4] Nasal Cannula Oxygen Delivery Method [3] Nasal Cannula Oxygen Delivery Method [2] Nasal Cannula Oxygen Delivery Method [1 ( Nasal Cannula Initial Baseline)] Oxygen Delivery Method Nasal Cannula Weight: 179 lb 14.355 oz Body Mass Index (BMI) 26.9 Intake & Output: Intake and Output for Last 24 Hours 12/12/20 12/13/20 12/14/20 23:59 23:59 23:59 Intake Total 1504.32 / 1521.02 602.19 / 602.19 700.41 / 700.41 Output Total 1025 / 1025 2300 / 2300 300 / 300 Balance 479.32 / 496.02 -1697.81 / -1697.81 400.41 / 400.41 Medical Nutrition Assessment Dietitian: Nutrition Therapy Diagnosis Start: 12/11/20 12:59 Freq: Status: Active Protocol: Document 12/13/20 15:47 RMA (Rec: 12/13/20 15:48 RMA [id number]) Nutrition Malnutrition Evidence of Malnutrition Exists No Intake Problem Decreased Nutrient Needs (specify) Etiology for sodium related to edema/ pleural effusion Signs/Symptoms as evidenced by LLE 2+ pitting edema and RLE 3+ pitting edema Status Active Problem Inadequate Oral Intake Etiology related to ongoing poor appetite due to dx of lymphoma Signs/Symptoms as evidenced by PO~50% of meals and need for ONS. Status Active Problem Recommendation Dietitian Recommendations/Changes Will change diet to Sodium- Restricted; add fluid restriction as needed if PO improves at meals. Will adjust ensure clear w/ meals to 120ml TID for increased nutrition if consumed. Lab / Micro Data Result Diagrams: 12/14/20 04:54 12/14/20 04:54 Labs: Laboratory Results - last 24 hr 12/14/20 04:54: PT 21.9 H, INR 2.0 12/14/20 04:54: WBC 11.2 H, RBC 4.24 L, Hgb 11.6 L, Hct 35.7 L, MCV 84.2, MCH 27.4, MCHC 32.5, RDW Std Deviation 44.3 H, RDW Coeff of Flash 14.6, Plt Count 247, MPV 9.9, Immature Gran % (Auto) 0.500, Neut % (Auto) 79.0 H, Lymph % (Auto) 3.7 L, [place] % (Auto) 5.3, Eos % (Auto) 11.3 H, Baso % (Auto) 0.2, Absolute Neuts (auto) 8.9 H, Absolute Lymphs (auto) 0.41 L, Nucleated RBC % 0 12/14/20 04:54: Sodium 134 L, Potassium 3.3 L, Chloride 99, Carbon Dioxide 25.0, Anion Gap 10, BUN 26 H, Creatinine 1.42 H, Estim Creat Clear Calc 39.27, Est GFR (MDRD) Af Amer 61, Est GFR (MDRD) Non-Af 50 L, BUN/Creatinine Ratio 18.3, Glucose 107 H, Calcium 8.8 Radiography Diagnostic Testing: Radiology Impression Thoracentesis Ultrasound 12/13/20 00:05 IMPRESSION: Ultrasound-guided right thoracentesis. Electronically Signed: Nima Khoury MD at 14:20 EDT , Service support , Chest X-Ray 12/13/20 13:45 IMPRESSION: Status post right thoracentesis. There is no evidence of pneumothorax. Residual right pleural parenchymal changes. Electronically Signed: Nima Khoury MD at 15:20 EDT , Service support , Physical Exam Const alert, oriented x3 and no apparent distress HEENT head/scalp atraumatic and moist oral mucous membranes Head and Scalp: normocephalic Eyes EOMs intact bilaterally and conjunctivae normal Neck no lymphadenopathy, supple and no JVD Resp normal respiratory effort and normal air movement Auscultation: rhonchi and diminished lung sounds Cardio regular rate, regular rhythm, no murmurs and no JVD GI normal to inspection, nondistended, normoactive bowel sounds, soft to palpation and non-tender Extremity normal to inspection, full ROM and no clubbing, cyanosis or edema Skin no rashes or lesions noted, no wounds, skin turgor normal and no jaundice Neuro CN's II-XII intact bilaterally Psych affect normal Assessment & Plan Assessment/Plan (1) Pleural effusion, right: (2) Wide-complex tachycardia: (3) Atrial fibrillation: PLAN: Day 4: See subjective. Discharge planning: Patient to be discharged home when medically ready, no additional care or therapy needs identified. 1) acute hypoxic respiratory failure secondary to right-sided pleural effusion Right-sided thoracentesis performed on 11/12, 1750 mL of rust colored fluid was drained. Discussed case with Dr. Khoury who confirmed that they drained most of the fluid present in the lungs and he does not feel that there is any additional benefit to another thoracentesis. Paracentesis canceled. Patient is currently satting 93% on 5 L via nasal cannula, although respirations are elevated at 23 breaths/min. Plan; continue admission to PCU, chest x-ray ordered for a.m. 2) coagulopathy Resolved. 3) atrial fibrillation Patient is on flecainide and metoprolol at home for rate and rhythm control, is anticoagulated on warfarin. Cardiology would like patient to remain admitted overnight for evaluation. Plan; continue metoprolol, amiodarone infusion continued. 4) B-cell lymphoma Likely contributing to #1. Follows with Dr. Rivas as an outpatient. DVT prophylaxis - INR is currently therapeutic, will continue to hold warfarin in anticipation for any additional interventional procedures. Patient seen by Viral Franklin PA-C, under the supervision of Dr. Hart. Documented by User: Dr. Sravani Hart MD 12/14/20 15:34 Objective Data Lab / Micro Data Result Diagrams: 12/14/20 04:54 12/14/20 04:54 Charges/Coding Addendum Addendum: Patient seen by Viral Franklin PA-C under my supervision Patient seen and examined. He still feels a bit short of breath this morning. He had right sided thoracentesis yesterday, with removal of 1.75L of fluid. Paracentesis was canceled as there wasn't enough fluid on the USG. He has no other complaints this morning, and review of systems is otherwise negative. O/E: Const alert, oriented x3 and no apparent distress HEENT head/scalp atraumatic and moist oral mucous membranes Head and Scalp: normocephalic Eyes EOMs intact bilaterally and conjunctivae normal Neck no lymphadenopathy, supple and no JVD Resp diminished breath sounds in right mid and lower lung edwards, on 6L of oxygen by nasal canula Cardio regular rate, regular rhythm, no murmurs and no JVD GI normal to inspection, nondistended, normoactive bowel sounds, soft to palpation and non-tender Extremity normal to inspection, full ROM and no clubbing, cyanosis or edema Skin no rashes or lesions noted, no wounds, skin turgor normal and no jaundice Neuro CN's II-XII intact bilaterally Psych affect normal Patient is being managed for acute hypoxic respiratory failure with what is thought to be due to recurrent right-sided pleural effusion. He is s/p 1.7 L of fluid removal by thoracentesis on the right. Radiology did not think that there was any benefit in getting more fluid off as most of it was gotten off yesterday. He also does not have enough fluid in his abdomen for paracentesis. He was on 6 L at time of review this morning. We will titrate oxygen to maintain saturation above 90%. Continue flecainide and metoprolol. Also on amiodarone infusion and cardiology on board. To follow-up with oncology on outpatient basis for B-cell lymphoma which is likely the cause of the recurrent right-sided pleural effusion. Continue holding coumadin as INR is therapeutic. Potassium is 3.3 today; will replace and trend. 2D echo donbe showed EF of 55%, with normal LV systolic function and RVSP of 35mmhg; bubble study negative for shunt. Rest as per Viral Franklin PA-C's note, which I have reviewed and endorsed. Visit Charges Inpatient E&M: 12978 Subs Hosp L2
[2020-12-14] MEDS: Albuterol 2.5 MG/3 ML VIAL.NEB. INHALATION (16:13)
[2020-12-14] MEDS: Atorvastatin Calcium 10 MG Tablet PO (20:18)
[2020-12-15] VITALS (29 sets, daily range): BP systolic 82–123; BP diastolic 54–74; PULSE 71–108; RESP 13–29; TEMP 36.3–36.8; O2SAT 91–97
[2020-12-15] MEDS: Amiodarone 360 MG in Dextrose 5% Viaflo Bag 192.8 ML 16.7 MG CONT INF (00:38)
--- NOTE | 2020-12-15 05:55 | RAD_ITS ---
STUDY: X-RAY CHEST REASON FOR EXAM: Male, 85 years old. Evaluate pleural effusion TECHNIQUE: AP and lateral views of the chest. COMPARISON: Comparison is made with prior study 12/13/2020. FINDINGS: EKG electrodes are seen. Since prior study, there has been improved aeration of the right lung base with residual right basilar atelectasis and/or infiltrate and small right pleural effusion. Mild degree of increased markings at the left lung base. Normal size heart. A left-sided dual-chamber pacemaker is seen. Normal mediastinum and gagandeep. Normal visualized pulmonary arteries. There is atherosclerotic tortuosity of the aortic arch and descending thoracic aorta. Normal visualized thoracic spine. Normal visualized ribs, clavicles, and shoulders. There is no demonstrated abnormality of the visualized soft tissue structures of the upper abdomen. RAD/Chest PA and Lateral IMPRESSION: There has been improved aeration of the right lung base as compared to prior study with residual pleural-parenchymal changes. Mild degree of increased markings at the left lung base. Electronically Signed: Nima Khoury MD at 8:26 EDT , Service support ,
[2020-12-15 05:58] LABS: Absolute Lymphocyte Count 0.32 X10^3/uL (0.83-4.51); Absolute Neutrophil Count 9.7 X10^3/uL (2.0-7.7); Basophil# 0.03 X10^3/uL; Basophil% 0.3 % (0-1); Eosinophils% 7.8 % (0-5); Hematocrit 35.3 % (40-54); Hemoglobin 11.5 g/dL (13.0-16.5); Lymphocyte # 0.32 X10^3/ul (0.83-4.51); Lymphocyte % 2.8 % (19-41); Mean Corp Hgb Conc 32.6 g/dL (32-36); Mean Corpuscular Hgb 27.3 pg (27.0-32.0); Mean Corpuscular Volume 83.8 fL (80-94); Mean Platelet Vol. 10.1 fl (6.2-12.0); Monocyte# 0.58 X10^3/uL; NRBC Flagged by Analyzer 0 % (0-5); Neutrophil # 9.71 X10^3/uL (2.7-7.7); Neutrophil % 83.5 % (47-70); POSITIVE DIFFERENTIAL YES; Platelet Count 236 K/mm3 (150-450); RBC Distribution Width CV 14.6 % (11.6-14.6); RBC Distribution Width SD 44.7 fl (35.1-43.9); Red Blood Count 4.21 M/mm3 (4.6-6.2); White Blood Count 11.6 K/mm3 (4.4-11.0)
[2020-12-15 06:07] LABS: Differential Indicated SCAN CRITERIA MET
[2020-12-15 06:39] LABS: Anion Gap 9 (5-15); BUN 26 mg/dL (7-18); BUN/Creat Ratio 18.4 RATIO (10-20); Calcium,Total 8.7 mg/dL (8.5-10.1); Chloride 98 mmol/L (98-107); Creatinine, Serum 1.41 mg/dL (0.70-1.30); EST Glomerular Filtration Rate 51 mL/min (>60); Est Glom Filt Rate - Afr Amer 61 mL/min (>60); Estimated Creatinine Clearance 39.55 ml/min; Glucose 112 mg/dL (74-106); Potassium 3.5 mmol/L (3.5-5.1); Sodium Level 132 mmol/L (136-145)
--- NOTE | 2020-12-15 08:24 | EKG12_ITS ---
Test Reason : RYTHM CHANGE Blood Pressure : / mmHG Vent. Rate : 108 BPM Atrial Rate : 108 BPM P-R Int : 232 ms QRS Dur : 110 ms QT Int : 368 ms P-R-T Axes : 000 -34 052 degrees QTc Int : 493 ms Sinus tachycardia with 1st degree A-V block Left axis deviation Incomplete left bundle branch block Septal infarct , age undetermined , cannot be excluded Abnormal ECG Confirmed by JANETT ROSS, BLACK ([id number]), makeup editor ESTHELA ESCOBEDO ([id number]) on 12/16/2020 10:43:52 AM Referred By: STEVO Confirmed By:BLACK ROWLAND MD
[2020-12-15] MEDS: Allopurinol 300 MG Tablet PO (08:34)
[2020-12-15] MEDS: Furosemide 40 MG Tablet PO (09:18)
[2020-12-15] MEDS: Metoprolol(XL)Succ 50 MG Tablet PO (09:18)
[2020-12-15] MEDS: Acyclovir 200 MG Capsule 400 MG PO ×2 (09:18→20:22)
[2020-12-15] MEDS: Spironolactone 25 MG Tablet PO (09:19)
[2020-12-15] MEDS: Tamsulosin HCl 0.4 MG Capsule PO (09:19)
[2020-12-15] MEDS: Finasteride 5 MG Tablet PO (09:19)
--- NOTE | 2020-12-15 09:59 | PCM.PN.CARD ---
Objective Data Vital Signs: Vital Signs Temp Pulse Resp BP Pulse Ox 97.9 F 99 29 H 108/71 93 12/15/20 09:00 12/15/20 09:18 12/15/20 09:00 12/15/20 09:00 12/15/20 09:00 Oxygen Flow Rate (L/min) [4] 6 Oxygen Flow Rate (L/min) [3] 6 Oxygen Flow Rate (L/min) [2] 6 Oxygen Flow Rate (L/min) [1 ( 6 Initial Baseline)] Oxygen Flow Rate (L/min) 3 Oxygen Delivery Method [4] Nasal Cannula Oxygen Delivery Method [3] Nasal Cannula Oxygen Delivery Method [2] Nasal Cannula Oxygen Delivery Method [1 ( Nasal Cannula Initial Baseline)] Oxygen Delivery Method Nasal Cannula Weight: 180 lb 12.465 oz Body Mass Index (BMI) 26.9 Intake & Output: Intake and Output for Last 24 Hours 12/13/20 12/14/20 12/15/20 23:59 23:59 23:59 Intake Total 602.19 / 602.19 1310.10 / 1426.80 267.00 / 267.00 Output Total 2300 / 2300 300 / 525 225 / 225 Balance -1697.81 / -1697.81 1010.10 / 901.80 42.00 / 42.00 Lab / Micro Data Result Diagrams: 12/15/20 05:12 12/15/20 05:12 Labs: Laboratory Results - last 24 hr 12/15/20 05:12: WBC 11.6 H, RBC 4.21 L, Hgb 11.5 L, Hct 35.3 L, MCV 83.8, MCH 27.3, MCHC 32.6, RDW Std Deviation 44.7 H, RDW Coeff of Flash 14.6, Plt Count 236, MPV 10.1, Immature Gran % (Auto) 0.600, Neut % (Auto) 83.5 H, Lymph % (Auto) 2.8 L, [place] % (Auto) 5.0, Eos % (Auto) 7.8 H, Baso % (Auto) 0.3, Absolute Neuts (auto) 9.7 H, Absolute Lymphs (auto) 0.32 L, Nucleated RBC % 0 12/15/20 05:12: Sodium 132 L, Potassium 3.5, Chloride 98, Carbon Dioxide 25.0, Anion Gap 9, BUN 26 H, Creatinine 1.41 H, Estim Creat Clear Calc 39.55, Est GFR (MDRD) Af Amer 61, Est GFR (MDRD) Non-Af 51 L, BUN/Creatinine Ratio 18.4, Glucose 112 H, Calcium 8.7 Cardiology Labs/Tests 12/15/20 05:12: WBC 11.6 H, RBC 4.21 L, Hgb 11.5 L, Hct 35.3 L, MCV 83.8, MCH 27.3, MCHC 32.6, Plt Count 236, MPV 10.1, Immature Gran % (Auto) 0.600, Neut % (Auto) 83.5 H, Lymph % (Auto) 2.8 L, [place] % (Auto) 5.0, Eos % (Auto) 7.8 H, Baso % (Auto) 0.3, Absolute Neuts (auto) 9.7 H, Nucleated RBC % 0 12/15/20 05:12: Sodium 132 L, Potassium 3.5, Chloride 98, Carbon Dioxide 25.0, Anion Gap 9, BUN 26 H, Creatinine 1.41 H, Est GFR (MDRD) Af Amer 61, Est GFR (MDRD) Non-Af 51 L, BUN/Creatinine Ratio 18.4, Glucose 112 H, Calcium 8.7 Rhythm: Sinus rhythm; atrial fibrillation; ventricular paced rhythm EKG: ECHO: Stress Test: Cardiac Cath: PCI: CT Surgery: Holter monitor: EPS: PPM: CXR: Chest CT Scan: Radiography Diagnostic Testing: Radiology Impression Abdomen Ultrasound 12/14/20 00:05 IMPRESSION: Small amount of fluid is seen in the right lower and left lower quadrants as described. Not enough for safe paracentesis. Electronically Signed: Nima Khoury MD at 14:07 EDT , Service support , Chest X-Ray 12/15/20 05:55 IMPRESSION: There has been improved aeration of the right lung base as compared to prior study with residual pleural-parenchymal changes. Mild degree of increased markings at the left lung base. Electronically Signed: Nima Khoury MD at 8:26 EDT , Service support , Physical Exam Narrative Patient seen and evaluated today at bedside and discussed cardiac care plan with the medical team and the nursing staff He was short of breath at rest with tachycardia Initial EKG is abnormal showed wide-complex QRS tachycardia with left bundle branch block. Cardiovascular exam; underlying cardiac rhythm on telemetry showed A. fib with distal rapid ventricular rate S1-S2 is regular, there is no murmur no systolic or diastolic murmur Chest examination; diminished air entry on the right side with dullness on percussion Abdomen soft. Central nervous system exam no focal logical deficit. Const alert and oriented x3 Orientation / Consciousness: awake HEENT normocephalic and head/scalp atraumatic Eyes PERRL, EOMs intact bilaterally and conjunctivae normal Neck full ROM, supple and no JVD Chest Chest: left pectoral incision Resp Auscultation: breath sounds absent right Cardio regular rate, regular rhythm, S1 normal heart sound and S2 normal heart sound GI normal to inspection, nondistended, normoactive bowel sounds Extremity General Extremity: edema bilateral lower extremity Details: mild Psych mental status grossly normal Assessment & Plan Assessment/Plan (1) Atrial fibrillation: PLAN: The patient underwent further evaluation with a permanent pacemaker interrogation. It appears he does have underlying findings compatible with atrial dysrhythmias. There was no report of any wide-complex tachycardias. He will continue rate control therapy. Ideally he would be on anticoagulant therapy if his other medical conditions allow. (2) Wide-complex tachycardia: PLAN: Again his wide-complex rhythm appears compatible with his underlying atrial dysrhythmia with IVCD and/or ventricular paced rhythm. There was no report of any separate wide-complex dysrhythmias. He will continue medical management. (3) Pacemaker: PLAN: His pacemaker was interrogated. It appears to be functioning appropriately at this time. (4) HLD (hyperlipidemia): PLAN: He will continue lipid-lowering therapy as deemed appropriate. (5) Pleural effusion, right: PLAN: He did undergo a right-sided thoracentesis procedure. Approximately 1.75 L of fluid was removed. He still has diminished breath sounds on the right side. His chest x-rays demonstrate evidence of a continued right-sided pleural effusion. He may need additional thoracentesis procedure performed. (6) Follicular lymphoma grade 3a: QUALIFIERS: Lymphoma site: extranodal excluding spleen and other solid organs Qualified Code(s): C82.39 - Follicular lymphoma grade IIIa, extranodal and solid organ sites PLAN: He will need continued evaluation care per hematology/oncology.
--- NOTE | 2020-12-15 11:24 | PCM.PN.CARD ---
Documented by User: NORRIS Valenzuela 12/15/20 11:37 Subjective Subjective Patient is an 85-year-old male comfortably resting on the side of the bed, alert and orient x3. Patient reports improvement in shortness of breath from yesterday. He notes that he is fatigued. Denies chest pain, shortness of breath, palpitations, hemoptysis, sputum production, fever, chills, N/V/D. Objective Data Vital Signs: Vital Signs Temp Pulse Resp BP Pulse Ox 97.9 F 89 24 H 109/72 93 12/15/20 09:00 12/15/20 10:47 12/15/20 10:00 12/15/20 10:00 12/15/20 10:00 Oxygen Flow Rate (L/min) [4] 6 Oxygen Flow Rate (L/min) [3] 6 Oxygen Flow Rate (L/min) [2] 6 Oxygen Flow Rate (L/min) [1 ( 6 Initial Baseline)] Oxygen Flow Rate (L/min) 3 Oxygen Delivery Method [4] Nasal Cannula Oxygen Delivery Method [3] Nasal Cannula Oxygen Delivery Method [2] Nasal Cannula Oxygen Delivery Method [1 ( Nasal Cannula Initial Baseline)] Oxygen Delivery Method Nasal Cannula Weight: 180 lb 12.465 oz Body Mass Index (BMI) 26.9 Intake & Output: Intake and Output for Last 24 Hours 12/13/20 12/14/20 12/15/20 23:59 23:59 23:59 Intake Total 602.19 / 602.19 1310.10 / 1426.80 283.70 / 283.70 Output Total 2300 / 2300 300 / 525 225 / 225 Balance -1697.81 / -1697.81 1010.10 / 901.80 58.70 / 58.70 Lab / Micro Data Result Diagrams: 12/15/20 05:12 12/15/20 05:12 Labs: Laboratory Results - last 24 hr 12/15/20 05:12: WBC 11.6 H, RBC 4.21 L, Hgb 11.5 L, Hct 35.3 L, MCV 83.8, MCH 27.3, MCHC 32.6, RDW Std Deviation 44.7 H, RDW Coeff of Flash 14.6, Plt Count 236, MPV 10.1, Immature Gran % (Auto) 0.600, Neut % (Auto) 83.5 H, Lymph % (Auto) 2.8 L, [place] % (Auto) 5.0, Eos % (Auto) 7.8 H, Baso % (Auto) 0.3, Absolute Neuts (auto) 9.7 H, Absolute Lymphs (auto) 0.32 L, Nucleated RBC % 0 12/15/20 05:12: Sodium 132 L, Potassium 3.5, Chloride 98, Carbon Dioxide 25.0, Anion Gap 9, BUN 26 H, Creatinine 1.41 H, Estim Creat Clear Calc 39.55, Est GFR (MDRD) Af Amer 61, Est GFR (MDRD) Non-Af 51 L, BUN/Creatinine Ratio 18.4, Glucose 112 H, Calcium 8.7 Cardiology Labs/Tests 12/15/20 05:12: WBC 11.6 H, RBC 4.21 L, Hgb 11.5 L, Hct 35.3 L, MCV 83.8, MCH 27.3, MCHC 32.6, Plt Count 236, MPV 10.1, Immature Gran % (Auto) 0.600, Neut % (Auto) 83.5 H, Lymph % (Auto) 2.8 L, [place] % (Auto) 5.0, Eos % (Auto) 7.8 H, Baso % (Auto) 0.3, Absolute Neuts (auto) 9.7 H, Nucleated RBC % 0 12/15/20 05:12: Sodium 132 L, Potassium 3.5, Chloride 98, Carbon Dioxide 25.0, Anion Gap 9, BUN 26 H, Creatinine 1.41 H, Est GFR (MDRD) Af Amer 61, Est GFR (MDRD) Non-Af 51 L, BUN/Creatinine Ratio 18.4, Glucose 112 H, Calcium 8.7 Rhythm: EKG: ECHO: 12/2020: Left ventricular systolic function is normal. The estimated ejection fraction is 55 %. Trivial mitral valve insufficiency. Trivial tricuspid valve insufficiency. Mild focal aortic valve thickening. Trivial aortic valve insufficiency. Echo lucency compatible with a pleural effusion. Right ventricular systolic pressure estimated to be 35 mmHg. There is evidence of diastolic dysfunction. Bubble contrast study negative for right to left interatrial shunt. ICD or pacer leads identified within the right atrium ICD or pacer leads identified within the right ventricle. Stress Test: Cardiac Cath: PCI: CT Surgery: Holter monitor: EPS: PPM:861 AT/AF episodes. No ventricular high heart rates noted since May demonstrate paroxysmal atrial heart rate up to 130 bpm. fibrillation with ventricular He crams for episodes occurring on CXR: Chest CT Scan: Radiography Diagnostic Testing: Radiology Impression Abdomen Ultrasound 12/14/20 00:05 IMPRESSION: Small amount of fluid is seen in the right lower and left lower quadrants as described. Not enough for safe paracentesis. Electronically Signed: Nima Khoury MD at 14:07 EDT , Service support , Chest X-Ray 12/15/20 05:55 IMPRESSION: There has been improved aeration of the right lung base as compared to prior study with residual pleural-parenchymal changes. Mild degree of increased markings at the left lung base. Electronically Signed: Nima Khoury MD at 8:26 EDT , Service support , Physical Exam Const alert and oriented x3 Orientation / Consciousness: awake HEENT normocephalic and head/scalp atraumatic Eyes PERRL, EOMs intact bilaterally and conjunctivae normal Neck full ROM, supple and no JVD Chest Chest: left pectoral incision Resp Auscultation: breath sounds absent right (base) Cardio regular rate, S1 normal heart sound and S2 normal heart sound Rhythm: abnormal rhythm irregularly irregular GI normal to inspection, nondistended, normoactive bowel sounds Extremity General Extremity: edema bilateral lower extremity Details: mild Psych mental status grossly normal Assessment & Plan Assessment/Plan (1) Atrial fibrillation: PLAN: PPM interrogation demonstrates findings consistent with PAF. The patient underwent further evaluation with a permanent pacemaker interrogation. He will continue with his metoprolol. Will switch his IV amiodarone to oral amiodarone. Will switch this to 200 mg TID for one week, then 200 mg BID for 2 weeks then 200 mg once a day. Currently he is not anticoagulated d/t his pleural effusions and need for thoracentesis. (2) Wide-complex tachycardia: PLAN: Again his wide-complex rhythm appears compatible with his underlying atrial dysrhythmia with IVCD and/or ventricular paced rhythm. There was no report of any separate wide-complex dysrhythmias on his PPM interrogation. He will continue medical management. (3) Pacemaker: PLAN: His pacemaker was interrogated. It appears to be functioning appropriately at this time. (4) HLD (hyperlipidemia): PLAN: He will continue lipid-lowering therapy as deemed appropriate. (5) Pleural effusion, right: PLAN: He did undergo a right-sided thoracentesis procedure. Approximately 1.75 L of fluid was removed. He still has diminished breath sounds on the right side. His chest x-rays demonstrate evidence of a continued right-sided pleural effusion. This will continue to be followed. (6) Follicular lymphoma grade 3a: QUALIFIERS: Lymphoma site: extranodal excluding spleen and other solid organs Qualified Code(s): C82.39 - Follicular lymphoma grade IIIa, extranodal and solid organ sites PLAN: He will need continued evaluation care per hematology/oncology. Documented by User: Dr. Pranav Chester MD 12/15/20 18:25 Lab / Micro Data Result Diagrams: 12/15/20 05:12 12/15/20 05:12 Assessment & Plan Addt'l Comments The patient was independently evaluated/examined. The patient had no new acute cardiovascular complaints. The patient's examination demonstrated at times a regular rhythm and at other times an irregular rhythm compatible with his findings of sinus rhythm and PAF. The patient's pulmonary examination continue to demonstrate diminished breath sounds especially on the right side. The patient's cardiac rhythm demonstrated findings compatible with sinus rhythm as well as paroxysmal atrial fibrillation and electronic ventricular paced rhythm. At the present time the patient will continue medical therapy with alteration from IV amiodarone to oral amiodarone. He will continue rate control therapy. Ideally he had been on anticoagulant therapy if he were able to do so from a standpoint of his noncardiac diagnosis and noncardiac procedures such as thoracentesis. The patient's case was discussed and reviewed with NORRIS Vincent. This note was generated using a voice recognition system and there may be incorrect words, spelling or punctuation that were not noted when reviewing the office note prior to saving.
[2020-12-15] MEDS: Albuterol 2.5 MG/3 ML VIAL.NEB. INHALATION (12:07)
[2020-12-15] MEDS: Amiodarone 200 MG Tablet PO ×2 (12:27→20:23)
[2020-12-15] MEDS: Acetaminophen 325 MG Tablet 650 MG PO (12:27)
--- NOTE | 2020-12-15 13:09 | PCM.PN.HOSP ---
Documented by User: Viral PISANO 12/15/20 13:19 Subjective Subjective Patient is an 85-year-old male comfortably resting in bed, alert and oriented x3. Patient reports some shortness of breath with exertion. Denies chest pain, palpitations, hemoptysis, sputum production, fever, chills, N/V/D. Objective Data Objective Data Vital Signs: Vital Signs Temp Pulse Resp BP Pulse Ox 97.9 F 83 26 H 103/58 L 93 12/15/20 12:00 12/15/20 12:08 12/15/20 12:08 12/15/20 12:00 12/15/20 12:00 Oxygen Flow Rate (L/min) [4] 6 Oxygen Flow Rate (L/min) [3] 6 Oxygen Flow Rate (L/min) [2] 6 Oxygen Flow Rate (L/min) [1 ( 6 Initial Baseline)] Oxygen Flow Rate (L/min) 2 Oxygen Delivery Method [4] Nasal Cannula Oxygen Delivery Method [3] Nasal Cannula Oxygen Delivery Method [2] Nasal Cannula Oxygen Delivery Method [1 ( Nasal Cannula Initial Baseline)] Oxygen Delivery Method Nasal Cannula Weight: 180 lb 12.465 oz Body Mass Index (BMI) 26.9 Intake & Output: Intake and Output for Last 24 Hours 12/13/20 12/14/20 12/15/20 23:59 23:59 23:59 Intake Total 602.19 / 602.19 1310.10 / 1426.80 783.70 / 783.70 Output Total 2300 / 2300 300 / 525 225 / 225 Balance -1697.81 / -1697.81 1010.10 / 901.80 558.70 / 558.70 Medical Nutrition Assessment Dietitian: Nutrition Therapy Diagnosis Start: 12/11/20 12:59 Freq: Status: Active Protocol: Document 12/13/20 15:47 RMA (Rec: 12/13/20 15:48 RMA [id number]) Nutrition Malnutrition Evidence of Malnutrition Exists No Intake Problem Decreased Nutrient Needs (specify) Etiology for sodium related to edema/ pleural effusion Signs/Symptoms as evidenced by LLE 2+ pitting edema and RLE 3+ pitting edema Status Active Problem Inadequate Oral Intake Etiology related to ongoing poor appetite due to dx of lymphoma Signs/Symptoms as evidenced by PO~50% of meals and need for ONS. Status Active Problem Recommendation Dietitian Recommendations/Changes Will change diet to Sodium- Restricted; add fluid restriction as needed if PO improves at meals. Will adjust ensure clear w/ meals to 120ml TID for increased nutrition if consumed. Lab / Micro Data Result Diagrams: 12/15/20 05:12 12/15/20 05:12 Labs: Laboratory Results - last 24 hr 12/15/20 05:12: WBC 11.6 H, RBC 4.21 L, Hgb 11.5 L, Hct 35.3 L, MCV 83.8, MCH 27.3, MCHC 32.6, RDW Std Deviation 44.7 H, RDW Coeff of Flash 14.6, Plt Count 236, MPV 10.1, Immature Gran % (Auto) 0.600, Neut % (Auto) 83.5 H, Lymph % (Auto) 2.8 L, [place] % (Auto) 5.0, Eos % (Auto) 7.8 H, Baso % (Auto) 0.3, Absolute Neuts (auto) 9.7 H, Absolute Lymphs (auto) 0.32 L, Nucleated RBC % 0 12/15/20 05:12: Sodium 132 L, Potassium 3.5, Chloride 98, Carbon Dioxide 25.0, Anion Gap 9, BUN 26 H, Creatinine 1.41 H, Estim Creat Clear Calc 39.55, Est GFR (MDRD) Af Amer 61, Est GFR (MDRD) Non-Af 51 L, BUN/Creatinine Ratio 18.4, Glucose 112 H, Calcium 8.7 Radiography Diagnostic Testing: Radiology Impression Abdomen Ultrasound 12/14/20 00:05 IMPRESSION: Small amount of fluid is seen in the right lower and left lower quadrants as described. Not enough for safe paracentesis. Electronically Signed: Nima Khoury MD at 14:07 EDT , Service support , Chest X-Ray 12/15/20 05:55 IMPRESSION: There has been improved aeration of the right lung base as compared to prior study with residual pleural-parenchymal changes. Mild degree of increased markings at the left lung base. Electronically Signed: Nima Khoury MD at 8:26 EDT , Service support , Physical Exam Const alert, oriented x3 and no apparent distress HEENT head/scalp atraumatic and moist oral mucous membranes Head and Scalp: normocephalic Eyes EOMs intact bilaterally and conjunctivae normal Neck no lymphadenopathy, supple and no JVD Resp no use of accessory muscles Effort and Inspection: tachypneic, respiratory distress and labored Auscultation: diminished lung sounds Cardio no murmurs and no JVD Rate: tachycardic Rhythm: abnormal rhythm irregularly irregular GI normal to inspection, nondistended, normoactive bowel sounds, soft to palpation and non-tender Extremity normal to inspection, full ROM and no clubbing, cyanosis or edema Skin no rashes or lesions noted, no wounds, skin turgor normal and no jaundice Neuro CN's II-XII intact bilaterally Psych affect normal Assessment & Plan Assessment/Plan (1) Wide-complex tachycardia: (2) Pleural effusion, right: (3) Atrial fibrillation: PLAN: Day 5: See subjective. Discharge planning: Anticipate discharge home tomorrow 12/16/2020. No home health care needs or additional therapies identified. 1) acute hypoxic respiratory failure secondary to right-sided pleural effusion Chest x-ray obtained on 12/15 demonstrated improvement in regards to right-sided pleural effusion, no additional thoracentesis or paracentesis indicated. Discussed case with Dr. Khoury who confirmed that they drained most of the fluid present in the lungs and he does not feel that there is any additional benefit to another thoracentesis. Right-sided thoracentesis performed on 11/12, 1750 mL of rust colored fluid was drained. Patient is currently satting 93% on 5 L via nasal cannula, although respirations are elevated at 23 breaths/min. Plan; continue admission to PCU, possible DC on 12/16/2020. 2) coagulopathy Resolved. 3) atrial fibrillation Patient is on flecainide and metoprolol at home for rate and rhythm control, is anticoagulated on warfarin. Amiodarone infusion has been discontinued and switched to a tapered p.o. regimen. If p.o. regimen tolerated well, patient will be stable for discharge on 12/16 from cardiology's perspective. Plan; continue metoprolol, initiate amiodarone 200 mg p.o. 3 times daily, see amiodarone taper per cardiology. 4) B-cell lymphoma Likely contributing to #1. Follows with Dr. Rivas as an outpatient. Patient's rituximab infusion scheduled for 12/15 has been rescheduled for next week. DVT prophylaxis - INR is currently therapeutic, will continue to hold warfarin in anticipation for any additional interventional procedures. Patient seen by Viral Franklin PA-C, under the supervision of Dr. Hart. Documented by User: Dr. Sravani Hart MD 12/15/20 14:50 Objective Data Lab / Micro Data Result Diagrams: 12/15/20 05:12 12/15/20 05:12 Charges/Coding Addendum Addendum: Patient seen by Viral Franklin PA-C under my supervision Patient seen and examined. He feels much better today. He is down ot 3L of oxygen and has no other complaints. REview of systems is otherwise negative. O/E: Const alert, oriented x3 and no apparent distress HEENT head/scalp atraumatic and moist oral mucous membranes Head and Scalp: normocephalic Eyes EOMs intact bilaterally and conjunctivae normal Neck no lymphadenopathy, supple and no JVD Resp diminished breath sounds in right mid and lower lung edwards, on 3L of oxygen by nasal canula Cardio regular rate, regular rhythm, no murmurs and no JVD GI normal to inspection, nondistended, normoactive bowel sounds, soft to palpation and non-tender Extremity normal to inspection, full ROM and no clubbing, cyanosis or edema Skin no rashes or lesions noted, no wounds, skin turgor normal and no jaundice Neuro CN's II-XII intact bilaterally Psych affect normal Patient is being managed for acute hypoxic respiratory failure with what is thought to be due to recurrent right-sided pleural effusion. He is s/p right sided thoracentesis. He is now down to 3L of oxygen and feels much better. We will continue weaning of oxygen as tolerated. Breathing treatments of bronchodilators. Continue flecainide and metoprolol. Now off amiodarone infusion and on oral amiodarone taper as per cardiology. To follow-up with oncology on outpatient basis for B-cell lymphoma which is likely the cause of the recurrent right-sided pleural effusion.INR today is pending. COntinue holding coumadin. Rest as per Viral Franklin PA-C's note, which I have reviewed and endorsed. Visit Charges Inpatient E&M: 88316 Subs Hosp L2
[2020-12-15 15:42] LABS: International Normalized Ratio 2.3; Prothrombin Time (Protime)PT. 24.7 SECONDS (11.7-14.9)
[2020-12-15] MEDS: Atorvastatin Calcium 10 MG Tablet PO (20:23)
[2020-12-16] VITALS (15 sets, daily range): BP systolic 97–111; BP diastolic 58–84; PULSE 81–97; RESP 18–25; TEMP 36.4–36.7; O2SAT 86–98
[2020-12-16 05:34] LABS: Absolute Lymphocyte Count 0.32 X10^3/uL (0.83-4.51); Absolute Neutrophil Count 9.6 X10^3/uL (2.0-7.7); Basophil# 0.02 X10^3/uL; Basophil% 0.2 % (0-1); Eosinophil# 0.91 X10^3/uL; Eosinophils% 7.9 % (0-5); Hematocrit 35.1 % (40-54); Hemoglobin 11.4 g/dL (13.0-16.5); Lymphocyte # 0.32 X10^3/ul (0.83-4.51); Lymphocyte % 2.8 % (19-41); Mean Corp Hgb Conc 32.5 g/dL (32-36); Mean Corpuscular Hgb 27.2 pg (27.0-32.0); Mean Corpuscular Volume 83.8 fL (80-94); Mean Platelet Vol. 10.1 fl (6.2-12.0); Monocyte% 4.4 % (0-10); NRBC Flagged by Analyzer 0 % (0-5); Neutrophil # 9.63 X10^3/uL (2.7-7.7); Neutrophil % 84.1 % (47-70); POSITIVE DIFFERENTIAL YES; Platelet Count 225 K/mm3 (150-450); RBC Distribution Width CV 14.5 % (11.6-14.6); RBC Distribution Width SD 43.8 fl (35.1-43.9); Red Blood Count 4.19 M/mm3 (4.6-6.2); White Blood Count 11.5 K/mm3 (4.4-11.0)
[2020-12-16 05:41] LABS: Differential Indicated SCAN CRITERIA MET
[2020-12-16] MEDS: Amiodarone 200 MG Tablet PO ×2 (06:25→14:03)
[2020-12-16 06:29] LABS: Anion Gap 10 (5-15); BUN 31 mg/dL (7-18); BUN/Creat Ratio 19.6 RATIO (10-20); Calcium,Total 8.7 mg/dL (8.5-10.1); Chloride 98 mmol/L (98-107); Creatinine, Serum 1.58 mg/dL (0.70-1.30); EST Glomerular Filtration Rate 44 mL/min (>60); Est Glom Filt Rate - Afr Amer 54 mL/min (>60); Estimated Creatinine Clearance 35.29 ml/min; Glucose 106 mg/dL (74-106); Potassium 3.9 mmol/L (3.5-5.1); Sodium Level 132 mmol/L (136-145)
[2020-12-16 06:45] LABS: Differential Comment SCANNED
[2020-12-16] MEDS: Acetaminophen 325 MG Tablet 650 MG PO (09:08)
[2020-12-16] MEDS: Finasteride 5 MG Tablet PO (09:12)
[2020-12-16] MEDS: Tamsulosin HCl 0.4 MG Capsule PO (09:12)
[2020-12-16] MEDS: Acyclovir 200 MG Capsule 400 MG PO (09:12)
[2020-12-16] MEDS: Allopurinol 300 MG Tablet PO (09:14)
--- NOTE | 2020-12-16 09:26 | PCM.PN.CARD ---
Subjective Subjective The patient is awake and alert. He continues with conversational dyspnea. According to the nursing staff when he is without his O2 his O2 saturation drops into the mid 80s. He states he did attempt to walk with OT/PT yesterday and was only able to do a short distance before becoming more short of breath/dyspneic and fatigued. Objective Data Vital Signs: Vital Signs Temp Pulse Resp BP Pulse Ox 98.1 F 87 18 100/69 98 12/16/20 09:00 12/16/20 09:00 12/16/20 09:00 12/16/20 09:00 12/16/20 09:00 Oxygen Flow Rate (L/min) [4] 6 Oxygen Flow Rate (L/min) [3] 6 Oxygen Flow Rate (L/min) [2] 6 Oxygen Flow Rate (L/min) [1 ( 6 Initial Baseline)] Oxygen Flow Rate (L/min) 2 Oxygen Delivery Method [4] Nasal Cannula Oxygen Delivery Method [3] Nasal Cannula Oxygen Delivery Method [2] Nasal Cannula Oxygen Delivery Method [1 ( Nasal Cannula Initial Baseline)] Oxygen Delivery Method Nasal Cannula Weight: 180 lb 12.465 oz Body Mass Index (BMI) 26.9 Intake & Output: Intake and Output for Last 24 Hours 12/14/20 12/15/20 12/16/20 23:59 23:59 23:59 Intake Total 1310.10 / 1426.80 1227.28 / 1377.28 150 / 150 Output Total 300 / 525 225 / 275 75 / 75 Balance 1010.10 / 901.80 1002.28 / 1102.28 75 / 75 Lab / Micro Data Result Diagrams: 12/16/20 05:12 12/16/20 05:12 Labs: Laboratory Results - last 24 hr 12/15/20 15:20: PT 24.7 H, INR 2.3 12/16/20 05:12: WBC 11.5 H, RBC 4.19 L, Hgb 11.4 L, Hct 35.1 L, MCV 83.8, MCH 27.2, MCHC 32.5, RDW Std Deviation 43.8, RDW Coeff of Flash 14.5, Plt Count 225, MPV 10.1, Immature Gran % (Auto) 0.600, Neut % (Auto) 84.1 H, Lymph % (Auto) 2.8 L, [place] % (Auto) 4.4, Eos % (Auto) 7.9 H, Baso % (Auto) 0.2, Absolute Neuts (auto) 9.6 H, Absolute Lymphs (auto) 0.32 L, Nucleated RBC % 0, Differential Comment SCANNED 12/16/20 05:12: Sodium 132 L, Potassium 3.9, Chloride 98, Carbon Dioxide 24.0, Anion Gap 10, BUN 31 H, Creatinine 1.58 H, Estim Creat Clear Calc 35.29, Est GFR (MDRD) Af Amer 54 L, Est GFR (MDRD) Non-Af 44 L, BUN/Creatinine Ratio 19.6, Glucose 106, Calcium 8.7 Cardiology Labs/Tests 12/15/20 15:20: PT 24.7 H, INR 2.3 12/16/20 05:12: WBC 11.5 H, RBC 4.19 L, Hgb 11.4 L, Hct 35.1 L, MCV 83.8, MCH 27.2, MCHC 32.5, Plt Count 225, MPV 10.1, Immature Gran % (Auto) 0.600, Neut % (Auto) 84.1 H, Lymph % (Auto) 2.8 L, [place] % (Auto) 4.4, Eos % (Auto) 7.9 H, Baso % (Auto) 0.2, Absolute Neuts (auto) 9.6 H, Nucleated RBC % 0 12/16/20 05:12: Sodium 132 L, Potassium 3.9, Chloride 98, Carbon Dioxide 24.0, Anion Gap 10, BUN 31 H, Creatinine 1.58 H, Est GFR (MDRD) Af Amer 54 L, Est GFR (MDRD) Non-Af 44 L, BUN/Creatinine Ratio 19.6, Glucose 106, Calcium 8.7 Rhythm: Sinus rhythm Physical Exam Const alert and oriented x3 Orientation / Consciousness: awake HEENT normocephalic, head/scalp atraumatic and hearing grossly normal bilaterally Eyes PERRL, EOMs intact bilaterally and conjunctivae normal Neck full ROM, supple and no JVD Chest Chest: left pectoral incision Resp Auscultation: diminished lung sounds right lower Cardio regular rate, regular rhythm, S1 normal heart sound and S2 normal heart sound Rhythm: abnormal rhythm GI normal to inspection, nondistended, normoactive bowel sounds Extremity no pedal edema Psych mental status grossly normal Assessment & Plan Assessment/Plan (1) Atrial fibrillation: PLAN: At the present time his rhythm has been sinus rhythm to intermittent episodes of atrial fibrillation intermittent episodes of a ventricular paced rhythm. He will continue beta-bradford therapy with adjustment based upon his clinical status, blood pressure, etc. He is continuing oral amiodarone therapy at this time-tapering dose. When he is able he can resume anticoagulant therapy. (2) Wide-complex tachycardia: PLAN: His wide-complex rhythm did not appear, based upon his PPM interrogation, to be related to ventricular dysrhythmias. He will continue his current medical management and follow-up. (3) Pacemaker: PLAN: His pacemaker was interrogated. It appears to be functioning appropriately at this time. (4) HLD (hyperlipidemia): PLAN: He will continue lipid-lowering therapy as deemed appropriate. (5) Pleural effusion, right: PLAN: He did undergo a right-sided thoracentesis procedure. Approximately 1.75 L of fluid was removed. He still has diminished breath sounds on the right side. His chest x-rays demonstrate evidence of a continued right-sided pleural effusion. This will continue to be followed. He does get short of breath and dyspneic during conversation as well as with activity. His O2 saturation drops without his O2. He may need to be considered for additional thoracentesis procedures. (6) Follicular lymphoma grade 3a: QUALIFIERS: Lymphoma site: extranodal excluding spleen and other solid organs Qualified Code(s): C82.39 - Follicular lymphoma grade IIIa, extranodal and solid organ sites PLAN: He will need continued evaluation care per hematology/oncology. Addt'l Comments The above was discussed and reviewed with the patient with his spouse on the telephone. This note was generated using a voice recognition system and there may be incorrect words, spelling or punctuation that were not noted when reviewing the office note prior to saving.
--- NOTE | 2020-12-16 11:17 | RAD_ITS ---
History: pleural effusion EXAMINATION/TECHNIQUE: XR Chest 1 View: Portable COMPARISON: December 15, 2020 FINDINGS: LINES/DEVICES: Cardiac defibrillator wires remain in place. LUNGS: Right pleural effusion appears decreased in size. Small left pleural effusion. Persistent consolidation or atelectasis of the right lower lobe. No pneumothorax. MEDIASTINUM AND CARDIOVASCULAR STRUCTURES: Cardiac silhouette not enlarged. Central airways and mediastinal contour are unremarkable. BONES AND SOFT TISSUES: Unremarkable. RAD/Chest 1 View (Portable) IMPRESSION: Decrease in the size of the right pleural effusion. Persistent right lower lobe pneumonia/atelectasis. at 1309 Reported and signed by: Jean Paul Hilliard MD Electronically Signed: Jean Paul Hilliard MD at 13:08 EDT Tel , Service support ,
--- NOTE | 2020-12-16 11:17 | CASEMGMT ---
Per therapy, pt ok to go home with HHC resumption, but pt does have decreased activity tolerance. Pt states he would like to go home with HHC and per Melissa FLORES, pt does qualify for home oxygen. Pt qualifies for 2L continuous and order faxed to [facility]. Call to [facility] to notify of referral and pt discharge today, voices understanding. Message left with Duyen at [facility] in regards to discharge and [place]. Pt/family voice no further questions/concerns/needs. Amarilys FLORES CM
--- NOTE | 2020-12-16 11:29 | PCM.DC ---
Discharge Instructions Diet Discharge Diet: No restrictions Activity Discharge Activity: Return to Normal Activity Dressing / Incision Call your doctor if you observe: Shortness of breath, Dizziness and Chest pain Follow Up Care Test Results: Test results from this visit will be discussed in further detail at your follow-up appointment, if applicable. Discharge Plan Admission Admit Date/Time: 12/11/20 04:54 Primary Reason for Your Visit: Hypoxic respiratory failure, right pleural effusion Attending Provider: Sravani Hart Primary Care Provider: Aric Archibald Consulting Providers: Afshin Mejia ; Drake Holland ; Anna Goodrich NP ; Carley Mcmahon Instructions Additional Instructions / Restrictions: You may resume Coumadin at discharge. You will need repeat INR in 2 days. Discharge Orders/Prescriptions Prescriptions: New amiodarone 200 mg tablet 200 mg PO TID Qty: 120 RF: 0 Continued tamsulosin [Flomax] 0.4 mg capsule 0.4 mg PO DAILY RF: 0 clopidogrel [Plavix] 75 mg tablet 75 mg PO DAILY RF: 0 simvastatin 20 mg tablet 20 mg PO QHS RF: 0 metoprolol succinate [Toprol XL] 25 mg tablet extended release 24 hr 25 mg PO DAILY RF: 0 finasteride [Proscar] 5 mg tablet 5 mg PO DAILY RF: 0 acyclovir 400 mg tablet 400 mg PO BID Qty: 60 RF: 1 furosemide [Lasix] 20 mg tablet 40 mg PO DAILY RF: 0 lorazepam 1 mg tablet 1 mg PO QHS PRN PRN (Reason: Anxiety) RF: 0 spironolactone 25 mg tablet 25 mg PO DAILY RF: 0 allopurinol 300 mg tablet 300 mg PO DAILY Qty: 7 RF: 0 Changed warfarin 1 mg tablet 1 mg PO DAILY Qty: 60 RF: 0 Discontinued flecainide 150 mg tablet 150 mg PO Q12H RF: 0 Referrals / Follow Up: Roderick Rivas MD [NON-STAFF] - See Referral Note (As scheduled) Aric Archibald MD [Primary Care Provider] - 12/24/20 10:20 am Anna Goodrich NP, LASTING ROOM SUPERVISOR-C [Nurse Practitioner] - In 1 Week Chelsea Anguiano, PA [PHYSICIAN HOG ROOM SUPERVISOR] - Within 2 Weeks Disposition Disposition (needs filled in before D/C Order can be placed): Home Health Service
--- NOTE | 2020-12-16 11:44 | PCM.CONS.P ---
Assessment & Plan Assessment/Plan (1) Acute dyspnea: (2) Pleural effusion, right: (3) Left renal mass: (4) Mesenteric mass: (5) Ascites: QUALIFIERS: Ascites type: malignant Qualified Code(s): R18.0 - Malignant ascites (6) Hydronephrosis: QUALIFIERS: Hydronephrosis type: unspecified Qualified Code(s): N13.30 - Unspecified hydronephrosis (7) Multiple thyroid nodules: (8) Pacemaker: (9) BPH (benign prostatic hyperplasia): QUALIFIERS: Lower urinary tract symptom presence: unspecified whether lower urinary tract symptoms present Qualified Code(s): N40.0 - Benign prostatic hyperplasia without lower urinary tract symptoms (10) Atrial fibrillation: QUALIFIERS: Atrial fibrillation type: unspecified Qualified Code(s): I48.91 - Unspecified atrial fibrillation (11) HLD (hyperlipidemia): QUALIFIERS: Hyperlipidemia type: unspecified Qualified Code(s): E78.5 - Hyperlipidemia, unspecified (12) Wide-complex tachycardia: PLAN: 85-year-old male with newly diagnosed with grade 3 follicular lymphoma, following with Dr. Rivas, seen today for palliative care consultation for symptom management of shortness of breath and supportive care given his cancer diagnosis. 1. Shortness of breath: Mild improvement. Will be discharged home today with supplemental oxygen. Poor activity tolerance. He will have therapy as an outpatient. Opioids not indicated for management of his shortness of breath at this time, may need repeat thoracentesis for improvement of symptoms in the future. We will consider opioids if management of his underlying conditions fail. Supportive care through palliative would be beneficial. 2. Ascites: Was going to have paracentesis but not enough fluid to extract. This will be monitored by oncology. 3. History of A. fib on anticoagulation/wide-complex tachycardia/pacemaker/hydronephrosis/left renal and mesenteric mass/HLD/BPH/multiple thyroid nodules/poor appetite and early satiety: Complicates overall care, management, recovery, and prognosis. Defer management to PCP and specialist. We will provide supportive care and facilitate collaboration with his providers. Encouraged oral intake with small meals, patient acknowledged he needs nutrition to avoid further weakness and debility. His ascites and effusions complicate his nutritional status. Thank you for the opportunity to participate in this patient's care, please do not hesitate to contact [facility] with any further questions or concerns. Palliative direct line is [phone]. We will follow up after discharge and will discuss palliative services further at that time. and patient are interested in services and are agreeable to liaison visit, will forward to the office. Greater than 50% of F2F visit dedicated to education and counseling of palliative care services, medications, comorbid conditions and potential assistance with management, and plan of care moving forward. Start time: 1142 End time: 1235 HPI Consult Data Date of Consult: 12/16/20 HPI Narrative HPI Narrative: MAXIMUS ZHAO, is a 85 M who presents to [facility] 12/11/2020 with complaints of progressive shortness of breath over the course of several weeks. He did present with wide-complex tachycardia with heart rate in 160s. His anticoagulation was on hold in anticipation of outpatient thoracentesis. Patient does have diagnosis of stage IV NHL follicular lymphoma and currently on Rituxan, follows with Dr. Rivas. Recently found to have large right pleural effusion and left upper ureteric mass with hydronephrosis of left kidney, mesenteric mass with ascites. Underwent diagnostic thoracentesis 11/15/2020 (2 L fluid removed) and CT-guided biopsy of mesenteric mass 11/04/2020. He required additional thoracentesis upon presentation in which 1750 mL fluid removed. He has been hypoxic and will require supplemental oxygen upon discharge, which will be later today. Patient was previously admitted to the hospital in the middle of November 2020 for pleural effusion, at which time he was diagnosed with follicular lymphoma. Patient follows with Dr. Odell for cardiology, Dr. Burr at [facility] for urology? He has been having significant conversational dyspnea and exercise intolerance. He becomes fatigued very easily. Patient normally very active prior to this diagnosis. Patient lives with his in a two-story home with no steps to enter. He is typically independent in all ADLs. He typically drives but since his cancer diagnosis, his transports him to all medical appointments. He wears home CPAP and has a walker and cane. He also is current with home health services. Uses [facility] in [place] for pharmacy. Power of compliance attorney is his , Cassie Zhao. Patient denies any N/V/D. Occasional constipation but controlled with medication as needed. He has shortness of breath with minimal exertion and significant exercise intolerance. No chest pain. He did not seem to have any pain status post thoracentesis as well. No dizziness or syncope, no vision changes. No sore throat or hoarseness. His mouth is dry. Patient has significant early satiety, drinking boost at home and Ensure clear while here in the hospital. He is able to eat very little at the time and has no appetite. He has had some weight loss. His ankle and pedal edema has been present for the past 1 month, ever since his diagnosis. [facility] Medical History Abdominal distention Anxiety Atrial fibrillation BPH (benign prostatic hyperplasia) Cancer Change in bowel habit Chronic kidney disease, stage 3a CPAP (continuous positive airway pressure) dependence Essential hypertension HLD (hyperlipidemia) Hydronephrosis IBS (irritable bowel syndrome) Irregular heart beat Multinodular goiter Multiple thyroid nodules Non-smoker Pacemaker Pacemaker Sleep apnea TIA (transient ischemic attack) Wide-complex tachycardia Home Medications clopidogrel 75 mg tablet 75 mg PO DAILY 03/19/19 [History Last Taken 12/10/20 75 mg] finasteride 5 mg tablet 5 mg PO DAILY 03/19/19 [History Last Taken 12/10/20 5 mg] flecainide 150 mg tablet 150 mg PO Q12H 03/19/19 [History Last Taken 12/10/20 150 mg] metoprolol succinate 25 mg tablet,extended release 24 hr 25 mg PO DAILY 03/19/19 [History Last Taken 12/10/20 25 mg] simvastatin 20 mg tablet 20 mg PO QHS 03/19/19 [History Last Taken 12/10/20 20 mg] tamsulosin 0.4 mg capsule 0.4 mg PO DAILY 03/19/19 [History Last Taken 12/10/20 0.4 mg] warfarin 2 mg PO DAILY #60 tab 11/17/20 [Rx Last Taken 12/09/20 2 mg] acyclovir 400 mg tablet 400 mg PO BID #60 tab 11/25/20 [Rx Last Taken 12/10/20 400 mg] allopurinol 300 mg tablet 300 mg PO DAILY #7 tab 12/08/20 [Rx Last Taken 12/10/20 300 mg] furosemide 20 mg tablet 40 mg PO DAILY tab 12/08/20 [History Last Taken 12/10/20 40 mg] lorazepam 1 mg PO QHS PRN PRN 12/11/20 [History Last Taken Unknown] spironolactone 25 mg PO DAILY 12/11/20 [History Last Taken 12/10/20 25 mg] Allergy/AdvReac Type Severity Reaction Status Date / Time sulfamethoxazole Allergy Intermediate joint pain Verified 12/11/20 03:32 [From Bactrim] trimethoprim [From Bactrim] Allergy Intermediate joint pain Verified 12/11/20 03:32 lactose AdvReac Intermediate Diarrhea Verified 12/11/20 03:32 Family History Mother Arthritis Cancer uterine Father Colon cancer Surgical History History of hip replacement History of thoracentesis Social History Smoking Status: Never smoker second hand exposure: No alcohol intake: never substance use type: does not use tacos/roman catholic: Yazidi seatbelt use: always do you feel safe at home: Yes ROS ROS Narrative Review of systems otherwise negative from a constitutional, HEENT, respiratory, cardiovascular, GI, genitourinary, musculoskeletal, skin, neurologic, psychiatric and hematologic system unless stated above. Physical Exam Const alert and oriented x3 General Appearance: cooperative and in distress Positive for mild (mild conversational dypsnea) HEENT normocephalic and head/scalp atraumatic Neck supple General: trachea midline Resp Effort and Inspection: symmetric chest movement and labored; Negative for able to speak in complete sentences Cardio regular rate, regular rhythm, S1 normal heart sound and S2 normal heart sound GI GI Narrative: ascites, abdomen moderately firm but nontender.hypoactive BS Inspection: abdominal distention Extremity normal capillary refill General Extremity: edema bilateral (ankles and pedal edema, 1+ pitting) Skin Rashes: rashes noted maculopapular Narrative: to entire back Neuro CN's II-XII intact bilaterally and no focal motor deficits Psych mental status grossly normal and cooperative Psych Narrative: appears quite fatigued but alert and conversive. Appearance: grossly normal Attitude: calm Speech: normal speech Memory / Cognition: memory grossly intact
--- NOTE | 2020-12-16 13:34 | DS.PCM_ITS ---
Documented by User: Erna Hollins NP, [employer]SPORT [employer] 12/16/20 13:53 Providers Date of Admission: 12/11/20 Date of Discharge: 12/16/20 Primary Care Physician: Dr. Aric Archibald MD Consultations 12/11/20 05:56 Consult: Mechanical Service Specialist / Pulmonary Medicine Routine Consulting Provider: Pulmonary Medicine [facility] Reason for Consult: Right large pleural effusion EMERGENT Consult: No MD Notified: Yes Date Notified: 12/11/20 Time Notified: 06:38 Method of Notification: Text 12/12/20 10:56 Consult: Cardiology Routine Consulting Provider: Carley Mcmahon Reason for Consult: A-Fib EMERGENT Consult: No MD Notified: Yes Date Notified: 12/12/20 Time Notified: 10:57 Method of Notification: Verbal Reason For Visit: SUPRATHERAPEUTIC INR/PLEURAL EFFUSION Diagnosis Discharge Diagnosis (1) Acute dyspnea: Status: Acute Code(s): R06.00 - Dyspnea, unspecified (2) Pleural effusion, right: Status: Acute Code(s): J90 - Pleural effusion, not elsewhere classified (3) Left renal mass: Status: Chronic Code(s): N28.89 - Other specified disorders of kidney and ureter (4) Mesenteric mass: Status: Acute Code(s): K63.89 - Other specified diseases of intestine (5) Ascites: Status: Acute Code(s): R18.8 - Other ascites Qualifiers: Ascites type: malignant Qualified Code(s): R18.0 - Malignant ascites (6) Hydronephrosis: Status: Acute Code(s): N13.30 - Unspecified hydronephrosis Qualifiers: Hydronephrosis type: unspecified Qualified Code(s): N13.30 - Unspecified hydronephrosis (7) Multiple thyroid nodules: Status: Acute Code(s): E04.2 - Nontoxic multinodular goiter (8) Pacemaker: Status: Chronic Code(s): Z95.0 - Presence of cardiac pacemaker (9) BPH (benign prostatic hyperplasia): Status: Chronic Qualifiers: Lower urinary tract symptom presence: unspecified whether lower urinary tract symptoms present Qualified Code(s): N40.0 - Benign prostatic hyperplasia without lower urinary tract symptoms (10) Atrial fibrillation: Status: Chronic Code(s): I48.91 - Unspecified atrial fibrillation Qualifiers: Atrial fibrillation type: unspecified Qualified Code(s): I48.91 - Unspecified atrial fibrillation (11) HLD (hyperlipidemia): Status: Chronic Code(s): E78.5 - Hyperlipidemia, unspecified Qualifiers: Hyperlipidemia type: unspecified Qualified Code(s): E78.5 - Hyperlipidemia, unspecified (12) Wide-complex tachycardia: Status: Acute Code(s): I47.2 - Ventricular tachycardia Medications at Discharge Home Medications clopidogrel 75 mg tablet 75 mg PO DAILY 03/19/19 finasteride 5 mg tablet 5 mg PO DAILY 03/19/19 metoprolol succinate 25 mg tablet,extended release 24 hr 25 mg PO DAILY 03/19/19 simvastatin 20 mg tablet 20 mg PO QHS 03/19/19 tamsulosin 0.4 mg capsule 0.4 mg PO DAILY 03/19/19 acyclovir 400 mg tablet 400 mg PO BID #60 tab 11/25/20 allopurinol 300 mg tablet 300 mg PO DAILY #7 tab 12/08/20 furosemide 20 mg tablet 40 mg PO DAILY tab 12/08/20 lorazepam 1 mg PO QHS PRN PRN 12/11/20 spironolactone 25 mg PO DAILY 12/11/20 amiodarone 200 mg PO TID #120 tab 12/16/20 warfarin 1 mg PO DAILY #60 tab 12/16/20 Hospital Course Operations None Procedures 2-D Echocardiogram and Thoracentesis Summary of Care Provided Minutes Spent on Discharge: 35 Hospital Course: Patient is an 85-year-old male admitted 12/11/2020 due to shortness of breath. 1. Acute hypoxic respiratory failure secondary to malignant right-sided pleural effusion-status post ultrasound-guided thoracentesis 12/13/2020. Patient underwent previous outpatient diagnostic thoracentesis 11/15/[address]-guided biopsy of mesenteric mass 11/16/2020. Pleural fluid cytology showed lymphoma. Patient will require supplemental oxygen at discharge, he is ambulatory in the home. Continue supplement oxygen to maintain O2 at or above 90%. Follow-up with pulmonary medicine and oncology in 1 week. Repeat chest x-ray prior to discharge showed a decrease in size of right pleural effusion. 2. Stage IV non-Hodgkin's lymphoma/follicular lymphoma, recent diagnosis- Following with Dr. Rivas. On immunotherapy/rituximab. 3. Coagulopathy-resolved. Resume Coumadin at discharge at reduced dose, 1 mg daily with repeat INR in 2 days. 4. Paroxysmal atrial fibrillation/wide-complex tachycardia-cardiology consulted during admission. Flecainide discontinued. Continue loading amiodarone dose as ordered and metoprolol. Currently sinus rhythm. Pacemaker interrogation completed and functioning properly. 5. BPH-on finasteride, Flomax. 6. Hyperlipidemia-continue statin. 7. Chronic kidney disease stage IIIa- stable. Patient seen and examined prior to discharge. Physical assessment as noted below. Patient is stable for discharge with follow up recommendations as noted above. This patient was seen by AMINAH Chow under the supervision of Dr. Hart. Physical Exam Const alert, oriented x3 and no apparent distress Orientation / Consciousness: awake, oriented to person, oriented to place and oriented to time HEENT normocephalic and moist oral mucous membranes Eyes PERRL, EOMs intact bilaterally and conjunctivae normal Neck no lymphadenopathy Resp clear to auscultation bilaterally Auscultation: diminished lung sounds Cardio regular rate, regular rhythm and no murmurs Peripheral Pulses: pulses 2+ throughout GI normal to inspection, nondistended, normoactive bowel sounds, non-tender and non-distended Extremity normal to inspection Skin no rashes or lesions noted Lesions: no lesions Rashes: no rashes Trauma: no lacerations or abrasions Neuro CN's II-XII intact bilaterally, no focal motor deficits, no sensory deficits noted and deep tendon reflexes 2+ bilaterally Psych mental status grossly normal and affect normal Medical Records Data Medical Nutrition Assessment Dietitian: Nutrition Therapy Diagnosis Start: 12/11/20 12:59 Freq: Status: Active Protocol: Document 12/13/20 15:47 RMA (Rec: 12/13/20 15:48 RMA [id number]) Nutrition Malnutrition Evidence of Malnutrition Exists No Intake Problem Decreased Nutrient Needs (specify) Etiology for sodium related to edema/ pleural effusion Signs/Symptoms as evidenced by LLE 2+ pitting edema and RLE 3+ pitting edema Status Active Problem Inadequate Oral Intake Etiology related to ongoing poor appetite due to dx of lymphoma Signs/Symptoms as evidenced by PO~50% of meals and need for ONS. Status Active Problem Recommendation Dietitian Recommendations/Changes Will change diet to Sodium- Restricted; add fluid restriction as needed if PO improves at meals. Will adjust ensure clear w/ meals to 120ml TID for increased nutrition if consumed. Weight / BMI Weight Weight: 180 lb 12.465 oz Body Mass Index (BMI) 26.9 ABG / Lab / Microbiology Data Result Diagrams: 12/16/20 05:12 12/16/20 05:12 Laboratory: Laboratory Results - last 24 hr 12/15/20 15:20: PT 24.7 H, INR 2.3 12/16/20 05:12: WBC 11.5 H, RBC 4.19 L, Hgb 11.4 L, Hct 35.1 L, MCV 83.8, MCH 27.2, MCHC 32.5, RDW Std Deviation 43.8, RDW Coeff of Flash 14.5, Plt Count 225, MPV 10.1, Immature Gran % (Auto) 0.600, Neut % (Auto) 84.1 H, Lymph % (Auto) 2.8 L, [place] % (Auto) 4.4, Eos % (Auto) 7.9 H, Baso % (Auto) 0.2, Absolute Neuts (auto) 9.6 H, Absolute Lymphs (auto) 0.32 L, Nucleated RBC % 0, Differential Comment SCANNED 12/16/20 05:12: Sodium 132 L, Potassium 3.9, Chloride 98, Carbon Dioxide 24.0, A nion Gap 10, BUN 31 H, Creatinine 1.58 H, Estim Creat Clear Calc 35.29, Est GFR (MDRD) Af Amer 54 L, Est GFR (MDRD) Non-Af 44 L, BUN/Creatinine Ratio 19.6, Glucose 106, Calcium 8.7 Radiography Diagnostic Testing: Radiology Impression Chest X-Ray 12/16/20 11:17 IMPRESSION: Decrease in the size of the right pleural effusion. Persistent right lower lobe pneumonia/atelectasis. at 1309 Reported and signed by: Jean Paul Hilliard MD Electronically Signed: Jean Paul Hilliard MD at 13:08 EDT Tel , Service support , D/C Instructions Discharge Diet: No restrictions Call your doctor if you observe: Shortness of breath, Dizziness and Chest pain Meaningful Use Info Meaningful Use Diagnoses (Choose all that apply): None applicable Discharge Plan Admission Admit Date/Time: 12/11/20 04:54 Primary Reason for Your Visit: Hypoxic respiratory failure, right pleural effusion Attending Provider: Sravani Hart Primary Care Provider: Aric Archibald Consulting Providers: Afshin Mejia ; Drake Holland ; Anna Goodrich NP ; Carley Mcmahon Instructions Additional Instructions / Restrictions: Patient Problems: Altered Health Status related to Hospitalization Patient Goals: *Optimal Level of Health *Keep Appointments *Medication Compliance *Remain SafeYou may resume Coumadin at discharge. You will need repeat INR in 2 days. Discharge Orders/Prescriptions Prescriptions: New amiodarone 200 mg tablet 200 mg PO TID Qty: 120 RF: 0 Continued tamsulosin [Flomax] 0.4 mg capsule 0.4 mg PO DAILY RF: 0 clopidogrel [Plavix] 75 mg tablet 75 mg PO DAILY RF: 0 simvastatin 20 mg tablet 20 mg PO QHS RF: 0 metoprolol succinate [Toprol XL] 25 mg tablet extended release 24 hr 25 mg PO DAILY RF: 0 finasteride [Proscar] 5 mg tablet 5 mg PO DAILY RF: 0 acyclovir 400 mg tablet 400 mg PO BID Qty: 60 RF: 1 furosemide [Lasix] 20 mg tablet 40 mg PO DAILY RF: 0 lorazepam 1 mg tablet 1 mg PO QHS PRN PRN (Reason: Anxiety) RF: 0 spironolactone 25 mg tablet 25 mg PO DAILY RF: 0 allopurinol 300 mg tablet 300 mg PO DAILY Qty: 7 RF: 0 Changed warfarin 1 mg tablet 1 mg PO DAILY Qty: 60 RF: 0 Discontinued flecainide 150 mg tablet 150 mg PO Q12H RF: 0 Referrals / Follow Up: Roderick Rivas MD [NON-STAFF] - See Referral Note (As scheduled) Aric Archibald MD [Primary Care Provider] - 12/24/20 10:20 am Anna Goodrich NP, [employer] [Nurse Practitioner] - In 1 Week Chelsea Anguiano, PA [PHYSICIAN REMEDIAL READING TEACHER] - Within 2 Weeks Disposition Disposition (needs filled in before D/C Order can be placed): Home Health Service Documented by User: Dr. Sravani Hart MD 12/16/20 16:29 Providers Date of Admission: 12/11/20 Reason For Visit: SUPRATHERAPEUTIC INR/PLEURAL EFFUSION Medications at Discharge Home Medications clopidogrel 75 mg tablet 75 mg PO DAILY 03/19/19 finasteride 5 mg tablet 5 mg PO DAILY 03/19/19 metoprolol succinate 25 mg tablet,extended release 24 hr 25 mg PO DAILY 03/19/19 simvastatin 20 mg tablet 20 mg PO QHS 03/19/19 tamsulosin 0.4 mg capsule 0.4 mg PO DAILY 03/19/19 acyclovir 400 mg tablet 400 mg PO BID #60 tab 11/25/20 allopurinol 300 mg tablet 300 mg PO DAILY #7 tab 12/08/20 furosemide 20 mg tablet 40 mg PO DAILY tab 12/08/20 lorazepam 1 mg PO QHS PRN PRN 12/11/20 spironolactone 25 mg PO DAILY 12/11/20 amiodarone 200 mg PO TID #120 tab 12/16/20 warfarin 1 mg PO DAILY #60 tab 12/16/20 ABG / Lab / Microbiology Data Result Diagrams: 12/16/20 05:12 12/16/20 05:12 Discharge Plan Admission Admit Date/Time: 12/11/20 04:54 Primary Reason for Your Visit: Hypoxic respiratory failure, right pleural effusion Attending Provider: Sravani Hart Primary Care Provider: Aric Archibald Consulting Providers: Afshin Mejia ; Drake Holland ; Anna Goodrich TRANSPORT AIRCREWMAN ; Carley Mcmahon Instructions Additional Instructions / Restrictions: Patient Problems: Altered Health Status related to Hospitalization Patient Goals: *Optimal Level of Health *Keep Appointments *Medication Compliance *Remain SafeYou may resume Coumadin at discharge. You will need repeat INR in 2 days. Discharge Orders/Prescriptions Prescriptions: New amiodarone 200 mg tablet 200 mg PO TID Qty: 120 RF: 0 Continued tamsulosin [Flomax] 0.4 mg capsule 0.4 mg PO DAILY RF: 0 clopidogrel [Plavix] 75 mg tablet 75 mg PO DAILY RF: 0 simvastatin 20 mg tablet 20 mg PO QHS RF: 0 metoprolol succinate [Toprol XL] 25 mg tablet extended release 24 hr 25 mg PO DAILY RF: 0 finasteride [Proscar] 5 mg tablet 5 mg PO DAILY RF: 0 acyclovir 400 mg tablet 400 mg PO BID Qty: 60 RF: 1 furosemide [Lasix] 20 mg tablet 40 mg PO DAILY RF: 0 lorazepam 1 mg tablet 1 mg PO QHS PRN PRN (Reason: Anxiety) RF: 0 spironolactone 25 mg tablet 25 mg PO DAILY RF: 0 allopurinol 300 mg tablet 300 mg PO DAILY Qty: 7 RF: 0 Changed warfarin 1 mg tablet 1 mg PO DAILY Qty: 60 RF: 0 Discontinued flecainide 150 mg tablet 150 mg PO Q12H RF: 0 Referrals / Follow Up: Roderick Rivas MD [NON-STAFF] - See Referral Note (As scheduled) Aric Archibald MD [Primary Care Provider] - 12/24/20 10:20 am Anna Goodrich NP, [employer]CREW[employer]-C [Nurse Practitioner] - In 1 Week Chelsea Anguiano PA [PHYSICIAN REMEDIAL READING TEACHER] - Within 2 Weeks Disposition Disposition (needs filled in before D/C Order can be placed): Home Health Service Charges/Coding Addendum Addendum: Patient seen by Erna PALACIOSC under my supervision Patient is a pleasant 85-year-old male with an extensive past medical history as outlined which includes a history of stage IV non-Hodgkin's lymphoma on immunotherapy with recurrent right pleural effusion. He was recently found to have a large right pleural effusion and had diagnostic thoracentesis on 11/15/2020 and was also found to have left upper ureteric mass and biopsy showed lymphoma. He was admitted with a complaint of shortness of breath which have been worsening. He was admitted and managed for acute hypoxic respiratory failure due to recurrent right pleural effusion. He was saturating at 87% on room air in the ED and improved to 94% was on oxygen. Pulmonology was consulted. His INR on admission was 3.3. He received FFP on account of elevated INR. He had right-sided thoracentesis on 12/13/2020 with removal of 1.75 mils of fluid. Previous thoracentesis has shown that the fluid was an exudate and thought to be due to the follicular lymphoma. Patient's hospital course was complicated by increasing oxygen requirements up to 6 L of oxygen. He could not have paracentesis because imaging showed there was not enough ascitic fluid to drain. He was started on amiodarone infusion cardiology consulted on account of poorly controlled A. fib. He was subsequently weaned off of amiodarone infusion onto an amiodarone taper. Repeat x-ray done on day of discharge showed a decrease in size of the right pleural effusion and patient was weaned down to 2 L of oxygen. He was discharged home on supplemental oxygen and is to follow-up with his PCP and vehicle operator technician as well as folded cloth taper. Of note, patient had his pacemaker interrogated during admission and was functioning properly. Patient seen and examined prior to discharge. He felt much better and had no complaints. Review of systems otherwise negative. Labs and vitals reviewed. Home medication reviewed and reconciled. O/E: Const alert, oriented x3 and no apparent distress HEENT head/scalp atraumatic and moist oral mucous membranes Head and Scalp: normocephalic Eyes EOMs intact bilaterally and conjunctivae normal Neck no lymphadenopathy, supple and no JVD Resp diminished breath sounds in right mid and lower lung edwards, on 2L of oxygen by nasal canula Cardio regular rate, regular rhythm, no murmurs and no JVD GI normal to inspection, nondistended, normoactive bowel sounds, soft to palpation and non-tender Extremity normal to inspection, full ROM and no clubbing, cyanosis or edema Skin no rashes or lesions noted, no wounds, skin turgor normal and no jaundice Neuro CN's II-XII intact bilaterally Psych affect normal Plan is for discharge home today. Rest as per Erna Hollins NP-see his note which I have reviewed and endorsed. Visit Charges Inpatient E&M: 47528 Disch Hosp
== END 2020-12-16 15:35 | disposition home health service (06) | DRG 840 ==
LOC: ED 04:47 → PCU 05:51
PROVIDERS: Physician Assistant; Admitting Provider Internal Medicine; Emergency Provider Emergency Medicine; PCP Internal Medicine; Visit Provider Student in an Organized Health Care Education/Training Program
DX: C82.39 Follicular lymphoma grade IIIa, extranodal and solid organ sites (principal); J96.01 Acute respiratory failure with hypoxia; J91.0 Malignant pleural effusion; D68.4 Acquired coagulation factor deficiency; R18.0 Malignant ascites; I48.92 Unspecified atrial flutter; Z79.01 Long term (current) use of anticoagulants; I48.0 Paroxysmal atrial fibrillation; N40.0 Benign prostatic hyperplasia without lower urinary tract symptoms; E78.5 Hyperlipidemia, unspecified; N18.31 Chronic kidney disease, stage 3a; Z79.899 Other long term (current) drug therapy; I12.9 Hypertensive chronic kidney disease with stage 1 through stage 4 chronic kidney disease, or unspecified chronic kidney disease; Z66 Do not resuscitate; G47.33 Obstructive sleep apnea (adult) (pediatric); Z95.0 Presence of cardiac pacemaker
CPT/HCPCS: 32555; 36415; 71045; 71046; 76705; 80048; 80053; 83615; 83880; 84484; 84550; 85025; 85610; 93005; 93306; 94640; 96376; 96413; 96415; 97110; 97162; 97166; 97530; 97535; 97802; 97803; 99251; 99285; J7030; J7040; J7050; Q9957; A4216; C8929; G0463; J1940; J3490; Q5115

== ENCOUNTER 2020-12-16 20:45 | Observation (INO) | payer MEDICARE, SELFPAY ==
[2020-12-11 05:55] VITALS: BMI 26.9
--- NOTE | 2020-12-16 20:47 | EKG12_ITS ---
Test Reason : DYSRHYTHMIA Blood Pressure : / mmHG Vent. Rate : 083 BPM Atrial Rate : 083 BPM P-R Int : 210 ms QRS Dur : 110 ms QT Int : 406 ms P-R-T Axes : 031 -45 058 degrees QTc Int : 477 ms Sinus rhythm with 1st degree A-V block Left axis deviation Septal infarct , age undetermined Abnormal ECG Confirmed by JANETT ROSS, BLACK ([id number]), makeup editor ESTHELA ESCOBEDO ([id number]) on 12/21/2020 8:49:14 AM Referred By: JANI Confirmed By:BLACK ROWLAND MD
[2020-12-16 21:00] LABS: Absolute Lymphocyte Count 0.32 X10^3/uL (0.83-4.51); Absolute Neutrophil Count 10.7 X10^3/uL (2.0-7.7); Basophil# 0.03 X10^3/uL; Basophil% 0.2 % (0-1); Eosinophil# 1.25 X10^3/uL; Eosinophils% 9.5 % (0-5); Hematocrit 35.6 % (40-54); Hemoglobin 11.7 g/dL (13.0-16.5); Lymphocyte # 0.32 X10^3/ul (0.83-4.51); Lymphocyte % 2.4 % (19-41); Mean Corp Hgb Conc 32.9 g/dL (32-36); Mean Corpuscular Hgb 27.2 pg (27.0-32.0); Mean Corpuscular Volume 82.8 fL (80-94); Mean Platelet Vol. 9.7 fl (6.2-12.0); Monocyte# 0.73 X10^3/uL; Monocyte% 5.6 % (0-10); NRBC Flagged by Analyzer 0 % (0-5); Neutrophil % 81.6 % (47-70); POSITIVE DIFFERENTIAL YES; Platelet Count 224 K/mm3 (150-450); RBC Distribution Width CV 14.5 % (11.6-14.6); RBC Distribution Width SD 43.2 fl (35.1-43.9); White Blood Count 13.1 K/mm3 (4.4-11.0)
[2020-12-16 21:11] LABS: International Normalized Ratio 2.3; Prothrombin Time (Protime)PT. 24.6 SECONDS (11.7-14.9)
[2020-12-16 21:13] LABS: Differential Indicated SCAN CRITERIA MET
[2020-12-16 21:16] LABS: Anion Gap 9 (5-15); BUN 37 mg/dL (7-18); BUN/Creat Ratio 22.8 RATIO (10-20); Calcium,Total 9.2 mg/dL (8.5-10.1); Chloride 96 mmol/L (98-107); Creatinine, Serum 1.62 mg/dL (0.70-1.30); EST Glomerular Filtration Rate 43 mL/min (>60); Est Glom Filt Rate - Afr Amer 52 mL/min (>60); Glucose 112 mg/dL (74-106); Potassium 3.5 mmol/L (3.5-5.1); Sodium Level 131 mmol/L (136-145)
[2020-12-16] MEDS: 0.9% Normal Saline 1,000 ML 50 ML IV (21:23)
[2020-12-16 21:26] VITALS: BMI 26.8
[2020-12-16 21:30] VITALS: BP 127/68; PULSE 82; RESP 24; TEMP 36.4; O2SAT 96; BMI 26.8
--- NOTE | 2020-12-16 21:37 | EX.ED.DYSGE1 ---
HPI History of Present Illness Chief Complaint: Weakness Narrative Narrative: 85-year-old male presenting with confusion and generalized weakness which started after he returned home today from [facility]. Patient's family reports that he is normally very talkative, active. They state that after his last hospitalization he was a little bit debilitated. They state that they have not done any rehab after his recent stay. Patient stated initially that he was traveling trouble swallowing however he is tolerating his own secretions. He does complain of his mouth being dry. He has some new blisters on his lips noted by the family. Have concerned that he has a small area of rash on the left foot on the back. [facility] Medical History Abdominal distention Anxiety Atrial fibrillation BPH (benign prostatic hyperplasia) Cancer Change in bowel habit Chronic kidney disease, stage 3a CPAP (continuous positive airway pressure) dependence Essential hypertension HLD (hyperlipidemia) Hydronephrosis IBS (irritable bowel syndrome) Irregular heart beat Multinodular goiter Multiple thyroid nodules Non-smoker Pacemaker Pacemaker Sleep apnea TIA (transient ischemic attack) Wide-complex tachycardia Home Medications clopidogrel 75 mg tablet 75 mg PO DAILY 03/19/19 [History Last Taken 12/10/20 75 mg] finasteride 5 mg tablet 5 mg PO DAILY 03/19/19 [History Last Taken 12/10/20 5 mg] metoprolol succinate 25 mg tablet,extended release 24 hr 25 mg PO DAILY 03/19/19 [History Last Taken 12/10/20 25 mg] simvastatin 20 mg tablet 20 mg PO QHS 03/19/19 [History Last Taken 12/10/20 20 mg] tamsulosin 0.4 mg capsule 0.4 mg PO DAILY 03/19/19 [History Last Taken 12/10/20 0.4 mg] acyclovir 400 mg tablet 400 mg PO BID #60 tab 11/25/20 [Rx Last Taken 12/10/20 400 mg] allopurinol 300 mg tablet 300 mg PO DAILY #7 tab 12/08/20 [Rx Last Taken 12/10/20 300 mg] furosemide 20 mg tablet 40 mg PO DAILY tab 12/08/20 [History Last Taken 12/10/20 40 mg] spironolactone 25 mg PO DAILY 12/11/20 [History Last Taken 12/10/20 25 mg] amiodarone 200 mg PO TID #120 tab 12/16/20 [Rx Last Taken Unknown] warfarin 1 mg PO DAILY #60 tab 12/16/20 [Rx Last Taken 12/09/20 2 mg] Allergy/AdvReac Type Severity Reaction Status Date / Time sulfamethoxazole Allergy Intermediate joint pain Verified 12/16/20 21:30 [From Bactrim] trimethoprim [From Bactrim] Allergy Intermediate joint pain Verified 12/16/20 21:30 lactose AdvReac Intermediate Diarrhea Verified 12/16/20 21:30 Family History Mother Arthritis Cancer uterine Father Colon cancer Surgical History History of hip replacement History of thoracentesis Social History Smoking Status: Never smoker second hand exposure: No alcohol intake: never substance use type: does not use tacos/protestant: Buddhism seatbelt use: always do you feel safe at home: Yes ROS ROS ED Constitutional Constitutional ED: Denies chills or fever(s) Eyes Eyes: Denies blurry vision or diplopia ENT ENT ED: Reports sore throat and other Details: Dry mouth, blisters on lower lip ; Denies rhinorrhea Cardiovascular Cardiovascular: Denies chest pain or palpitations Respiratory/Chest Respiratory/Chest: Denies cough, dyspnea or sputum Gastrointestinal Gastrointestinal: Denies abdominal pain, nausea or vomiting Genitourinary Genitourinary ED: Denies dysuria or hematuria Musculoskeletal Musculoskeletal: Denies back pain or neck pain Integumentary Reports rash Neurologic Neurologic: Denies headache(s) or paresthesias EXAM Physical Exam Const Vital Signs: 12/16/20 21:22 12/16/20 21:30 12/16/20 21:39 Temperature 97.6 F L 97.6 F L Temperature Source Oral Oral Pulse Rate 82 82 Respiratory Rate 24 H 24 H Respiratory Effort Normal Non-Labored Respiratory Pattern Normal Blood Pressure 127/68 H 127/68 H Blood Pressure Mean 87 87 Pulse Ox 96 96 Oxygen Delivery Method Nasal Cannula Nasal Cannula Nasal Cannula Oxygen Flow Rate (L/min) 2 2 2 12/16/20 22:18 12/16/20 22:45 12/16/20 23:42 Temperature 97.8 F 98.2 F Temperature Source Oral Oral Pulse Rate 61 86 80 Respiratory Rate 15 18 19 H Respiratory Effort Respiratory Pattern Blood Pressure 104/64 112/64 Blood Pressure Mean 77 80 Pulse Ox 98 93 92 Oxygen Delivery Method Nasal Cannula Nasal Cannula Nasal Cannula Oxygen Flow Rate (L/min) 2 2 2 12/17/20 00:16 Temperature 98.1 F Temperature Source Oral Pulse Rate 87 Respiratory Rate 18 Respiratory Effort Respiratory Pattern Blood Pressure 107/59 L Blood Pressure Mean 75 Pulse Ox 92 Oxygen Delivery Method Nasal Cannula Oxygen Flow Rate (L/min) 2 Positive well nourished General Appearance ED: NAD HEENT Reports moist mucous membranes HEENT Narrative: Small blisters noted on the lower lip. Nontender to palpation. Tongue is not swollen. Patient tolerating his own secretions. Negative for trauma Eyes PERRL and EOMs intact bilaterally Neck no lymphadenopathy and supple Resp normal respiratory effort and clear to auscultation bilaterally Cardio regular rate and regular rhythm Extremity Extremity Narrative: Rash on left foot which does not appear consistent with cellulitis. Nontender to palpation. No crepitance. No bony tenderness Neuro CN's II-XII intact bilaterally and no sensory deficits noted Sensorium / Orientation: alert Motor Exam: strength abnormal Skin Skin Narrative: Rash as noted above MDM MDM MDM Narrative Medical decision making narrative: Patient presenting with generalized weakness, difficulty speaking. Patient's family states that he was complaining of difficulty swallowing but he is tolerating his own secretions. He is moving all 4 extremities and following commands. Patient is speaking which does seem somewhat labored. When asked if he has any pain he says no. Patient does have some dysarthria so would have to give an NIH of 1 for that. This does appear to be improved over time in the ED. There are no new deficits noted since he arrived and has been improving. CT brain and CTA of the head and neck are negative. If the patient's symptoms do represent TIA patient is already on Plavix and Coumadin and is therapeutic on his INR. He has a pacemaker and cannot have an MRI. patient's EKG is sinus rhythm at 83 bpm with a first-degree AV block on my interpretation. There appears to be no signs of ischemic change and patient denies any chest pain. Patient has a leukocytosis of 13.1 which is new since yesterday. Hemoglobin is 11.7 it was 11.4 yesterday. Creatinine is 1.62 and was 1.58 yesterday. INR is therapeutic at 2.3. Chest x-ray shows persistent right pleural effusion which appears to be slightly increased on my interpretation and the radiologist does agree. Patient is not hypoxic and after sitting in the bed his respiratory rate is now 18. O2 sat is 92% on room air. On reevaluation after the work-up is complete patient is talking. He wants to try to go home. He again is moving all 4 extremities and talking more clearly at this point. He states he does not want to be left in the hospital. His is concerned that she cannot care for him and they have no home PT. They state that they do have a nurse that comes out a couple of times a week to check on him. Patient's daughter is at the bedside and states that she can try and stay and help but that they feel is too weak to go home. Attempted to get the patient out of bed however he is too weak to lift himself. Patient is discussed with hospitalist. Impression: 1. Generalized weakness 2. Left lower extremity rash 3. Right pleural effusion Lab Data Attestation: I reviewed the patient's lab results. Labs: Laboratory Results - last 24 hr 12/16/20 12/16/20 12/16/20 20:48 20:48 20:48 WBC 13.1 H RBC 4.30 L Hgb 11.7 L Hct 35.6 L MCV 82.8 MCH 27.2 MCHC 32.9 RDW Std Deviation 43.2 RDW Coeff of Flash 14.5 Plt Count 224 MPV 9.7 Immature Gran % (Auto) 0.700 Neut % (Auto) 81.6 H Lymph % (Auto) 2.4 L [place] % (Auto) 5.6 Eos % (Auto) 9.5 H Baso % (Auto) 0.2 Absolute Neuts (auto) 10.7 H Absolute Lymphs (auto) 0.32 L Nucleated RBC % 0 Differential Comment SCANNED PT INR Sodium 131 L Potassium 3.5 Chloride 96 L Carbon Dioxide 26.0 Anion Gap 9 BUN 37 H Creatinine 1.62 H Est GFR (MDRD) Af Amer 52 L Est GFR (MDRD) Non-Af 43 L BUN/Creatinine Ratio 22.8 H Glucose 112 H Calcium 9.2 Troponin I High Sens 7.4 12/16/20 20:55 WBC RBC Hgb Hct MCV MCH MCHC RDW Std Deviation RDW Coeff of Flash Plt Count MPV Immature Gran % (Auto) Neut % (Auto) Lymph % (Auto) [place] % (Auto) Eos % (Auto) Baso % (Auto) Absolute Neuts (auto) Absolute Lymphs (auto) Nucleated RBC % Differential Comment PT 24.6 H INR 2.3 Sodium Potassium Chloride Carbon Dioxide Anion Gap BUN Creatinine Est GFR (MDRD) Af Amer Est GFR (MDRD) Non-Af BUN/Creatinine Ratio Glucose Calcium Troponin I High Sens Radiography Diagnostic Testing: Radiology Impression Chest X-Ray 12/16/20 21:50 IMPRESSION: Increasing right pleural effusion with persistent right basilar airspace disease and/or atelectasis. at 2218 Reported and signed by: Guru Zhu MD Electronically Signed: Guru Zhu MD at 22:17 EDT Tel , Service support , Brain CT 12/16/20 21:51 IMPRESSION: Chronic involutional and white matter changes. No acute intracranial process. Individualized dose optimization techniques were used for this CT. at 2233 Reported and signed by: Guru Zhu MD Electronically Signed: Guru Zhu MD at 22:32 EDT Tel , Service support , ADDENDUM: 12/16/20 2248 IMPRESSION: Chronic involutional and white matter changes. No acute intracranial process. Individualized dose optimization techniques were used for this CT. at 2233 Reported and signed by: Guru Zuh MD N.B. : The above Results were Read Back by Guru Zhu MD to Carlos Hearn DO, and understanding confirmed on 12/16/2020 22:41:20 (ET). Electronically Signed: Guru Zhu MD at 22:32 EDT Tel , Service support , Head/Neck CTA 12/16/20 21:52 IMPRESSION: No significant major vessel vaso-occlusive disease in the head or neck. Individualized dose optimization techniques were used for this CT. at 2257 Reported and signed by: Guru Zhu MD Electronically Signed: Guru Zhu MD at 22:56 EDT Tel , Service support , ADDENDUM: 12/16/20 2327 IMPRESSION: No significant major vessel vaso-occlusive disease in the head or neck. Individualized dose optimization techniques were used for this CT. at 2257 Reported and signed by: Guru Zhu MD N.B. : The above Results were Read Back by Guru Zhu MD to Carlos Giordano DO, and understanding confirmed on 12/16/2020 23:20:49 (ET). Electronically Signed: Guru Zhu MD at 22:56 EDT Tel , Service support , Discharge Plan Triage Chief Complaint: Weakness ED Provider: Carlos Hearn Dx/Rx/DC Orders Prescriptions: No Action tamsulosin [Flomax] 0.4 mg capsule 0.4 mg PO DAILY RF: 0 clopidogrel [Plavix] 75 mg tablet 75 mg PO DAILY RF: 0 simvastatin 20 mg tablet 20 mg PO QHS RF: 0 metoprolol succinate [Toprol XL] 25 mg tablet extended release 24 hr 25 mg PO DAILY RF: 0 finasteride [Proscar] 5 mg tablet 5 mg PO DAILY RF: 0 acyclovir 400 mg tablet 400 mg PO BID Qty: 60 RF: 1 furosemide [Lasix] 20 mg tablet 40 mg PO DAILY RF: 0 spironolactone 25 mg tablet 25 mg PO DAILY RF: 0 amiodarone 200 mg tablet 200 mg PO TID Qty: 120 RF: 0 warfarin 1 mg tablet 1 mg PO DAILY Qty: 60 RF: 0 allopurinol 300 mg tablet 300 mg PO DAILY Qty: 7 RF: 0 Primary Care Provider: Aric Archibald
[2020-12-16 21:39] VITALS: BP 127/68; PULSE 82; RESP 24; TEMP 36.4; O2SAT 96
--- NOTE | 2020-12-16 21:50 | RAD_ITS ---
HISTORY: Stroke EXAMINATION/TECHNIQUE: XR Chest 1 View: Portable upright AP chest x-ray COMPARISON: 12/16/20 at 12:47 PM FINDINGS: Stable transvenous pacemaker. Increasing right pleural effusion with thickening of the minor fissure. Left lung unchanged. Cardiac size stable. RAD/Chest 1 View (Portable) IMPRESSION: Increasing right pleural effusion with persistent right basilar airspace disease and/or atelectasis. at 2218 Reported and signed by: Guru Zhu MD Electronically Signed: Guru Zhu MD at 22:17 EDT Tel , Service support ,
--- NOTE | 2020-12-16 21:51 | CT_ITS ---
We are attempting to reach an attending provider to discuss findings. An addendum with communication details will be sent when the communication is complete. HISTORY: altered mental status TECHNIQUE: Multiple axial images were obtained of the brain without intravenous contrast. A radiation dose optimization technique was used for this scan. IV Contrast dosage and agent: None. COMPARISON: 04/15/20 FINDINGS: # of images incl. paperwork: [id number] PARANASAL SINUSES AND MASTOID AIR CELLS: Clear. INTRACRANIAL HEMORRHAGE: None. BRAIN PARENCHYMA: No CT evidence of stroke. No intracranial masses. There is preservation of the navas/white matter interface. Posterior fossa structures are unremarkable. There is hypoattenuation of the periventricular white matter. Chronic involutional changes are noted. CSF SPACES: Appropriate for age. There is no hydrocephalus. MASS EFFECT: None. CALVARIUM: No acute fracture. CT/STROKE Brain/Head without Cont IMPRESSION: Chronic involutional and white matter changes. No acute intracranial process. Individualized dose optimization techniques were used for this CT. at 2233 Reported and signed by: Guru Zhu MD Electronically Signed: Guru Zhu MD at 22:32 EDT Tel , Service support ,
--- NOTE | 2020-12-16 21:52 | CT_ITS ---
We are attempting to reach an attending provider to discuss findings. An addendum with communication details will be sent when the communication is complete. HISTORY: altered mental status TECHNIQUE: Routine carotid CT angiogram protocol was performed without and with IV contrast. In addition, images were obtained of the [place]. [place] criteria using the distal ICAs for comparison were used for evaluation of stenoses. 3D reconstructions were reviewed. A radiation dose optimization technique was used for this scan. IV Contrast dosage and agent: 100mL [id number] COMPARISON: 12/12/12 CTA head and neck FINDINGS: --NECK: AORTIC ARCH AND BRANCHES: Unremarkable, cervical vessel origins patent. RIGHT CCA: No occlusion, significant stenosis or dissection. RIGHT ICA: No occlusion, significant stenosis or dissection. LEFT CCA: No occlusion, significant stenosis or dissection. LEFT ICA: No occlusion, significant stenosis or dissection. RIGHT VERTEBRAL ARTERY: No occlusion, significant stenosis or dissection. LEFT VERTEBRAL ARTERY: No occlusion, significant stenosis or dissection. NECK SOFT TISSUES: Unremarkable. LUNG APICES: Loculated right pleural effusion with biapical hazy airspace opacities. BONES: Degenerative changes. --HEAD: --Anterior circulation: ICAs: No significant stenosis at the intracranial/visualized segments. ACAs: No significant stenosis at the visualized segments. ACOM: Present. MCAs: No significant stenosis at the visualized segments. --Posterior circulation: credentialing coordinator: No significant stenosis at the visualized segments. 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 BASILAR ARTERY: No significant stenosis. VERTEBRAL ARTERIES: No significant stenosis at the intradural/visualized segments. No evidence of intracranial aneurysm or vascular malformation. CT/CTA Head AND Neck W/ Contrast IMPRESSION: No significant major vessel vaso-occlusive disease in the head or neck. Individualized dose optimization techniques were used for this CT. at 2257 Reported and signed by: Guru Zhu MD Electronically Signed: Guru Zhu MD at 22:56 EDT Tel , Service support ,
[2020-12-16 21:55] LABS: Differential Comment SCANNED
[2020-12-16 22:06] LABS: Troponin-I HS 7.4 pg/mL (3.0-78.5)
[2020-12-16 22:18] VITALS: PULSE 61; RESP 15; O2SAT 98
[2020-12-16 22:45] VITALS: BP 104/64; PULSE 86; RESP 18; TEMP 36.6; O2SAT 93
[2020-12-16 23:42] VITALS: BP 112/64; PULSE 80; RESP 19; TEMP 36.8; O2SAT 92
[2020-12-17] VITALS (18 sets, daily range): BP systolic 107–137; BP diastolic 58–69; PULSE 71–89; RESP 18–21; TEMP 36.4–37.1; O2SAT 92–96; BMI 25.8
--- NOTE | 2020-12-17 02:15 | PCM.HP.STD ---
HPI - General General Date of Admission: 12/17/20 HPI Narrative MAXIMUS ZHAO, is a 85 M with multiple comorbidities as listed above including stage IV NHL was discharged on 12/16 and was brought back to ER for generalized weakness. As per , patient also could not talk and said difficulty in swallowing/could not swallow. Patient also having difficulty management of oxygen tube and very weak in ambulating. In ER, there no new deficit was found and was given NIH 1 for some dysarthria but when I saw the patient he was back to baseline as I saw him on 12/13/20. Patient had CT brain and CTA of head and neck did not show any acute change. Chest x-ray shows increased right pleural effusion with persistent right basilar atelectasis/airspace disease. Of note, patient had thoracocentesis, 1750 mL on 12/13, therefore it got refilled. Patient vital signs are on baseline. Lead EKG normal sinus rhythm 83 bpm, first-degree AV block, no acute change from previous recent EKGs. Patient cannot have MRI as he has pacemaker. Labs reviewed. There is no significant change from yesterday lab prior to discharge. The patient is further admitted for generalized weakness and assessment for possible SNF placement [facility] Medical History Abdominal distention Anxiety Atrial fibrillation BPH (benign prostatic hyperplasia) Cancer Change in bowel habit Chronic kidney disease, stage 3a CPAP (continuous positive airway pressure) dependence Essential hypertension HLD (hyperlipidemia) Hydronephrosis IBS (irritable bowel syndrome) Irregular heart beat Multinodular goiter Multiple thyroid nodules Non-smoker Pacemaker Pacemaker Sleep apnea TIA (transient ischemic attack) Wide-complex tachycardia Home Medications clopidogrel 75 mg tablet 75 mg PO DAILY 03/19/19 [History Last Taken 12/10/20 75 mg] finasteride 5 mg tablet 5 mg PO DAILY 03/19/19 [History Last Taken 12/10/20 5 mg] metoprolol succinate 25 mg tablet,extended release 24 hr 25 mg PO DAILY 03/19/19 [History Last Taken 12/10/20 25 mg] simvastatin 20 mg tablet 20 mg PO QHS 03/19/19 [History Last Taken 12/10/20 20 mg] tamsulosin 0.4 mg capsule 0.4 mg PO DAILY 03/19/19 [History Last Taken 12/10/20 0.4 mg] acyclovir 400 mg tablet 400 mg PO BID #60 tab 11/25/20 [Rx Last Taken 12/10/20 400 mg] allopurinol 300 mg tablet 300 mg PO DAILY #7 tab 12/08/20 [Rx Last Taken 12/10/20 300 mg] furosemide 20 mg tablet 40 mg PO DAILY tab 12/08/20 [History Last Taken 12/10/20 40 mg] spironolactone 25 mg PO DAILY 12/11/20 [History Last Taken 12/10/20 25 mg] amiodarone 200 mg PO TID #120 tab 12/16/20 [Rx Last Taken Unknown] warfarin 1 mg PO DAILY #60 tab 12/16/20 [Rx Last Taken 12/09/20 2 mg] Allergy/AdvReac Type Severity Reaction Status Date / Time sulfamethoxazole Allergy Intermediate joint pain Verified 12/16/20 21:30 [From Bactrim] trimethoprim [From Bactrim] Allergy Intermediate joint pain Verified 12/16/20 21:30 lactose AdvReac Intermediate Diarrhea Verified 12/16/20 21:30 Family History Mother Arthritis Cancer uterine Father Colon cancer Surgical History History of hip replacement History of thoracentesis Social History Smoking Status: Never smoker second hand exposure: No alcohol intake: never substance use type: does not use tacos/temple: Nondenominational seatbelt use: always do you feel safe at home: Yes ROS ROS Narrative Constitutional: Reports fatigue and weakness. Limited function, short of breath HEENT: Reports systems reviewed and no addt'l complaints, except as documented Respiratory/Chest: Denies chest pain. Shortness of breath at rest or with exertion Gastrointestinal: Denies coffee ground emesis, hematemesis or vomiting Genitourinary: Denies burning urination or new urinary tract symptoms Musculoskeletal: Reports joint pain and limited range of motion. Mild generalized weakness of lower extremity muscles Neurologic: Denies seizure-like activity skin: No ulcer. Mild redness to left upper hand, superficial thrombophlebitis Endocrinology: Reports systems reviewed and no addt'l complaints, except as documented Hematologic/Lymphatic: Reports systems reviewed and no addt'l complaints, except as documented Rest 12 ROS are negative except as mentioned in HPI Vital Signs Vital Signs Vital Signs: 12/16/20 21:22 12/16/20 21:30 12/16/20 21:39 Temperature 97.6 F L 97.6 F L Temperature Source Oral Oral Pulse Rate 82 82 Respiratory Rate 24 H 24 H Respiratory Effort Normal Non-Labored Respiratory Pattern Normal Blood Pressure 127/68 H 127/68 H Blood Pressure Mean 87 87 Pulse Ox 96 96 Oxygen Delivery Method Nasal Cannula Nasal Cannula Nasal Cannula Oxygen Flow Rate (L/min) 2 2 2 12/16/20 22:18 12/16/20 22:45 12/16/20 23:42 Temperature 97.8 F 98.2 F Temperature Source Oral Oral Pulse Rate 61 86 80 Respiratory Rate 15 18 19 H Respiratory Effort Respiratory Pattern Blood Pressure 104/64 112/64 Blood Pressure Mean 77 80 Pulse Ox 98 93 92 Oxygen Delivery Method Nasal Cannula Nasal Cannula Nasal Cannula Oxygen Flow Rate (L/min) 2 2 2 12/17/20 00:16 12/17/20 01:57 Temperature 98.1 F 98.0 F Temperature Source Oral Oral Pulse Rate 87 84 Respiratory Rate 18 21 H Respiratory Effort Respiratory Pattern Blood Pressure 107/59 L 137/69 H Blood Pressure Mean 75 91 Pulse Ox 92 92 Oxygen Delivery Method Nasal Cannula Nasal Cannula Oxygen Flow Rate (L/min) 2 2 Weight Weight: 187 lb 2.759 oz Body Mass Index (BMI) 26.8 Physical Exam Narrative General: Alert, Oriented x3, Cooperative HEENT: Atraumatic, PERRLA, EOMI, Normocephalic Oral: No Gingival or Mucosal Lesions/ Ulcerations Neck: Supple, No JVD, Negative Carotid Bruits Lungs: Air entry diminished in bilateral lung bases. No crepitation/rhonchi Cardiovascular: Regular rate, Regular Rhythm, Normal S1, Normal S2, No murmurs Abdomen: Bowel Sounds Present, Soft, Non Tender, Non-Distended : No renal angle tenderness. No suprapubic tenderness. Extremities: No edema, Capillary Refill Less than 3 Seconds Skin: No rashes, No breakdown Musculoskeletal: Weakness of lower extremity muscles at knee and hip joints, chronic. Mild tenderness of the left antecubital region, superficial thrombophlebitis. Neurological: NIHSS 0, Cranial nerves II-XII grossly intact, DTR 2+/4 and Symmetrical, Neuro grossly intact Psych/Mental Status: Flat affect Results Lab / Micro Data Result Diagrams: 12/16/20 20:48 12/16/20 20:48 Labs: Laboratory Results - last 24 hr 12/16/20 20:48: WBC 13.1 H, RBC 4.30 L, Hgb 11.7 L, Hct 35.6 L, MCV 82.8, MCH 27.2, MCHC 32.9, RDW Std Deviation 43.2, RDW Coeff of Flash 14.5, Plt Count 224, MPV 9.7, Immature Gran % (Auto) 0.700, Neut % (Auto) 81.6 H, Lymph % (Auto) 2.4 L, [place] % (Auto) 5.6, Eos % (Auto) 9.5 H, Baso % (Auto) 0.2, Absolute Neuts (auto) 10.7 H, Absolute Lymphs (auto) 0.32 L, Nucleated RBC % 0, Differential Comment SCANNED 12/16/20 20:48: Sodium 131 L, Potassium 3.5, Chloride 96 L, Carbon Dioxide 26.0, Anion Gap 9, BUN 37 H, Creatinine 1.62 H, Est GFR (MDRD) Af Amer 52 L, Est GFR (MDRD) Non-Af 43 L, BUN/Creatinine Ratio 22.8 H, Glucose 112 H, Calcium 9.2 12/16/20 20:48: Troponin I High Sens 7.4 12/16/20 20:55: PT 24.6 H, INR 2.3 Radiology Impression Chest X-Ray 12/16/20 21:50 IMPRESSION: Increasing right pleural effusion with persistent right basilar airspace disease and/or atelectasis. at 2218 Reported and signed by: Guru Zhu MD Electronically Signed: Guru Zhu MD at 22:17 EDT Tel , Service support , Brain CT 12/16/20 21:51 IMPRESSION: Chronic involutional and white matter changes. No acute intracranial process. Individualized dose optimization techniques were used for this CT. at 2233 Reported and signed by: Guru Zhu MD Electronically Signed: Guru Zhu MD at 22:32 EDT Tel , Service support , ADDENDUM: 12/16/20 2248 IMPRESSION: Chronic involutional and white matter changes. No acute intracranial process. Individualized dose optimization techniques were used for this CT. at 2233 Reported and signed by: Guru Zhu MD N.B. : The above Results were Read Back by Guru Zhu MD to Carlos Hearn DO, and understanding confirmed on 12/16/2020 22:41:20 (ET). Electronically Signed: Guru Zhu MD at 22:32 EDT Tel , Service support , Head/Neck CTA 12/16/20 21:52 IMPRESSION: No significant major vessel vaso-occlusive disease in the head or neck. Individualized dose optimization techniques were used for this CT. at 2257 Reported and signed by: Guru Zhu MD Electronically Signed: Guru Zhu MD at 22:56 EDT Tel , Service support , ADDENDUM: 12/16/20 2327 IMPRESSION: No significant major vessel vaso-occlusive disease in the head or neck. Individualized dose optimization techniques were used for this CT. at 2257 Reported and signed by: Guru Zhu MD N.B. : The above Results were Read Back by Guru Zhu MD to Carlos Giordano , , and understanding confirmed on 12/16/2020 23:20:49 (ET). Electronically Signed: Guru Zhu MD at 22:56 EDT Tel , Service support , Assessment & Plan Assessment/Plan (1) Pleural effusion, right: (2) Generalized weakness: (3) Atrial fibrillation: QUALIFIERS: Atrial fibrillation type: paroxysmal Qualified Code(s): I48.0 - Paroxysmal atrial fibrillation PLAN: MAXIMUS ZHAO, is a 85 M with multiple comorbidities as listed above including stage IV NHL was discharged on 12/16 and was brought back to ER for generalized weakness and concern for TIA 1. Generalized weakness, debility due to progressive NHL, chronic hypoxic respiratory failure from recurrent pleural effusion: Patient is being admitted in PCU. PT, OT and speech/swallow evaluation. Repeat chest x-ray shows a feeling of right pleural effusion. Oncologist, Dr Rivas was consulted for prognostication or disease and opinion regarding repeat thoracocentesis or pleural catheter or hospice care. 2. 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 Poor prognosis. Palliative care was consulted last time but no definitive decision was made regarding hospice care. Currently DNR CCA with no intubation. 3. Paroxysmal A. fib with concern for TIA: Patient is back to neurological baseline. CT head and CTA head and neck did not show any acute change. Patient cannot have MRI because of pacemaker. NIH stroke scale ordered. Patient recently had echo on 12/13/2020 which showed EF 55%, no Doppler evidence of ASD on bubble contrast study was negative. Currently patient is in sinus rhythm. On amiodarone and Coumadin to continue. INR therapeutic 4. VTE prophylaxis: On Coumadin. INR therapeutic. Discontinue if platelet count drops less than 50,000 or hemoglobin less than 8 g% CODE STATUS: DNR CCA arrest with no intubation Charges/Coding Visit Charges OBSV E&M: 32649 Initial observation care L3
--- NOTE | 2020-12-17 02:41 | VDUE_ITS ---
Reason For Study: PAIN Right Proximal Left Proximal Right subclavian vein is spontaneous, widely Jugular vein intraluminal echogenicity patent, phasic, with no intraluminal extends frommid to distal. echogenicity noted. Left Subclavian vein is compressible with diminished doppler signal. Left Arm Left axillary vein is spontaneous, patent, phasic, competent, compressible and demonstrates augmentation. Left brachial vein is compressible. Left cephalic vein is compressible. Basilic vein intraluminal echogenicity extends fromjunction to anticubital. Left Lower Arm Left radial vein is compressible. Left ulnar vein is compressible. VL/Venous Duplex US, Unilateral Interpretation Summary Acute deep venous thrombosis left internal jugular vein Superficial thrombophlebitis left basilic vein from junction to antecubital spa ce Normal flow patterns right subclavian vein Ordering Physician: Azam Morillo Referring Physician: Aric Archibald M.D. Performed By: Zina Conte, OPAL, RVT ?
[2020-12-17 03:28] LABS: Troponin-I HS 7.5 pg/mL (3.0-78.5)
[2020-12-17] MEDS: Furosemide 20 MG/2 ML VIAL IV (03:34)
[2020-12-17] MEDS: 0.9% Saline Lock 10 ML Syringe IV ×2 (03:34→21:16)
[2020-12-17] MEDS: Amiodarone 200 MG Tablet PO ×3 (06:05→21:15)
[2020-12-17 07:33] LABS: Cholesterol 132 mg/dL (200); High Density Lipoprotein 20 mg/dL; Triglycerides 153 mg/dL; Very Low Density Lipoprotein 31 mg/dL (5-40)
[2020-12-17] MEDS: Spironolactone 25 MG Tablet PO (08:44)
[2020-12-17] MEDS: Furosemide 40 MG/4 ML Vial IV (08:44)
[2020-12-17] MEDS: Tamsulosin HCl 0.4 MG Capsule PO (08:44)
[2020-12-17] MEDS: Clopidogrel Bisulfate 75 MG Tablet PO (08:44)
[2020-12-17] MEDS: Metoprolol(XL)Succ 25 MG Tablet PO (08:45)
[2020-12-17] MEDS: Allopurinol 300 MG Tablet PO (08:45)
[2020-12-17] MEDS: Finasteride 5 MG Tablet PO (08:45)
[2020-12-17] MEDS: Acyclovir 200 MG Capsule 400 MG PO ×2 (08:45→21:13)
--- NOTE | 2020-12-17 12:16 | EKG12_ITS ---
Test Reason : Blood Pressure : / mmHG Vent. Rate : 109 BPM Atrial Rate : 089 BPM P-R Int : 000 ms QRS Dur : 106 ms QT Int : 382 ms P-R-T Axes : 000 -28 052 degrees QTc Int : 514 ms Atrial fibrillation Leftward axis Incomplete left bundle branch block Abnormal ECG Confirmed by JANETT ROSS, BLACK ([id number]), video editor ESTHELA ESCOBEDO ([id number]) on 12/22/2020 11:00:38 AM Referred By: JOHN Confirmed By:BLACK ROWLAND MD
--- NOTE | 2020-12-17 13:34 | PN.HOSP_ITS ---
Documented by User: Erna Hollins ENVIRONMENTAL CONSERVATION OFFICER, ENVIRONMENTAL CONSERVATION OFFICER-C 12/17/20 13:46 Subjective Subjective Patient seen and examined. Reports significant fatigue. Denies fever, chills. Denies increased shortness of breath. States he gets worn out very easily. Had extensive discussion with patient, and daughter at bedside regarding plan of care. They would like to continue to pursue oncology treatment and are requesting SNF for rehab in the meantime. Objective Data Objective Data Vital Signs: Vital Signs Temp Pulse Resp BP Pulse Ox 97.8 F 88 18 109/58 L 95 12/17/20 13:00 12/17/20 13:00 12/17/20 13:00 12/17/20 13:00 12/17/20 13:00 Oxygen Flow Rate (L/min) 2 Oxygen Delivery Method Nasal Cannula Weight: 180 lb 1.883 oz Body Mass Index (BMI) 25.8 Intake & Output: Intake and Output for Last 24 Hours 12/15/20 12/16/20 12/17/20 23:59 23:59 23:59 Intake Total 622.5 / 622.5 Output Total 475 / 475 Balance 147.5 / 147.5 Lab / Micro Data Result Diagrams: 12/16/20 20:48 12/16/20 20:48 Labs: Laboratory Results - last 24 hr 12/16/20 20:48: WBC 13.1 H, RBC 4.30 L, Hgb 11.7 L, Hct 35.6 L, MCV 82.8, MCH 27.2, MCHC 32.9, RDW Std Deviation 43.2, RDW Coeff of Flash 14.5, Plt Count 224, MPV 9.7, Immature Gran % (Auto) 0.700, Neut % (Auto) 81.6 H, Lymph % (Auto) 2.4 L, [place] % (Auto) 5.6, Eos % (Auto) 9.5 H, Baso % (Auto) 0.2, Absolute Neuts (auto) 10.7 H, Absolute Lymphs (auto) 0.32 L, Nucleated RBC % 0, Differential Comment SCANNED 12/16/20 20:48: Sodium 131 L, Potassium 3.5, Chloride 96 L, Carbon Dioxide 26.0, Anion Gap 9, BUN 37 H, Creatinine 1.62 H, Est GFR (MDRD) Af Amer 52 L, Est GFR (MDRD) Non-Af 43 L, BUN/Creatinine Ratio 22.8 H, Glucose 112 H, Calcium 9.2 12/16/20 20:48: Troponin I High Sens 7.4 12/16/20 20:55: PT 24.6 H, INR 2.3 12/17/20 03:04: Troponin I High Sens 7.5 12/17/20 06:45: Triglycerides 153, Cholesterol 132, LDL Cholesterol 81, VLDL Cholesterol 31, HDL Cholesterol 20 L Radiography Diagnostic Testing: Radiology Impression Chest X-Ray 12/16/20 21:50 IMPRESSION: Increasing right pleural effusion with persistent right basilar airspace disease and/or atelectasis. at 2218 Reported and signed by: Guru Zhu MD Electronically Signed: Guru Zhu MD at 22:17 EDT Tel , Service support , Brain CT 12/16/20 21:51 IMPRESSION: Chronic involutional and white matter changes. No acute intracranial process. Individualized dose optimization techniques were used for this CT. at 2233 Reported and signed by: Guru Zhu MD Electronically Signed: Guru Zhu MD at 22:32 EDT Tel , Service support , ADDENDUM: 12/16/20 2248 IMPRESSION: Chronic involutional and white matter changes. No acute intracranial process. Individualized dose optimization techniques were used for this CT. at 2233 Reported and signed by: Guru Zhu MD N.B. : The above Results were Read Back by Guru Zhu MD to Carlos Hearn DO, and understanding confirmed on 12/16/2020 22:41:20 (ET). Electronically Signed: Guru Zhu MD at 22:32 EDT Tel , Service support , Head/Neck CTA 12/16/20 21:52 IMPRESSION: No significant major vessel vaso-occlusive disease in the head or neck. Individualized dose optimization techniques were used for this CT. at 2257 Reported and signed by: Guru Zhu MD Electronically Signed: Guru Zhu MD at 22:56 EDT Tel , Service support , ADDENDUM: 12/16/20 2327 IMPRESSION: No significant major vessel vaso-occlusive disease in the head or neck. Individualized dose optimization techniques were used for this CT. at 2257 Reported and signed by: Guru Zhu MD N.B. : The above Results were Read Back by Guru Zhu MD to Carlos Giordano , , and understanding confirmed on 12/16/2020 23:20:49 (ET). Electronically Signed: Guru Zhu MD at 22:56 EDT Tel , Service support , Venous Doppler Study 12/17/20 02:41 Interpretation Summary Acute deep venous thrombosis left internal jugular vein Superficial thrombophlebitis left basilic vein from junction to antecubital space Normal flow patterns right subclavian vein Ordering Physician: Azam Morillo Referring Physician: Aric Archibald M.D. Performed By: Zina Conte, OPAL, RVT ? Physical Exam Const alert, oriented x3 and no apparent distress Orientation / Consciousness: awake, oriented to person, oriented to place and oriented to time Nutritional Appearance: cachectic HEENT normocephalic and moist oral mucous membranes Eyes PERRL, EOMs intact bilaterally and conjunctivae normal Neck no lymphadenopathy Resp clear to auscultation bilaterally Auscultation: diminished lung sounds Cardio regular rate, regular rhythm and no murmurs Peripheral Pulses: pulses 2+ throughout GI normal to inspection, nondistended, normoactive bowel sounds, non-tender and non-distended Extremity normal to inspection General Extremity: edema left upper extremity Skin no rashes or lesions noted Lesions: no lesions Rashes: no rashes Trauma: no lacerations or abrasions Neuro CN's II-XII intact bilaterally, no focal motor deficits, no sensory deficits noted and deep tendon reflexes 2+ bilaterally Psych mental status grossly normal and affect normal Assessment & Plan Assessment/Plan (1) Generalized weakness: PLAN: 1. Debility, functional decline-secondary to non-Hodgkin's lymphoma-PT/OT. Palliative consulted during recent admission. Discussed hospice with patient and family however they would like to continue to pursue oncology treatment and requesting rehab. 2. 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 Patient underwent previous outpatient diagnostic thoracentesis 11/15/[address]-guided biopsy of mesenteric mass 11/16/2020. Pleural fluid cytology showed lymphoma. Continue supplement oxygen to maintain O2 at or above 90%. 3. Stage IV non-Hodgkin's lymphoma/follicular lymphoma, recent diagnosis- Following with Dr. Rivas. On immunotherapy/rituximab. Patient has follow-up with oncology and immunotherapy scheduled for 12/22/2020. 4. Acute left upper extremity DVT-discontinue Coumadin. Transition to therapeutic Lovenox. 5. Paroxysmal atrial fibrillation/wide-complex tachycardia-cardiology consulted during recent admission. Flecainide discontinued. Continue loading amiodarone dose as ordered and metoprolol. Recent pacemaker interrogation completed and f unctioning properly. 6. BPH-on finasteride, Flomax. 7. Hyperlipidemia-continue statin. 8. Chronic kidney disease stage IIIa- stable. DVT prophylaxis-therapeutic Lovenox Discharge planning: Patient and family not open to hospice at this time. Requesting SNF for rehab and continued oncology treatment/evaluation. Will need pre-cert for SNF. This patient was seen by AMINAH Chow under the supervision of Dr. Hart. Documented by User: Dr. Sravani Hart MD 12/17/20 16:26 Objective Data Lab / Micro Data Result Diagrams: 12/16/20 20:48 12/16/20 20:48 Charges/Coding Addendum Addendum: Patient seen by Erna BURR under my supervision Patient seen and examined. Complains of feeling very weak and tired. Patient was just discharged 1 day ago after being managed for recurrent right pleural effusion due to non-Hodgkin's lymphoma for which he had thoracentesis. He was brought back on account of worsening weakness and debility. Review of systems otherwise negative. O/E: Const alert, oriented x3 and no apparent distress Orientation / Consciousness: awake, oriented to person, oriented to place and oriented to time, very frail and weak Nutritional Appearance: cachectic HEENT normocephalic and moist oral mucous membranes Eyes PERRL, EOMs intact bilaterally and conjunctivae normal Neck no lymphadenopathy Resp diminished breath sounds bibasally, no wheezes or crackles. Cardio regular rate, regular rhythm and no murmurs Peripheral Pulses: pulses 2+ throughout GI normal to inspection, nondistended, normoactive bowel sounds, non-tender and non-distended Extremity normal to inspection General Extremity: edema left upper extremity Skin no rashes or lesions noted Lesions: no lesions Rashes: no rashes Trauma: no lacerations or abrasions Neuro CN's II-XII intact bilaterally, no focal motor deficits, no sensory deficits noted and deep tendon reflexes 2+ bilaterally Psych mental status grossly normal and affect normal Plan is to continue managing patient for worsening debility due to non-Hodgkin's lymphoma. Patient has been set up with palliative care. Patient and family were counseled today about his prognosis and hospice but patient and family want to continue with oncology treatment. To follow-up with oncology on outpatient basis. PT OT on board. Fall precautions. Depending on how he does with therapy, may benefit from placement. Continue oxygen titrate oxygen to maintain saturation above 90%. Breathing treatments of bronchodilators. DVT prophylaxis Lovenox Rest as per AMINAH Chow's notes which I have reviewed and endorsed. Visit Charges Inpatient E&M: 57650 Subs Hosp L2
--- NOTE | 2020-12-17 14:17 | CASEMGMT ---
Patient and his family would like him to go somewhere for rehab. Per LINING SCRUBBER they would like TCU, but he is getting immunotherapy. SW called [facility] in TCU and they do not take patients that are getting immunotherapy. SW spoke with patient, his daughter, and his . Introduced self as well as role at [facility]. SW let them know that TCU will not take patient while on Immunotherapy. SW provided a list of SNF providers including quality and resource use data and consistent with the patient?s preferred geographic region, medical needs, and insurance network. SW highlighted facilities that are in network with patient's insurance. SW explained SW will not know about other facilities until SW makes the referral. They asked that SW come back in a little bit. SW did call patient's insurance and obtained his SNF benefits. In network he is covered at 100% unlimited as long as it is medically necessary. Out of network he will be covered at 92%. SW will update patient and family. Tierney Hong BASKETBALL ASSEMBLER JOHN
--- NOTE | 2020-12-17 14:29 | CASEMGMT ---
RN CM chart review: Patient was admitted 12/11-12/16/20 for supratherapeutic INR and Pleural effusion. See RN CM assessment from 12/11/20. Patient was discharged home [facility] for nursing and therapy. Patient was setup with home oxygen as well. Patient returned to [facility] ED day of discharge for weakness. Patient is fatigued and SOB as well. Patient found to have acute left upper extremity DVT, transitioned from coumadin to Lovenox. Family requesting SNF at discharge. SW updated regarding SNF request. Disposition: SNF pending Precert.
--- NOTE | 2020-12-17 15:00 | CASEMGMT ---
CHRISTOPHER spoke with patient, his and daughter. CHRISTOPHER explained that since she brought up [facility] and they are out of network SW called his insurance to check his benefits. SW explained the benefits to them and they wanted SW to send a referral to [facility]. Their next choices in order of preference are: [facility], [facility], [facility], and [facility]. They said if none of them will take him on Immunotherapy then they want TCU and he will have to put his Immunotherapy on hold. CHRISTOPHER told them SW will make the referral and get back with them. SW also told them that patient will be here through the weekend as his insurance will need to authorize him and they generally do not do this over the weekend. They thanked CHRISTOPHER for letting them know. CHRISTOPHER called [facility] with referral. CHRISTOPHER asked if they take patient's getting Immunotherapy. She said it is up to the performance architect. CHRISTOPHER faxed referral. It did not go through the first time so CHRISTOPHER faxed it again. Plan: d/c to possibly [facility] pending their acceptance and insurance approval. Tierney Hong VISUAL AID EXPERT JOHN
[2020-12-17] MEDS: Enoxaparin 80 MG/0.8 ML Syringe SC (15:15)
--- NOTE | 2020-12-17 16:15 | CASEMGMT ---
CHRISTOPHER let patient and his know that SW will not hear back from [facility] before the end of the day. CHRISTOPHER will follow up with them on Sunday. They thanked CHRISTOPHER for the update. Tierney LOPEZ
[2020-12-17] MEDS: Atorvastatin Calcium 10 MG Tablet PO (21:13)
[2020-12-18] VITALS (12 sets, daily range): BP systolic 93–115; BP diastolic 52–61; PULSE 63–82; RESP 18; TEMP 36.3–36.8; O2SAT 92–97; BMI 25.8
[2020-12-18] MEDS: Amiodarone 200 MG Tablet PO ×3 (05:38→22:11)
[2020-12-18] MEDS: Enoxaparin 80 MG/0.8 ML Syringe SC ×2 (05:39→18:15)
[2020-12-18] MEDS: Metoprolol(XL)Succ 25 MG Tablet PO (08:49)
[2020-12-18] MEDS: Tamsulosin HCl 0.4 MG Capsule PO (08:49)
[2020-12-18] MEDS: Finasteride 5 MG Tablet PO (08:49)
[2020-12-18] MEDS: Clopidogrel Bisulfate 75 MG Tablet PO (08:49)
[2020-12-18] MEDS: Spironolactone 25 MG Tablet PO (08:49)
[2020-12-18] MEDS: Furosemide 40 MG/4 ML Vial IV (08:50)
[2020-12-18] MEDS: Acyclovir 200 MG Capsule 400 MG PO ×2 (08:51→22:10)
[2020-12-18] MEDS: Allopurinol 300 MG Tablet PO (08:51)
[2020-12-18] MEDS: 0.9% Saline Lock 10 ML Syringe IV (08:52)
[2020-12-18 08:57] LABS: Absolute Lymphocyte Count 0.51 X10^3/uL (0.83-4.51); Absolute Neutrophil Count 9.1 X10^3/uL (2.0-7.7); Basophil# 0.05 X10^3/uL; Basophil% 0.4 % (0-1); Eosinophil# 1.15 X10^3/uL; Hematocrit 33.5 % (40-54); Lymphocyte # 0.51 X10^3/ul (0.83-4.51); Lymphocyte % 4.4 % (19-41); Mean Corp Hgb Conc 32.8 g/dL (32-36); Mean Corpuscular Hgb 27.5 pg (27.0-32.0); Mean Corpuscular Volume 83.8 fL (80-94); Mean Platelet Vol. 10.3 fl (6.2-12.0); Monocyte% 5.2 % (0-10); NRBC Flagged by Analyzer 0 % (0-5); Neutrophil # 9.12 X10^3/uL (2.7-7.7); Neutrophil % 79.5 % (47-70); POSITIVE DIFFERENTIAL YES; Platelet Count 224 K/mm3 (150-450); RBC Distribution Width CV 14.8 % (11.6-14.6); RBC Distribution Width SD 45.1 fl (35.1-43.9); White Blood Count 11.5 K/mm3 (4.4-11.0)
[2020-12-18 08:58] LABS: Differential Indicated SCAN CRITERIA MET
[2020-12-18 09:10] LABS: Anion Gap 8 (5-15); BUN 35 mg/dL (7-18); BUN/Creat Ratio 20.5 RATIO (10-20); Calcium,Total 9.3 mg/dL (8.5-10.1); Chloride 99 mmol/L (98-107); Creatinine, Serum 1.71 mg/dL (0.70-1.30); EST Glomerular Filtration Rate 41 mL/min (>60); Est Glom Filt Rate - Afr Amer 49 mL/min (>60); Estimated Creatinine Clearance 32.61 ml/min; Glucose 96 mg/dL (74-106); Potassium 3.5 mmol/L (3.5-5.1); Sodium Level 132 mmol/L (136-145)
--- NOTE | 2020-12-18 11:15 | PCM.PN.HOSP ---
Subjective Subjective Patient seen and examined. Feels slightly less fatigued today. Denies new symptoms or complaints. Awaiting approval to SNF for rehab. Objective Data Objective Data Vital Signs: Vital Signs Temp Pulse Resp BP Pulse Ox 97.5 F L 66 18 115/61 93 12/18/20 08:45 12/18/20 08:49 12/18/20 08:45 12/18/20 08:49 12/18/20 08:45 Oxygen Flow Rate (L/min) 3 Oxygen Delivery Method Nasal Cannula Weight: 180 lb 1.883 oz Body Mass Index (BMI) 25.8 Intake & Output: Intake and Output for Last 24 Hours 12/16/20 12/17/20 12/18/20 23:59 23:59 23:59 Intake Total 862.5 / 862.5 Output Total 475 / 475 Balance 387.5 / 387.5 Medical Nutrition Assessment Dietitian: Nutrition Therapy Diagnosis Start: 12/17/20 13:46 Freq: Status: Active Protocol: Document 12/17/20 14:03 MARIA T (Rec: 12/17/20 14:03 MARIA T [id number]) Nutrition Malnutrition Evidence of Malnutrition Exists No Intake Problem Inadequate Oral Intake Etiology related to lymphoma and weakness Signs/Symptoms as evidenced by pt self report of decreased appetite x 3 months prior to admission Status Active Problem Clinical Problem Biting/Chewing Difficulty Etiology related to weakness Signs/Symptoms as evidenced by need for mechanically altered diet consistency Status Active Problem Recommendation Dietitian Recommendations/Changes Will provide 120 ml ensure clear w/ meals for increased nutrition if consumed Will change diet to Cardiac/ Sodium restricted d/t edema/ pmhx - consider fluid restriction if indicated Lab / Micro Data Result Diagrams: 12/18/20 08:09 12/18/20 08:09 Labs: Laboratory Results - last 24 hr 12/18/20 08:09: WBC 11.5 H, RBC 4.00 L, Hgb 11.0 L, Hct 33.5 L, MCV 83.8, MCH 27.5, MCHC 32.8, RDW Std Deviation 45.1 H, RDW Coeff of Flash 14.8 H, Plt Count 224, MPV 10.3, Immature Gran % (Auto) 0.500, Neut % (Auto) 79.5 H, Lymph % (Auto) 4.4 L, [place] % (Auto) 5.2, Eos % (Auto) 10.0 H, Baso % (Auto) 0.4, Absolute Neuts (auto) 9.1 H, Absolute Lymphs (auto) 0.51 L, Nucleated RBC % 0 12/18/20 08:09: Sodium 132 L, Potassium 3.5, Chloride 99, Carbon Dioxide 25.0, Anion Gap 8, BUN 35 H, Creatinine 1.71 H, Estim Creat Clear Calc 32.61, Est GFR (MDRD) Af Amer 49 L, Est GFR (MDRD) Non-Af 41 L, BUN/Creatinine Ratio 20.5 H, Glucose 96, Calcium 9.3 Radiography Diagnostic Testing: Radiology Impression Venous Doppler Study 12/17/20 02:41 Interpretation Summary Acute deep venous thrombosis left internal jugular vein Superficial thrombophlebitis left basilic vein from junction to antecubital space Normal flow patterns right subclavian vein Ordering Physician: Azam Morillo Referring Physician: Aric Archibald M.D. Performed By: Zina Conte, OPAL, RVT ? Physical Exam Const alert, oriented x3 and no apparent distress Orientation / Consciousness: awake, oriented to person, oriented to place and oriented to time Nutritional Appearance: cachectic HEENT normocephalic and moist oral mucous membranes Eyes PERRL, EOMs intact bilaterally and conjunctivae normal Neck no lymphadenopathy Resp clear to auscultation bilaterally Auscultation: diminished lung sounds Cardio regular rate, regular rhythm and no murmurs Peripheral Pulses: pulses 2+ throughout GI normal to inspection, nondistended, normoactive bowel sounds, non-tender and non-distended Extremity normal to inspection Skin no rashes or lesions noted Lesions: no lesions Rashes: no rashes Trauma: no lacerations or abrasions Neuro CN's II-XII intact bilaterally, no focal motor deficits, no sensory deficits noted and deep tendon reflexes 2+ bilaterally Psych mental status grossly normal and affect normal Assessment & Plan Assessment/Plan (1) Generalized weakness: PLAN: 1. Debility, functional decline-secondary to non-Hodgkin's lymphoma-PT/OT. Palliative consulted during recent admission. Discussed hospice with patient and family however they would like to continue to pursue oncology treatment and requesting rehab. 2. 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 Patient underwent previous outpatient diagnostic thoracentesis 11/15/[address]-guided biopsy of mesenteric mass 11/16/2020. Pleural fluid cytology showed lymphoma. Continue supplement oxygen to maintain O2 at or above 90%. 3. Stage IV non-Hodgkin's lymphoma/follicular lymphoma, recent diagnosis- Following with Dr. Rivas. On immunotherapy/rituximab. Patient has follow-up with oncology and immunotherapy scheduled for 12/22/2020. 4. Acute left upper extremity DVT-discontinue Coumadin. Transition to therapeutic Lovenox. 5. Paroxysmal atrial fibrillation/wide-complex tachycardia-cardiology consulted during recent admission. Flecainide discontinued. Continue loading amiodarone dose as ordered and metoprolol. Recent pacemaker interrogation completed and functioning properly. 6. BPH-on finasteride, Flomax. 7. Hyperlipidemia-continue statin. 8. Chronic kidney disease stage IIIa- stable. DVT prophylaxis-therapeutic Lovenox Discharge planning: Patient and family not open to hospice at this time. Requesting SNF for rehab and continued oncology treatment/evaluation. Awaiting approval to SNF. This patient was seen by AMINAH Chow under the supervision of Dr. Hart.
--- NOTE | 2020-12-18 18:53 | NURSING ---
Charting by student nurse Gifty Nina reviewed by this RN
[2020-12-18] MEDS: Atorvastatin Calcium 10 MG Tablet PO (22:11)
[2020-12-19] VITALS (11 sets, daily range): BP systolic 102–122; BP diastolic 52–61; PULSE 61–79; RESP 16–18; TEMP 36.3–36.7; O2SAT 91–95
[2020-12-19] MEDS: Amiodarone 200 MG Tablet PO ×3 (05:26→20:57)
[2020-12-19] MEDS: Enoxaparin 80 MG/0.8 ML Syringe SC ×2 (05:26→18:24)
[2020-12-19 06:36] LABS: Absolute Lymphocyte Count 0.75 X10^3/uL (0.83-4.51); Basophil# 0.05 X10^3/uL; Basophil% 0.5 % (0-1); Eosinophil# 1.01 X10^3/uL; Eosinophils% 10.4 % (0-5); Hematocrit 32.4 % (40-54); Hemoglobin 10.5 g/dL (13.0-16.5); Lymphocyte # 0.75 X10^3/ul (0.83-4.51); Lymphocyte % 7.8 % (19-41); Mean Corp Hgb Conc 32.4 g/dL (32-36); Mean Corpuscular Hgb 27.1 pg (27.0-32.0); Mean Corpuscular Volume 83.7 fL (80-94); Mean Platelet Vol. 10.4 fl (6.2-12.0); Monocyte# 0.74 X10^3/uL; Monocyte% 7.7 % (0-10); NRBC Flagged by Analyzer 0 % (0-5); Neutrophil # 7.03 X10^3/uL (2.7-7.7); Neutrophil % 72.7 % (47-70); Platelet Count 225 K/mm3 (150-450); RBC Distribution Width CV 14.7 % (11.6-14.6); RBC Distribution Width SD 44.8 fl (35.1-43.9); Red Blood Count 3.87 M/mm3 (4.6-6.2); White Blood Count 9.7 K/mm3 (4.4-11.0)
[2020-12-19] MEDS: Spironolactone 25 MG Tablet PO (10:07)
[2020-12-19] MEDS: Tamsulosin HCl 0.4 MG Capsule PO (10:07)
[2020-12-19] MEDS: Acyclovir 200 MG Capsule 400 MG PO ×2 (10:08→20:58)
[2020-12-19] MEDS: Finasteride 5 MG Tablet PO (10:08)
[2020-12-19] MEDS: Furosemide 40 MG/4 ML Vial IV (10:08)
[2020-12-19] MEDS: Allopurinol 300 MG Tablet PO (10:08)
[2020-12-19] MEDS: Metoprolol(XL)Succ 25 MG Tablet PO (10:08)
[2020-12-19] MEDS: Clopidogrel Bisulfate 75 MG Tablet PO (10:08)
--- NOTE | 2020-12-19 12:41 | PCM.PN.HOSP ---
Documented by User: Erna Hollins NP, SPORTS COMPLEX ATTENDANT-C 12/19/20 12:43 Subjective Subjective Patient seen and examined. Resting comfortably in chair. Denies increased shortness of breath. Denies other symptoms or complaints. Awaiting approval to SNF. Objective Data Objective Data Vital Signs: Vital Signs Temp Pulse Resp BP Pulse Ox 97.3 F L 78 18 122/61 H 94 12/19/20 10:05 12/19/20 10:08 12/19/20 10:05 12/19/20 10:05 12/19/20 10:05 Oxygen Flow Rate (L/min) 3 Oxygen Delivery Method Nasal Cannula Weight: 180 lb 1.883 oz Body Mass Index (BMI) 25.8 Intake & Output: Intake and Output for Last 24 Hours 12/17/20 12/18/20 12/19/20 23:59 23:59 23:59 Intake Total 862.5 / 862.5 480 / 480 Output Total 475 / 475 Balance 387.5 / 387.5 480 / 480 Medical Nutrition Assessment Dietitian: Nutrition Therapy Diagnosis Start: 12/17/20 13:46 Freq: Status: Active Protocol: Document 12/17/20 14:03 MARIA T (Rec: 12/17/20 14:03 [facility] [id number]) Nutrition Malnutrition Evidence of Malnutrition Exists No Intake Problem Inadequate Oral Intake Etiology related to lymphoma and weakness Signs/Symptoms as evidenced by pt self report of decreased appetite x 3 months prior to admission Status Active Problem Clinical Problem Biting/Chewing Difficulty Etiology related to weakness Signs/Symptoms as evidenced by need for mechanically altered diet consistency Status Active Problem Recommendation Dietitian Recommendations/Changes Will provide 120 ml ensure clear w/ meals for increased nutrition if consumed Will change diet to Cardiac/ Sodium restricted d/t edema/ pmhx - consider fluid restriction if indicated Lab / Micro Data Result Diagrams: 12/19/20 05:25 12/18/20 08:09 Labs: Laboratory Results - last 24 hr 12/19/20 05:25: WBC 9.7, RBC 3.87 L, Hgb 10.5 L, Hct 32.4 L, MCV 83.7, MCH 27.1, MCHC 32.4, RDW Std Deviation 44.8 H, RDW Coeff of Flash 14.7 H, Plt Count 225, MPV 10.4, Immature Gran % (Auto) 0.900, Neut % (Auto) 72.7 H, Lymph % (Auto) 7.8 L, [place] % (Auto) 7.7, Eos % (Auto) 10.4 H, Baso % (Auto) 0.5, Absolute Neuts (auto) 7.0, Absolute Lymphs (auto) 0.75 L, Nucleated RBC % 0 Physical Exam Const alert, oriented x3 and no apparent distress Orientation / Consciousness: awake, oriented to person, oriented to place and oriented to time HEENT normocephalic and moist oral mucous membranes Eyes PERRL, EOMs intact bilaterally and conjunctivae normal Neck no lymphadenopathy Resp clear to auscultation bilaterally Auscultation: diminished lung sounds Cardio regular rate, regular rhythm and no murmurs Peripheral Pulses: pulses 2+ throughout GI normal to inspection, nondistended, normoactive bowel sounds, non-tender and non-distended Extremity normal to inspection Skin no rashes or lesions noted Lesions: no lesions Rashes: no rashes Trauma: no lacerations or abrasions Neuro CN's II-XII intact bilaterally, no focal motor deficits, no sensory deficits noted and deep tendon reflexes 2+ bilaterally Psych mental status grossly normal and affect normal Assessment & Plan Assessment/Plan (1) Generalized weakness: PLAN: 1. Debility, functional decline-secondary to non-Hodgkin's lymphoma-PT/OT. Palliative consulted during recent admission. Discussed hospice with patient and family however they would like to continue to pursue oncology treatment and requesting rehab. 2. 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 Patient underwent previous outpatient diagnostic thoracentesis 11/15/[address]-guided biopsy of mesenteric mass 11/16/2020. Pleural fluid cytology showed lymphoma. Continue supplement oxygen to maintain O2 at or above 90%. 3. Stage IV non-Hodgkin's lymphoma/follicular lymphoma, recent diagnosis- Following with Dr. Hernandez On immunotherapy/rituximab. Patient has follow-up with oncology and immunotherapy scheduled for 12/22/2020. 4. Acute left upper extremity DVT-discontinue Coumadin. Transition to therapeutic Lovenox. 5. Paroxysmal atrial fibrillation/wide-complex tachycardia-cardiology consulted during recent admission. Flecainide discontinued. Continue loading amiodarone dose as ordered and metoprolol. Recent pacemaker interrogation completed and functioning properly. 6. BPH-on finasteride, Flomax. 7. Hyperlipidemia-continue statin. 8. Chronic kidney disease stage IIIa- stable. DVT prophylaxis-therapeutic Lovenox Discharge planning: Patient and family not open to hospice at this time. Requesting SNF for rehab and continued oncology treatment/evaluation. Awaiting approval to SNF. This patient was seen by AMINAH Chow under the supervision of Dr. Hart. Documented by User: Dr. Sravani Hart MD 12/19/20 14:24 Objective Data Lab / Micro Data Result Diagrams: 12/19/20 05:25 12/18/20 08:09 Charges/Coding Addendum Addendum: Patient seen by Erna BURR under my supervision Patient seen and examined. He had an uneventful night and had no complaints. Review of systems is otherwise negative. He has remained hemodynamically stable. O/E: O/E: Const alert, oriented x3 and no apparent distress Orientation / Consciousness: awake, oriented to person, oriented to place and oriented to time, very frail and weak Nutritional Appearance: cachectic HEENT normocephalic and moist oral mucous membranes Eyes PERRL, EOMs intact bilaterally and conjunctivae normal Neck no lymphadenopathy Resp diminished breath sounds bibasally, no wheezes or crackles. Cardio regular rate, regular rhythm and no murmurs Peripheral Pulses: pulses 2+ throughout GI normal to inspection, nondistended, normoactive bowel sounds, non-tender and non-distended Extremity normal to inspection General Extremity: edema left upper extremity Skin no rashes or lesions noted Lesions: no lesions Rashes: no rashes Trauma: no lacerations or abrasions Neuro CN's II-XII intact bilaterally, no focal motor deficits, no sensory deficits noted and deep tendon reflexes 2+ bilaterally Psych mental status grossly normal and affect normal Patient and family want to pursue further oncology treatment, and so will follow up with his primary oncologist Dr Rivas on outpatient basis.He is awaiting placement. Continue titrating oxygen to maintain sats>90%. Breathing treatment with bronchodilators. On lovenox for DVT prophylaxis. Rest as per Erna Hollins SPORTS COMPLEX ATTENDANT-c's note, which I have reviewed and endorsed. Visit Charges Inpatient E&M: 30189 Subs Hosp L2
[2020-12-19] MEDS: Atorvastatin Calcium 10 MG Tablet PO (20:58)
[2020-12-20] VITALS (11 sets, daily range): BP systolic 103–126; BP diastolic 51–64; PULSE 66–77; RESP 16–20; TEMP 36.6–36.9; O2SAT 94–97
[2020-12-20] MEDS: Amiodarone 200 MG Tablet PO ×3 (05:02→21:20)
[2020-12-20] MEDS: Enoxaparin 80 MG/0.8 ML Syringe SC ×2 (05:02→17:00)
[2020-12-20 07:17] LABS: Absolute Neutrophil Count 6.4 X10^3/uL (2.0-7.7); Basophil# 0.07 X10^3/uL; Basophil% 0.8 % (0-1); Eosinophil# 0.84 X10^3/uL; Eosinophils% 9.3 % (0-5); Hematocrit 33.5 % (40-54); Hemoglobin 10.9 g/dL (13.0-16.5); Lymphocyte % 8.9 % (19-41); Mean Corp Hgb Conc 32.5 g/dL (32-36); Mean Corpuscular Hgb 27.5 pg (27.0-32.0); Mean Corpuscular Volume 84.6 fL (80-94); Mean Platelet Vol. 10.1 fl (6.2-12.0); Monocyte# 0.75 X10^3/uL; Monocyte% 8.3 % (0-10); NRBC Flagged by Analyzer 0 % (0-5); Neutrophil # 6.39 X10^3/uL (2.7-7.7); Neutrophil % 71.1 % (47-70); Platelet Count 234 K/mm3 (150-450); RBC Distribution Width CV 14.7 % (11.6-14.6); RBC Distribution Width SD 45.3 fl (35.1-43.9); Red Blood Count 3.96 M/mm3 (4.6-6.2)
[2020-12-20 07:29] LABS: Anion Gap 7 (5-15); BUN 31 mg/dL (7-18); BUN/Creat Ratio 19.5 RATIO (10-20); Calcium,Total 9.8 mg/dL (8.5-10.1); Chloride 101 mmol/L (98-107); Creatinine, Serum 1.59 mg/dL (0.70-1.30); EST Glomerular Filtration Rate 44 mL/min (>60); Est Glom Filt Rate - Afr Amer 53 mL/min (>60); Estimated Creatinine Clearance 35.07 ml/min; Glucose 88 mg/dL (74-106); Potassium 3.2 mmol/L (3.5-5.1); Sodium Level 135 mmol/L (136-145)
--- NOTE | 2020-12-20 07:59 | CASEMGMT ---
CHRISTOPHER received a voice mail Sunday afternoon at 5p from [facility]. They can accept patient and will start the pre-cert. CHRISTOPHER will send upates this am and also notify patient and his . Plan: [facility] pending insurance approval. Tierney LOPEZ
[2020-12-20] MEDS: Clopidogrel Bisulfate 75 MG Tablet PO (09:08)
[2020-12-20] MEDS: Acyclovir 200 MG Capsule 400 MG PO ×2 (09:08→21:21)
[2020-12-20] MEDS: Allopurinol 300 MG Tablet PO (09:08)
[2020-12-20] MEDS: Metoprolol(XL)Succ 25 MG Tablet PO (09:08)
[2020-12-20] MEDS: Finasteride 5 MG Tablet PO (09:08)
[2020-12-20] MEDS: Furosemide 40 MG/4 ML Vial IV (09:09)
[2020-12-20] MEDS: Spironolactone 25 MG Tablet PO (09:09)
[2020-12-20] MEDS: Tamsulosin HCl 0.4 MG Capsule PO (09:09)
--- NOTE | 2020-12-20 09:51 | CASEMGMT ---
CHRISTOPHER faxed updates to [facility] for insurance. Tierney Hong [employer] VISITS NURSE
--- NOTE | 2020-12-20 10:16 | CASEMGMT ---
SW spoke with patient and his . SW let them know that patient was accepted at [facility]. SW explained they are okay with patient getting immunotherapy. SW let them know that patient will wait here in the hospital until insurance gives us approval to send him to [facility]. SW let them know SW will be in touch with them as soon as CHRISTOPHER hears something. Tierney Hong [employer] DEVELOPER JOHN
[2020-12-20] MEDS: Potassium Chloride Oral Tablet 20 MEQ 40 MEQ PO (10:38)
--- NOTE | 2020-12-20 12:29 | PN.HOSP_ITS ---
Documented by User: Erna Hollins NP, CHIEF DIVERSITY OFFICER-C 12/20/20 12:34 Subjective Subjective Patient seen and examined. Denies new complaints. Denies increased shortness of breath. Awaiting approval to SNF. Objective Data Objective Data Vital Signs: Vital Signs Temp Pulse Resp BP Pulse Ox 98.1 F 74 16 121/57 H 95 12/20/20 08:46 12/20/20 09:08 12/20/20 08:46 12/20/20 09:08 12/20/20 08:46 Oxygen Flow Rate (L/min) 3 Oxygen Delivery Method Nasal Cannula Weight: 180 lb 1.883 oz Body Mass Index (BMI) 25.8 Intake & Output: Intake and Output for Last 24 Hours 12/18/20 12/19/20 12/20/20 23:59 23:59 23:59 Intake Total 480 / 480 600 / 600 Balance 480 / 480 600 / 600 Medical Nutrition Assessment Dietitian: Malnutrition Criteria Met Start: 12/17/20 13:46 Freq: Status: Active Protocol: Document 12/17/20 14:03 MARIA T (Rec: 12/17/20 14:03 [facility] [id number]) Nutrition Malnutrition Evidence of Malnutrition Exists No Intake Problem Inadequate Oral Intake Etiology related to lymphoma and weakness Signs/Symptoms as evidenced by pt self report of decreased appetite x 3 months prior to admission Status Active Problem Clinical Problem Biting/Chewing Difficulty Etiology related to weakness Signs/Symptoms as evidenced by need for mechanically altered diet consistency Status Active Problem Recommendation Dietitian Recommendations/Changes Will provide 120 ml ensure clear w/ meals for increased nutrition if consumed Will change diet to Cardiac/ Sodium restricted d/t edema/ pmhx - consider fluid restriction if indicated Lab / Micro Data Result Diagrams: 12/20/20 06:34 12/20/20 06:34 Labs: Laboratory Results - last 24 hr 12/20/20 06:34: WBC 9.0, RBC 3.96 L, Hgb 10.9 L, Hct 33.5 L, MCV 84.6, MCH 27.5, MCHC 32.5, RDW Std Deviation 45.3 H, RDW Coeff of Flash 14.7 H, Plt Count 234, MPV 10.1, Immature Gran % (Auto) 1.600 H, Neut % (Auto) 71.1 H, Lymph % (Auto) 8.9 L , [place] % (Auto) 8.3, Eos % (Auto) 9.3 H, Baso % (Auto) 0.8, Absolute Neuts (auto) 6.4, Absolute Lymphs (auto) 0.80 L, Nucleated RBC % 0 12/20/20 06:34: Sodium 135 L, Potassium 3.2 L, Chloride 101, Carbon Dioxide 27.0, Anion Gap 7, BUN 31 H, Creatinine 1.59 H, Estim Creat Clear Calc 35.07, Est GFR (MDRD) Af Amer 53 L, Est GFR (MDRD) Non-Af 44 L, BUN/Creatinine Ratio 19.5, Glucose 88, Calcium 9.8 Physical Exam Const alert, oriented x3 and no apparent distress Orientation / Consciousness: awake, oriented to person, oriented to place and oriented to time Nutritional Appearance: cachectic HEENT normocephalic Mouth: dry mucous membranes Eyes PERRL, EOMs intact bilaterally and conjunctivae normal Neck no lymphadenopathy Resp clear to auscultation bilaterally Auscultation: diminished lung sounds Cardio regular rate, regular rhythm and no murmurs Peripheral Pulses: pulses 2+ throughout GI normal to inspection, nondistended, normoactive bowel sounds, non-tender and non-distended Extremity normal to inspection General Extremity: edema bilateral lower extremity Details: mild Skin no rashes or lesions noted Lesions: no lesions Rashes: no rashes Trauma: no lacerations or abrasions Neuro CN's II-XII intact bilaterally, no focal motor deficits, no sensory deficits noted and deep tendon reflexes 2+ bilaterally Psych mental status grossly normal and affect normal Assessment & Plan Assessment/Plan (1) Generalized weakness: PLAN: 1. Debility, functional decline-secondary to non-Hodgkin's lymphoma-PT/OT. Palliative consulted during recent admission. Discussed hospice with patient and family however they would like to continue to pursue oncology treatment and requesting rehab. 2. 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 Patient underwent previous outpatient diagnostic thoracentesis 11/15/[address]-guided biopsy of mesenteric mass 11/16/2020. Pleural fluid cytology showed lymphoma. Continue supplement oxygen to maintain O2 at or above 90%. 3. Stage IV non-Hodgkin's lymphoma/follicular lymphoma, recent diagnosis- Following with Dr. Prah. On immunotherapy/rituximab. Patient has follow-up with oncology and immunotherapy scheduled for 12/22/2020. 4. Acute left upper extremity DVT-discontinue Coumadin. Transition to therapeutic Lovenox. 5. Paroxysmal atrial fibrillation/wide-complex tachycardia-cardiology consulted during recent admission. Flecainide discontinued. Continue loading amiodarone dose as ordered and metoprolol. Recent pacemaker interrogation completed and functioning properly. 6. BPH-on finasteride, Flomax. 7. Hyperlipidemia-continue statin. 8. Chronic kidney disease stage IIIa- stable. DVT prophylaxis-therapeutic Lovenox Discharge planning: Patient and family not open to hospice at this time. Requesting SNF for rehab and continued oncology treatment/evaluation. Awaiting approval to SNF. This patient was seen by AMINAH Chow under the supervision of Dr. Hart. Documented by User: Dr. Sravani Hart MD 12/20/20 16:13 Objective Data Lab / Micro Data Result Diagrams: 12/20/20 06:34 12/20/20 06:34 Charges/Coding Addendum Addendum: Patient seen by Erna BURR under my supervision Patient seen and examined. He had no complaints. Review of systems is otherwise negative. He has remained hemodynamically stable. O/E: Const alert, oriented x3 and no apparent distress Orientation / Consciousness: awake, oriented to person, oriented to place and oriented to time, frail and weak Nutritional Appearance: cachectic HEENT normocephalic and moist oral mucous membranes Eyes PERRL, EOMs intact bilaterally and conjunctivae normal Neck no lymphadenopathy Resp diminished breath sounds bibasally, no wheezes or crackles. Cardio regular rate, regular rhythm and no murmurs Peripheral Pulses: pulses 2+ throughout GI normal to inspection, nondistended, normoactive bowel sounds, non-tender and non-distended Extremity normal to inspection General Extremity: edema left upper extremity Skin no rashes or lesions noted Lesions: no lesions Rashes: no rashes Trauma: no lacerations or abrasions Neuro CN's II-XII intact bilaterally, no focal motor deficits, no sensory deficits noted and deep tendon reflexes 2+ bilaterally Psych mental status grossly normal and affect normal Patient is awaiting placement. Titrate oxygen to maintain saturation above 90%. Breathing treatments bronchodilators. To follow-up with oncology on outpatient basis to discuss further treatment modalities. Rest as per Erna Hollins CHIEF DIVERSITY OFFICER-c's note, which I have reviewed and endorsed. Visit Charges Inpatient E&M: 94311 Subs Hosp L2
--- NOTE | 2020-12-20 15:10 | CHAPLAIN ---
Type of Pastoral Visit _x__ Initial Visit ___ Follow-up Visit ___ On-call Visit ___ General Patient Visit ___ Spiritual Assessment ___ Family Conference ___ Bereavement ___ Rapid Response ___ Code Blue ___ Other (describe below) Pastoral Care Referral From _x__ Patient ___ Family ___ Nurse ___ Physician ___ Layout Man ___ Phlebotomy Manager ___ Other (describe below) Sacrament/Intervention _x__ Active listening ___ Anointing ___ Rastafari ___ Bereavement ___ Communion _x__ Herminia exploration ___ _x__ Life review _x__ Prayer ___ Reconciliation ___ Sacrament of Sick x___ Supportive presence ___ Wedding ___ Other (describe below) Pastoral Comments long visit with discussion on his recent diagnosis of cancer stage 4; pt is feeling weak and unsure about prognosis; pt knows he must go to [facility] and is both willing and apprehensive; prayer is welcomed; life review continues
[2020-12-20] MEDS: Saliva Substitute 237 ML BOTTLE 15 ML MUCOUS MEM ×2 (17:01→18:45)
--- NOTE | 2020-12-20 19:51 | NURSING ---
Pandemic charting in use
[2020-12-20] MEDS: Atorvastatin Calcium 10 MG Tablet PO (21:20)
[2020-12-20] MEDS: 0.9% Saline Lock 10 ML Syringe IV (23:50)
[2020-12-21] VITALS (10 sets, daily range): BP systolic 102–122; BP diastolic 52–57; PULSE 62–84; RESP 16–18; TEMP 36.5–36.8; O2SAT 92–96
[2020-12-21] MEDS: Saliva Substitute 237 ML BOTTLE 15 ML MUCOUS MEM ×4 (04:10→20:05)
[2020-12-21] MEDS: Enoxaparin 80 MG/0.8 ML Syringe SC ×2 (05:34→17:28)
[2020-12-21] MEDS: Amiodarone 200 MG Tablet PO ×3 (05:34→20:03)
[2020-12-21] MEDS: Metoprolol(XL)Succ 25 MG Tablet PO (09:02)
[2020-12-21] MEDS: Finasteride 5 MG Tablet PO (09:02)
[2020-12-21] MEDS: Clopidogrel Bisulfate 75 MG Tablet PO (09:02)
[2020-12-21] MEDS: Furosemide 40 MG Tablet PO (09:02)
[2020-12-21] MEDS: Acyclovir 200 MG Capsule 400 MG PO ×2 (09:02→20:03)
[2020-12-21] MEDS: Spironolactone 25 MG Tablet PO (09:02)
[2020-12-21] MEDS: Allopurinol 300 MG Tablet PO (09:02)
[2020-12-21] MEDS: Tamsulosin HCl 0.4 MG Capsule PO (09:02)
--- NOTE | 2020-12-21 10:23 | TREXTCAR_ITS ---
Documented by User: Erna Hollins HOOP PUNCH AND COILER OPERATOR HELPER, HO[employer] P[employer]CH [employer] COILER OPERATOR HELPER-C 12/21/20 10:41 Diet 12/20/20 12:19 Diet: Sodium Restricted (MOD) Food consistency:: Soft & Bite Sized Liquid Consistency:: Regular/Thin Type of Dietary Supplement:: Ensure Clear Is pt able to select menu?: Yes Diet Comments: 120 ml ensure clear tid- give lactose free milk if milk ordered - not soy Routine Orders/Code Status Enema Type: Fleetz Enema Frequency: Daily PRN Suppository Type: Dulcolax 10mg Suppository Frequency: Daily PRN O2 Liters per Minute: 2 O2 Frequency: Continuous Keep PO Greater than or Equal to (%): 90 Routine Lab Work: - (Weekly BMP, CBC) Code Status: DNRCC-A (No intubation) Wound(s) Right Lung posterior: Wound Type: Surgical Incision Suggestions for Active Care Change Position every (hours): 2 Times a day to sit in chair: 3 Therapies Physical Therapy: Eval and Treat Occupational Therapy: Eval and Treat Speech Therapy: Eval and Treat Problem/Diagnosis (1) Generalized weakness: Status: Acute Allergies/Procedures Done in Hospital Allergies sulfamethoxazole [From Bactrim] Allergy (Intermediate, Verified 12/16/20 21:30) joint pain trimethoprim [From Bactrim] Allergy (Intermediate, Verified 12/16/20 21:30) joint pain lactose Adverse Reaction (Intermediate, Verified 12/16/20 21:30) Diarrhea Procedures: None Type of Care/Length of Stay Estimated LOS: Convalescent Care Less Than 30 days Type of Care Needed: Skilled Rehab Potential: Fair Prognosis: Fair Additional Orders/Day of Discharge H&P will serve as current which was dated: 12/17/20 Day of Discharge: 12/21/20 Dietary and Speech Recommendations Dietitian Recommendations/Changes: Will continue 120 ml ensure clear w/ meals for increased nutrition if consumed. Will change diet to Sodium restricted---monitor need for fluid restriction as indicated. Discharge Plan Admission Admit Date/Time: 12/17/20 14:15 Primary Reason for Your Visit: Debility, stage IV non-Hodgkin's lymphoma, acute left upper extremity DVT Attending Provider: Sravani Hart Primary Care Provider: Aric Archibald Instructions Additional Instructions / Restrictions: John wraps bilateral lower extremities. Discharge Orders/Prescriptions Prescriptions: New enoxaparin 80 mg/0.8 mL Syringe 80 mg subcut Q12@0600,1800 Qty: 0 RF: 0 Biotene Dry Mouth Oral Rinse Mouthwash 15 ml mucous membrane 5X/DAY PRN (Reason: Dry Mouth) Qty: 0 RF: 0 Continued tamsulosin [Flomax] 0.4 mg capsule 0.4 mg PO DAILY RF: 0 clopidogrel [Plavix] 75 mg tablet 75 mg PO DAILY RF: 0 simvastatin 20 mg tablet 20 mg PO QHS RF: 0 metoprolol succinate [Toprol XL] 25 mg tablet extended release 24 hr 25 mg PO DAILY RF: 0 finasteride [Proscar] 5 mg tablet 5 mg PO DAILY RF: 0 acyclovir 400 mg tablet 400 mg PO BID Qty: 60 RF: 1 furosemide [Lasix] 20 mg tablet 40 mg PO DAILY RF: 0 spironolactone 25 mg tablet 25 mg PO DAILY RF: 0 amiodarone 200 mg tablet 200 mg PO TID Qty: 120 RF: 0 allopurinol 300 mg tablet 300 mg PO DAILY Qty: 7 RF: 0 Discontinued warfarin 1 mg tablet 1 mg PO DAILY Qty: 60 RF: 0 Referrals / Follow Up: Roderick Rivas MD [NON-STAFF] - See Referral Note (As scheduled 12/22/2020) Aric Archibald MD [Primary Care Provider] - In 1 Week Anna Goodrich NP, [employer] P[employer]IL[employer] OPERATOR HELPER-C [Nurse Practitioner] - Within 2 Weeks (Recurrent malignant pleural effusion, hypoxic respiratory failure) Chelsea Anguiano, PA [PHYSICIAN POULTRY HUSBANDRY TEACHER] - Within 2 Weeks Disposition Disposition (needs filled in before D/C Order can be placed): Care Home Facility Documented by User: Dr. Sravani Hart MD 12/21/20 13:37 Allergies/Procedures Done in Hospital Allergies sulfamethoxazole [From Bactrim] Allergy (Intermediate, Verified 12/16/20 21:30) joint pain trimethoprim [From Bactrim] Allergy (Intermediate, Verified 12/16/20 21:30) joint pain lactose Adverse Reaction (Intermediate, Verified 12/16/20 21:30) Diarrhea Discharge Plan Admission Admit Date/Time: 12/17/20 14:15 Primary Reason for Your Visit: Debility, stage IV non-Hodgkin's lymphoma, acute left upper extremity DVT Attending Provider: Sravani Hart Primary Care Provider: Aric Archibald Instructions Additional Instructions / Restrictions: John wraps bilateral lower extremities. Discharge Orders/Prescriptions Prescriptions: New enoxaparin 80 mg/0.8 mL Syringe 80 mg subcut Q12@0600,1800 Qty: 0 RF: 0 Biotene Dry Mouth Oral Rinse Mouthwash 15 ml mucous membrane 5X/DAY PRN (Reason: Dry Mouth) Qty: 0 RF: 0 Continued tamsulosin [Flomax] 0.4 mg capsule 0.4 mg PO DAILY RF: 0 clopidogrel [Plavix] 75 mg tablet 75 mg PO DAILY RF: 0 simvastatin 20 mg tablet 20 mg PO QHS RF: 0 metoprolol succinate [Toprol XL] 25 mg tablet extended release 24 hr 25 mg PO DAILY RF: 0 finasteride [Proscar] 5 mg tablet 5 mg PO DAILY RF: 0 acyclovir 400 mg tablet 400 mg PO BID Qty: 60 RF: 1 furosemide [Lasix] 20 mg tablet 40 mg PO DAILY RF: 0 spironolactone 25 mg tablet 25 mg PO DAILY RF: 0 amiodarone 200 mg tablet 200 mg PO TID Qty: 120 RF: 0 allopurinol 300 mg tablet 300 mg PO DAILY Qty: 7 RF: 0 Discontinued warfarin 1 mg tablet 1 mg PO DAILY Qty: 60 RF: 0 Referrals / Follow Up: Roderick Rivas MD [NON-STAFF] - See Referral Note (As scheduled 12/22/2020) Aric Archibald MD [Primary Care Provider] - In 1 Week Anna Goodrich NP, [employer] P[employer] COILER OPERATOR HELPER-C [Nurse Practitioner] - Within 2 Weeks (Recurrent malignant pleural effusion, hypoxic respiratory failure) Chelsea Anguiano PA, PA [PHYSICIAN POULTRY HUSBANDRY TEACHER] - Within 2 Weeks Disposition Disposition (needs filled in before D/C Order can be placed): Care Home Facility
--- NOTE | 2020-12-21 10:41 | DS.PCM_ITS ---
Documented by User: Erna Hollins NP, [employer]PENT[employer] SUPERVISOR-C 12/21/20 10:45 Providers Date of Admission: 12/17/20 Date of Discharge: 12/21/20 Primary Care Physician: Dr. Aric Archibald MD Reason For Visit: PLEURAL EFFUSION / DEBILITY Diagnosis Discharge Diagnosis (1) Generalized weakness: Status: Acute Code(s): R53.1 - Weakness Medications at Discharge Home Medications clopidogrel 75 mg tablet 75 mg PO DAILY 03/19/19 finasteride 5 mg tablet 5 mg PO DAILY 03/19/19 metoprolol succinate 25 mg tablet,extended release 24 hr 25 mg PO DAILY 03/19/19 simvastatin 20 mg tablet 20 mg PO QHS 03/19/19 tamsulosin 0.4 mg capsule 0.4 mg PO DAILY 03/19/19 acyclovir 400 mg tablet 400 mg PO BID #60 tab 11/25/20 allopurinol 300 mg tablet 300 mg PO DAILY #7 tab 12/08/20 furosemide 20 mg tablet 40 mg PO DAILY tab 12/08/20 spironolactone 25 mg PO DAILY 12/11/20 amiodarone 200 mg PO TID #120 tab 12/16/20 enoxaparin 80 mg SUBCUT Q12@0600,1800 #0 ml 12/21/20 saliva substitute combo no.9 [Biotene Dry Mouth Oral Rinse] 15 ml MUCOUS MEMBRANE 5X/DAY PRN #0 ml 12/21/20 Hospital Course Operations None Procedures None Summary of Care Provided Minutes Spent on Discharge: 35 Hospital Course: Patient is a 85-year-old male admitted 12/17/2020 due to generalized weakness. 1. Debility, functional decline-secondary to non-Hodgkin's lymphoma-PT/OT. Palliative consulted during recent admission. Discussed hospice with patient and family however they would like to continue to pursue oncology treatment and requesting rehab. SNF at discharge for rehab. 2. 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 Patient underwent previous outpatient diagnostic thoracentesis 11/15/[address]-guided biopsy of mesenteric mass 11/16/2020. Pleural fluid cytology showed lymphoma. Continue supplement oxygen to maintain O2 at or above 90%. 3. Stage IV non-Hodgkin's lymphoma/follicular lymphoma, recent diagnosis- Following with Dr. Rivas. On immunotherapy/rituximab. Patient has follow-up with oncology and immunotherapy scheduled for 12/22/2020. 4. Acute left upper extremity DVT-discontinue Coumadin. Continue therapeutic Lovenox. 5. Paroxysmal atrial fibrillation/wide-complex tachycardia-cardiology consulted during recent admission. Flecainide discontinued. Continue loading amiodarone dose as ordered and metoprolol. Recent pacemaker interrogation completed and functioning properly. 6. BPH-on finasteride, Flomax. 7. Hyperlipidemia-continue statin. 8. Chronic kidney disease stage IIIa- stable. Physical Exam Const alert, oriented x3 and no apparent distress Orientation / Consciousness: awake, oriented to person, oriented to place and oriented to time Nutritional Appearance: cachectic HEENT normocephalic Mouth: dry mucous membranes Eyes PERRL, EOMs intact bilaterally and conjunctivae normal Neck no lymphadenopathy Resp clear to auscultation bilaterally Auscultation: diminished lung sounds Cardio regular rate, regular rhythm and no murmurs Peripheral Pulses: pulses 2+ throughout GI normal to inspection, nondistended, normoactive bowel sounds, non-tender and non-distended Extremity normal to inspection General Extremity: edema bilateral lower extremity Details: mild Skin no rashes or lesions noted Lesions: no lesions Rashes: no rashes Trauma: no lacerations or abrasions Neuro CN's II-XII intact bilaterally, no focal motor deficits, no sensory deficits noted and deep tendon reflexes 2+ bilaterally Psych mental status grossly normal and affect normal Patient seen and examined prior to discharge. Physical assessment as noted above. Patient is stable for discharge with follow up recommendations as noted above. This patient was seen by AMINAH Chow under the supervision of Dr. Hart. Medical Records Data Medical Nutrition Assessment Dietitian: Malnutrition Criteria Met Start: 12/17/20 13:46 Freq: Status: Active Protocol: Document 12/17/20 14:03 [facility] (Rec: 12/17/20 14:03 [facility] [id number]) Nutrition Malnutrition Evidence of Malnutrition Exists No Intake Problem Inadequate Oral Intake Etiology related to lymphoma and weakness Signs/Symptoms as evidenced by pt self report of decreased appetite x 3 months prior to admission Status Active Problem Clinical Problem Biting/Chewing Difficulty Etiology related to weakness Signs/Symptoms as evidenced by need for mechanically altered diet consistency Status Active Problem Recommendation Dietitian Recommendations/Changes Will provide 120 ml ensure clear w/ meals for increased nutrition if consumed Will change diet to Cardiac/ Sodium restricted d/t edema/ pmhx - consider fluid restriction if indicated Weight / BMI Weight Weight: 180 lb 1.883 oz Body Mass Index (BMI) 25.8 ABG / Lab / Microbiology Data Result Diagrams: 12/20/20 06:34 12/21/20 10:55 Meaningful Use Info Meaningful Use Diagnoses (Choose all that apply): None applicable Discharge Plan Admission Admit Date/Time: 12/17/20 14:15 Primary Reason for Your Visit: Debility, stage IV non-Hodgkin's lymphoma, acute left upper extremity DVT Attending Provider: Sravani Hart Primary Care Provider: Aric Archibald Instructions Additional Instructions / Restrictions: John wraps bilateral lower extremities. Discharge Orders/Prescriptions Prescriptions: New enoxaparin 80 mg/0.8 mL Syringe 80 mg subcut Q12@0600,1800 Qty: 0 RF: 0 Biotene Dry Mouth Oral Rinse Mouthwash 15 ml mucous membrane 5X/DAY PRN (Reason: Dry Mouth) Qty: 0 RF: 0 Continued tamsulosin [Flomax] 0.4 mg capsule 0.4 mg PO DAILY RF: 0 clopidogrel [Plavix] 75 mg tablet 75 mg PO DAILY RF: 0 simvastatin 20 mg tablet 20 mg PO QHS RF: 0 metoprolol succinate [Toprol XL] 25 mg tablet extended release 24 hr 25 mg PO DAILY RF: 0 finasteride [Proscar] 5 mg tablet 5 mg PO DAILY RF: 0 acyclovir 400 mg tablet 400 mg PO BID Qty: 60 RF: 1 furosemide [Lasix] 20 mg tablet 40 mg PO DAILY RF: 0 spironolactone 25 mg tablet 25 mg PO DAILY RF: 0 amiodarone 200 mg tablet 200 mg PO TID Qty: 120 RF: 0 allopurinol 300 mg tablet 300 mg PO DAILY Qty: 7 RF: 0 Discontinued warfarin 1 mg tablet 1 mg PO DAILY Qty: 60 RF: 0 Referrals / Follow Up: Roderick Rivas MD [NON-STAFF] - See Referral Note (As scheduled 12/22/2020) Aric Archibald MD [Primary Care Provider] - In 1 Week Anna Goodrich NP, [employer]ENT[employer] SUPERVISOR-C [Nurse Practitioner] - Within 2 Weeks (Recurrent malignant pleural effusion, hypoxic respiratory failure) Chelsea Anguiano, PA [PHYSICIAN SOFTWARE FIRMWARE ENGINEER] - Within 2 Weeks Disposition Disposition (needs filled in before D/C Order can be placed): Retirement Facility Documented by User: Dr. Sravani Hart MD 12/21/20 13:29 Providers Date of Admission: 12/17/20 Reason For Visit: PLEURAL EFFUSION / DEBILITY Medications at Discharge Home Medications clopidogrel 75 mg tablet 75 mg PO DAILY 03/19/19 finasteride 5 mg tablet 5 mg PO DAILY 03/19/19 metoprolol succinate 25 mg tablet,extended release 24 hr 25 mg PO DAILY 03/19/19 simvastatin 20 mg tablet 20 mg PO QHS 03/19/19 tamsulosin 0.4 mg capsule 0.4 mg PO DAILY 03/19/19 acyclovir 400 mg tablet 400 mg PO BID #60 tab 11/25/20 allopurinol 300 mg tablet 300 mg PO DAILY #7 tab 12/08/20 furosemide 20 mg tablet 40 mg PO DAILY tab 12/08/20 spironolactone 25 mg PO DAILY 12/11/20 amiodarone 200 mg PO TID #120 tab 12/16/20 enoxaparin 80 mg SUBCUT Q12@0600,1800 #0 ml 12/21/20 saliva substitute combo no.9 [Biotene Dry Mouth Oral Rinse] 15 ml MUCOUS MEMBRANE 5X/DAY PRN #0 ml 12/21/20 ABG / Lab / Microbiology Data Result Diagrams: 12/20/20 06:34 12/21/20 10:55 Discharge Plan Admission Admit Date/Time: 12/17/20 14:15 Primary Reason for Your Visit: Debility, stage IV non-Hodgkin's lymphoma, acute left upper extremity DVT Attending Provider: Sravani Hart Primary Care Provider: Aric Archibald Instructions Additional Instructions / Restrictions: John wraps bilateral lower extremities. Discharge Orders/Prescriptions Prescriptions: New enoxaparin 80 mg/0.8 mL Syringe 80 mg subcut Q12@0600,1800 Qty: 0 RF: 0 Biotene Dry Mouth Oral Rinse Mouthwash 15 ml mucous membrane 5X/DAY PRN (Reason: Dry Mouth) Qty: 0 RF: 0 Continued tamsulosin [Flomax] 0.4 mg capsule 0.4 mg PO DAILY RF: 0 clopidogrel [Plavix] 75 mg tablet 75 mg PO DAILY RF: 0 simvastatin 20 mg tablet 20 mg PO QHS RF: 0 metoprolol succinate [Toprol XL] 25 mg tablet extended release 24 hr 25 mg PO DAILY RF: 0 finasteride [Proscar] 5 mg tablet 5 mg PO DAILY RF: 0 acyclovir 400 mg tablet 400 mg PO BID Qty: 60 RF: 1 furosemide [Lasix] 20 mg tablet 40 mg PO DAILY RF: 0 spironolactone 25 mg tablet 25 mg PO DAILY RF: 0 amiodarone 200 mg tablet 200 mg PO TID Qty: 120 RF: 0 allopurinol 300 mg tablet 300 mg PO DAILY Qty: 7 RF: 0 Discontinued warfarin 1 mg tablet 1 mg PO DAILY Qty: 60 RF: 0 Referrals / Follow Up: Roderick Rivas MD [NON-STAFF] - See Referral Note (As scheduled 12/22/2020) Aric Archibald MD [Primary Care Provider] - In 1 Week Anna Goodrich NP, [employer]ENT[employer] SUPERVISOR-C [Nurse Practitioner] - Within 2 Weeks (Recurrent malignant pleural effusion, hypoxic respiratory failure) Chelsea Anguiano PA [PHYSICIAN SOFTWARE FIRMWARE ENGINEER] - Within 2 Weeks Disposition Disposition (needs filled in before D/C Order can be placed): Retirement Facility Charges/Coding Addendum Addendum: Patient seen by Erna PALACIOSC under my supervision Patient is an 85 y/o male with a PMH as outlined who was admitted via the ED with a complaint of weakness and tiredness. Patient had just been discharged a day prior to admission from the hospital after being managed for recurrent right pleural effusion due to non Hodgkin's lymphoma for which he had thoracentesis. He was discharged home, but came back one day afterwards with complaints of worsening weakness and debility. Patient and family requested placement. He was admitted to be managed for worsening debility due to Non Hodgkin's Lymphoma. Patient remained stable during his hospital admission and physical therapy worked with him. Patient was skilled as needed SNF. Precertification was obtained on 12/21/2020 and patient was discharged to [facility] on 12/22/[facility]. Of note, patient and family declined hospice and said he wanted to continue oncology treatment. He is therefore to follow-up with his oncologist on outpatient basis. Patient seen and examined prior to discharge. He felt well and had no complaints. Review of systems was otherwise negative. Labs and vitals reviewed, home meds reviewed and reconciled. O/E: Const alert, oriented x3 and no apparent distress Orientation / Consciousness: awake, oriented to person, oriented to place and oriented to time, frail Nutritional Appearance: cachectic HEENT normocephalic Mouth: dry mucous membranes Eyes PERRL, EOMs intact bilaterally and conjunctivae normal Neck no lymphadenopathy Resp Auscultation: diminished lung sounds, on 2L of oxygen by nasal canula Cardio regular rate, regular rhythm and no murmurs Peripheral Pulses: pulses 2+ throughout GI normal to inspection, nondistended, normoactive bowel sounds, non-tender and non-distended Extremity normal to inspection General Extremity: edema bilateral lower extremity Details: mild Skin no rashes or lesions noted Lesions: no lesions Rashes: no rashes Trauma: no lacerations or abrasions Neuro CN's II-XII intact bilaterally, no focal motor deficits, no sensory deficits noted and deep tendon reflexes 2+ bilaterally Psych mental status grossly normal and affect normal Plan is for discharge to SNF today. Rest as per Erna Hollins [employer]PENTERS SUPERVISOR-C's note, which I have reviewed and endorsed Visit Charges Inpatient E&M: 39962 Disch Hosp
[2020-12-21 11:20] LABS: Anion Gap 6 (5-15); BUN 28 mg/dL (7-18); Calcium,Total 10.5 mg/dL (8.5-10.1); Chloride 102 mmol/L (98-107); Creatinine, Serum 1.65 mg/dL (0.70-1.30); EST Glomerular Filtration Rate 42 mL/min (>60); Est Glom Filt Rate - Afr Amer 51 mL/min (>60); Glucose 109 mg/dL (74-106); Potassium 3.6 mmol/L (3.5-5.1); Sodium Level 136 mmol/L (136-145)
--- NOTE | 2020-12-21 14:38 | PCM.PN.HOSP ---
Subjective Subjective Patient seen and examined. Denies new complaints. Mouth dryness/soreness improved. Awaiting acceptance to SNF. Objective Data Objective Data Vital Signs: Vital Signs Temp Pulse Resp BP Pulse Ox 97.8 F 72 16 117/54 L 92 12/21/20 09:00 12/21/20 09:02 12/21/20 09:00 12/21/20 09:00 12/21/20 09:00 Oxygen Flow Rate (L/min) 2 Oxygen Delivery Method Nasal Cannula Weight: 180 lb 1.883 oz Body Mass Index (BMI) 25.8 Intake & Output: Intake and Output for Last 24 Hours 12/19/20 12/20/20 12/21/20 23:59 23:59 23:59 Intake Total 600 / 600 1060 / 1360 780 / 780 Output Total 225 / 225 Balance 600 / 600 1060 / 1360 555 / 555 Medical Nutrition Assessment Dietitian: Malnutrition Criteria Met Start: 12/17/20 13:46 Freq: Status: Active Protocol: Document 12/17/20 14:03 [facility] (Rec: 12/17/20 14:03 [facility] [id number]) Nutrition Malnutrition Evidence of Malnutrition Exists No Intake Problem Inadequate Oral Intake Etiology related to lymphoma and weakness Signs/Symptoms as evidenced by pt self report of decreased appetite x 3 months prior to admission Status Active Problem Clinical Problem Biting/Chewing Difficulty Etiology related to weakness Signs/Symptoms as evidenced by need for mechanically altered diet consistency Status Active Problem Recommendation Dietitian Recommendations/Changes Will provide 120 ml ensure clear w/ meals for increased nutrition if consumed Will change diet to Cardiac/ Sodium restricted d/t edema/ pmhx - consider fluid restriction if indicated Lab / Micro Data Result Diagrams: 12/20/20 06:34 12/21/20 10:55 Labs: Laboratory Results - last 24 hr 12/21/20 10:55: Sodium 136, Potassium 3.6, Chloride 102, Carbon Dioxide 28.0, Anion Gap 6, BUN 28 H, Creatinine 1.65 H, Estim Creat Clear Calc 33.80, Est GFR (MDRD) Af Amer 51 L, Est GFR (MDRD) Non-Af 42 L, BUN/Creatinine Ratio 17.0, Glucose 109 H, Calcium 10.5 H Micro: Microbiology 12/21/20 11:00 Mucosa - Nose SARS-CoV-2 Antigen (Rapid) - Final Physical Exam Const alert, oriented x3 and no apparent distress Orientation / Consciousness: awake, oriented to person, oriented to place and oriented to time Nutritional Appearance: cachectic HEENT normocephalic and moist oral mucous membranes Eyes PERRL, EOMs intact bilaterally and conjunctivae normal Neck no lymphadenopathy Resp clear to auscultation bilaterally Auscultation: diminished lung sounds Cardio regular rate, regular rhythm and no murmurs Peripheral Pulses: pulses 2+ throughout GI normal to inspection, nondistended, normoactive bowel sounds, non-tender and non-distended Extremity normal to inspection General Extremity: edema bilateral lower extremity Details: mild Skin no rashes or lesions noted Lesions: no lesions Rashes: no rashes Trauma: no lacerations or abrasions Neuro CN's II-XII intact bilaterally, no focal motor deficits, no sensory deficits noted and deep tendon reflexes 2+ bilaterally Psych mental status grossly normal and affect normal Assessment & Plan Assessment/Plan (1) Generalized weakness: PLAN: 1. Debility, functional decline-secondary to non-Hodgkin's lymphoma-PT/OT. Palliative consulted during recent admission. Discussed hospice with patient and family however they would like to continue to pursue oncology treatment and requesting rehab. SNF at discharge for rehab. 2. 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 Patient underwent previous outpatient diagnostic thoracentesis 11/15/[address]-guided biopsy of mesenteric mass 11/16/2020. Pleural fluid cytology showed lymphoma. Continue supplement oxygen to maintain O2 at or above 90%. 3. Stage IV non-Hodgkin's lymphoma/follicular lymphoma, recent diagnosis- Following with Dr. Hernandez On immunotherapy/rituximab. Patient has follow-up with oncology and immunotherapy scheduled for 12/22/2020. 4. Acute left upper extremity DVT-discontinue Coumadin. Continue therapeutic Lovenox. 5. Paroxysmal atrial fibrillation/wide-complex tachycardia-cardiology consulted during recent admission. Flecainide discontinued. Continue loading amiodarone dose as ordered and metoprolol. Recent pacemaker interrogation completed and functioning properly. 6. BPH-on finasteride, Flomax. 7. Hyperlipidemia-continue statin. 8. Chronic kidney disease stage IIIa- stable. DVT prophylaxis-therapeutic Lovenox Discharge planning: Patient and family not open to hospice at this time. Requesting SNF for rehab and continued oncology treatment/evaluation. Awaiting approval to SNF. This patient was seen by AMINAH Chow under the supervision of Dr. Hart.
[2020-12-21] MEDS: Atorvastatin Calcium 10 MG Tablet PO (20:03)
--- NOTE | 2020-12-21 20:06 | NURSING ---
While this RN was in the room to assess pt at 1999, pt requested evening medications early because he was tired and almost ready for bed.
[2020-12-22 03:00] VITALS: BP 123/59; PULSE 64; PULSE 75; RESP 18; TEMP 37.1; O2SAT 92
[2020-12-22] MEDS: Amiodarone 200 MG Tablet PO (05:27)
[2020-12-22] MEDS: Enoxaparin 80 MG/0.8 ML Syringe SC ×2 (05:27→17:55)
[2020-12-22 07:00] VITALS: PULSE 65
[2020-12-22 08:03] VITALS: O2SAT 92
[2020-12-22 09:00] VITALS: BP 129/64; PULSE 73; RESP 18; TEMP 36.4; O2SAT 93
[2020-12-22 09:13] VITALS: PULSE 73
[2020-12-22] MEDS: Clopidogrel Bisulfate 75 MG Tablet PO (09:13)
[2020-12-22] MEDS: Allopurinol 300 MG Tablet PO (09:13)
[2020-12-22] MEDS: Metoprolol(XL)Succ 25 MG Tablet PO (09:13)
[2020-12-22] MEDS: Acyclovir 200 MG Capsule 400 MG PO (09:13)
[2020-12-22] MEDS: Furosemide 40 MG Tablet PO (09:13)
[2020-12-22] MEDS: Saliva Substitute 237 ML BOTTLE 15 ML MUCOUS MEM ×2 (09:13→17:55)
[2020-12-22] MEDS: Spironolactone 25 MG Tablet PO (09:14)
[2020-12-22] MEDS: Tamsulosin HCl 0.4 MG Capsule PO (09:14)
[2020-12-22] MEDS: Finasteride 5 MG Tablet PO (09:14)
--- NOTE | 2020-12-22 12:40 | CASEMGMT ---
CHRISTOPHER received a call from Siria at [facility] and patient is being denied. CHRISTOPHER took down the information to arrange a peer to peer. CHRISTOPHER arranged peer to peer for CARMELINA Umanzor. Tierney Hong [employer] JOHN
--- NOTE | 2020-12-22 13:42 | PN.HOSP_ITS ---
Documented by User: Erna Hollins BEAN PICKER MACHINE OPERATOR, BEAN PICKER MACHINE OPERATOR-C 12/22/20 13:46 Subjective Subjective Patient seen and examined. Denies new symptoms or complaints. Denied by insurance for SNF, awaiting [id number] meeting. Objective Data Objective Data Vital Signs: Vital Signs Temp Pulse Resp BP Pulse Ox 97.5 F L 73 18 129/64 H 93 12/22/20 09:00 12/22/20 09:13 12/22/20 09:00 12/22/20 09:00 12/22/20 09:00 Oxygen Flow Rate (L/min) 2 Oxygen Delivery Method Nasal Cannula Weight: 180 lb 1.883 oz Body Mass Index (BMI) 25.8 Intake & Output: Intake and Output for Last 24 Hours 12/20/20 12/21/20 12/22/20 23:59 23:59 23:59 Intake Total 1060 / 1360 1020 / 1140 480 / 480 Output Total 225 / 225 200 / 200 Balance 1060 / 1360 795 / 915 280 / 280 Medical Nutrition Assessment Dietitian: Malnutrition Criteria Met Start: 12/17/20 13:46 Freq: Status: Active Protocol: Document 12/17/20 14:03 MARIA T (Rec: 12/17/20 14:03 [id number]) Nutrition Malnutrition Evidence of Malnutrition Exists No Intake Problem Inadequate Oral Intake Etiology related to lymphoma and weakness Signs/Symptoms as evidenced by pt self report of decreased appetite x 3 months prior to admission Status Active Problem Clinical Problem Biting/Chewing Difficulty Etiology related to weakness Signs/Symptoms as evidenced by need for mechanically altered diet consistency Status Active Problem Recommendation Dietitian Recommendations/Changes Will provide 120 ml ensure clear w/ meals for increased nutrition if consumed Will change diet to Cardiac/ Sodium restricted d/t edema/ pmhx - consider fluid restriction if indicated Lab / Micro Data Result Diagrams: 12/20/20 06:34 12/21/20 10:55 Micro: Microbiology 12/21/20 11:00 Mucosa - Nose SARS-CoV-2 Antigen (Rapid) - Final Physical Exam Const alert, oriented x3 and no apparent distress Orientation / Consciousness: awake, oriented to person, oriented to place and oriented to time Nutritional Appearance: cachectic HEENT normocephalic and moist oral mucous membranes Eyes PERRL, EOMs intact bilaterally and conjunctivae normal Neck no lymphadenopathy Resp clear to auscultation bilaterally Auscultation: diminished lung sounds Cardio regular rate, regular rhythm and no murmurs Peripheral Pulses: pulses 2+ throughout GI normal to inspection, nondistended, normoactive bowel sounds, non-tender and non-distended Extremity normal to inspection Skin no rashes or lesions noted Lesions: no lesions Rashes: no rashes Trauma: no lacerations or abrasions Neuro CN's II-XII intact bilaterally, no focal motor deficits, no sensory deficits noted and deep tendon reflexes 2+ bilaterally Psych mental status grossly normal and affect normal Assessment & Plan Assessment/Plan (1) Generalized weakness: PLAN: 1. Debility, functional decline-secondary to non-Hodgkin's lymp nevin-PT/OT. Palliative consulted during recent admission. Discussed hospice with patient and family however they would like to continue to pursue oncology treatment and requesting rehab. Awaiting [id number] for decision on acceptance to SNF. 2. 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 Patient underwent previous outpatient diagnostic thoracentesis 11/15/[address]-guided biopsy of mesenteric mass 11/16/2020. Pleural fluid cytology showed lymphoma. Continue supplement oxygen to maintain O2 at or above 90%. 3. Stage IV non-Hodgkin's lymphoma/follicular lymphoma, recent diagnosis- Following with Dr. Rivas. On immunotherapy/rituximab. Patient has follow-up with oncology and immunotherapy scheduled for 12/29/2020. 4. Acute left upper extremity DVT-discontinue Coumadin. Continue therapeutic Lovenox. 5. Paroxysmal atrial fibrillation/wide-complex tachycardia-cardiology consulted during recent admission. Flecainide discontinued. Continue loading amiodarone dose as ordered and metoprolol. Recent pacemaker interrogation completed and functioning properly. 6. BPH-on finasteride, Flomax. 7. Hyperlipidemia-continue statin. 8. Chronic kidney disease stage IIIa- stable. DVT prophylaxis-therapeutic Lovenox Discharge planning: Awaiting approval to SNF. This patient was seen by AMINAH Chow under the supervision of Dr. Hart. Documented by User: Dr. Sravani Hart MD 12/22/20 16:49 Objective Data Lab / Micro Data Result Diagrams: 12/20/20 06:34 12/21/20 10:55 Charges/Coding Addendum Addendum: Patient seen by Erna FLOWERS under my supervision Patient seen and examined. He had no complaints. Review of systems is otherwise negative. He has remained hemodynamically stable. Patient awaiting dc to SNF. O/E: Const alert, oriented x3 and no apparent distress Orientation / Consciousness: awake, oriented to person, oriented to place and oriented to time, frail and weak Nutritional Appearance: cachectic HEENT normocephalic and moist oral mucous membranes Eyes PERRL, EOMs intact bilaterally and conjunctivae normal Neck no lymphadenopathy Resp diminished breath sounds bibasally, no wheezes or crackles. Cardio regular rate, regular rhythm and no murmurs Peripheral Pulses: pulses 2+ throughout GI normal to inspection, nondistended, normoactive bowel sounds, non-tender and non-distended Extremity normal to inspection General Extremity: edema left upper extremity Skin no rashes or lesions noted Lesions: no lesions Rashes: no rashes Trauma: no lacerations or abrasions Neuro CN's II-XII intact bilaterally, no focal motor deficits, no sensory deficits noted and deep tendon reflexes 2+ bilaterally Psych mental status grossly normal and affect normal Patient still awaiting precert for placement. Titrate oxygen to maintain saturation above 90%. Breathing treatments bronchodilators. To follow-up with oncology on outpatient basis to discuss further treatment modalities. Rest as per Erna Flowers's note, which I have reviewed and endorsed. Visit Charges Inpatient E&M: 31370 Subs Hosp L2
--- NOTE | 2020-12-22 14:04 | DCINST_ITS ---
Discharge Instructions Diet Discharge Diet: No restrictions Activity Discharge Activity: Return to Normal Activity and Use Walker Dressing / Incision Call your doctor if you observe: Shortness of breath, Dizziness and Chest pain Follow Up Care Test Results: Test results from this visit will be discussed in further detail at your follow-up appointment, if applicable. Discharge Plan Admission Admit Date/Time: 12/17/20 14:15 Primary Reason for Your Visit: Debility, stage IV non-Hodgkin's lymphoma, acute left upper extremity DVT Attending Provider: Sravani Hart Primary Care Provider: Aric Archibald Instructions Additional Instructions / Restrictions: John wraps bilateral lower extremities. Discharge Orders/Prescriptions Prescriptions: New enoxaparin [Lovenox] 80 mg/0.8 mL syringe 80 mg subcut Q12H Qty: 28 RF: 0 Biotene Moisturizing Mouth [place],Non-Aerosol 1 applic mucous membrane Q2H PRN (Reason: dry mouth) Qty: 44.3 RF: 0 Continued tamsulosin [Flomax] 0.4 mg capsule 0.4 mg PO DAILY RF: 0 clopidogrel [Plavix] 75 mg tablet 75 mg PO DAILY RF: 0 simvastatin 20 mg tablet 20 mg PO QHS RF: 0 metoprolol succinate [Toprol XL] 25 mg tablet extended release 24 hr 25 mg PO DAILY RF: 0 finasteride [Proscar] 5 mg tablet 5 mg PO DAILY RF: 0 acyclovir 400 mg tablet 400 mg PO BID Qty: 60 RF: 1 furosemide [Lasix] 20 mg tablet 40 mg PO DAILY RF: 0 spironolactone 25 mg tablet 25 mg PO DAILY RF: 0 amiodarone 200 mg tablet 200 mg PO TID Qty: 120 RF: 0 allopurinol 300 mg tablet 300 mg PO DAILY Qty: 7 RF: 0 Discontinued warfarin 1 mg tablet 1 mg PO DAILY Qty: 60 RF: 0 Referrals / Follow Up: Roderick Rivas MD [NON-STAFF] - 12/29/20 9:00 am (Arrive at 9:00am for labs and appointment at 9:30am) Aric Archibald MD [Primary Care Provider] - In 1 Week Anna Goodrich NP, CUTTING MACHINE OPERATOR HELPER-C [Nurse Practitioner] - Within 2 Weeks (Recurrent malignant pleural effusion, hypoxic respiratory failure) Chelsea Anguiano PA [PHYSICIAN BUSH AND VINE FRUIT CROP FARMER] - Within 2 Weeks Disposition Disposition (needs filled in before D/C Order can be placed): Home Health Service
--- NOTE | 2020-12-22 14:13 | PCM.DC.SUM ---
Documented by User: Erna Hollins NP, DRILL PRESS OPERATOR NUMERICAL CONTROL-C 12/22/20 15:51 Providers Date of Admission: 12/17/20 Date of Discharge: 12/22/20 Primary Care Physician: Dr. Aric Archibald MD Reason For Visit: PLEURAL EFFUSION / DEBILITY Diagnosis Discharge Diagnosis (1) Generalized weakness: Status: Acute Code(s): R53.1 - Weakness Medications at Discharge Home Medications clopidogrel 75 mg tablet 75 mg PO DAILY 03/19/19 finasteride 5 mg tablet 5 mg PO DAILY 03/19/19 metoprolol succinate 25 mg tablet,extended release 24 hr 25 mg PO DAILY 03/19/19 simvastatin 20 mg tablet 20 mg PO QHS 03/19/19 tamsulosin 0.4 mg capsule 0.4 mg PO DAILY 03/19/19 acyclovir 400 mg tablet 400 mg PO BID #60 tab 11/25/20 allopurinol 300 mg tablet 300 mg PO DAILY #7 tab 12/08/20 furosemide 20 mg tablet 40 mg PO DAILY tab 12/08/20 spironolactone 25 mg PO DAILY 12/11/20 amiodarone 200 mg PO TID #120 tab 12/16/20 enoxaparin [Lovenox] 80 mg SUBCUT Q12H #28 dose 12/22/20 saliva stimulant comb. no.3 [Biotene Moisturizing Mouth] 1 applic MUCOUS MEMBRANE Q2H PRN #44.3 ml 12/22/20 Hospital Course Operations None Procedures None Summary of Care Provided Minutes Spent on Discharge: 35 Hospital Course: Patient is a 85-year-old male admitted 12/17/2020 due to generalized weakness. 1. Debility, functional decline-secondary to non-Hodgkin's lymphoma-PT/OT. Palliative consulted during recent admission. Discussed hospice with patient and family however they would like to continue to pursue oncology treatment and requesting rehab. Patient has demonstrated improvement with therapy during admission. Insurance denied SNF for rehab however patient and choosing to self-pay and DC to SNF due to rehab. 2. 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 Patient underwent previous outpatient diagnostic thoracentesis 11/15/[address]-guided biopsy of mesenteric mass 11/16/2020. Pleural fluid cytology showed lymphoma. Continue supplement oxygen to maintain O2 at or above 90%. 3. Stage IV non-Hodgkin's lymphoma/follicular lymphoma, recent diagnosis- Following with Dr. Rivas. On immunotherapy/rituximab. Patient has follow-up with oncology and immunotherapy scheduled for 12/29/2020. 4. Acute left upper extremity DVT-discontinue Coumadin. Continue therapeutic Lovenox. Discussed with oncology at follow-up plan for continued treatment. 5. Paroxysmal atrial fibrillation/wide-complex tachycardia-cardiology consulted during recent admission. Flecainide discontinued. Continue loading amiodarone dose as ordered and metoprolol. Recent pacemaker interrogation completed and functioning properly. 6. BPH-on finasteride, Flomax. 7. Hyperlipidemia-continue statin. 8. Chronic kidney disease stage IIIa- stable. Physical Exam Const alert, oriented x3 and no apparent distress Orientation / Consciousness: awake, oriented to person, oriented to place and oriented to time Nutritional Appearance: cachectic HEENT normocephalic and moist oral mucous membranes Eyes PERRL, EOMs intact bilaterally and conjunctivae normal Neck no lymphadenopathy Resp clear to auscultation bilaterally Auscultation: diminished lung sounds Cardio regular rate, regular rhythm and no murmurs Peripheral Pulses: pulses 2+ throughout GI normal to inspection, nondistended, normoactive bowel sounds, non-tender and non-distended Extremity normal to inspection Skin no rashes or lesions noted Lesions: no lesions Rashes: no rashes Trauma: no lacerations or abrasions Neuro CN's II-XII intact bilaterally, no focal motor deficits, no sensory deficits noted and deep tendon reflexes 2+ bilaterally Psych mental status grossly normal and affect normal Patient seen and examined prior to discharge. Physical assessment as noted above. Patient is stable for discharge with follow up recommendations as noted above. This patient was seen by AMINAH Chow under the supervision of Dr. Hart. Medical Records Data Medical Nutrition Assessment Dietitian: Malnutrition Criteria Met Start: 12/17/20 13:46 Freq: Status: Active Protocol: Document 12/17/20 14:03 [facility] (Rec: 12/17/20 14:03 [facility] [id number]) Nutrition Malnutrition Evidence of Malnutrition Exists No Intake Problem Inadequate Oral Intake Etiology related to lymphoma and weakness Signs/Symptoms as evidenced by pt self report of decreased appetite x 3 months prior to admission Status Active Problem Clinical Problem Biting/Chewing Difficulty Etiology related to weakness Signs/Symptoms as evidenced by need for mechanically altered diet consistency Status Active Problem Recommendation Dietitian Recommendations/Changes Will provide 120 ml ensure clear w/ meals for increased nutrition if consumed Will change diet to Cardiac/ Sodium restricted d/t edema/ pmhx - consider fluid restriction if indicated Weight / BMI Weight Weight: 180 lb 1.883 oz Body Mass Index (BMI) 25.8 ABG / Lab / Microbiology Data Result Diagrams: 12/20/20 06:34 12/21/20 10:55 Microbiology: Microbiology 12/21/20 11:00 Mucosa - Nose SARS-CoV-2 Antigen (Rapid) - Final D/C Instructions Discharge Diet: No restrictions Call your doctor if you observe: Shortness of breath, Dizziness and Chest pain Meaningful Use Info Meaningful Use Diagnoses (Choose all that apply): None applicable Discharge Plan Admission Admit Date/Time: 12/17/20 14:15 Primary Reason for Your Visit: Debility, stage IV non-Hodgkin's lymphoma, acute left upper extremity DVT Attending Provider: Sravani Hart Primary Care Provider: Aric Archibald Instructions Additional Instructions / Restrictions: John wraps bilateral lower extremities. Discharge Orders/Prescriptions Prescriptions: New enoxaparin [Lovenox] 80 mg/0.8 mL syringe 80 mg subcut Q12H Qty: 28 RF: 0 Biotene Moisturizing Mouth [place],Non-Aerosol 1 applic mucous membrane Q2H PRN (Reason: dry mouth) Qty: 44.3 RF: 0 Continued tamsulosin [Flomax] 0.4 mg capsule 0.4 mg PO DAILY RF: 0 clopidogrel [Plavix] 75 mg tablet 75 mg PO DAILY RF: 0 simvastatin 20 mg tablet 20 mg PO QHS RF: 0 metoprolol succinate [Toprol XL] 25 mg tablet extended release 24 hr 25 mg PO DAILY RF: 0 finasteride [Proscar] 5 mg tablet 5 mg PO DAILY RF: 0 acyclovir 400 mg tablet 400 mg PO BID Qty: 60 RF: 1 furosemide [Lasix] 20 mg tablet 40 mg PO DAILY RF: 0 spironolactone 25 mg tablet 25 mg PO DAILY RF: 0 amiodarone 200 mg tablet 200 mg PO TID Qty: 120 RF: 0 allopurinol 300 mg tablet 300 mg PO DAILY Qty: 7 RF: 0 Discontinued warfarin 1 mg tablet 1 mg PO DAILY Qty: 60 RF: 0 Referrals / Follow Up: Roderick Rivas MD [NON-STAFF] - 12/29/20 9:00 am (Arrive at 9:00am for labs and appointment at 9:30am) Aric Archibald MD [Primary Care Provider] - In 1 Week (Please call to setup an appointment.) Anna Goodrich NP, DRILL PRESS OPERATOR NUMERICAL CONTROL-C [Nurse Practitioner] - Within 2 Weeks (Recurrent malignant pleural effusion, hypoxic respiratory failure Please call to setup an appointment.) Chelsea Anguiano PA [PHYSICIAN BEEF GRINDER] - Within 2 Weeks (Please call to setup an appointment.) Disposition Disposition (needs filled in before D/C Order can be placed): [facility] Documented by User: Dr. Sravani Hart MD 12/22/20 16:51 Providers Date of Admission: 12/17/20 Reason For Visit: PLEURAL EFFUSION / DEBILITY Medications at Discharge Home Medications clopidogrel 75 mg tablet 75 mg PO DAILY 03/19/19 finasteride 5 mg tablet 5 mg PO DAILY 03/19/19 metoprolol succinate 25 mg tablet,extended release 24 hr 25 mg PO DAILY 03/19/19 simvastatin 20 mg tablet 20 mg PO QHS 03/19/19 tamsulosin 0.4 mg capsule 0.4 mg PO DAILY 03/19/19 acyclovir 400 mg tablet 400 mg PO BID #60 tab 11/25/20 allopurinol 300 mg tablet 300 mg PO DAILY #7 tab 12/08/20 furosemide 20 mg tablet 40 mg PO DAILY tab 12/08/20 spironolactone 25 mg PO DAILY 12/11/20 amiodarone 200 mg PO TID #120 tab 12/16/20 enoxaparin [Lovenox] 80 mg SUBCUT Q12H #28 dose 12/22/20 saliva stimulant comb. no.3 [Biotene Moisturizing Mouth] 1 applic MUCOUS MEMBRANE Q2H PRN #44.3 ml 12/22/20 ABG / Lab / Microbiology Data Result Diagrams: 12/20/20 06:34 12/21/20 10:55 Discharge Plan Admission Admit Date/Time: 12/17/20 14:15 Primary Reason for Your Visit: Debility, stage IV non-Hodgkin's lymphoma, acute left upper extremity DVT Attending Provider: Sravani Hart Primary Care Provider: Aric Archibald Instructions Additional Instructions / Restrictions: John wraps bilateral lower extremities. Discharge Orders/Prescriptions Prescriptions: New enoxaparin [Lovenox] 80 mg/0.8 mL syringe 80 mg subcut Q12H Qty: 28 RF: 0 Biotene Moisturizing Mouth [place],Non-Aerosol 1 applic mucous membrane Q2H PRN (Reason: dry mouth) Qty: 44.3 RF: 0 Continued tamsulosin [Flomax] 0.4 mg capsule 0.4 mg PO DAILY RF: 0 clopidogrel [Plavix] 75 mg tablet 75 mg PO DAILY RF: 0 simvastatin 20 mg tablet 20 mg PO QHS RF: 0 metoprolol succinate [Toprol XL] 25 mg tablet extended release 24 hr 25 mg PO DAILY RF: 0 finasteride [Proscar] 5 mg tablet 5 mg PO DAILY RF: 0 acyclovir 400 mg tablet 400 mg PO BID Qty: 60 RF: 1 furosemide [Lasix] 20 mg tablet 40 mg PO DAILY RF: 0 spironolactone 25 mg tablet 25 mg PO DAILY RF: 0 amiodarone 200 mg tablet 200 mg PO TID Qty: 120 RF: 0 allopurinol 300 mg tablet 300 mg PO DAILY Qty: 7 RF: 0 Discontinued warfarin 1 mg tablet 1 mg PO DAILY Qty: 60 RF: 0 Referrals / Follow Up: Roderick Rivas MD [NON-STAFF] - 12/29/20 9:00 am (Arrive at 9:00am for labs and appointment at 9:30am) Aric Archibald MD [Primary Care Provider] - In 1 Week (Please call to setup an appointment.) Anna Goodrich NP, DRILL PRESS OPERATOR NUMERICAL CONTROL-C [Nurse Practitioner] - Within 2 Weeks (Recurrent malignant pleural effusion, hypoxic respiratory failure Please call to setup an appointment.) Chelsea Anguiano, PA [PHYSICIAN BEEF GRINDER] - Within 2 Weeks (Please call to setup an appointment.) Disposition Disposition (needs filled in before D/C Order can be placed): Senior Care Facility Charges/Coding Addendum Addendum: Patient seen by Erna BURR under my supervision Patient is an 85 y/o male with a PMH as outlined who was admitted via the ED with a complaint of weakness and tiredness. Patient had just been discharged a day prior to admission from the hospital after being managed for recurrent right pleural effusion due to non Hodgkin's lymphoma for which he had thoracentesis. He was discharged home, but came back one day afterwards with complaints of worsening weakness and debility. Patient and family requested placement. He was admitted to be managed for worsening debility due to Non Hodgkin's Lymphoma. Patient remained stable during his hospital admission and physical therapy worked with him. Patient was skilled as needed SNF. Precertification was obtained on 12/21/2020 and patient was [facility] to [facility] facility on 12/[facility]/2019. Of note, patient and family declined hospice and said he wanted to continue oncology treatment. He is therefore to follow-up with his oncologist on outpatient basis. Plan was for patient to be discharged to SNF. However he was denied pre-CERT by the insurance company. [id number] was done but discharge was still upheld. Patient and family therefore decided to opt for self-pay at the retirement facility. He was therefore discharged to the retirement facility on 12/22/2020. Patient seen and examined prior to discharge. He felt well and had no complaints. Review of systems was otherwise negative. Labs and vitals reviewed, home meds reviewed and reconciled. O/E: Const alert, oriented x3 and no apparent distress Orientation / Consciousness: awake, oriented to person, oriented to place and oriented to time, frail Nutritional Appearance: cachectic HEENT normocephalic Mouth: dry mucous membranes Eyes PERRL, EOMs intact bilaterally and conjunctivae normal Neck no lymphadenopathy Resp Auscultation: diminished lung sounds, on 2L of oxygen by nasal canula Cardio regular rate, regular rhythm and no murmurs Peripheral Pulses: pulses 2+ throughout GI normal to inspection, nondistended, normoactive bowel sounds, non-tender and non-distended Extremity normal to inspection General Extremity: edema bilateral lower extremity Details: mild Skin no rashes or lesions noted Lesions: no lesions Rashes: no rashes Trauma: no lacerations or abrasions Neuro CN's II-XII intact bilaterally, no focal motor deficits, no sensory deficits noted and deep tendon reflexes 2+ bilaterally Psych mental status grossly normal and affect normal Plan is for discharge to SNF today. Rest as per Erna Hollins DRILL PRESS OPERATOR NUMERICAL CONTROL-C's note, which I have reviewed and endorsed Visit Charges Inpatient E&M: 87694 Disch Hosp
--- NOTE | 2020-12-22 14:14 | CASEMGMT ---
LEADERSHIP DEVELOPMENT MANAGER did the peer to peer with insurance and patient is still denied for SNF. CHRISTOPHER went back to patient's room and let patient and his know this information. CHRISTOPHER told them they can private pay at [facility] or go home with home health. Patient's wanted to know how much it would cost to private pay at [facility]. CHRISTOPHER called Siria at [facility] and she said if he went to a skilled bed it would be $400 a day and therapy would be an additional cost. She said if he went to a senior living bed it would be $260 per day, but she does not have any senior living beds available. She said she will see if they can get a discounted rate since there is no joint terminal attack controller bed available. She will call CHRISTOPHER back. CHRISTOPHER let patient and his know this information. Patient was willing to go home and try it again, but his is very reluctant. She said she doesn't understand how to manage the oxygen, she doesn't have the stuff to take him to appts. They have portables, but they are too heavy to handle along with handling him. CHRISTOPHER told them CHRISTOPHER can check on thisThey want to talk about it and CHRISTOPHER will check back. Await return call from Siria at [facility]. Tierney Hong MSW JOHN
--- NOTE | 2020-12-22 14:45 | CASEMGMT ---
[facility] port[facility] tomorrow. They can also do more teaching. CHRISTOPHER went back to patient's room. CHRISTOPHER told them this information. They are trying to get one of their children to be around to help. They asked if they can stay 1 more day to get some help lined up. SW told them SW can ask. SW also reminded them that they will have home health. CHRISTOPHER told them SW will ask if the physician will keep him today. CHRISTOPHER shared this information with CARMELINA Umanzor. Tierney Hong OPERATOR JOHN
--- NOTE | 2020-12-22 14:57 | CASEMGMT ---
Pt was denied to go to SNF by Duyen Brandt at [facility] aware pt may go home with [facility] and resumption order placed. Cheo WHITE discussing plan with family. Amarilys FLORES CM
[2020-12-22 15:00] VITALS: BP 129/57; PULSE 73; PULSE 79; RESP 18; TEMP 36.7; O2SAT 92
--- NOTE | 2020-12-22 15:35 | CASEMGMT ---
CHRISTOPHER spoke with [facility] and they would put patient in a skilled bed for the non skilled hewitt of $260 per day and then when a care home bed opened up they could move him. He would get therapy as well billed through his part B. CHRISTOPHER let patient and his know this information. CARMELINA Umanzor was going to talk with patient and his . Tierney Hong MSW JOHN
--- NOTE | 2020-12-22 15:49 | PHA.DC.MR ---
Pharmacy Service has performed discharge medication reconciliation for this patient. The patient's discharge medication list was reviewed for discrepancies and discrepancies were resolved. Home Medications clopidogrel 75 mg tablet 75 mg PO DAILY 03/19/19 finasteride 5 mg tablet 5 mg PO DAILY 03/19/19 metoprolol succinate 25 mg tablet,extended release 24 hr 25 mg PO DAILY 03/19/19 simvastatin 20 mg tablet 20 mg PO QHS 03/19/19 tamsulosin 0.4 mg capsule 0.4 mg PO DAILY 03/19/19 acyclovir 400 mg tablet 400 mg PO BID #60 tab 11/25/20 allopurinol 300 mg tablet 300 mg PO DAILY #7 tab 12/08/20 furosemide 20 mg tablet 40 mg PO DAILY tab 12/08/20 spironolactone 25 mg PO DAILY 12/11/20 amiodarone 200 mg PO TID #120 tab 12/16/20 enoxaparin [Lovenox] 80 mg SUBCUT Q12H #28 dose 12/22/20 saliva stimulant comb. no.3 [Biotene Moisturizing Mouth] 1 applic MUCOUS MEMBRANE Q2H PRN #44.3 ml 12/22/20
--- NOTE | 2020-12-22 16:07 | CASEMGMT ---
Patient and his decided they would like patient to go to [place] private pay. CHRISTOPHER faxed orders and negative COVID to [place]. CHRISTOPHER spoke with Siria and let her know patient would like to come private pay and he is ready today. She is checking with her chief operator hydroformer and will get back to CHRISTOPHER. Tierney Hong RIGHT OF [employer] WORKER JOHN
--- NOTE | 2020-12-22 16:35 | CASEMGMT ---
Siria called CHRISTOPHER back and said their president will not allow them to charge $260 per day so they will have to pay the $400 a day. CHRISTOPHER went back to patient's room and let them know this information. They decided they will still go to to [place] at $400 per day. CHRISTOPHER arranged for patient to get picked up at 630 via [employer] van. CHRISTOPHER notified RN, patient, and his . Plan: d/c to [place] under skilled level of care on a convalescent stay. [facility] will transport via [employer] van. Tierney LOPEZ
--- NOTE | 2020-12-22 17:39 | NURSING ---
Gave report to RN at [facility]
== END 2020-12-22 18:22 | disposition skilled nursing facility (03) | DRG 948 ==
LOC: ED 12-17 01:02 → PCU 12-17 07:09
PROVIDERS: Nurse Practitioner Family; Admitting Provider Internal Medicine; Emergency Provider Student in an Organized Health Care Education/Training Program; PCP Internal Medicine; Visit Provider Student in an Organized Health Care Education/Training Program
DX: R53.1 Weakness (principal); C82.90 Follicular lymphoma, unspecified, unspecified site; R64 Cachexia; I82.C12 Acute embolism and thrombosis of left internal jugular vein; I82.622 Acute embolism and thrombosis of deep veins of left upper extremity; J96.11 Chronic respiratory failure with hypoxia; I48.0 Paroxysmal atrial fibrillation; N18.31 Chronic kidney disease, stage 3a; N40.0 Benign prostatic hyperplasia without lower urinary tract symptoms; E78.5 Hyperlipidemia, unspecified; J91.0 Malignant pleural effusion; N13.30 Unspecified hydronephrosis; I12.9 Hypertensive chronic kidney disease with stage 1 through stage 4 chronic kidney disease, or unspecified chronic kidney disease; Z68.25 Body mass index [BMI] 25.0-25.9, adult; R47.1 Dysarthria and anarthria; R13.10 Dysphagia, unspecified; E04.2 Nontoxic multinodular goiter; K58.9 Irritable bowel syndrome, unspecified; G47.30 Sleep apnea, unspecified; S00.521A Blister (nonthermal) of lip, initial encounter; X58.XXXA Exposure to other specified factors, initial encounter; Y93.9 Activity, unspecified; Y92.9 Unspecified place or not applicable; Y99.9 Unspecified external cause status; Z79.01 Long term (current) use of anticoagulants; Z79.02 Long term (current) use of antithrombotics/antiplatelets; Z79.899 Other long term (current) drug therapy; I25.2 Old myocardial infarction; Z95.0 Presence of cardiac pacemaker; I44.0 Atrioventricular block, first degree
CPT/HCPCS: 36415; 70450; 70496; 70498; 71045; 80048; 80061; 84484; 85025; 85610; 87426; 92526; 92610; 93005; 93971; 94762; 96361; 96372; 96374; 96376; 97110; 97116; 97162; 97165; 97530; 97535; 97802; 97803; 99218; 99285; 99406; Q9967; A4216; G0378; J1940

== ENCOUNTER → 2020-12-24 05:00 | Outpatient (REF) | payer MEDICARE, SELFPAY ==
[2020-12-24 08:36] LABS: Hematocrit 36.8 % (40-54); Hemoglobin 11.5 g/dL (13.0-16.5); Mean Corp Hgb Conc 31.3 g/dL (32-36); Mean Corpuscular Hgb 26.9 pg (27.0-32.0); Mean Corpuscular Volume 86.2 fL (80-94); Mean Platelet Vol. 10.8 fl (6.2-12.0); Platelet Count 287 K/mm3 (150-450); RBC Distribution Width CV 15.7 % (11.6-14.6); RBC Distribution Width SD 47.5 fl (35.1-43.9); Red Blood Count 4.27 M/mm3 (4.6-6.2); White Blood Count 10.8 K/mm3 (4.4-11.0)
[2020-12-24 08:50] LABS: Anion Gap 9 (5-15); BUN 20 mg/dL (7-18); BUN/Creat Ratio 13.5 RATIO (10-20); Calcium,Total 10.7 mg/dL (8.5-10.1); Chloride 104 mmol/L (98-107); Creatinine, Serum 1.48 mg/dL (0.70-1.30); EST Glomerular Filtration Rate 48 mL/min (>60); Est Glom Filt Rate - Afr Amer 58 mL/min (>60); Glucose 86 mg/dL (74-106); Potassium 3.2 mmol/L (3.5-5.1); Sodium Level 140 mmol/L (136-145)
== END ==
LOC: OLS.WHLTCC 05:00
PROVIDERS: PCP Internal Medicine; Visit Provider Family Medicine
DX: C85.90 Non-Hodgkin lymphoma, unspecified, unspecified site (principal); J91.0 Malignant pleural effusion; C79.19 Secondary malignant neoplasm of other urinary organs; C82.90 Follicular lymphoma, unspecified, unspecified site; J96.11 Chronic respiratory failure with hypoxia
CPT/HCPCS: 36415; 80048; 85027

== ENCOUNTER → 2020-12-27 04:00 | Outpatient (REF) | payer MEDICARE, SELFPAY ==
[2020-12-27 07:31] LABS: INR Fingerstick 2.5; Prothrombin Time Fingerstick 27.9 SEC (11.9-14.4)
== END ==
LOC: OLS.WHLTCC 04:00
PROVIDERS: PCP Internal Medicine; Referring Provider Family Medicine; Visit Provider Family Medicine
DX: I48.0 Paroxysmal atrial fibrillation (principal); C85.90 Non-Hodgkin lymphoma, unspecified, unspecified site; J91.0 Malignant pleural effusion; C79.19 Secondary malignant neoplasm of other urinary organs; C82.90 Follicular lymphoma, unspecified, unspecified site; J96.11 Chronic respiratory failure with hypoxia
CPT/HCPCS: 36416; 85610

== ENCOUNTER → 2020-12-31 05:00 | Outpatient (REF) | payer MEDICARE, SELFPAY ==
[2020-12-31 07:57] LABS: Hematocrit 34.4 % (40-54); Hemoglobin 10.6 g/dL (13.0-16.5); Mean Corp Hgb Conc 30.8 g/dL (32-36); Mean Corpuscular Hgb 26.8 pg (27.0-32.0); Mean Corpuscular Volume 87.1 fL (80-94); Mean Platelet Vol. 11.2 fl (6.2-12.0); Platelet Count 232 K/mm3 (150-450); RBC Distribution Width CV 16.4 % (11.6-14.6); RBC Distribution Width SD 51.7 fl (35.1-43.9); Red Blood Count 3.95 M/mm3 (4.6-6.2); White Blood Count 11.3 K/mm3 (4.4-11.0)
[2020-12-31 08:11] LABS: Anion Gap 6 (5-15); BUN 39 mg/dL (7-18); BUN/Creat Ratio 24.7 RATIO (10-20); Calcium,Total 11.3 mg/dL (8.5-10.1); Chloride 104 mmol/L (98-107); Creatinine, Serum 1.58 mg/dL (0.70-1.30); EST Glomerular Filtration Rate 44 mL/min (>60); Est Glom Filt Rate - Afr Amer 54 mL/min (>60); Glucose 94 mg/dL (74-106); Potassium 3.9 mmol/L (3.5-5.1); Sodium Level 138 mmol/L (136-145)
== END ==
LOC: OLS.WHLTCC 05:00
PROVIDERS: PCP Internal Medicine; Visit Provider Family Medicine
DX: C85.90 Non-Hodgkin lymphoma, unspecified, unspecified site (principal); J91.0 Malignant pleural effusion; C79.19 Secondary malignant neoplasm of other urinary organs; C82.90 Follicular lymphoma, unspecified, unspecified site; J96.11 Chronic respiratory failure with hypoxia
CPT/HCPCS: 36415; 80048; 85027

== ENCOUNTER 2021-06-20 09:41 | Outpatient (CLI) | payer MEDICARE, SELFPAY ==
[2021-06-20 11:05] LABS: INR Fingerstick 3.3; Prothrombin Time Fingerstick 37.5 SEC (11.9-14.4)
== END 2021-06-20 23:59 | disposition home or self-care (01) ==
LOC: LAB 09:42
PROVIDERS: PCP Family Medicine; Referring Provider Internal Medicine; Visit Provider Internal Medicine
DX: I48.20 Chronic atrial fibrillation, unspecified (principal)
CPT/HCPCS: 36416; 85610

== ENCOUNTER 2021-06-27 07:47 | Outpatient (CLI) | payer MEDICARE, SELFPAY ==
[2021-06-27 10:41] LABS: INR Fingerstick 3.9; Prothrombin Time Fingerstick 43.9 SEC (11.9-14.4)
== END 2021-06-27 23:59 | disposition home or self-care (01) ==
LOC: LAB 07:48
PROVIDERS: PCP Family Medicine; Referring Provider Internal Medicine; Visit Provider Internal Medicine
DX: I48.20 Chronic atrial fibrillation, unspecified (principal)
CPT/HCPCS: 36416; 85610

== ENCOUNTER 2021-07-03 04:16 | Inpatient (IN) | payer MEDICARE, SELFPAY ==
[2021-07-03] VITALS (23 sets, daily range): BP systolic 88–155; BP diastolic 45–124; PULSE 58–95; RESP 14–90; TEMP 36.1–39.4; O2SAT 27–97; BMI 21.4; BMI 20.1
--- NOTE | 2021-07-03 04:30 | EKG12_ITS ---
Test Reason : DYSRHYTHMIA Blood Pressure : / mmHG Vent. Rate : 096 BPM Atrial Rate : 096 BPM P-R Int : 000 ms QRS Dur : 108 ms QT Int : 424 ms P-R-T Axes : 000 -63 079 degrees QTc Int : 535 ms Accelerated Junctional rhythm Left axis deviation Septal infarct , age undetermined Prolonged QT Abnormal ECG Confirmed by THANIA ROSS, BOO ([id number]), newspaper copy editor ESTHELA ESCOBEDO ([id number]) on 07/05/2021 10:58:33 AM Referred By: JANI Confirmed By:BOO MONTEIRO MD
--- NOTE | 2021-07-03 04:50 | RAD_ITS ---
STUDY: X-RAY CHEST REASON FOR EXAM: Male, 86 years old. fever TECHNIQUE: Single AP portable view of the chest. COMPARISON: None. FINDINGS: Pacemaker is seen on the left side. There is compressive atelectasis in the right lung base. There is moderate right pleural effusion. Normal size heart. Normal mediastinum and gagandeep. Normal visualized pulmonary arteries. Normal visualized aortic arch and descending thoracic aorta. Normal visualized thoracic spine. Normal visualized ribs, clavicles, and shoulders. There is no demonstrated abnormality of the visualized soft tissue structures of the upper abdomen. RAD/Chest 1 View (Portable) IMPRESSION: There is compressive atelectasis in the right lung base. There is moderate right pleural effusion. Electronically Signed: Kevyn Bui MD at 5:27 EST ,
[2021-07-03 04:57] LABS: Absolute Neutrophil Count 7.6 X10^3/uL (2.0-7.7); Basophil# 0.03 X10^3/uL; Basophil% 0.3 % (0-1); Eosinophil# 0.03 X10^3/uL; Eosinophils% 0.3 % (0-5); Hematocrit 34.6 % (40-54); Hemoglobin 11.1 g/dL (13.0-16.5); Lymphocyte % 16.9 % (19-41); Mean Corp Hgb Conc 32.1 g/dL (32-36); Mean Corpuscular Hgb 30.2 pg (27.0-32.0); Monocyte# 0.04 X10^3/uL; Monocyte% 0.4 % (0-10); NRBC Flagged by Analyzer 0 % (0-5); Neutrophil # 7.64 X10^3/uL (2.7-7.7); Platelet Count 133 K/mm3 (150-450); RBC Distribution Width CV 17.1 % (11.6-14.6); RBC Distribution Width SD 59.7 fl (35.1-43.9); Red Blood Count 3.68 M/mm3 (4.6-6.2); White Blood Count 9.4 K/mm3 (4.4-11.0)
--- NOTE | 2021-07-03 05:02 | EX.ED.DYSGE1 ---
HPI History of Present Illness Chief Complaint: Confusion Narrative Narrative: 86-year-old male presenting with his for confusion. His states that he has been confused for the last 3 days. She states that he has been wandering around the house looking for the bathroom. She states he is normally know where this is. Last night she reports that he was turning on all the lights in the house to find the bathroom. Patient had a recent urinary tract infection and presents today with a fever. The does not know how long has had a fever because she has not been checking. She states he was told by EMS that he had one. Tonight she states he was running around the house confused. This started at about 830. She states that he was shaking. She states that he has a history of stage IV follicular lymphoma. Last chemotherapy was 6 to 8 weeks ago. [facility] Medical History Abdominal distention Anxiety Ascites Atrial fibrillation Atrial fibrillation BPH (benign prostatic hyperplasia) Cancer Change in bowel habit Chronic kidney disease, stage 3a CPAP (continuous positive airway pressure) dependence Encounter for chemotherapy management Essential hypertension Follicular lymphoma Generalized weakness HLD (hyperlipidemia) Hydronephrosis Hypotension IBS (irritable bowel syndrome) Irregular heart beat Left renal mass Mesenteric mass Multinodular goiter Multiple thyroid nodules Non-smoker Oral candidiasis Pacemaker Pacemaker Pleural effusion, right Sleep apnea TIA (transient ischemic attack) Urinary catheter in place Home Medications clopidogrel 75 mg tablet 75 mg PO DAILY 03/19/19 [History Last Taken 12/10/20 75 mg] metoprolol succinate 25 mg tablet,extended release 24 hr 25 mg PO DAILY 03/19/19 [History Last Taken 12/10/20 25 mg] amiodarone 200 mg PO TID #120 tab 12/16/20 [Rx Last Taken Unknown] saliva stimulant comb. no.3 [Biotene Moisturizing Mouth] 1 applic MUCOUS MEMBRANE Q2H PRN #44.3 ml 12/22/20 [Rx Last Taken Unknown] spironolactone 25 mg tablet 25 mg PO DAILY #30 tab 12/30/20 [Rx Last Taken Unknown] hydroxyzine HCl 50 mg tablet 50 mg PO QHS 03/08/21 [History Last Taken Unknown] atorvastatin 10 mg tablet 10 mg PO DAILY 03/16/21 [History Last Taken Unknown] lactase 3,000 unit tablet 3,000 unit PO QAC tab 03/16/21 [History Last Taken Unknown] trazodone 50 mg tablet 50 mg PO QHS tab 03/16/21 [History Last Taken Unknown] acetaminophen 325 mg tablet 650 mg PO Q4H PRN tab 04/13/21 [History Last Taken Unknown] hyoscyamine sulfate 0.125 mg tablet 0.125 mg PO Q4H PRN tab 04/13/21 [History Last Taken Unknown] menthol 4 % topical gel 1 applic TOPICAL Q6H PRN ml 04/13/21 [History Last Taken Unknown] potassium chloride 10 mEq capsule,extended release 20 meq PO DAILY cap 04/13/21 [History Last Taken Unknown] sennosides 8.6 mg capsule 8.6 mg PO BID PRN cap 04/27/21 [History Last Taken Unknown] warfarin 2 mg tablet 2 mg PO TUTHSA tab 04/27/21 [History Last Taken Unknown] Allergy/AdvReac Type Severity Reaction Status Date / Time sulfamethoxazole Allergy Intermediate joint pain Verified 07/03/21 04:25 [From Bactrim] trimethoprim [From Bactrim] Allergy Intermediate joint pain Verified 07/03/21 04:25 alprazolam [From Xanax] Allergy Unknown unknown Verified 07/03/21 04:25 lorazepam [From Ativan] Allergy Unknown unknown Verified 07/03/21 04:25 lactose AdvReac Intermediate Diarrhea Verified 07/03/21 04:25 Family History Mother Arthritis Cancer uterine Father Colon cancer Surgical History History of hip replacement History of thoracentesis Social History Smoking Status: Never smoker second hand exposure: No alcohol intake: never substance use type: does not use tacos/nondenominational: Catholic seatbelt use: always do you feel safe at home: Yes ROS ROS ED Review of Systems ROS Unobtainable: due to mental status EXAM Physical Exam Const Vital Signs: 07/03/21 04:19 07/03/21 05:24 07/03/21 05:30 Temperature 103 F H 101.5 F H 101.5 F H Temperature Source Temporal Temporal Temporal Pulse Rate 58 L 92 91 Respiratory Rate 18 28 H 28 H Blood Pressure 155/124 H 142/62 H 142/62 H Blood Pressure Mean 134 88 88 Pulse Ox 93 91 93 Oxygen Delivery Method Room Air Room Air Room Air Positive cachectic Constitutional Narrative: Confused General Appearance ED: cachectic; Negative for pallor Nutritional Appearance: cachectic HEENT Negative for trauma Eyes Negative for PERRL or EOMs intact bilaterally Chest Wall Negative for inspection of chest normal Resp No normal respiratory effort and No clear to auscultation bilaterally Neuro Neuro Narrative: Awake, confused, moves all 4 extremities. Psych Psych Narrative: Confused Attitude: agitated Skin General Skin Exam: Negative for jaundice or pallor MDM MDM MDM Narrative Medical decision making narrative: Patient presenting with altered mental status and a history of fever and rigors. Sepsis work-up is pursued. Patient is a poor informant and all of the history is given by his . She stated that he became confused 2 to 3 days ago and has been wandering around the house turning on lights and searching for the bathroom. She states at baseline he would know where this is. He has had no report of injury or fall. He does have a recent UTI which was treated and his states he was acting similarly then. Initially his fever was treated with Tylenol and he was given a liter of IV fluids. His fever is coming down. His CBC does not show leukocytosis and his white blood cell count is 9.4. Hemoglobin is stable at 11.1. INR is supratherapeutic at 4.3. His CMP shows that he has acute acute on chronic renal and his creatinine is gone is up to 2.56 and it was 1.51 in May. Patient's potassium is elevated at 6.0 with moderate hemolysis. His calcium is also elevated at 11.0. Patient was given another liter of IV fluids. His EKG appears to be a sinus rhythm with a ventricular rate of 96 bpm on my interpretation. There is QTC prolongation at 535. There are no peaked T waves. High-sensitivity troponin is 14. Lactic acid is 7.6. Patient is ordered to 30/kg dose of IV fluids. Urinalysis is positive for infection. Cultures are pending. Patient is hemodynamically stable at this time. I spoke with the hospitalist regarding admission and we discussed the elevated potassium and hydration. We also discussed the EKG. Initially we were going to give him calcium gluconate however his calcium was actually high. Hospitalist wants to try to hydrate him and recheck his BMP. Chest x-ray on my interpretation shows a right pleural effusion which is moderate. Patient not requiring any oxygen at this time. Impression: 1. Septic shock 2. UTI 3. Lactic acidosis 4. Hyperkalemia 5. Acute kidney injury 6. Delirium Lab Data Attestation: I reviewed the patient's lab results. Labs: Laboratory Results - last 24 hr 07/03/21 07/03/21 07/03/21 04:35 04:35 04:35 WBC 9.4 RBC 3.68 L Hgb 11.1 L Hct 34.6 L MCV 94.0 MCH 30.2 MCHC 32.1 RDW Std Deviation 59.7 H RDW Coeff of Flash 17.1 H Plt Count 133 L MPV 10.0 Immature Gran % (Auto) 1.100 H Neut % (Auto) 81.0 H Lymph % (Auto) 16.9 L [place] % (Auto) 0.4 Eos % (Auto) 0.3 Baso % (Auto) 0.3 Absolute Neuts (auto) 7.6 Absolute Lymphs (auto) 1.60 Nucleated RBC % 0 PT 40.4 H INR 4.3 H* APTT 60.4 H Sodium 132 L Potassium 6.0 H* Chloride 99 Carbon Dioxide 20.0 L Anion Gap 13 BUN 44 H Creatinine 2.56 H Estim Creat Clear Calc 20.45 Est GFR (MDRD) Af Amer 31 L Est GFR (MDRD) Non-Af 25 L BUN/Creatinine Ratio 17.2 Glucose 163 H Lactic Acid Calcium 11.0 H Total Bilirubin 0.50 AST 32 ALT 22 Alkaline Phosphatase 117 Troponin I High Sens 14 Total Protein 6.7 Albumin 2.7 L Globulin 4.0 Albumin/Globulin Ratio 0.7 L Urine Color Urine Clarity Urine pH Ur Specific [place] Urine Protein Urine Glucose (UA) Urine Ketones Urine Occult Blood Urine Nitrite Urine Bilirubin Urine Urobilinogen Ur Leukocyte Esterase Urine RBC Urine WBC Ur Squamous Epith Cells Urine Bacteria Urine Mucus 07/03/21 07/03/21 04:35 05:15 WBC RBC Hgb Hct MCV MCH MCHC RDW Std Deviation RDW Coeff of Flash Plt Count MPV Immature Gran % (Auto) Neut % (Auto) Lymph % (Auto) [place] % (Auto) Eos % (Auto) Baso % (Auto) Absolute Neuts (auto) Absolute Lymphs (auto) Nucleated RBC % PT INR APTT Sodium Potassium Chloride Carbon Dioxide Anion Gap BUN Creatinine Estim Creat Clear Calc Est GFR (MDRD) Af Amer Est GFR (MDRD) Non-Af BUN/Creatinine Ratio Glucose Lactic Acid 7.6 H* Calcium Total Bilirubin AST ALT Alkaline Phosphatase Troponin I High Sens Total Protein Albumin Globulin Albumin/Globulin Ratio Urine Color Yellow Urine Clarity Sl. Cloudy Urine pH 6.0 Ur Specific [place] 1.015 Urine Protein 15 H Urine Glucose (UA) Normal Urine Ketones Negative Urine Occult Blood 10 H Urine Nitrite Positive H Urine Bilirubin Negative Urine Urobilinogen Normal Ur Leukocyte Esterase 500 H Urine RBC 0-5 SEEN Urine WBC 25-50 SEEN Ur Squamous Epith Cells 0 SEEN Urine Bacteria 3+ Urine Mucus 0 SEEN Radiography Diagnostic Testing: Clinical Impression(s) from Imaging Studies Chest X-Ray 07/03/21 04:50 IMPRESSION: There is compressive atelectasis in the right lung base. There is moderate right pleural effusion. Electronically Signed: Keyvn Bui MD at 5:27 EST Reading Location ID and State: [facility] / [place] Tel , Service support , Discharge Plan Triage Chief Complaint: Confusion ED Provider: Carlos Hearn Dx/Rx/DC Orders Prescriptions: No Action clopidogrel [Plavix] 75 mg tablet 75 mg PO DAILY RF: 0 metoprolol succinate [Toprol XL] 25 mg tablet extended release 24 hr 25 mg PO DAILY RF: 0 hydroxyzine HCl 50 mg tablet 50 mg PO QHS RF: 0 lactase 3,000 unit tablet 3,000 unit PO QAC RF: 0 trazodone 50 mg tablet 50 mg PO QHS RF: 0 Biofreeze (menthol) 4 % gel 1 applic topical Q6H PRN (Reason: pain) RF: 0 hyoscyamine sulfate [Levsin] 0.125 mg tablet 0.125 mg PO Q4H PRN (Reason: congestion) RF: 0 potassium chloride 10 mEq capsule, extended release 20 meq PO DAILY RF: 0 senna 8.6 mg capsule 8.6 mg PO BID PRN (Reason: constipation) RF: 0 atorvastatin 10 mg tablet 10 mg PO DAILY RF: 0 acetaminophen 325 mg tablet 650 mg PO Q4H PRN (Reason: pain, mild) RF: 0 warfarin 2 mg tablet 2 mg PO TUTHSA RF: 0 amiodarone 200 mg tablet 200 mg PO TID Qty: 120 RF: 0 Biotene Moisturizing Mouth [place],Non-Aerosol 1 applic mucous membrane Q2H PRN (Reason: dry mouth) Qty: 44.3 RF: 0 spironolactone 25 mg tablet 25 mg PO DAILY Qty: 30 RF: 0 Primary Care Provider: Aric Archibald
[2021-07-03 05:13] LABS: Prothrombin Time (Protime)PT. 40.4 SECONDS (11.7-14.9)
[2021-07-03 05:14] LABS: Partial Thromboplast Time 60.4 Seconds (24.1-36.2)
[2021-07-03 05:24] LABS: Lactic Acid 7.6 mmol/L (0.4-1.9)
[2021-07-03 05:25] LABS: ALB/GLOB Ratio 0.7 RATIO (0.9-2.4); AST(SGOT) 32 U/L (15-37); Alanine Aminotransfer ALT/SGPT 22 U/L (16-61); Albumin, Serum 2.7 g/dL (3.2-5.0); Alkaline Phosphatase 117 U/L (45-117); Anion Gap 13 (5-15); BUN 44 mg/dL (7-18); BUN/Creat Ratio 17.2 RATIO (10-20); Chloride 99 mmol/L (98-107); Creatinine, Serum 2.56 mg/dL (0.70-1.30); EST Glomerular Filtration Rate 25 mL/min (>60); Est Glom Filt Rate - Afr Amer 31 mL/min (>60); Estimated Creatinine Clearance 20.45 ml/min; Glucose 163 mg/dL (74-106); International Normalized Ratio 4.3; Protein, Total 6.7 g/dL (6.4-8.2); Sodium Level 132 mmol/L (136-145); Troponin-I HS 14 pg/mL (3.0-78.0)
[2021-07-03 05:31] LABS: Mucous, Urine 0 SEEN /hpf (<or=2+); Squamous Epithelial Cells - UA 0 SEEN /hpf (0-5)
[2021-07-03] MEDS: 0.9% Normal Saline 1,000 ML 999 ML IV (05:35)
[2021-07-03 05:37] LABS: Color, Urine Yellow (Yellow); Glucose, Dipstick Normal (Normal); Ketone-Dipstick Negative (Negative); Leukocyte Esterase-Dipstick 500 /ul (Negative); Nitrite-Dipstick Positive (Negative); Occult Blood-Urine 10 /ul (Negative); Protein-Dipstick 15 mg/dl (Negative); Specific Gravity, Urine 1.015 (1.002-1.030); Urine Bilirubin Dipstick Negative (Negative); Urine Clarity Sl. Cloudy (Clear); Urine Urobilinogen Normal (Normal)
--- NOTE | 2021-07-03 05:53 | HP.PCM.HOS_ITS ---
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 History was taken for emergent department doctor and patient's because patient is confused. At baseline patient could find the bathroom. However patient was so confused that he was turning on the lights looking for the bathroom. His symptoms have been progressively worsening. Patient was having rigors. Patient has been sleeping more than usual. called EMS. EMS found the patient had a temperature of 103. Recently patient was treated for UTI. Of note patient was at a [facility] about 6 to 8 weeks ago. Of note patient had a Mancuso catheter that was removed about 6 to 8 weeks ago (?). Before the Mancuso and after the Mancuso patient has been urinating frequently. Patient has a poor appetite and is not drinking much. [facility] Medical History Abdominal distention Anxiety Ascites Atrial fibrillation Atrial fibrillation BPH (benign prostatic hyperplasia) Cancer Change in bowel habit Chronic kidney disease, stage 3a CPAP (continuous positive airway pressure) dependence Encounter for chemotherapy management Essential hypertension Follicular lymphoma Generalized weakness HLD (hyperlipidemia) Hydronephrosis Hypotension IBS (irritable bowel syndrome) Irregular heart beat Left renal mass Mesenteric mass Multinodular goiter Multiple thyroid nodules Non-smoker Oral candidiasis Pacemaker Pacemaker Pleural effusion, right Sleep apnea TIA (transient ischemic attack) Urinary catheter in place Home Medications clopidogrel 75 mg tablet 75 mg PO DAILY 03/19/19 [History Last Taken 12/10/20 75 mg] metoprolol succinate 25 mg tablet,extended release 24 hr 25 mg PO DAILY 03/19/19 [History Last Taken 12/10/20 25 mg] saliva stimulant comb. no.3 [Biotene Moisturizing Mouth] 1 applic MUCOUS MEMBRANE Q2H PRN #44.3 ml 12/22/20 [Rx Last Taken Unknown] hydroxyzine HCl 50 mg tablet 50 mg PO QHS 03/08/21 [History Last Taken Unknown] atorvastatin 10 mg tablet 10 mg PO DAILY 03/16/21 [History Last Taken Unknown] lactase 3,000 unit tablet 3,000 unit PO QAC tab 03/16/21 [History Last Taken Unknown] trazodone 50 mg tablet 50 mg PO QHS tab 03/16/21 [History Last Taken Unknown] acetaminophen 325 mg tablet 650 mg PO Q4H PRN tab 04/13/21 [History Last Taken Unknown] menthol 4 % topical gel 1 applic TOPICAL Q6H PRN ml 04/13/21 [History Last Taken Unknown] potassium chloride 10 mEq capsule,extended release 20 meq PO DAILY cap 04/13/21 [History Last Taken Unknown] sennosides 8.6 mg capsule 8.6 mg PO BID PRN cap 04/27/21 [History Last Taken Unknown] warfarin 2 mg tablet 2 mg PO TUTHSA tab 04/27/21 [History Last Taken Unknown] amiodarone 200 mg PO DAILY 07/03/21 [History Last Taken Unknown] diphenhydramine HCl [Benadryl] 25 mg PO QHS 07/03/21 [History Last Taken Unknown] finasteride 5 mg PO DAILY 07/03/21 [History Last Taken Unknown] tamsulosin [Flomax] 0.4 mg PO QHS 07/03/21 [History Last Taken Unknown] warfarin 3 mg PO MOWEFR 07/03/21 [History Last Taken Unknown] Allergy/AdvReac Type Severity Reaction Status Date / Time sulfamethoxazole Allergy Intermediate joint pain Verified 07/03/21 04:25 [From Bactrim] trimethoprim [From Bactrim] Allergy Intermediate joint pain Verified 07/03/21 04:25 alprazolam [From Xanax] Allergy Unknown unknown Verified 07/03/21 04:25 lorazepam [From Ativan] Allergy Unknown unknown Verified 07/03/21 04:25 lactose AdvReac Intermediate Diarrhea Verified 07/03/21 04:25 Family History Mother Arthritis Cancer uterine Father Colon cancer Surgical History History of hip replacement History of thoracentesis Social History Smoking Status: Never smoker second hand exposure: No alcohol intake: never substance use type: does not use tacos/jewish: Restorationism seatbelt use: always do you feel safe at home: Yes ROS ROS Narrative Pertinent positives and pertinent negatives as noted in HPI. All other systems were reviewed and are negative. Review of system was taken from patient's as patient is confused Review of Systems ROS Unobtainable: other Vital Signs Vital Signs Vital Signs: 07/03/21 04:19 07/03/21 05:24 07/03/21 05:30 Temperature 103 F H 101.5 F H 101.5 F H Temperature Source Temporal Temporal Temporal Pulse Rate 58 L 92 91 Respiratory Rate 18 28 H 28 H Blood Pressure 155/124 H 142/62 H 142/62 H Blood Pressure Mean 134 88 88 Pulse Ox 93 91 93 Oxygen Delivery Method Room Air Room Air Room Air Weight Weight: 69.8 kg Body Mass Index (BMI) 21.4 Physical Exam Narrative Physical exam: General: Sickly looking and pale Head: Normocephalic, atraumatic, no tenderness Eyes: Grossly normal vision. Patient can track with his eyes. Patient does not keep his eyes open to check for pupillary reflex and accommodation. ENT, no trauma, dry mucous membranes, no rhinorrhea Neck: Nontender, full range of motion, no spinal tenderness, deformities, step- off CVS: Tachycardia; S1-S2 present. No murmur, gallop or rub. Respiratory : Tachypnea; Diminished, chest wall nontender, no wheezing Abdomen: Soft, nontender, nondistended, normal bowel sounds, no masses : Deferred Back: Nontender, no CVA tenderness, no midline spinal tenderness, deformities, step-offs Extremities: Nontender full range of motion, no trauma Skin: Skin tear to right forearm. Pale. Neuro: Alert, Confused. Psychiatry: Normal mood. Normal affect. Jittery Results Lab / Micro Data Result Diagrams: 07/03/21 04:35 07/03/21 04:35 Labs: Laboratory Results - last 24 hr 07/03/21 04:35: WBC 9.4, RBC 3.68 L, Hgb 11.1 L, Hct 34.6 L, MCV 94.0, MCH 30.2, MCHC 32.1, RDW Std Deviation 59.7 H, RDW Coeff of Flash 17.1 H, Plt Count 133 L, MPV 10.0, Immature Gran % (Auto) 1.100 H, Neut % (Auto) 81.0 H, Lymph % (Auto) 16.9 L, [place] % (Auto) 0.4, Eos % (Auto) 0.3, Baso % (Auto) 0.3, Absolute Neuts (auto) 7.6, Absolute Lymphs (auto) 1.60, Nucleated RBC % 0 07/03/21 04:35: PT 40.4 H, INR 4.3 H*, APTT 60.4 H 07/03/21 04:35: Sodium 132 L, Potassium 6.0 H*, Chloride 99, Carbon Dioxide 20.0 L, Anion Gap 13, BUN 44 H, Creatinine 2.56 H, Estim Creat Clear Calc 20.45, Est GFR (MDRD) Af Amer 31 L, Est GFR (MDRD) Non-Af 25 L, BUN/Creatinine Ratio 17.2, Glucose 163 H, Calcium 11.0 H, Total Bilirubin 0.50, AST 32, ALT 22, Alkaline Phosphatase 117, Troponin I High Sens 14, Total Protein 6.7, Albumin 2.7 L, Globulin 4.0, Albumin/Globulin Ratio 0.7 L 07/03/21 04:35: Lactic Acid 7.6 H* 07/03/21 05:15: Urine Color Yellow, Urine Clarity Sl. Cloudy, Urine pH 6.0, Ur Specific [place] 1.015, Urine Protein 15 H, Urine Glucose (UA) Normal, Urine Ketones Negative, Urine Occult Blood 10 H, Urine Nitrite Positive H, Urine Bilirubin Negative, Urine Urobilinogen Normal, Ur Leukocyte Esterase 500 H Radiology Impression Chest X-Ray 07/03/21 04:50 IMPRESSION: There is compressive atelectasis in the right lung base. There is moderate right pleural effusion. Electronically Signed: Kevyn Bui MD at 5:27 EST Reading Location ID and State: [facility] / [place] Tel , Service support , Assessment & Plan Assessment/Plan (1) Septic shock: (2) UTI (urinary tract infection): QUALIFIERS: Urinary tract infection type: site unspecified Hematuria presence: without hematuria Qualified Code(s): N39.0 - Urinary tract infection, site not specified PLAN: Right forearm.Septic shock secondary to UTI. SIRS criteria: Heart rate of more than 90; respiratory rate of more than 20; T- max of 103 Fahrenheit qSOFA is a 2 (respiratory rate more equal to 22; confusion) Lactic acid is 7.6. Normal saline bolus at 30 mL/kg bolus ordered emergency department. We will continue patient on gentle IV hydration. Trend lactic acid. Chest x-ray with right pleural effusion.. Chest x-ray also have right pleural effusion. Of note reported patient has lymphoma spread to right lung. Patient is not hypoxic. Blood culture x2 ordered at the ED; follow Urinalysis showed urine occult blood of 10, likely secondary trauma from catheterization. Positive nitrite; leukocyte esterase 500; pyuria 25-50 white blood cells. 3+ bacteria; urine squamous epithelial cells of 0. Review of record showed a urine culture obtained on 06/21/2021 was positive for Klebsiella oxytoca, ESBL negative and pansensitive to multiple antibiotics including ceftriaxone. Reportedly patient was on cephalexin for 5 days. However a culture showed that Klebsiella which he declined was intermediate to cefazolin. Started on ceftriaxone on this presentation at the ED and continued. Admit to intensive care unit Hyperkalemia On home potassium supplementation. Also on reconsult meds include spironolactone Potassium presentation was 6.0 moderately hemolyzed. Calcium is already 11.0. With IV fluids anticipate that potassium level will improve. Repeat potassium after IV hydration completed. EKG showed junctional tachycardia. Hypercalcemia Calcium presentation is 11.0. Etiology includes dehydration, lymphoma or other. IV hydration as above. Trend BMP. 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 Creatinine baseline is between 1.5-2 on presentation his creatinine was 2.56 . BUN is 44. BUN over creatinine 17.2. Likely prerenal from dehydration and intrinsic renal from toxic effects of shock. IV hydration as above. Trend BMP. Avoid nephrotoxins. Stage IV lymphoma Of note patient's is on chemotherapy and immunotherapy with last treatment about 6 to 8 weeks ago. Previously patient was on hospice but hospice was revoked. Continue outpatient follow-up with oncology DVT prophylaxis: Patient INR is supratherapeutic. On Coumadin at home. No anticoagulation at this time. Trend PT/INR. Charges/Coding Visit Charges Inpatient E&M: 82084 Init Hosp L3
[2021-07-03] MEDS: Ceftriaxone 1 GM/50 ML BAG IV (05:58)
[2021-07-03] MEDS: Acetaminophen 500 MG Tablet 1000 MG PO (06:05)
[2021-07-03 06:08] LABS: Bacteria 3+ /hpf (None Seen); Red Blood Cells-Urine 0-5 SEEN /hpf (0-5); White Blood Cells 25-50 SEEN /hpf (0-5)
--- NOTE | 2021-07-03 06:43 | CON.PCM.CC_ITS ---
Assessment & Plan Assessment/Plan (1) Sepsis: PLAN: RECOMMENDATIONS: 1. Continue antimicrobials as ordered. 2. Discontinue hydroxyzine and trazodone. 3. Recheck lactate. 4. Continue to hold Coumadin and recheck INR daily. IMPRESSIONS: 1. Sepsis The patient presented with sepsis due to presumed urinary tract source of infection with acute sepsis related organ dysfunction as evidenced by altered mentation, acute on chronic kidney disease and lactic acidemia. However, the patient has a reported baseline history of cognitive impairment and does appear to be on several sedating medications at his baseline, which could certainly be contributing to his altered mentation. In addition, the lactic acidemia could be explained alternatively by his underlying malignancy with disease progression, especially since the patient has never been hemodynamically unstable. Accordingly, I feel it is much more accurate to describe the patient's condition as sepsis as opposed to septic shock given the confounding variables that may have also contributed to his lactic acidemia. The patient only meets septic shock criteria due to a lactate greater than 4. The patient does have a recent history of a Klebsiella urinary tract infection, which was apparently treated with an antibiotic with intermediate sensitivity. The patient has been placed on appropriate antimicrobial therapy and cultures are pending. 2. Altered mentation While I cannot discount the impact of the patient's urinary tract infection on his mentation, he does have baseline cognitive deficits which are likely being exacerbated extensively by the concurrent use of nightly trazodone, hydroxyzine and Benadryl. I strongly advised the patient's to discontinue the aforementioned medications given the potential for side effects. Continue sup portive measures as noted above. 3. Acute on chronic kidney disease/hyperkalemia Most likely multifactorial in etiology with prerenal contributions coupled with intrinsic renal disease. Continue to monitor urine output for now. No current indication for renal replacement therapy. The patient's potassium was hemolyzed. Anticipate improvement with volume expansion. 4. Coagulopathy The patient presented with a supratherapeutic INR in the setting of outpatient anticoagulation on Coumadin. Continue to hold warfarin for now and monitor INR daily. No indication for reversal 5. History of atrial fibrillation/hyperlipidemia/BPH/stage IV NHL Complicates care, management, recovery and prognosis. The patient is currently scheduled to undergo a PET scan this upcoming Sunday to assess overall disease response to therapy. He has not had dedicated abdominal imaging since February. This note was generated with Dragon dictation software. It may contain incorrect words, spelling, and punctuation that were not noted in checking the note before signing. HPI Consult Data Date of Consult: 07/03/21 HPI Narrative Reason for Consultation: Septic shock HPI Narrative: The patient is an 86-year-old male, with a history as outlined below, who presented to the emergency department via EMS on the morning of July 03 with altered mentation. The patient's medical history is significant for atrial fibrillation status post pacemaker placement along with stage IV non- Hodgkin's lymphoma on treatment with Rituxan and Bendamustine. The patient was last evaluated by Dr. Rivas of oncology on June 01, at which time, the plan was to proceed with PET/CT to evaluate for residual disease. The patient's was able to confirm that he has had progressive cognitive impairment over the years. She also confirmed that for quite some time they have been administering the patient a combination of trazodone, hydroxyzine and Benadryl on a nightly basis. On presentation to the emergency department, the patient was noted to be febrile with a temperature of 103 ?F. He was otherwise hemodynamically stable. Laboratory evaluation revealed a normal white blood cell count. The patient does have chronic anemia and thrombocytopenia. Coagulation profile was notable for an INR of 4.3. Chemistry profile was notable for a sodium of 132, potassium of 6.0, bicarbonate of 20 and creatinine of 2.56. Lactate was elevated at 7.6. Urine analysis was positive for nitrites and leukocyte esterase, along with 3+ urine bacteria. Chest imaging demonstrated a chronic right pleural effusion with associated compressive atelectasis. Of note, the patient just grew out Klebsiella from a urine culture dated June 21. The patient was ordered to receive supplemental IV fluids and was started on antimicrobials. He was then admitted to the medical intensive care unit for further management. FORMERLY [facility], [facility] Medical History Abdominal distention Anxiety Ascites Atrial fibrillation Atrial fibrillation BPH (benign prostatic hyperplasia) Cancer Change in bowel habit Chronic kidney disease, stage 3a CPAP (continuous positive airway pressure) dependence Encounter for chemotherapy management Essential hypertension Follicular lymphoma Generalized weakness HLD (hyperlipidemia) Hydronephrosis Hypotension IBS (irritable bowel syndrome) Irregular heart beat Left renal mass Mesenteric mass Multinodular goiter Multiple thyroid nodules Non-smoker Oral candidiasis Pacemaker Pacemaker Pleural effusion, right Sleep apnea TIA (transient ischemic attack) Urinary catheter in place Home Medications clopidogrel 75 mg tablet 75 mg PO DAILY 03/19/19 [History Last Taken 12/10/20 75 mg] metoprolol succinate 25 mg tablet,extended release 24 hr 25 mg PO DAILY 03/19/19 [History Last Taken 12/10/20 25 mg] saliva stimulant comb. no.3 [Biotene Moisturizing Mouth] 1 applic MUCOUS MEMBRANE Q2H PRN #44.3 ml 12/22/20 [Rx Last Taken Unknown] hydroxyzine HCl 50 mg tablet 50 mg PO QHS 03/08/21 [History Last Taken Unknown] atorvastatin 10 mg tablet 10 mg PO DAILY 03/16/21 [History Last Taken Unknown] lactase 3,000 unit tablet 3,000 unit PO QAC PRN tab 03/16/21 [History Last Taken Unknown] trazodone 50 mg tablet 50 mg PO QHS tab 03/16/21 [History Last Taken Unknown] acetaminophen 325 mg tablet 500 mg PO Q4H PRN tab 04/13/21 [History Last Taken Unknown] menthol 4 % topical gel 1 applic TOPICAL Q6H PRN ml 04/13/21 [History Last Taken Unknown] potassium chloride 10 mEq capsule,extended release 20 meq PO DAILY cap 04/13/21 [History Last Taken Unknown] sennosides 8.6 mg capsule 8.6 mg PO BID PRN cap 04/27/21 [History Last Taken Unknown] warfarin 2 mg tablet 2 mg PO SUTUTHSA tab 04/27/21 [History Last Taken Unknown] amiodarone 200 mg PO DAILY 07/03/21 [History Last Taken Unknown] diphenhydramine HCl [Benadryl] 25 mg PO QHS 07/03/21 [History Last Taken Unknown] finasteride 5 mg PO DAILY 07/03/21 [History Last Taken Unknown] tamsulosin [Flomax] 0.4 mg PO QHS 07/03/21 [History Last Taken Unknown] warfarin 3 mg PO MOWEFR 07/03/21 [History Last Taken Unknown] Allergy/AdvReac Type Severity Reaction Status Date / Time sulfamethoxazole Allergy Intermediate joint pain Verified 07/03/21 04:25 [From Bactrim] trimethoprim [From Bactrim] Allergy Intermediate joint pain Verified 07/03/21 04:25 alprazolam [From Xanax] Allergy Unknown unknown Verified 07/03/21 04:25 lorazepam [From Ativan] Allergy Unknown unknown Verified 07/03/21 04:25 lactose AdvReac Intermediate Diarrhea Verified 07/03/21 04:25 Family History Mother Arthritis Cancer uterine Father Colon cancer Surgical History History of hip replacement History of thoracentesis Social History Smoking Status: Never smoker second hand exposure: No alcohol intake: never substance use type: does not use tacos/baptist: Catholic seatbelt use: always do you feel safe at home: Yes ROS Review of Systems ROS Unobtainable: due to mental condition and due to mental status Physical Exam Const no apparent distress Constitutional Narrative: Sleeping soundly but will intermittently arouse to answer some questions. General Appearance: lethargic HEENT normocephalic and head/scalp atraumatic Eyes PERRL, EOMs intact bilaterally and conjunctivae normal Neck supple General: trachea midline Chest inspection of chest normal Resp Resp Narrative: Diminished right lung base Effort and Inspection: tachypneic Cardio regular rate and regular rhythm GI normal to inspection, nondistended, normoactive bowel sounds Extremity no clubbing, cyanosis or edema Skin no rashes or lesions noted Neuro moves all extremities and no focal motor deficits Psych Mood & Affect: flat affect Lab / Micro Data Result Diagrams: 07/03/21 04:35 07/03/21 04:35 Labs: Laboratory Results - last 24 hr 07/03/21 04:35: WBC 9.4, RBC 3.68 L, Hgb 11.1 L, Hct 34.6 L, MCV 94.0, MCH 30.2, MCHC 32.1, RDW Std Deviation 59.7 H, RDW Coeff of Flash 17.1 H, Plt Count 133 L, MPV 10.0, Immature Gran % (Auto) 1.100 H, Neut % (Auto) 81.0 H, Lymph % (Auto) 16.9 L, Dougherty % (Auto) 0.4, Eos % (Auto) 0.3, Baso % (Auto) 0.3, Absolute Neuts (auto) 7.6, Absolute Lymphs (auto) 1.60, Nucleated RBC % 0 07/03/21 04:35: PT 40.4 H, INR 4.3 H*, APTT 60.4 H 07/03/21 04:35: Sodium 132 L, Potassium 6.0 H*, Chloride 99, Carbon Dioxide 20.0 L, Anion Gap 13, BUN 44 H, Creatinine 2.56 H, Estim Creat Clear Calc 20.45, Est GFR (MDRD) Af Amer 31 L, Est GFR (MDRD) Non-Af 25 L, BUN/Creatinine Ratio 17.2, Glucose 163 H, Calcium 11.0 H, Total Bilirubin 0.50, AST 32, ALT 22, Alkaline Phosphatase 117, Troponin I High Sens 14, Total Protein 6.7, Albumin 2.7 L, Globulin 4.0, Albumin/Globulin Ratio 0.7 L 07/03/21 04:35: Lactic Acid 7.6 H* 07/03/21 05:15: Urine Color Yellow, Urine Clarity Sl. Cloudy, Urine pH 6.0, Ur Specific [place] 1.015, Urine Protein 15 H, Urine Glucose (UA) Normal, Urine Ketones Negative, Urine Occult Blood 10 H, Urine Nitrite Positive H, Urine Bilirubin Negative, Urine Urobilinogen Normal, Ur Leukocyte Esterase 500 H, Urine RBC 0-5 SEEN, Urine WBC 25-50 SEEN, Ur Squamous Epith Cells 0 SEEN, Urine Bacteria 3+, Urine Mucus 0 SEEN Micro: Microbiology 07/03/21 05:15 Nasal Secretion SARS-CoV-2 Antigen (Rapid) - Final Radiology Impression Chest X-Ray 07/03/21 04:50 IMPRESSION: There is compressive atelectasis in the right lung base. There is moderate right pleural effusion. Electronically Signed: Kevyn Bui MD at 5:27 EST Reading Location ID and State: [facility] [place] [facility] / [place] Tel , Service support , Charges/Coding Visit Charges Inpatient E&M: 51413 Init Hosp L3
--- NOTE | 2021-07-03 07:02 | SEPSIS_ITS ---
Sepsis Note Physical Exam/Vitals Objective: Chest X-Ray 07/03/21 04:50 IMPRESSION: There is compressive atelectasis in the right lung base. There is moderate right pleural effusion. Electronically Signed: Kevyn Bui MD at 5:27 EST Reading Location ID and State: [facility] / [place] Tel , Service support , Temp Pulse Resp BP Pulse Ox 101.4 F H 85 90 H 138/59 H 27 07/03/21 06:47 07/03/21 06:47 07/03/21 06:47 07/03/21 06:47 07/03/21 06:47 07/03/21 07/03/21 07/03/21 05:15 04:35 04:35 WBC RBC Hgb Hct MCV MCH MCHC RDW Std Deviation RDW Coeff of Flash Plt Count MPV Immature Gran % (Auto) Neut % (Auto) Lymph % (Auto) [place] % (Auto) Eos % (Auto) Baso % (Auto) Absolute Neuts (auto) Absolute Lymphs (auto) Nucleated RBC % PT INR APTT Sodium 132 L Potassium 6.0 H* Chloride 99 Carbon Dioxide 20.0 L Anion Gap 13 BUN 44 H Creatinine 2.56 H Estim Creat Clear Calc 20.45 Est GFR (MDRD) Af Amer 31 L Est GFR (MDRD) Non-Af 25 L BUN/Creatinine Ratio 17.2 Glucose 163 H Lactic Acid 7.6 H* Calcium 11.0 H Total Bilirubin 0.50 AST 32 ALT 22 Alkaline Phosphatase 117 Troponin I High Sens 14 Total Protein 6.7 Albumin 2.7 L Globulin 4.0 Albumin/Globulin Ratio 0.7 L Urine Color Yellow Urine Clarity Sl. Cloudy Urine pH 6.0 Ur Specific [place] 1.015 Urine Protein 15 H Urine Glucose (UA) Normal Urine Ketones Negative Urine Occult Blood 10 H Urine Nitrite Positive H Urine Bilirubin Negative Urine Urobilinogen Normal Ur Leukocyte Esterase 500 H Urine RBC 0-5 SEEN Urine WBC 25-50 SEEN Ur Squamous Epith Cells 0 SEEN Urine Bacteria 3+ Urine Mucus 0 SEEN 07/03/21 07/03/21 04:35 04:35 WBC 9.4 RBC 3.68 L Hgb 11.1 L Hct 34.6 L MCV 94.0 MCH 30.2 MCHC 32.1 RDW Std Deviation 59.7 H RDW Coeff of Flash 17.1 H Plt Count 133 L MPV 10.0 Immature Gran % (Auto) 1.100 H Neut % (Auto) 81.0 H Lymph % (Auto) 16.9 L [place] % (Auto) 0.4 Eos % (Auto) 0.3 Baso % (Auto) 0.3 Absolute Neuts (auto) 7.6 Absolute Lymphs (auto) 1.60 Nucleated RBC % 0 PT 40.4 H INR 4.3 H* APTT 60.4 H Sodium Potassium Chloride Carbon Dioxide Anion Gap BUN Creatinine Estim Creat Clear Calc Est GFR (MDRD) Af Amer Est GFR (MDRD) Non-Af BUN/Creatinine Ratio Glucose Lactic Acid Calcium Total Bilirubin AST ALT Alkaline Phosphatase Troponin I High Sens Total Protein Albumin Globulin Albumin/Globulin Ratio Urine Color Urine Clarity Urine pH Ur Specific [place] Urine Protein Urine Glucose (UA) Urine Ketones Urine Occult Blood Urine Nitrite Urine Bilirubin Urine Urobilinogen Ur Leukocyte Esterase Urine RBC Urine WBC Ur Squamous Epith Cells Urine Bacteria Urine Mucus Attestation Sepsis Attestation: Sepsis re-evaluation was performed
[2021-07-03] MEDS: 0.9% Normal Saline 1,000 ML 75 ML IV ×3 (07:30→16:55)
[2021-07-03 08:54] LABS: Reflex Lactate? Y
[2021-07-03 09:30] LABS: Anion Gap 8 (5-15); BUN 42 mg/dL (7-18); BUN/Creat Ratio 17.4 RATIO (10-20); Calcium,Total 10.4 mg/dL (8.5-10.1); Chloride 106 mmol/L (98-107); Creatinine, Serum 2.42 mg/dL (0.70-1.30); EST Glomerular Filtration Rate 27 mL/min (>60); Est Glom Filt Rate - Afr Amer 33 mL/min (>60); Estimated Creatinine Clearance 20.27 ml/min; Glucose 96 mg/dL (74-106); Sodium Level 136 mmol/L (136-145)
[2021-07-03 09:37] LABS: Lactic Acid 3.1 mmol/L (0.4-1.9)
[2021-07-03] MEDS: Amiodarone 200 MG Tablet PO (10:53)
[2021-07-03] MEDS: Finasteride 5 MG Tablet PO (10:53)
[2021-07-03] MEDS: Clopidogrel Bisulfate 75 MG Tablet PO (10:54)
[2021-07-03] MEDS: Ensure Clear 120 ML Liquid PO ×3 (10:54→21:28)
--- NOTE | 2021-07-03 16:15 | NURSING ---
spoke with the regarding code status and she verified that the patient is to be a DNRCCA No Intubation. Also spoke about low BP and that a fluid bolus was being given. Explained that if patient's BP does not improve levophed and possibly a central line will be needed. The seemed hesitant and asked if her children could come to the hospital to discuss their wishes. She was told that they could come in to see him and discuss it.
--- NOTE | 2021-07-03 18:13 | NURSING ---
Patients and 4 children present at bedside. This nurse explained in length the low BP and the need for levophed if his BP continues to decrease. Family asked about the risks of medication administration. This nurse risk explained that the risk included infiltration of medication and tissue necrosis along with the possible need for central line placement if levophed is started. Family had a 30 minute discussion amongst themselves. 1800 map 60, this nurse approached the family with their decision of levophed initiation. The stated that they do not want to start levophed as it carries too many risks and they wish to make the patient comfortable. Discussed in length that if levophed is not started and the patient's BP continues to drop that it will result in organ damage and eventually . The stated she understood and stated that she wishes to change him to comfort care status and consult hospice in the morning Core text sent to Dr. Morillo to call the ICU for an update..
--- NOTE | 2021-07-03 20:57 | PCM.HOSP.N ---
Hospitalist Note Seen and examined. History taken from patient's near the bedside. 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 He was brought to ED by EMS for change in mental status, confusion, unawareness, lack of initiative like unable to stand from a bladder tic without assistance. Patient was also found wandering around the house and in clinically speech. Patient was recently treated for UTI as an outpatient as per . I talked about admitting hospitalist. Patient is not cooperative. The patient had CT-guided biopsy on 11/16/2020 showing stage IV B-cell NHL follicular lymphoma on treatment for Rituxan and bendamustine. Was last evaluated by Dr Rivas on November 29. As per the patient's , his discharge from SNF about 6 weeks ago. He has been more drowsy, lethargic tired sleeping more than normal after discharge from half-way. He is on hydroxyzine and Benadryl probably started during half-way stay. About 3 weeks ago, he had mild burning micturition and her called home health nurse and he had UA done suggestive of UTI and was started on antibiotic 5 days after onset of symptoms, Keflex which she completed full course, 5 days. Patient burning micturition resolved. Patient is still lethargic confused, not eating well and mostly somnolent. Patient has been admitted multiple times. Patient had thoracocentesis on 11/16/2020 with cytology showing atypical lymphocytes. Previous CT scan showed large right pleural effusion, mesenteric nodes and ascites left retroperitoneal mass in addition to moderate hydronephrosis of left kidney and compression of ureter and omental caking of the abdomen. Patient was again admitted in December 2020 and had thoracocentesis on 12/13/2020 and had therapeutic thoracocentesis. The patient had CT chest, abdomen and pelvis CT abdomen pelvis with contrast on 03/02/2021 which showed progression of perihepatic masses, mesenteric masses and retroperitoneal mass but interval improvement of ascites. Also has other multiple comorbidities include A. fib, DEUCE on CKD stage III Physical exam General: Somnolent, lethargic, drowsy. HEENT: Not spontaneously opening eyes. Atraumatic, PERRLA, EOMI, Normocephalic Oral: No Gingival or Mucosal Lesions/ Ulcerations Neck: Supple, No JVD, Negative Carotid Bruits Lungs: Air entry diminished in right lung base. Right moderate pleural effusion. No crepitation/rhonchi Cardiovascular: Sinus rhythm, Normal S1, Normal S2, No murmurs Abdomen: Bowel Sounds Present, Soft, Non Tender, Non-Distended : No renal angle tenderness. No suprapubic tenderness. Extremities: No edema, Capillary Refill Less than 3 Seconds Skin: No rashes, No breakdown Musculoskeletal: No Tenderness to Palpation of Joints or Extremities Neurological: Groggy, cranial nerves II-XII grossly intact, DTR 2+/4. GCS 12. E3 V4 M4 Psych/Mental Status: Flat affect somnolent Currently patient is lactic acidemia, qSOFA score 2/3, change in mental status tachypnea but not hypotensive. Patient also not tachycardic. Patient is admitted in ICU on ceftriaxone. Discussed with the electronic publishing specialist. Labs, imaging, EKG and medications reviewed. Discussed with the pharmacist Assessment and plan 1. Sepsis most likely from /complicated UTI with organ dysfunction due to altered mental status, acute on chronic kidney disease and lactic acidemia. There are a lot of confounding factors as patient has been on sedative medication hydroxyzine and Benadryl. Blood pressure, not hypotensive. Patient also has progression of cancer disease. Continue IV antibiotic. 2. Progression of B-cell non-Hodgkin lymphoma stage IV: CT abdomen as mentioned above shows progression of the retroperitoneal, mesenteric and perihepatic masses. Patient had chemotherapy 6 to 8 weeks ago. 3. Acute on CKD stage IIIA with hypercalcemia: BUN/creatinine 44/2.56. Baseline creatinine 1.5-2.0. Patient on IV fluid. Monitor electrolytes and kidney function. 4. History of chronic A. fib, BPH, generalized debility and weakness: Twelve-lead EKG shows junctional rhythm at 96 bpm, QTC prolonged 535 ms. Monitor EKG daily for QTC prolongation Total time of the visit including total time spent in counseling or coordination of care, (more than 50% of the total time, spent in obtaining medical information from nurses and other ancillary care providers,explaining to the patient's about labs, imaging, diagnosis and management), discussion with electronic publishing specialist, review of labs and imaging is 40 minutes. Procedures Hospitalists Procedures: [id number] Prolonged InPt Service; first hour
[2021-07-03] MEDS: Tamsulosin HCl 0.4 MG Capsule PO (21:29)
[2021-07-03] MEDS: Atorvastatin Calcium 10 MG Tablet PO (21:29)
[2021-07-04] VITALS (8 sets, daily range): BP systolic 89–132; BP diastolic 43–65; PULSE 64–88; RESP 14–18; TEMP 36.3–36.6; O2SAT 93–98
--- NOTE | 2021-07-04 06:34 | PCM.PN.INT ---
Assessment & Plan Assessment/Plan (1) Sepsis: PLAN: RECOMMENDATIONS: 1. Continue antimicrobials as ordered. 2. Discontinue hydroxyzine and trazodone. 3. Hold labs and EKG this morning given goals of therapy 4. Continue to hold Coumadin. Treat with vitamin K only if develops bleeding 5. Await coordination of hospice 6. Challenge with 1 L of LR 7. Given goals of therapy, will sign off from a critical care perspective IMPRESSIONS: 1. Sepsis The patient presented with sepsis due to presumed urinary tract source of infection with acute sepsis related organ dysfunction as evidenced by altered mentation, acute on chronic kidney disease and lactic acidemia. Patient reportedly is seeking comfort care measures at this time. Patient does have a gram-negative growing in his blood. Goals of therapy have been switched to more symptomatic, so we will continue with antibiotics. Patient will be given a challenge of LR 2. Altered mentation Patient appears to be much improved compared to presentation. This may be a consequence of discontinuation of sedative meds overnight or improvement in problem #1. Continue supportive measures. 3. Acute on chronic kidney disease/hyperkalemia Most likely multifactorial in etiology with prerenal contributions coupled with intrinsic renal disease. Continue to monitor urine output for now. No current indication for renal replacement therapy. Labs will be held this morning given goals of therapy 4. Coagulopathy INR was elevated at presentation, but patient does not have any bleeding complications at this time. Would continue to hold warfarin, but no vitamin K will be given unless patient develops bleeding complications. 5. History of atrial fibrillation/hyperlipidemia/BPH/stage IV NHL Complicates care, management, recovery and prognosis. Patient will likely not receive PET scan next week given goals of therapy. He has not had dedicated abdominal imaging since February. This note was generated with [employer] dictation software. It may contain incorrect words, spelling, and punctuation that were not noted in checking the note before signing. Subjective Subjective Patient did well overnight. No acute issues were reported. Patient has not had any bleeding complications despite elevated INR. Blood pressures have been marginal, but patient reports symptoms only with change in position. Family reportedly has changed patient to a DNR Comfort Care only and is hoping for hospice measures later today. Objective Data Objective Data Vital Signs: Vital Signs Temp Pulse Resp BP Pulse Ox 36.3 C L 66 14 89/43 L 94 07/04/21 02:00 07/04/21 02:00 07/04/21 02:00 07/04/21 02:00 07/04/21 02:00 Oxygen Delivery Method Room Air Weight: 66.9 kg Body Mass Index (BMI) 20.1 Intake & Output: Intake and Output for Last 24 Hours 07/02/21 07/03/21 07/04/21 23:59 23:59 23:59 Intake Total 3816.25 / 3936.25 120 / 120 Output Total 950 / 1250 300 / 300 Balance 2866.25 / 2686.25 -180 / -180 Medical Nutrition Assessment Dietitian: Malnutrition Criteria Met Start: 07/03/21 09:50 Freq: Status: Active Protocol: Document 07/03/21 09:50 AG (Rec: 07/03/21 09:50 [id number]) Nutrition Malnutrition Evidence of Malnutrition Exists Yes Malnutrition (severe): Chronic Evidenced By Suboptimal Energy Intake ( Severe),Weight Loss (Severe) Clinical Problem Acute Disease or Injury Related Malnutrition Etiology severe, chronic malnutrition r /t inadequate energy intake w/ increased energy needs d/t lymphoma Signs/Symptoms as evidenced by unintentional wt loss of 35.9#/20% x 6 months, estimated PO intake meeting <75% of estimated energy needs >3 months Status Active Problem Recommendation Dietitian Recommendations/Changes will add Ensure Clear 120mL 4x /day w/ medpass; carnation instant breakfast (in lactose free milk) w/ meals, and 1 scoop beneprotein w/ meals. Will change diet to regular given severe malnutrition. Lab / Micro Data Result Diagrams: 07/03/21 04:35 07/03/21 08:50 Labs: Laboratory Results - last 24 hr 07/03/21 08:50: Sodium 136, Potassium 4.0, Chloride 106, Carbon Dioxide 22.0, Anion Gap 8, BUN 42 H, Creatinine 2.42 H, Estim Creat Clear Calc 20.27, Est GFR (MDRD) Af Amer 33 L, Est GFR (MDRD) Non-Af 27 L, BUN/Creatinine Ratio 17.4, Glucose 96, Calcium 10.4 H 07/03/21 08:50: Lactic Acid 3.1 H* Micro: Microbiology 07/03/21 04:35 Blood Culture (Wb) - Right Wrist Blood Culture - Preliminary 07/03/21 05:15 Nasal Secretion SARS-CoV-2 Antigen (Rapid) - Final Physical Exam Const no apparent distress Constitutional Narrative: Answers questions appropriately. More interactive than previously described General Appearance: cooperative, comfortable and well kempt HEENT normocephalic and head/scalp atraumatic Eyes PERRL, EOMs intact bilaterally and conjunctivae normal Neck supple General: trachea midline Chest inspection of chest normal Resp Resp Narrative: Diminished right lung base Effort and Inspection: tachypneic Cardio regular rate and regular rhythm GI normal to inspection, nondistended, normoactive bowel sounds Extremity no clubbing, cyanosis or edema Skin no rashes or lesions noted Neuro moves all extremities and no focal motor deficits Psych Mood & Affect: flat affect Charges/Coding Visit Charges Inpatient E&M: 22665 Subs Hosp L2
[2021-07-04] MEDS: Lactated Ringers 1,000 ML 999 ML IV (06:52)
[2021-07-04] MEDS: Amiodarone 200 MG Tablet PO (09:50)
[2021-07-04] MEDS: Ensure Clear 120 ML Liquid PO ×4 (09:50→20:22)
[2021-07-04] MEDS: Finasteride 5 MG Tablet PO (09:51)
[2021-07-04] MEDS: Clopidogrel Bisulfate 75 MG Tablet PO (09:55)
--- NOTE | 2021-07-04 11:53 | PCM.CONS.GEN ---
Assessment & Plan Assessment/Plan (1) Follicular lymphoma grade 3a: QUALIFIERS: Lymphoma site: extranodal excluding spleen and other solid organs Qualified Code(s): C82.39 - Follicular lymphoma grade IIIa, extranodal and solid organ sites (2) Bacteremia: PLAN: Sepsis due to GNR bacteremia from presumed urinary source, complicated by lymphoma and CKD. Ucx 06/21 with klebs, given keflex at that time but was I susc. On cefepime, improving. Family discussing hospice. Would likely be candidate for po abx at discharge even if he does go with hospice. Will follow, thank you HPI Consult Data Date of Consult: 07/04/21 HPI Narrative HPI Narrative: MAXIMUS ZHAO, is a 86 M with stage IV follicular lymphoma, dx with UTI 2-3 weeks ago. Given course of keflex, still with some increased urinary frequency, confusion. Sx worsened, had fall at home, developed shaking chills. Sent to ED, admitted on ceftriaxone then changed to cefepime. Feeling better this AM, family at bedside, considering hospice. Pt feeling ok, no abd pain, no flank pain. Full ROS performed and neg except as noted above. [facility] Medical History Abdominal distention Anxiety Ascites Atrial fibrillation Atrial fibrillation BPH (benign prostatic hyperplasia) Cancer Change in bowel habit Chronic kidney disease, stage 3a CPAP (continuous positive airway pressure) dependence Encounter for chemotherapy management Essential hypertension Follicular lymphoma Generalized weakness HLD (hyperlipidemia) Hydronephrosis Hypotension IBS (irritable bowel syndrome) Irregular heart beat Left renal mass Mesenteric mass Multinodular goiter Multiple thyroid nodules Non-smoker Oral candidiasis Pacemaker Pacemaker Pleural effusion, right Sleep apnea TIA (transient ischemic attack) Urinary catheter in place Home Medications clopidogrel 75 mg tablet 75 mg PO DAILY 03/19/19 [History Last Taken 12/10/20 75 mg] metoprolol succinate 25 mg tablet,extended release 24 hr 25 mg PO DAILY 03/19/19 [History Last Taken 12/10/20 25 mg] saliva stimulant comb. no.3 [Biotene Moisturizing Mouth] 1 applic MUCOUS MEMBRANE Q2H PRN #44.3 ml 12/22/20 [Rx Last Taken Unknown] hydroxyzine HCl 50 mg tablet 50 mg PO QHS 03/08/21 [History Last Taken Unknown] atorvastatin 10 mg tablet 10 mg PO DAILY 03/16/21 [History Last Taken Unknown] lactase 3,000 unit tablet 3,000 unit PO QAC PRN tab 03/16/21 [History Last Taken Unknown] trazodone 50 mg tablet 50 mg PO QHS tab 03/16/21 [History Last Taken Unknown] acetaminophen 325 mg tablet 500 mg PO Q4H PRN tab 04/13/21 [History Last Taken Unknown] menthol 4 % topical gel 1 applic TOPICAL Q6H PRN ml 04/13/21 [History Last Taken Unknown] potassium chloride 10 mEq capsule,extended release 20 meq PO DAILY cap 04/13/21 [History Last Taken Unknown] sennosides 8.6 mg capsule 8.6 mg PO BID PRN cap 04/27/21 [History Last Taken Unknown] warfarin 2 mg tablet 2 mg PO SUTUTHSA tab 04/27/21 [History Last Taken Unknown] amiodarone 200 mg PO DAILY 07/03/21 [History Last Taken Unknown] diphenhydramine HCl [Benadryl] 25 mg PO QHS 07/03/21 [History Last Taken Unknown] finasteride 5 mg PO DAILY 07/03/21 [History Last Taken Unknown] tamsulosin [Flomax] 0.4 mg PO QHS 07/03/21 [History Last Taken Unknown] warfarin 3 mg PO MOWEFR 07/03/21 [History Last Taken Unknown] Allergy/AdvReac Type Severity Reaction Status Date / Time sulfamethoxazole Allergy Intermediate joint pain Verified 07/03/21 04:25 [From Bactrim] trimethoprim [From Bactrim] Allergy Intermediate joint pain Verified 07/03/21 04:25 alprazolam [From Xanax] Allergy Unknown unknown Verified 07/03/21 04:25 lorazepam [From Ativan] Allergy Unknown unknown Verified 07/03/21 04:25 lactose AdvReac Intermediate Diarrhea Verified 07/03/21 04:25 Family History Mother Arthritis Cancer uterine Father Colon cancer Surgical History History of hip replacement History of thoracentesis Social History Smoking Status: Never smoker second hand exposure: No alcohol intake: never substance use type: does not use tacos/jewish: [employer] seatbelt use: always do you feel safe at home: Yes Physical Exam Const alert, oriented x3 and no apparent distress General Appearance: cooperative Exam Limitations: no limitations HEENT normocephalic and head/scalp atraumatic Eyes PERRL and EOMs intact bilaterally Neck supple and No nodes Resp normal air movement and clear to auscultation bilaterally Cardio regular rate and regular rhythm Heart Sounds: murmur GI soft to palpation, non-tender and non-distended Extremity no clubbing, cyanosis or edema Skin no rashes or lesions noted Neuro CN's II-XII intact bilaterally Medical Records Data Medical Nutrition Assessment Dietitian: Malnutrition Criteria Met Start: 07/03/21 09:50 Freq: Status: Active Protocol: Document 07/03/21 09:50 (Rec: 07/03/21 09:50 [id number]) Nutrition Malnutrition Evidence of Malnutrition Exists Yes Malnutrition (severe): Chronic Evidenced By Suboptimal Energy Intake ( Severe),Weight Loss (Severe) Clinical Problem Acute Disease or Injury Related Malnutrition Etiology severe, chronic malnutrition r /t inadequate energy intake w/ increased energy needs d/t lymphoma Signs/Symptoms as evidenced by unintentional wt loss of 35.9#/20% x 6 months, estimated PO intake meeting <75% of estimated energy needs >3 months Status Active Problem Recommendation Dietitian Recommendations/Changes will add Ensure Clear 120mL 4x /day w/ medpass; carnation instant breakfast (in lactose free milk) w/ meals, and 1 scoop beneprotein w/ meals. Will change diet to regular given severe malnutrition. Lab / Micro Data Result Diagrams: 07/03/21 04:35 07/03/21 08:50 Micro: Microbiology 07/03/21 05:15 Urine, Catheterized Urine Culture - Preliminary GNR lactose software systems analyst 07/03/21 04:30 Blood Culture (Wb) - Anticubital Right Blood Culture - Preliminary GNR lactose software systems analyst 07/03/21 04:35 Blood Culture (Wb) - Right Wrist Blood Culture - Preliminary GNR lactose software systems analyst
--- NOTE | 2021-07-04 13:37 | PCM.PN.HOSP ---
Subjective Subjective Patient states he is feeling overall well. His blood pressures were borderline but responded to 1 L of saline. He is asymptomatic with respect to his blood pressure being on the low normal side. CODE STATUS was changed to DNR CC and the plan is to be discharged with hospice and to complete his antibiotic course. Objective Data Objective Data Vital Signs: Vital Signs Temp Pulse Resp BP Pulse Ox 97.9 F 88 18 99/45 L 94 07/04/21 12:00 07/04/21 12:00 07/04/21 12:00 07/04/21 12:00 07/04/21 12:00 Oxygen Delivery Method Room Air Weight: 66.9 kg Body Mass Index (BMI) 20.1 Intake & Output: Intake and Output for Last 24 Hours 07/02/21 07/03/21 07/04/21 23:59 23:59 23:59 Intake Total 3816.25 / 3936.25 2340 / 2340 Output Total 950 / 1250 1000 / 1000 Balance 2866.25 / 2686.25 1340 / 1340 Medical Nutrition Assessment Dietitian: Malnutrition Criteria Met Start: 07/03/21 09:50 Freq: Status: Active Protocol: Document 07/03/21 09:50 AG (Rec: 07/03/21 09:50 [id number]) Nutrition Malnutrition Evidence of Malnutrition Exists Yes Malnutrition (severe): Chronic Evidenced By Suboptimal Energy Intake ( Severe),Weight Loss (Severe) Clinical Problem Acute Disease or Injury Related Malnutrition Etiology severe, chronic malnutrition r /t inadequate energy intake w/ increased energy needs d/t lymphoma Signs/Symptoms as evidenced by unintentional wt loss of 35.9#/20% x 6 months, estimated PO intake meeting <75% of estimated energy needs >3 months Status Active Problem Recommendation Dietitian Recommendations/Changes will add Ensure Clear 120mL 4x /day w/ medpass; carnation instant breakfast (in lactose free milk) w/ meals, and 1 scoop beneprotein w/ meals. Will change diet to regular given severe malnutrition. Lab / Micro Data Result Diagrams: 07/03/21 04:35 07/03/21 08:50 Micro: Microbiology 07/03/21 05:15 Urine, Catheterized Urine Culture - Preliminary GNR lactose gas fitter apprentice 07/03/21 04:30 Blood Culture (Wb) - Anticubital Right Blood Culture - Preliminary GNR lactose gas fitter apprentice 07/03/21 04:35 Blood Culture (Wb) - Right Wrist Blood Culture - Preliminary GNR lactose gas fitter apprentice 07/03/21 05:15 Nasal Secretion SARS-CoV-2 Antigen (Rapid) - Final Physical Exam Const alert and no apparent distress Constitutional Narrative: Elderly white male sitting up in bed, oriented to location, self, time but not present and states HEENT head/scalp atraumatic HEENT Narrative: Dentition is fair for age, mucous membranes are moist, Mallampati is 3, no significant thrush noted Head and Scalp: normocephalic Resp normal respiratory effort, no retractions, no use of accessory muscles and clear to auscultation bilaterally Auscultation: crackles; Negative for rales, rhonchi or wheezes Cardio regular rate, regular rhythm, S1 normal heart sound, S2 normal heart sound, no rub, no gallops, no clicks and no JVD; Negative for no murmurs Cardio Narrative: 2 out of 6 systolic murmur GI normal to inspection, nondistended, normoactive bowel sounds, soft to palpation, non-tender and non-distended Extremity no clubbing, cyanosis or edema Peripheral Pulses: Yes pulses 2+ throughout Neuro oriented x3, moves all extremities and no focal motor deficits Neuro Narrative: Marked weakness felt focal deficits Sensorium / Orientation: awake and alert Speech: speech normal Psych affect normal Assessment & Plan Assessment/Plan (1) Sepsis: (2) Bacteremia: (3) UTI (urinary tract infection): QUALIFIERS: Urinary tract infection type: site unspecified Hematuria presence: without hematuria Qualified Code(s): N39.0 - Urinary tract infection, site not specified (4) DEUCE (acute kidney injury): (5) Coagulopathy: (6) Metabolic encephalopathy: (7) Hyperkalemia: PLAN: Sepsis secondary to gram-negative bacteremia from UTI -Patient has been responsive to IV fluids thus far -White count has normalized from neutropenia -Lactic acid has trended down -We will continue IV fluids at 75 cc/h for now -Home antihypertensives -Continue cefepime -Await identifications and sensitivities -We will likely be able to discharge home on oral antibiotics -ID has been consulted and following -Plan is to discharge home with hospice complete antibiotic course Metabolic encephalopathy -Patient did receive some sedating medications overnight -Mentation appears to be improving -Hydroxyzine and trazodone were already discontinued Coagulopathy -Patient is on Coumadin at baseline for paroxysmal atrial fibrillation -INR this morning was 4.3 -Hold Coumadin -Repeat INR in a.m. 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 -Baseline hemoglobin appears to be 1.4-1.5 -Current hemoglobin is 2.42 which has improved since admission -We will continue IV hydration and watch volume status -No need for continued lab given goals of care have changed to more comfort related measures Hyperkalemia -Resolved -Hold home potassium supplementation Lactic acidosis -Improving -Related to sepsis PAF -Continue amlodipine -Hold Coumadin given coagulopathy -Hold metoprolol with soft blood sugars BPH -Continue Flomax -Continue finasteride Stage IV non-Hodgkin's lymphoma -Patient would like to go to hospice -Hospice has met with the patient and planning for discharge with hospice to home on oral antibiotics once stable for that -Anticipate discharge in the next 24 hours DVT prophylaxis -Patient is super therapeutic on Coumadin with an INR 4.3 CODE STATUS -DNR CC -Home with hospice likely in the next 24 to 48 hours Charges/Coding Visit Charges Inpatient E&M: 65105 Subs Hosp L2
[2021-07-04] MEDS: 0.9% Saline Lock 10 ML Syringe IV (14:33)
[2021-07-04] MEDS: 0.9% Normal Saline 1,000 ML 75 ML IV (14:33)
[2021-07-04] MEDS: Tamsulosin HCl 0.4 MG Capsule PO (20:21)
[2021-07-04] MEDS: Atorvastatin Calcium 10 MG Tablet PO (20:21)
[2021-07-05 02:12] VITALS: BP 149/67; PULSE 93; RESP 18; TEMP 36.6; O2SAT 94
[2021-07-05] MEDS: 0.9% Normal Saline 1,000 ML 75 ML IV (02:15)
[2021-07-05 08:06] VITALS: O2SAT 91
[2021-07-05 08:50] VITALS: BP 95/62; PULSE 86; RESP 16; TEMP 36.1; O2SAT 96
[2021-07-05] MEDS: Amiodarone 200 MG Tablet PO (08:56)
[2021-07-05] MEDS: Finasteride 5 MG Tablet PO (08:56)
[2021-07-05] MEDS: Clopidogrel Bisulfate 75 MG Tablet PO (08:56)
[2021-07-05] MEDS: Ensure Clear 120 ML Liquid PO (08:56)
[2021-07-05 09:15] VITALS: O2SAT 94
--- NOTE | 2021-07-05 10:11 | PCM.PN.ID ---
Physical Exam Narrative Feeling ok, reports still confused. No fever, working with PT this AM. Denies dysuria. Mild loose stool, no abd pain Const alert and no apparent distress General Appearance: cooperative Resp normal air movement and clear to auscultation bilaterally Cardio regular rate and regular rhythm GI soft to palpation, non-tender and non-distended Skin no rashes or lesions noted ID ID: Route of nutrition/ use of supplements: [] Nutritional Intake: [] IV Site: [] Mancuso Catheter: [] Assessment & Plan Assessment/Plan (1) Follicular lymphoma grade 3a: QUALIFIERS: Lymphoma site: extranodal excluding spleen and other solid organs Qualified Code(s): C82.39 - Follicular lymphoma grade IIIa, extranodal and solid organ sites (2) Bacteremia: PLAN: Sepsis due to GNR bacteremia from presumed urinary source, complicated by lymphoma and CKD. Ucx 06/21 with klebs, given keflex at that time but was I susc. On cefepime, improving. Ucx again with klebs. Plan on home with hospice and one week cefdinir po 300mg daily. Will follow, d/w Dr. Zaragoza
--- NOTE | 2021-07-05 11:18 | CASEMGMT ---
Pt to dc home with hospice today. Pt inquiring about transportation home. RN CM in to pt room, pt present and pt sitting up in chair. Pt reports there is one step up on the porch and one step into the home, no ramp. Pt and dtr will be present when pt arrives. They are aware that this transportation will be set up. Notified GROUP PRACTICE PEDIATRICIAN of this info. Pt/ deny further needs.
--- NOTE | 2021-07-05 11:19 | CASEMGMT ---
Social Work Note Pt to discharge home with Hospice today. CHRISTOPHER updated that pt's family is requesting transportation to be arranged for home. CHRISTOPHER placed a call to [facility] and message left for Grace in admissions. CHRISTOPHER received call from Edmond at [facility] stating she met with pt's family yesterday and states all equipment has been delivered to home. Pt can discharge home with Hospice today. CHRISTOPHER informed Edmond that pt's family is requesting transportation home, this will need to be arranged by CHRISTOPHER. Once transportation is confirmed, this worker will call [facility] to update on transportation time. Edmond states understanding. CHRISTOPHER received a call from Grace at [facility]. CHRISTOPHER updated Grace that pt will discharge home today. SW to update [facility] once transportation time is confirmed. Discharge paperwork will need to be faxed when completed to [facility]. RN states pt to transport home via cot Plan: Home with [facility] today Brittany Marshall BOOKING MANAGER, CAR CHECKER
--- NOTE | 2021-07-05 11:36 | PCM.DC.SUM ---
Providers Date of Admission: 07/03/21 Date of Discharge: 07/05/21 Primary Care Physician: Dr. Aric Archibald MD Consultations 07/03/21 07:24 Consult: [employer]er / Pulmonary Medicine Routine Consulting Provider: Drake Holland Reason for Consult: Septic shock EMERGENT Consult: No Notified: Yes Date Notified: 07/03/21 Time Notified: 05:50 Method of Notification: Verbal 07/03/21 16:20 Consult: Infectious Disease Routine Consulting Provider: Salomon Nicole Reason for Consult: sepsis EMERGENT Consult: No Notified: Yes Date Notified: 07/03/21 Time Notified: 16:20 Method of Notification: Text 07/03/21 18:38 Consult: Hospice / Palliative Care Routine Consulting Provider: [facility] Reason for Consult: sepsis EMERGENT Consult: No MD Notified: Yes Date Notified: 07/03/21 Time Notified: 18:39 Method of Notification: Verbal Reason For Visit: SEPTIC SHOCK FROM UTI Diagnosis Discharge Diagnosis (1) Follicular lymphoma grade 3a: Status: Chronic Code(s): C82.30 - Follicular lymphoma grade IIIa, unspecified site Qualifiers: Lymphoma site: extranodal excluding spleen and other solid organs Qualified Code(s): C82.39 - Follicular lymphoma grade IIIa, extranodal and solid organ sites (2) Bacteremia: Status: Acute Code(s): R78.81 - Bacteremia (3) Sepsis: Status: Acute Code(s): A41.9 - Sepsis, unspecified organism (4) Coagulopathy: Status: Acute Code(s): D68.9 - Coagulation defect, unspecified (5) DEUCE (acute kidney injury): Status: Acute Code(s): N17.9 - Acute kidney failure, unspecified (6) Metabolic encephalopathy: Status: Acute Code(s): G93.41 - Metabolic encephalopathy Medications at Discharge Home Medications clopidogrel 75 mg tablet 75 mg PO DAILY 03/19/19 metoprolol succinate 25 mg tablet,extended release 24 hr 25 mg PO DAILY 03/19/19 Biotene Moisturizing Mouth 1 applic MUCOUS MEMBRANE Q2H PRN #44.3 ml 12/22/20 lactase 3,000 unit tablet 3,000 unit PO QAC PRN tab 03/16/21 trazodone 50 mg tablet 50 mg PO QHS tab 03/16/21 acetaminophen 325 mg tablet 500 mg PO Q4H PRN tab 04/13/21 menthol 4 % topical gel 1 applic TOPICAL Q6H PRN ml 04/13/21 sennosides 8.6 mg capsule 8.6 mg PO BID PRN cap 04/27/21 amiodarone 200 mg PO DAILY 07/03/21 diphenhydramine HCl [Benadryl] 25 mg PO QHS 07/03/21 finasteride 5 mg PO DAILY 07/03/21 tamsulosin [Flomax] 0.4 mg PO QHS 07/03/21 cefdinir 300 mg PO DAILY 7 Days #7 cap 07/05/21 Hospital Course Operations None Procedures None Summary of Care Provided Minutes Spent on Discharge: 42 Hospital Course: Mr. Najera is an 86-year-old male who presented to the emergency department at [facility] on 07/03/2021 via EMS with altered mental status. The patient has a known history of stage IV non-Hodgkin's lymphoma which she is being treated with Rituxan and Bendamustine. The patient has known cognitive impairment over the years but had has increased confusion over the last week prior to admission. Evidently the patient was having rigors at home and was sleeping more than usual. When the squad arrived EMS found that he had a temperature of 103. The patient did evidently had a chronic Mancuso which was removed about 6 to 8 weeks prior to presentation and family did indicate that the patient had been frequently urinating over the last several days prior to admission. He unfortunately developed some hypotension and was found to have a potassium of 6, bicarb of 20 and a serum creatinine of 2.56 with an elevated lactate at 7.6. His UA was significant for nitrites and leukoesterase along with 3+ bacteria and white cells in his urine. Of note, the patient did just grow out Klebsiella from a urine culture that was dated 06/21/2021 and was evidently treated with outpatient antibiotics at that time. He was admitted to the ICU given his picture of sepsis. He was treated with IV fluids and antibiotics early. His lactic acid did improve prove as did his hypotension. His urine and blood cultures did grow out the same Klebsiella organisms with similar resistance pattern to his cultures that were done earlier in June. He was maintained on IV antibiotics during his hospitalization infectious disease dilated the patient in consult. He was able to be transferred out of the ICU on 07/04/2021 with stabilized blood pressures, improving mentation, and resolving sepsis picture. After meeting with family on 07/03/2021 and looking at the big picture with regards to his baseline lymphoma acute infections and overall health the decision was made to pursue hospice. Hospice did meet with the patient and the family on 07/04/2021 and arrangements will be made to be discharged home with hospice care. The family wanted to continue antibiotics to complete his course and this was done so with Omnicef for another 7 days 300 mg daily and a prescription was sent to the pharmacy. He was able to be discharged home on 07/05/2021 in stable condition with the intent to be enrolled in hospice and complete his oral antibiotics. Given his transition to hospice he was discontinued on his home Coumadin. His INR is were elevated during his hospitalization. Discharge diagnoses: Sepsis-resolved Klebsiella bacteremia Klebsiella urinary tract infection Metabolic encephalopathy-resolved Coagulopathy DEUCE-resolved CKD stage IIIb Hyperkalemia-resolved Lactic acidosis-resolved PAF BPH Stage IV non-Hodgkin's lymphoma Medical Records Data Medical Nutrition Assessment Dietitian: Malnutrition Criteria Met Start: 07/03/21 09:50 Freq: Status: Active Protocol: Document 07/03/21 09:50 AG (Rec: 07/03/21 09:50 AG [id number]) Nutrition Malnutrition Evidence of Malnutrition Exists Yes Malnutrition (severe): Chronic Evidenced By Suboptimal Energy Intake ( Severe),Weight Loss (Severe) Clinical Problem Acute Disease or Injury Related Malnutrition Etiology severe, chronic malnutrition r /t inadequate energy intake w/ increased energy needs d/t lymphoma Signs/Symptoms as evidenced by unintentional wt loss of 35.9#/20% x 6 months, estimated PO intake meeting <75% of estimated energy needs >3 months Status Active Problem Recommendation Dietitian Recommendations/Changes will add Ensure Clear 120mL 4x /day w/ medpass; carnation instant breakfast (in lactose free milk) w/ meals, and 1 scoop beneprotein w/ meals. Will change diet to regular given severe malnutrition. Weight / BMI Weight Weight: 66.5 kg Body Mass Index (BMI) 20.1 ABG / Lab / Microbiology Data Result Diagrams: 07/03/21 04:35 07/03/21 08:50 Microbiology: Microbiology 07/03/21 05:15 Urine, Catheterized Urine Culture - Final Klebsiella oxytoca 07/03/21 04:35 Blood Culture (Wb) - Right Wrist Blood Culture - Final GNR lactose inventory assistant 07/03/21 04:30 Blood Culture (Wb) - Anticubital Right Blood Culture - Final Klebsiella oxytoca 07/03/21 05:15 Nasal Secretion SARS-CoV-2 Antigen (Rapid) - Final D/C Instructions Discharge Diet: No restrictions Discharge Activity: Return to Normal Activity Meaningful Use Info Meaningful Use Diagnoses (Choose all that apply): None applicable Discharge Plan Admission Admit Date/Time: 07/03/21 05:45 Primary Reason for Your Visit: Confusion Attending Provider: Lenore Zaragoza Primary Care Provider: Aric Archibald Consulting Providers: Ruma Sharma ; Mina Lott ; Alondra Franz ; Haley Worthy ; Shaila Soler ; Josefina Sanders NP ; Salomon Nicole ; Drake Holland Discharge Orders/Prescriptions Prescriptions: New cefdinir 300 mg capsule 300 mg PO DAILY 7 Days Qty: 7 RF: 0 Continued clopidogrel [Plavix] 75 mg tablet 75 mg PO DAILY RF: 0 metoprolol succinate [Toprol XL] 25 mg tablet extended release 24 hr 25 mg PO DAILY RF: 0 lactase 3,000 unit tablet 3,000 unit PO QAC PRN (Reason: LACTOSE DIGESTION) RF: 0 trazodone 50 mg tablet 50 mg PO QHS RF: 0 Biofreeze (menthol) 4 % gel 1 applic topical Q6H PRN (Reason: pain) RF: 0 senna 8.6 mg capsule 8.6 mg PO BID PRN (Reason: constipation) RF: 0 acetaminophen 325 mg tablet 500 mg PO Q4H PRN (Reason: pain, mild) RF: 0 Biotene Moisturizing Mouth [place],Non-Aerosol 1 applic mucous membrane Q2H PRN (Reason: dry mouth) Qty: 44.3 RF: 0 tamsulosin [Flomax] 0.4 mg Capsule 0.4 mg PO QHS RF: 0 diphenhydramine HCl [Benadryl] 25 mg Capsule 25 mg PO QHS RF: 0 finasteride 5 mg tablet 5 mg PO DAILY RF: 0 amiodarone 200 mg tablet 200 mg PO DAILY RF: 0 Discontinued hydroxyzine HCl 50 mg tablet 50 mg PO QHS RF: 0 potassium chloride 10 mEq capsule, extended release 20 meq PO DAILY RF: 0 atorvastatin 10 mg tablet 10 mg PO DAILY RF: 0 warfarin 2 mg tablet 2 mg PO SUTUTHSA RF: 0 warfarin 3 mg Tablet 3 mg PO MOWEFR RF: 0 Referrals / Follow Up: Aric Archibald MD [Primary Care Provider] - Disposition Disposition (needs filled in before D/C Order can be placed): Hospice in Home Charges/Coding Visit Charges Inpatient E&M: 74717 Disch Hosp
--- NOTE | 2021-07-05 12:45 | CASEMGMT ---
Social Work Note Discharge is in for pt. CHRISTOPHER accessed trip assist and arranged transportation via cot for 2:00pm. Transportation form completed and given to pathology secretary/transcriptionist. CHRISTOPHER updated RN on transportation time who updated pt's family. CHRISTOPHER placed a call to Edmond at [facility] and updated her on transportation time. CHRISTOPHER faxed discharge paperwork to [facility]. Plan: Home with [facility] today with Physician's transporting pt via cot at 2:00pm Brittany MOYER, UTILIZATION REVIEW COORDINATOR
[2021-07-05 14:00] VITALS: BP 94/70; PULSE 91; RESP 16; TEMP 36.3; O2SAT 98
== END 2021-07-05 14:24 | disposition hospice, home (50) | DRG 871 ==
LOC: ED 07:03 → ICU 07:14 → MS3 07-04 13:51
PROVIDERS: Admitting Provider Hospitalist; Emergency Provider Student in an Organized Health Care Education/Training Program; PCP Internal Medicine; Visit Provider Internal Medicine
DX: A41.59 Other Gram-negative sepsis (principal); G93.41 Metabolic encephalopathy; E46 Unspecified protein-calorie malnutrition; E87.2 Acidosis; C79.02 Secondary malignant neoplasm of left kidney and renal pelvis; C78.01 Secondary malignant neoplasm of right lung; D68.69 Other thrombophilia; C82.39 Follicular lymphoma grade IIIa, extranodal and solid organ sites; N17.9 Acute kidney failure, unspecified; C78.6 Secondary malignant neoplasm of retroperitoneum and peritoneum; D68.9 Coagulation defect, unspecified; J90 Pleural effusion, not elsewhere classified; N13.6 Pyonephrosis; F03.90 Unspecified dementia, unspecified severity, without behavioral disturbance, psychotic disturbance, mood disturbance, and anxiety; I48.0 Paroxysmal atrial fibrillation; N18.31 Chronic kidney disease, stage 3a; N40.0 Benign prostatic hyperplasia without lower urinary tract symptoms; I12.9 Hypertensive chronic kidney disease with stage 1 through stage 4 chronic kidney disease, or unspecified chronic kidney disease; E87.5 Hyperkalemia; E78.5 Hyperlipidemia, unspecified; B96.1 Klebsiella pneumoniae [K. pneumoniae] as the cause of diseases classified elsewhere; E83.52 Hypercalcemia; F41.9 Anxiety disorder, unspecified; Z79.02 Long term (current) use of antithrombotics/antiplatelets; Z66 Do not resuscitate; Z79.899 Other long term (current) drug therapy; Z79.01 Long term (current) use of anticoagulants; Z68.20 Body mass index [BMI] 20.0-20.9, adult
CPT/HCPCS: 36415; 71045; 80048; 80053; 81001; 83605; 84484; 85025; 85610; 85730; 87040; 87077; 87086; 87088; 87186; 87426; 93005; 97110; 97162; 97166; 97530; 97535; 97802; 99285; J7030; J7040; J7050; J7120; A4216

== ENCOUNTER 2021-07-10 22:51 | Emergency (ER) | payer MEDICARE, SELFPAY ==
[2021-07-10 22:52] VITALS: BP 133/56; PULSE 77; RESP 20; TEMP 37.1; O2SAT 94; BMI 22.0
--- NOTE | 2021-07-10 23:25 | EKG12_ITS ---
Test Reason : WEAKNESS Blood Pressure : / mmHG Vent. Rate : 072 BPM Atrial Rate : 072 BPM P-R Int : 202 ms QRS Dur : 114 ms QT Int : 412 ms P-R-T Axes : 016 -33 040 degrees QTc Int : 451 ms Normal sinus rhythm Left axis deviation Incomplete left bundle branch block Abnormal ECG Confirmed by THANIA ROSS, BOO ([id number]), purchase request editor ESTHELA ESCOBEDO ([id number]) on 07/12/2021 9:20:03 AM Referred By: TANA Confirmed By:BOO MONTEIRO MD
--- NOTE | 2021-07-10 23:25 | RAD_ITS ---
STUDY: X-RAY CHEST REASON FOR EXAM: Male, 86 years old. weakness TECHNIQUE: Single AP portable view of the chest. COMPARISON: July 03, 2021. FINDINGS: Moderate right pleural effusion with right lower lobe subsegmental atelectasis unchanged. Left lung well aerated. No pneumothorax. Normal size heart. Normal mediastinum and gagandeep. Normal visualized pulmonary arteries. Normal visualized aortic arch and descending thoracic aorta. Cardiac pacer left hemithorax. Normal visualized thoracic spine. Normal visualized ribs, clavicles, and shoulders. There is no demonstrated abnormality of the visualized soft tissue structures of the upper abdomen. RAD/Chest 1 View (Portable) IMPRESSION: Stable moderate right pleural effusion with right lower lobe subsegmental atelectasis. Pneumonia cannot be excluded. Electronically Signed: Guru Corona MD at 0:14 EST Reading Location ID and State: [id number] / , Service support ,
[2021-07-10 23:37] LABS: Absolute Lymphocyte Count 1.19 X10^3/uL (0.83-4.51); Absolute Neutrophil Count 7.7 X10^3/uL (2.0-7.7); Basophil# 0.03 X10^3/uL; Basophil% 0.3 % (0-1); Eosinophil# 0.05 X10^3/uL; Eosinophils% 0.5 % (0-5); Hematocrit 24.1 % (40-54); Hemoglobin 8.1 g/dL (13.0-16.5); Lymphocyte # 1.19 X10^3/ul (0.83-4.51); Mean Corp Hgb Conc 33.6 g/dL (32-36); Mean Corpuscular Hgb 30.6 pg (27.0-32.0); Mean Corpuscular Volume 90.9 fL (80-94); Mean Platelet Vol. 11.4 fl (6.2-12.0); Monocyte# 0.81 X10^3/uL; Monocyte% 8.2 % (0-10); NRBC Flagged by Analyzer 0 % (0-5); Neutrophil # 7.67 X10^3/uL (2.7-7.7); Neutrophil % 77.7 % (47-70); Platelet Count 103 K/mm3 (150-450); RBC Distribution Width CV 16.8 % (11.6-14.6); RBC Distribution Width SD 56.5 fl (35.1-43.9); Red Blood Count 2.65 M/mm3 (4.6-6.2); White Blood Count 9.9 K/mm3 (4.4-11.0)
[2021-07-10 23:55] VITALS: BP 133/62; PULSE 71; RESP 16; TEMP 36.9; O2SAT 98
[2021-07-10 23:56] LABS: Lactic Acid 3.6 mmol/L (0.4-1.9)
[2021-07-10 23:59] LABS: Anion Gap 8 (5-15); BUN 45 mg/dL (7-18); BUN/Creat Ratio 18.1 RATIO (10-20); Calcium,Total 10.3 mg/dL (8.5-10.1); Chloride 102 mmol/L (98-107); Creatinine, Serum 2.48 mg/dL (0.70-1.30); EST Glomerular Filtration Rate 26 mL/min (>60); Est Glom Filt Rate - Afr Amer 32 mL/min (>60); Estimated Creatinine Clearance 21.65 ml/min; Glucose 146 mg/dL (74-106); Potassium 4.1 mmol/L (3.5-5.1); Sodium Level 134 mmol/L (136-145); Thyroid Stim Hormone (TSH) 4.21 uIU/mL (0.358-3.74); Troponin-I HS 11 pg/mL (3.0-78.0)
--- NOTE | 2021-07-11 00:22 | EX.ED.DYSGE1 ---
HPI History of Present Illness Chief Complaint: Weakness Narrative Narrative: Patient is an 86-year-old male with past medical history of lymphoma who was seen in the hospital at the end of June and admitted for UTI and mild sepsis. Reported patient stayed 1 to 2 days in the hospital and was discharged home. states he has been on Omnicef based on his UTI culture results. She states has been taking as directed. She reports that he has been having intermittent bouts of confusion which is not abnormal for him but she feels its been more frequent recently. She also states he has been having increased weakness and she is concerned that the UTI is not resolving. Secondary to this EMS was called to bring patient in for evaluation. [facility] Medical History Abdominal distention Anxiety Ascites Atrial fibrillation Atrial fibrillation BPH (benign prostatic hyperplasia) Cancer Change in bowel habit Chronic kidney disease, stage 3a CPAP (continuous positive airway pressure) dependence Encounter for chemotherapy management Essential hypertension Follicular lymphoma Generalized weakness HLD (hyperlipidemia) Hydronephrosis Hypotension IBS (irritable bowel syndrome) Irregular heart beat Left renal mass Mesenteric mass Multinodular goiter Multiple thyroid nodules Non-smoker Oral candidiasis Pacemaker Pacemaker Pleural effusion, right Sleep apnea TIA (transient ischemic attack) Urinary catheter in place Home Medications clopidogrel 75 mg tablet 75 mg PO DAILY 03/19/19 [History Last Taken 12/10/20 75 mg] metoprolol succinate 25 mg tablet,extended release 24 hr 25 mg PO DAILY 03/19/19 [History Last Taken 12/10/20 25 mg] Biotene Moisturizing Mouth 1 applic MUCOUS MEMBRANE Q2H PRN #44.3 ml 12/22/20 [Rx Last Taken Unknown] lactase 3,000 unit tablet 3,000 unit PO QAC PRN tab 03/16/21 [History Last Taken Unknown] trazodone 50 mg tablet 50 mg PO QHS tab 03/16/21 [History Last Taken Unknown] acetaminophen 325 mg tablet 500 mg PO Q4H PRN tab 04/13/21 [History Last Taken Unknown] menthol 4 % topical gel 1 applic TOPICAL Q6H PRN ml 04/13/21 [History Last Taken Unknown] sennosides 8.6 mg capsule 8.6 mg PO BID PRN cap 04/27/21 [History Last Taken Unknown] amiodarone 200 mg PO DAILY 07/03/21 [History Last Taken Unknown] diphenhydramine HCl [Benadryl] 25 mg PO QHS 07/03/21 [History Last Taken Unknown] finasteride 5 mg PO DAILY 07/03/21 [History Last Taken Unknown] tamsulosin [Flomax] 0.4 mg PO QHS 07/03/21 [History Last Taken Unknown] cefdinir 300 mg PO DAILY 7 Days #7 cap 07/05/21 [Rx Last Taken Unknown] Allergy/AdvReac Type Severity Reaction Status Date / Time sulfamethoxazole Allergy Intermediate joint pain Verified 07/10/21 22:56 [From Bactrim] trimethoprim [From Bactrim] Allergy Intermediate joint pain Verified 07/10/21 22:56 alprazolam [From Xanax] Allergy Unknown unknown Verified 07/10/21 22:56 lorazepam [From Ativan] Allergy Unknown unknown Verified 07/10/21 22:56 lactose AdvReac Intermediate Diarrhea Verified 07/10/21 22:56 Family History Mother Arthritis Cancer uterine Father Colon cancer Surgical History History of hip replacement History of thoracentesis Social History Smoking Status: Never smoker second hand exposure: No alcohol intake: never substance use type: does not use tacos/mandaen: [employer] seatbelt use: always do you feel safe at home: Yes ROS ROS ED Constitutional Constitutional ED: Denies chills or fever(s) ENT ENT ED: Denies sore throat Cardiovascular Cardiovascular: Denies chest pain Respiratory/Chest Respiratory/Chest: Denies cough or dyspnea Gastrointestinal Gastrointestinal: Denies abdominal pain, diarrhea, nausea or vomiting Genitourinary Genitourinary ED: Denies dysuria Musculoskeletal Musculoskeletal: Denies myalgias Integumentary Denies rash Neurologic Neurologic: Reports weakness; Denies headache(s) Hematologic/Lymphatic Hematologic/Lymphatic: Reports easy bleeding and easy bruising EXAM Physical Exam Const Vital Signs: 07/10/21 22:52 07/10/21 22:55 07/10/21 23:55 Temperature 98.8 F 98.5 F Temperature Source Oral Temporal Pulse Rate 77 71 Pulse Rate [Lying] Pulse Rate [Sitting (for 1 minute prior to obtaining)] Pulse Rate [Standing (for 1 minute prior to obtaining)] Respiratory Rate 20 H 16 Respiratory Effort Normal Respiratory Pattern Normal Blood Pressure 133/56 H 133/62 H Blood Pressure [Lying] Blood Pressure [Sitting (for 1 minute prior to obtaining)] Blood Pressure [Standing (for 1 minute prior to obtaining)] Blood Pressure Mean 81 85 Blood Pressure Mean [Lying] Blood Pressure Mean [Sitting (for 1 minute prior to obtaining)] Blood Pressure Mean [Standing (for 1 minute prior to obtaining)] Pulse Ox 94 98 Oxygen Delivery Method Room Air Room Air 07/11/21 00:39 07/11/21 00:51 Temperature Temperature Source Pulse Rate 79 Pulse Rate [Lying] 72 Pulse Rate [Sitting (for 1 minute prior to obtaining)] 71 Pulse Rate [Standing (for 1 minute prior to obtaining)] 75 Respiratory Rate 15 Respiratory Effort Respiratory Pattern Blood Pressure 127/55 H Blood Pressure [Lying] 139/57 H Blood Pressure [Sitting (for 1 minute prior to obtaining)] 136/59 H Blood Pressure [Standing (for 1 minute prior to obtaining)] 144/58 H Blood Pressure Mean 79 Blood Pressure Mean [Lying] 84 Blood Pressure Mean [Sitting (for 1 minute prior to obtaining)] 84 Blood Pressure Mean [Standing (for 1 minute prior to obtaining)] 86 Pulse Ox 95 Oxygen Delivery Method Room Air Positive well nourished and well developed General Appearance ED: well developed and pallor HEENT Reports dry mucous membranes Mouth ED: Yes dry mucous membranes Mouth: dry mucous membranes Eyes PERRL and EOMs intact bilaterally General Eye ED: Yes pale conjunctiva Neck supple Resp normal respiratory effort Resp Narrative: Breath sounds are diminished throughout with faint crackles noted in the right lung base but no signs of respiratory distress Cardio regular rate and regular rhythm Rate: other Other Details: Radial pulses are +2-4 bilaterally are equal and symmetric GI normal to inspection, nondistended, normoactive bowel sounds, non-tender, non-distended and no masses GI Narrative: No voluntary guarding or rigidity no pulsatile mass Auscultation: normoactive bowel sounds Palpation: soft Narrative: Rectal exam shows normal rectal tone with brown stool that is Hemoccult negative Extremity normal to inspection Neuro oriented x3 and CN's II-XII intact bilaterally Sensorium / Orientation: alert Motor Exam: strength 5/5 throughout Psych Psych Narrative: Patient is fatigued but will awake to voice and has a mildly depressed affect Skin no rashes or lesions noted Skin Narrative: Patient has ecchymotic lesions across his arms consistent with report of easy bruising and skin turgor is increased as well, patient also has pallor noted. General Skin Exam: pallor MDM MDM MDM Narrative Medical decision making narrative: Patient presented to the ER afebrile and normotensive and at his baseline mental status with no focal neurologic deficit. had reported increased weakness and was concerned the UTI was not being treated. As this is a possibility elected to perform a basic work-up. His white count is normal but his hemoglobin has dropped 3 points from his last visit so a rectal exam was performed and stool was negative for blood. Kidney function is elevated but at his baseline with his previous visit. X-ray shows a stable pleural effusion and he has no signs of respiratory distress and is satting in the mid 90s on room air. With the drop in his hemoglobin orthostatic vital signs were obtained and were negative. The patient's urine sample only shows +1 bacteria down from +3 indicating that the Omnicef is destroying the infection and therefore do not feel there is a need to change this. The case was discussed with the hospitalist who feels that the patient could be admitted at this time but only for fdc placement based on his weakness as the remainder of his labs are at his baseline and his vitals are stable. I discussed with the patient and the possibility of fdc placement and they do not want this. They state they will remain in hospice and therefore patient be discharged at this time and advised to finish his antibiotic as previously directed. Lab Data Attestation: I reviewed the patient's lab results. Labs: Laboratory Results - last 24 hr 07/10/21 07/10/21 07/10/21 23:05 23:05 23:05 WBC 9.9 RBC 2.65 L Hgb 8.1 L Hct 24.1 L MCV 90.9 MCH 30.6 MCHC 33.6 RDW Std Deviation 56.5 H RDW Coeff of Flash 16.8 H Plt Count 103 L MPV 11.4 Immature Gran % (Auto) 1.300 H Neut % (Auto) 77.7 H Lymph % (Auto) 12.0 L [place] % (Auto) 8.2 Eos % (Auto) 0.5 Baso % (Auto) 0.3 Absolute Neuts (auto) 7.7 Absolute Lymphs (auto) 1.19 Nucleated RBC % 0 PT INR APTT Sodium 134 L Potassium 4.1 Chloride 102 Carbon Dioxide 24.0 Anion Gap 8 BUN 45 H Creatinine 2.48 H Estim Creat Clear Calc 21.65 Est GFR (MDRD) Af Amer 32 L Est GFR (MDRD) Non-Af 26 L BUN/Creatinine Ratio 18.1 Glucose 146 H Lactic Acid 3.6 H* Calcium 10.3 H Troponin I High Sens 11 Procalcitonin TSH 4.21 H Urine Color Urine Clarity Urine pH Ur Specific [place] Urine Protein Urine Glucose (UA) Urine Ketones Urine Occult Blood Urine Nitrite Urine Bilirubin Urine Urobilinogen Ur Leukocyte Esterase Urine RBC Urine WBC Ur Squamous Epith Cells Urine Bacteria Urine Mucus Blood Type Antibody Screen 07/10/21 07/11/21 07/11/21 23:05 00:10 00:13 WBC RBC Hgb Hct MCV MCH MCHC RDW Std Deviation RDW Coeff of Flash Plt Count MPV Immature Gran % (Auto) Neut % (Auto) Lymph % (Auto) [place] % (Auto) Eos % (Auto) Baso % (Auto) Absolute Neuts (auto) Absolute Lymphs (auto) Nucleated RBC % PT 16.5 H INR 1.4 APTT 41.2 H Sodium Potassium Chloride Carbon Dioxide Anion Gap BUN Creatinine Estim Creat Clear Calc Est GFR (MDRD) Af Amer Est GFR (MDRD) Non-Af BUN/Creatinine Ratio Glucose Lactic Acid Calcium Troponin I High Sens Procalcitonin 1.41 H TSH Urine Color Urine Clarity Urine pH Ur Specific [place] Urine Protein Urine Glucose (UA) Urine Ketones Urine Occult Blood Urine Nitrite Urine Bilirubin Urine Urobilinogen Ur Leukocyte Esterase Urine RBC Urine WBC Ur Squamous Epith Cells Urine Bacteria Urine Mucus Blood Type O NEGATIVE Antibody Screen NEGATIVE 07/11/21 00:30 WBC RBC Hgb Hct MCV MCH MCHC RDW Std Deviation RDW Coeff of Flash Plt Count MPV Immature Gran % (Auto) Neut % (Auto) Lymph % (Auto) [place] % (Auto) Eos % (Auto) Baso % (Auto) Absolute Neuts (auto) Absolute Lymphs (auto) Nucleated RBC % PT INR APTT Sodium Potassium Chloride Carbon Dioxide Anion Gap BUN Creatinine Estim Creat Clear Calc Est GFR (MDRD) Af Amer Est GFR (MDRD) Non-Af BUN/Creatinine Ratio Glucose Lactic Acid Calcium Troponin I High Sens Procalcitonin TSH Urine Color Yellow Urine Clarity Clear Urine pH 5.0 Ur Specific [place] 1.020 Urine Protein 30 H Urine Glucose (UA) Normal Urine Ketones Negative Urine Occult Blood 10 H Urine Nitrite Negative Urine Bilirubin Negative Urine Urobilinogen Normal Ur Leukocyte Esterase Negative Urine RBC 0 SEEN Urine WBC 0-5 SEEN Ur Squamous Epith Cells 0 SEEN Urine Bacteria 1+ Urine Mucus 0 SEEN Blood Type Antibody Screen Radiography Diagnostic Testing: Clinical Impression(s) from Imaging Studies Chest X-Ray 07/10/21 23:25 IMPRESSION: Stable moderate right pleural effusion with right lower lobe subsegmental atelectasis. Pneumonia cannot be excluded. Electronically Signed: Guru Corona MD at 0:14 EST Reading Location ID and State: [id number] / , Service support , Discharge Plan Triage Chief Complaint: Weakness ED Provider: Dave Murrell Dx/Rx/DC Orders Clinical Impression: Generalized weakness, Lymphoma Instructions: ED Weakness (Uncertain Cause) Prescriptions: No Action clopidogrel [Plavix] 75 mg tablet 75 mg PO DAILY RF: 0 metoprolol succinate [Toprol XL] 25 mg tablet extended release 24 hr 25 mg PO DAILY RF: 0 lactase 3,000 unit tablet 3,000 unit PO QAC PRN (Reason: LACTOSE DIGESTION) RF: 0 trazodone 50 mg tablet 50 mg PO QHS RF: 0 Biofreeze (menthol) 4 % gel 1 applic topical Q6H PRN (Reason: pain) RF: 0 senna 8.6 mg capsule 8.6 mg PO BID PRN (Reason: constipation) RF: 0 acetaminophen 325 mg tablet 500 mg PO Q4H PRN (Reason: pain, mild) RF: 0 Biotene Moisturizing Mouth [place],Non-Aerosol 1 applic mucous membrane Q2H PRN (Reason: dry mouth) Qty: 44.3 RF: 0 tamsulosin [Flomax] 0.4 mg Capsule 0.4 mg PO QHS RF: 0 diphenhydramine HCl [Benadryl] 25 mg Capsule 25 mg PO QHS RF: 0 finasteride 5 mg tablet 5 mg PO DAILY RF: 0 amiodarone 200 mg tablet 200 mg PO DAILY RF: 0 cefdinir 300 mg capsule 300 mg PO DAILY 7 Days Qty: 7 RF: 0 Primary Care Provider: Aric Archibald Referrals: Aric Archibald MD [Primary Care Provider] - Disposition Disposition: Home, Self Care
[2021-07-11 00:31] LABS: International Normalized Ratio 1.4; Prothrombin Time (Protime)PT. 16.5 SECONDS (11.7-14.9)
[2021-07-11 00:32] LABS: Partial Thromboplast Time 41.2 Seconds (24.1-36.2)
[2021-07-11 00:35] LABS: Color, Urine Yellow (Yellow); Glucose, Dipstick Normal (Normal); Ketone-Dipstick Negative (Negative); Leukocyte Esterase-Dipstick Negative /ul (Negative); Mucous, Urine 0 SEEN /hpf (<or=2+); Nitrite-Dipstick Negative (Negative); Occult Blood-Urine 10 /ul (Negative); Protein-Dipstick 30 mg/dl (Negative); Red Blood Cells-Urine 0 SEEN /hpf (0-5); Squamous Epithelial Cells - UA 0 SEEN /hpf (0-5); Urine Bilirubin Dipstick Negative (Negative); Urine Clarity Clear (Clear); Urine Urobilinogen Normal (Normal)
[2021-07-11 00:39] VITALS: BP 136/59; BP 139/57; BP 144/58; PULSE 71; PULSE 72; PULSE 75
[2021-07-11 00:43] LABS: Procalcitonin 1.41 ng/mL (0.00-0.09)
[2021-07-11 00:51] VITALS: BP 127/55; PULSE 79; RESP 15; O2SAT 95
[2021-07-11 00:55] LABS: Bacteria 1+ /hpf (None Seen); White Blood Cells 0-5 SEEN /hpf (0-5)
[2021-07-11 03:33] LABS: Reflex Lactate? Y
--- NOTE | 2021-07-12 11:20 | CASEMGMT ---
SANDRA WINTER ED follow-up: Date of ER visit: 07/10/2021 Presenting ER complaint: weakness SANDRA WINTER placed call to patient's telephone number listed on demographics and patient's Cassie answered. SANDRA WINTER introduced self and role at [facility]. states patient unavailable at this time but she is agreeable to speaking with SANDRA WINTER. Cassie states patient is active with Hospice and has scheduled Hospice home visit today and plans for respite care tomorrow. Cassie reports she is very tired related to lack of sleep last evening as patient needed to urinate every 10-15 minutes. Patient completed prescribed antibiotic for UTI today, per . Patient's daughter available to assist with care. denies questions, needs or concerns at this time. SANDRA Briceno CM
== END 2021-07-11 02:44 | disposition home or self-care (01) ==
PROVIDERS: Emergency Provider Emergency Medicine; PCP Internal Medicine; Visit Provider Emergency Medicine
DX: R53.1 Weakness (principal); C85.90 Non-Hodgkin lymphoma, unspecified, unspecified site; I48.91 Unspecified atrial fibrillation; N18.31 Chronic kidney disease, stage 3a; E78.5 Hyperlipidemia, unspecified; I12.9 Hypertensive chronic kidney disease with stage 1 through stage 4 chronic kidney disease, or unspecified chronic kidney disease; Z87.440 Personal history of urinary (tract) infections; Z86.19 Personal history of other infectious and parasitic diseases; N40.0 Benign prostatic hyperplasia without lower urinary tract symptoms; K58.9 Irritable bowel syndrome, unspecified; Z86.73 Personal history of transient ischemic attack (TIA), and cerebral infarction without residual deficits; G47.30 Sleep apnea, unspecified; Z79.899 Other long term (current) drug therapy; J90 Pleural effusion, not elsewhere classified
CPT/HCPCS: 71045; 80048; 81001; 82274; 83605; 84145; 84443; 84484; 85025; 85610; 85730; 86850; 86900; 86901; 93005; 96360; 99285; J7040; A4216

== ENCOUNTER → 2021-07-10 | Outpatient (REF) | payer SELFPAY | LOC: ED 22:51 | PROVIDERS: PCP Internal Medicine; Visit Provider Emergency Medicine | DX: Z00.00 Encounter for general adult medical examination without abnormal findings (principal) | CPT/HCPCS: 71045; 80048; 81001; 82274; 83605; 84145; 84443; 84484; 85025; 85610; 85730; 86850; 86900; 86901; 93005; 96360; 99285; J7040; A4216 ==

== ENCOUNTER 2021-07-15 07:45 | Outpatient (REF) | payer SELFPAY | END 2021-07-15 23:59 | disposition home or self-care (01) | LOC: OLS.HOSPIC 07:45 | PROVIDERS: PCP Internal Medicine; Visit Provider Internal Medicine Cardiovascular Disease | DX: C82.90 Follicular lymphoma, unspecified, unspecified site (principal); Z20.822 Contact with and (suspected) exposure to COVID-19 | CPT/HCPCS: 87635; U0003; U0005 ==

== ENCOUNTER → 2024-03-16 23:59 | Outpatient (RCR) | payer MEDICARE, SELFPAY ==
[2021-06-21 17:37] LABS: Color, Urine Yellow (Yellow); Glucose, Dipstick Normal (Normal); Ketone-Dipstick Negative (Negative); Leukocyte Esterase-Dipstick 500 /ul (Negative); Nitrite-Dipstick Positive (Negative); Occult Blood-Urine 150 /ul (Negative); Protein-Dipstick 100 mg/dl (Negative); Urine Bilirubin Dipstick Negative (Negative); Urine Clarity Turbid (Clear); Urine Urobilinogen Normal (Normal)
== END ==
LOC: HH 06-21 16:49
PROVIDERS: PCP Family Medicine; Visit Provider Internal Medicine
DX: I12.9 Hypertensive chronic kidney disease with stage 1 through stage 4 chronic kidney disease, or unspecified chronic kidney disease (principal); N18.9 Chronic kidney disease, unspecified; C82.90 Follicular lymphoma, unspecified, unspecified site; J90 Pleural effusion, not elsewhere classified; Z79.899 Other long term (current) drug therapy
CPT/HCPCS: 81002; 87077; 87086; 87088; 87186